=== PATIENT | female | born 1990 | race Caucasian/White ===

== ENCOUNTER 2024-12-18 13:20 | Outpatient (CLI) | payer OTHER, SELFPAY ==
[2024-12-18] MEDS: Lactated Ringers 1,000 ML 999 ML IV (13:35)
[2024-12-18 13:49] VITALS: BMI 30.6
--- NOTE | 2024-12-18 15:35 | OB.TRI.NOTE ---
HPI - General HPI Narrative ESPERANZA PEDRO, is a 34 F approximately 7 weeks gestation who presents to L&D for IV fluids due to hyperemesis. Patient has been unable to keep any food or liquids down for over 2 days. Thought she felt better today and ate but threw it up in parking lot. Only able to use Phenergan 25 mg AK. Cannot keep oral Zofran down. It has been recommended to patient for a Zofran pump but patient is declining consultation at this time. PFSH PFSH Allergy/AdvReac Type Severity Reaction Status Date / Time No Known Allergies Allergy Verified 12/18/24 14:03 ROS Eyes Eyes: Denies blurry vision Cardiovascular Cardiovascular: Reports none; Denies chest pain at rest or chest pain with activity Respiratory/Chest Respiratory/Chest: Denies cough or dyspnea Gastrointestinal Gastrointestinal: Reports as per HPI, dry heaves, nausea, vomiting and other Genitourinary Genitourinary: Denies dysuria Musculoskeletal Musculoskeletal: Reports none Integumentary Integumentary: Reports none; Denies rash Neurologic Neurologic: Denies dizziness, headache(s) or other visual disturbances Psychiatric Psychiatric: Reports none Physical Exam Const alert and no apparent distress General Appearance: cooperative Orientation / Consciousness: awake Exam Limitations: no limitations HEENT normocephalic Eyes General Eye: normal appearance of both eyes Neck full ROM Chest inspection of chest normal Resp normal respiratory effort and normal air movement Effort and Inspection: symmetric chest movement Auscultation: clear to auscultation bilaterally Cardio regular rate GI soft to palpation, non-tender and non-distended Inspection: and other Back/Spine normal ROM Extremity full ROM, normal capillary refill and no calf tenderness Skin no rashes or lesions noted Neuro oriented x3 and CN's II-XII intact bilaterally Psych mental status grossly normal Assessment & Plan (1) Nausea/vomiting in : (2) 7 weeks gestation of : PLAN: Plan LR 1000 cc fluid bolus given Zofran 4 mg IV x 1 No emesis since arrival to unit Reports feeling better since IV- may need appointments at infusion therapy D/C home with follow up in office
== END 2024-12-18 15:50 | disposition home or self-care (01) ==
LOC: WPOUT 13:46 → WP 13:47
PROVIDERS: Referring Provider Advanced Practice Midwife; Visit Provider Advanced Practice Midwife
DX: O21.0 Mild hyperemesis gravidarum (principal); Z3A.01 Less than 8 weeks gestation of pregnancy
CPT/HCPCS: 96374; 99221; G0378; J2405

== ENCOUNTER 2025-05-08 13:00 | Outpatient (CLI) | payer OTHER, SELFPAY ==
[2025-05-08 13:35] VITALS: BMI 32.9
--- NOTE | 2025-05-08 13:37 | OB.TRI.HP_ITS ---
HPI - General HPI Narrative ESPERANZA PEDRO, is a 35 F @ 27.4 weeks with Cholestasis of who presents with itching all over, N/V, Diarrhea for the last 24 hrs. pt reports not able to keep fluids down. has had headache associated due to likely dehydration. reports mucous discharge but no bleeding. has some cramping but no thing too painful. pt reports decreased movement but is feeling some. pt offers no other concerns. no sick contact. no fever, no chills. PFSH PFSH Medical History (Updated 05/08/25 @ 13:[address] MD) Nausea/vomiting in Home Medications ?Medication ?Instructions ?Recorded ?Last Taken ?Type aspirin 81 mg chewable tablet 1 tab PO DAILY 05/08/25 Unknown History (Aspirin Childrens) Allergy/AdvReac Type Severity Reaction Status Date / Time latex Allergy Intermediate Rash Verified 05/08/25 13:12 Physical Exam Narrative Gen: female in NAD Abd; soft, gravid, non tender Assessment & Plan (1) Cholestasis during : (2) Diarrhea during : PLAN: Plan @ 27.4 weeks- n/V, pruritis, cholestasis 1) check CMP, Amylase, lipase and UA 2) IVF 3) PO challenge 4) Zofran PRn
[2025-05-08] MEDS: Lactated Ringers 1,000 ML 999 ML IV (13:53)
[2025-05-08 14:28] LABS: AST(SGOT) 31 U/L (<=31); Alanine Aminotransfer ALT/SGPT 26 U/L (<=34); Albumin, Serum 3.6 g/dL (3.5-5.0); Alkaline Phosphatase 84 U/L (35-104); Anion Gap 14 (5-15); BUN 9 mg/dL (4-19); BUN/Creat Ratio 17.3 RATIO (10-20); Calcium,Total 8.8 mg/dL (7.6-11.0); Carbon Dioxide 19.2 mmol/L (21.0-32.0); Chloride 102 mmol/L (98-108); Estimated Creatinine Clearance 168.82 ml/min (50-250); Globulin 3.3 g/dL (2.2-4.2); Glucose 100 mg/dL (70-99); Potassium 3.5 mmol/L (3.3-5.1)
[2025-05-08 14:57] LABS: Amylase 47 U/L (28-100); Lipase 30 U/L (13-75)
--- NOTE | 2025-05-08 15:13 | PCM.PN.BLA ---
Progress Note will give PO challenge - if tolerates will dc home with zofran. feeling better after 1liter bolus and zofran.
[2025-05-08 15:17] LABS: Color, Urine Yellow (Yellow); Glucose, Dipstick Normal (Normal); Leukocyte Esterase-Dipstick Negative /ul (Negative); Nitrite-Dipstick Negative (Negative); Occult Blood-Urine Negative /ul (Negative); Protein-Dipstick 15 mg/dl (Negative); Specific Gravity, Urine 1.015 (1.002-1.030); Urine Bilirubin Dipstick Negative (Negative)
[2025-05-08 15:22] LABS: Ketone-Dipstick 150 mg/dl (Negative)
--- OUTSIDE RECORDS SUMMARY | 2025-05-08 18:30 | XMS RPT_ITS | CCD ---
Author Organization [facility] Care Team Providers Care Tube Drawing Supervisor Name Role Phone PROVIDER, UNKNOWN Admitting Unavailable PROVIDER, UNKNOWN Attending Unavailable Required, No Pcp Unavailable Unavailable Remigio Jesus Unavailable Jonn Lofton Unavailable Nathanael Coyne Unavailable Unavailable Samia Montano Unavailable Unavailable Ms. Nathanael Coyne Attending Unavailable Jonn Lofton Unavailable Unavailable Unavailable Jonn Lofton MD Primary Care Provider Maude Jones MD Primary Care Provider Maude Jones MD Unavailable No, Physician Primary Care Provider Unavailabl e Jonn Lofton Primary Care Provider Jonn Lofton Unavailable MAUDE JONES Primary Care Unavailable VESNA HILL Attending Unavailable MAUDE JONES Primary Care Unavailable NO, PHYSICIAN Primary Care Unavailable SEBASTIANIMORE, ZOFIA BROWN Attending Unava ilable TONYA CHERRY Attending Unavail able NO, PHYSICIAN Primary Care Unavailable MASIMORE, ZOFIA TRISTANRIA Admitting Unava ilable MASIMORE, ZOFIA BROWN Referring Unava ilable NO, PHYSICIAN Primary Care Unavailable GREGG CAMPOS Attending Unavailable NO, PHYSICIAN Primary Care Unavailable MASIMORE, ZOFIA BROWN Attending Unava ilable NO, PHYSICIAN Primary Care Unavailable MASIMORE, ZOFIA TRISTANRIA Admitting Unava ilable MASIMORE, ZOFIA TRISTANRIA Referring Unava ilable NO, PHYSICIAN Primary Care Unavailable NO, PHYSICIAN Primary Care Unavailable NO, PHYSICIAN Primary Care Unavailable ERICBENI SCHNEIDERPj BROWN Referring Unava ilable NO, PHYSICIAN Primary Care Unavailable KIMBERLEY SANDOVAL Attending Unavailabl e MISAEL GARSIA Consulting Unavailable MISAEL GARSAI Admitting Unavailable MELANI HU Referring Unavailable NO, PHYSICIAN Primary Care Unavailable BOB WILHELM Consulting Unavailable LYNDON HANSON Attending Unavailable NO, PHYSICIAN Primary Care Unavailable NO, PHYSICIAN Primary [facility] [place] [facility] Vesna Hill DO Unavailable Lisbet Saini CNM Attending Provider Lisbet Saini CNM Referring Provider Lisbet Saini Referring Unavailable Lisbet Saini Attending Unavailable [facility] Primary Care Unavailable [facility] Primary Care Unavailable [facility] Primary Care Unavailable LIZANDRO PORTILLO Attending Unavailable [facility] Primary Care Unavailable SOTERO CHAN Attending Unavailable SOTERO CHAN Referring Unavailable [facility] Primary Care Unavailable Karen [facility] Unavailable LISBET SAINI Attending Un[facility] Unavailabl e JOSEE BARKSDALE Attending Unavail able SNOW, KAY Referring Unavailable [facility] Care Unavailabl e SNOW, KAY Referring Unavailable [facility], [facility] Primary Care Unavailabl e SNOW, KAY Referring Unavailable AYAN, JONN SVETLANA Primary Care Unavailabl e SNOW, KAY Attending Unavailable [facility], [facility] Primary Care Unavailabl e LISBET SAINI Attending Unavailable [facility], [facility] Primary Care Unavailabl e [facility] Attending Unavailable SNOW, KAY Referring Unavailable AYAN, JONN SVETLANA Primary Care Unavailabl e SNOW, KAY Referring Unavailable [facility], [facility] Primary Care Unavailabl e ESPERANZA PRAJAPATI Attending Unavailable SNOW, KAY Referring Unavailable AYAN, [facility] Primary Care Unavailabl e Allergies Allergy Classification Reported Allergen(s) Allergy Type Date of Onset Reaction(s) Facility (9 sources) Latex; Translations: [LATEX] Drug Allergy 06-25-2016 Rash [facility] Medications Current Medications Medication Drug Class(es) Dates Sig (Normalized) Sig (Original) amoxicillin 500 mg oral capsule (1 source) Penicillin-class Antibacterial Start: 05-08-2021 End: 05-17-2021 take 1 capsule by mouth three times daily amoxicillin 500 mg oral capsule ; 1 cap(s) orally 3 times a day Quantity: 30 Refills: 0 Ordered: 08-May-2021 Remigio Jesus Start: 08-May-2021 End: 17-May-2021 Generic Substitution Allowed Comments: Finish all this medication unless otherwise directed by prescriber. Comment on above: Finish all this medi cation unless otherwise directed by prescriber. aspirin 81 mg delayed release oral tablet (8 sources) Platelet Aggregation Inhibitor, Nonsteroidal Anti-inflammatory Drug Start: 12-31-2024 take 1 tablet by mouth once daily aspirin, enteric coated (ECOTRIN LOW STRENGTH) 81 mg EC tablet Indications: 9 weeks gestation of (HCC) Take 1 tablet by mouth once daily. 90 tablet 3 12/31/2024 Active brompheniramine maleate 0.4 mg/ml / dextromethorphan hydrobromide 2 mg/ml / pseudoephedrine hydrochloride 6 mg/ml oral solution (1 source) alpha-Adrenergic Agonist, Uncompetitive S-opicrv-M-aspartate Receptor Antagonist, Sigma-1 Agonist Start: 05-08-2021 take 5 mL by mouth four times daily brompheniramine/ps eudoephedrine/dext romethorphan [id number]/5 mL oral syrup ; 5 milliliter(s) orally 4 times a day Quantity: 200 Refills: 0 Ordered: 08-May-2021 Remigio Jesus Start: 08-May-2021 Generic Substitution Allowed Comments: May cause drowsiness. Alcohol may intensify this effect. Use care when operating dangerous machinery.Obtain medical advice before taking any non-prescription drugs as some may affect the action of this medication. Comment on above: May cause drowsiness . Alcohol may intensify this effect. Use care when operating dangerous machinery.Obtain medical advice before taking any non-prescription drugs as some may affect the action of this medication. cephalexin 500 mg oral capsule (2 sources) Cephalosporin Antibacterial Start: 12-11-2024 End: 12-21-2024 take 1 capsule by mouth four times daily cephalexin (Keflex) 500 mg capsule Indications: UTI (urinary tract infection), bacterial Take 1 capsule (500 mg) by mouth 4 times a day for 10 days. 40 capsule 12/11/2024 12/21/2024 Active clindamycin 20 mg/ml vaginal cream (1 source) Lincosamide Antibacterial Start: 06-21-2022 clindamycin 2% vaginal cream ; 1 applicatorful intravaginally into vagina once daily at night for 7 days Quantity: 35 Refills: 0 Ordered: 21-Jun-2022 Nathanael Coyne Start: 21-Jun-2022 Generic Substitution Allowed Comments: For vaginal use. Comment on above: For vaginal use. doxycycline monohydrate 100 mg oral capsule (1 source) Tetracycline-class Drug Start: 02-14-2024 End: 02-14-2024 take 2 capsules by mouth once doxycycline monohydrate (MONODOX) 100 mg capsule Take 2 capsules by mouth one time only for 1 dose. 2 capsule 02/14/2024 02/14/2024 Active drospirenone / Ethinyl Estradiol / levomefolate (1 source) Progestin, Estrogen Start: 02-07-2024 take 1 tablet by mouth once daily drospirenone-e.est radioL-lm.FA 3-0.02-0.451 mg (24) (4) Tab Take 1 (one) tablet by mouth daily . 84 tablet 4 02/07/2024 Active fluconazole 150 mg oral tablet (1 source) Azole Antifungal Start: 06-21-2022 Diflucan 150 mg oral tablet ; 1 tab(s) orally once today, in 3 days and in 7 days Quantity: 3 Refills: 0 Ordered: 21-Jun-2022 Nathanael Coyne Start: 21-Jun-2022 Generic Substitution Allowed Comments: Do not take this drug if you are .Finish all this medication unless otherwise directed by prescriber. Comment on above: Do not take this mary g if you are .Finish all this medication unless otherwise directed by prescriber. ipratropium bromide 0.042 mg/actuat metered dose nasal spray (1 source) Anticholinergic Start: 05-08-2021 End: 05-12-2021 ipratropium 42 mcg/inh (0.06%) nasal spray ; 2 spray(s) intranasally every 8 hours Quantity: 1 Refills: 0 Ordered: 08-May-2021 Remigio Jesus Start: 08-May-2021 End: 12-May-2021 Generic Substitution Allowed Comments: For the nose.It is very important that you take or use this exactly as directed. Do not skip doses or discontinue unless directed by your doctor. Comment on above: For the nose.It is v cornell important that you take or use this exactly as directed. Do not skip doses or discontinue unless directed by your doctor. magnesium oxide 400 mg oral tablet (13 sources) End: 12-18-2024 magnesium oxide (Mag-Ox) 400 mg tablet 1 tablet (400 mg) once daily. Active omega 1-drm-nfu-fish oil (Fish OiL) 1,000 mg (120 mg-180 mg) capsule (7 sources) omega 6-dgz-uir-fish oil (Fish OiL) 1,000 mg (120 mg-180 mg) capsule Take by mouth. Active plecanatide 3 mg oral tablet (7 sources) Start: 12-20-2023 End: 12-19-2023 take 1 tablet by mouth once daily plecanatide (Trulance) tablet tablet Indications: Chronic idiopathic constipation Take 1 tablet (3 mg) by mouth once daily. 90 tablet 3 12/20/2023 Active predniSONE 10 mg oral tablet (1 source) Start: 05-08-2021 End: 05-14-2021 take 3 tablets by mouth once daily at mealtime predniSONE 10 mg oral tablet ; 3 tab(s) orally once a day Quantity: 21 Refills: 0 Ordered: 08-May-2021 Remigio Jesus Start: 08-May-2021 End: 14-May-2021 Generic Substitution Allowed Comments: It is very important that you take or use this exactly as directed. Do not skip doses or discontinue unless directed by your doctor.Obtain medical advice before taking any non-prescription drugs as some may affect the action of this medication.Take with food or milk. Comment on above: It is very important that you take or use this exactly as directed. Do not skip doses or discontinue unless directed by your doctor.Obtain medical advice before taking any non-prescription drugs as some may affect the action of this medication.Take with food or milk. Ezrcnrzd-Za-Fvs-Fe-FA tab (20 sources) take 1 tablet by mouth once Kvbzzdci-Vy-Xeb-Fe -FA tab Take 1 tablet by mouth. Active take 1 tablet by mouth once Pren atal Nakzyldh-Ib-Gst-Fe-FA tab Take 1 tablet by mouth. 0 Active vitamin with Ca-Iron-FA 27-1 mg Tab (2 sources) take 1 tablet by mouth once daily vitamin with Ca-Iron-FA 27-1 mg Tab Take 1 (one) tablet by mouth daily . Active promethazine hydrochloride 25 mg oral tablet (15 sources) Phenothiazine Start: 12-31-2024 take 1 tablet by mouth every four hours as needed promethazine (PHENERGAN) 25 mg tablet Take 1 tablet by mouth every 4 hours as needed for nausea/vomiting. 60 tablet 1 12/31/2024 Active Start: 12-16-2024 End: 12-31-2024 take 25 mg rectal route every six hours as needed promethazine (PHENERGAN) 25 mg suppository 1 suppository by RECTAL route every 6 hours as needed. 12 each 12/16/2024 12/31/2024 Discontinued (Course of therapy completed) Start: 12-11-2024 End: 12-18-2024 take 1 tablet by mouth every six hours for nausea promethazine (Phenergan) 25 mg tablet Indications: Nausea and vomiting in Take 1 tablet (25 mg) by mouth every 6 hours if needed for nausea or vomiting for up to 7 days. 20 tablet 12/11/2024 12/18/2024 Active rho(d) immune globulin, human 1500 unt prefilled syringe (3 sources) Human Immunoglobulin G Start: 04-27-2023 End: 04-28-2023 rho(D) immune globulin (RHOGAM) injection 300 mcg Start: 04-26-2023 End: 04-26-2023 rho(D) immune globulin (RHOG AM) injection 300 mcg Start: 04-26-2023 End: 04-26-2023 rho(D) immune globulin (RHOG AM) injection 300 mcg vitamin b12 0.1 mg oral tablet (7 sources) Vitamin B12 take 1 tablet by mouth once daily cyanocobalamin (Vitamin B-12) 100 mcg tablet Take 1 tablet (100 mcg) by mouth once daily. Active Completed/Discontinued Medications Medication Drug Class(es) Dates Sig (Normalized) Sig (Original) acetaminophen 325 mg oral tablet (1 source) Start: 04-27-2023 End: 04-27-2023 take 1 tablet by mouth every four hours as needed for headache acetaminophen (TYLENOL) tablet 650 mg acetaminophen 325 mg / HYDROcodone bitartrate 5 mg oral tablet (5 sources) Opioid Agonist Start: 02-07-2024 End: 02-10-2024 HYDROcodone-acetami nophen (NORCO) 5-325 mg per tablet Indications: , missed , demise due to miscarriage Take 1 (one) tablet by mouth every 6 (six) hours as needed for pain (Days supply per fill: 3) . 4 tablet 02/07/2024 02/10/2024 Start: 04-27-2023 End: 04-27-2023 take 1 tablet by mouth every four hours as needed HYDROcodone-acetaminophen (NORCO) 5-325 mg per tablet 1 tablet Start: 04-26-2023 End: 04-29-2023 HYDROcodone-acetaminophen (N ORCO) 5-325 mg per tablet Indications: Missed Take 1 (one) tablet by mouth every 4 (four) hours as needed for pain (Days supply per fill: 3) . 18 tablet 0 04/26/2023 04/29/2023 calcium chloride 0.0014 meq/ml / potassium chloride 0.004 meq/ml / sodium chloride 0.103 meq/ml / sodium lactate 0.028 meq/ml injectable solution (3 sources) Start: 12-12-2023 End: 12-13-2023 take 20 mL intravenously every hour 20 mL/hr, intravenous, Continuous, Starting on Mon12/12/23 at 1145, Preprocedure Start: 04-27-2023 End: 04-27-2023 lactated Ringers infusion cefTRIAXone 1000 mg injection (1 source) Cephalosporin Antibacterial Start: 12-10-2024 End: 12-11-2024 1 g, intravenous, at 100 mL/hr, Administer over 30 Minutes, Once, On Mon12/10/24 at 2230, For 1 dose, premix bag, Suspected Indication (Select all that apply): Urinary Tract Infection, Type of Therapy: Empiric, Type of Urinary Tract Infection: Uncomplicated, Indications: Urinary Tract Infection clonazePAM 0.5 mg oral tablet (4 sources) Benzodiazepine End: 02-14-2024 take 1 tablet by mouth every twelve hours as needed clonazePAM (KLONOPIN) 0.5 mg tablet Take 0.5 mg by mouth twice daily as needed. 02/14/2024 Discontinued diphenhydrAMINE (2 sources) Histamine-1 Receptor Antagonist Start: 12-12-2023 End: 12-12-2023 intravenous, As needed, Starting on Mon12/12/23 at 1205, Intraprocedure folic acid 1 mg oral tablet (14 sources) End: 12-18-2024 folic acid 1 mg tablet Take 1 mg by mouth. 12/18/2024 Discontinued glucagon (rdna) 1 mg injection (2 sources) Antihypoglycemic Agent Start: 12-12-2023 End: 12-12-2023 intravenous, As needed, Starting on Mon12/12/23 at 1156, Intraprocedure ibuprofen 800 mg oral tablet (7 sources) Nonsteroidal Anti-inflammatory Drug Start: 02-07-2024 End: 02-08-2025 take 1 tablet by mouth every six hours as needed ibuprofen (MOTRIN) 800 mg tablet Take 800 mg by mouth every 6 hours as needed. 02/09/2024 12/16/2024 Discontinued Start: 04-27-2023 End: 04-27-2023 take 1 tablet by mouth every six hours as needed for pain ibuprofen (ADVIL,MOTRIN) tablet 600 mg 2 ml ketorolac tromethamine 30 mg/ml injection (3 sources) Nonsteroidal Anti-inflammatory Drug, Cyclooxygenase Inhibitor Start: 02-14-2024 End: 02-14-2024 inject 1 mL by intramuscular injection once keTORolac (TORADOL) 60 mg/2 mL soln Inject 1 mL intramuscularly one time only for 1 dose. 1 mL 02/14/2024 02/14/2024 Discontinued (Other) Start: 02-14-2024 End: 02-14-2024 keTORolac 30 mg injection (T oradol) Start: 02-14-2024 End: 02-14-2024 30 mg, INTRAMUSCULAR, ONCE, 1 dose, On Mon02/14/24 at 1030, Ketorolac (Toradol) is indicated for the short-term (up to 5 days) management of moderately severe acute pain. Continuation of ketorolac (Toradol) beyond 5 days increases the risk of developing serious adverse events. Please verify the duration of therapy for ketorolac (Toradol), If ordered PRN for pain, patient/guardian may elect to receive this medication for higher pain levels INSTEAD of the opioid, if preferred: Yes lurasidone hydrochloride 20 mg oral tablet (4 sources) Atypical Antipsychotic End: 02-14-2024 take 1 tablet by mouth once daily lurasidone (LATUDA) 20 mg tablet Take 20 mg by mouth once daily. 02/14/2024 Discontinued Meperidine (2 sources) Opioid Agonist Start: 12-12-2023 End: 12-12-2023 intravenous, As needed, Starting on Mon12/12/23 at 1156, Intraprocedure 2 ml midazolam 5 mg/ml injection (2 sources) Benzodiazepine Start: 12-12-2023 End: 12-12-2023 intravenous, Administer over 5 Minutes, As needed, Starting on Mon12/12/23 at 1156, Intraprocedure miSOPROStol 0.2 mg oral tablet (1 source) Prostaglandin E1 Analog Start: 02-07-2024 End: 02-09-2024 take 4 tablets by mouth once daily miSOPROStoL (CYTOTEC) 200 MCG tablet Take 4 (four) tablets (800 mcg total) by mouth daily . 4 tablet 1 02/07/2024 02/09/2024 Discontinued (Reorder (Suppress CancelRx Message to Pharmacy)) naloxone (NARCAN) injection 0.1 mg (1 source) Start: 04-27-2023 End: 04-27-2023 naloxone (NARCAN) injection 0.1 mg No Reported Medications (5 sources) No Reported Medications Quantity: 0 Refills: 0 Ordered: 28-Jun-2022 DO Active 2 ml ondansetron 2 mg/ml injection (12 sources) Serotonin-3 Receptor Antagonist Start: 12-20-2024 End: 12-20-2024 4 mg, intravenous, Once, On Mon12/20/24 at 1915, For 1 dose, When administering via IV Push, administer over 3-5 minutes. Start: 12-10-2024 End: 12-10-2024 4 mg, intravenous, Once, On Mon12/10/24 at 2035, For 1 dose, When administering via IV Push, administer over 3-5 minutes. Start: 04-26-2023 End: 04-26-2023 ondansetron (ZOFRAN) injecti on 4 mg Ondansetron HCl/ D5W/PF (ZOFRAN, PF, IN DEXTROSE INTRAVEN.) Inject intravenously. Active promethazine (Phenergan) 12. 5 mg in sodium chloride 0.9% 50 mL IV (4 sources) Start: 12-25-2024 End: 12-25-2024 12.5 mg, intravenous, Administer over 15 Minutes, Once, On Mon12/25/24 at 2135, For 1 dose Start: 12-22-2024 End: 12-22-2024 12.5 mg, intravenous, Admini ster over 15 Minutes, Once, On Mon12/22/24 at 1230, For 1 dose Start: 12-20-2024 End: 12-20-2024 12.5 mg, intravenous, Admini ster over 15 Minutes, Once, On Mon12/20/24 at 2005, For 1 dose Start: 12-10-2024 End: 12-10-2024 12.5 mg, intravenous, Admini ster over 15 Minutes, Once, On Mon12/10/24 at 2235, For 1 dose 1000 ml sodium chloride 9 mg/ml injection (10 sources) Start: 12-25-2024 End: 12-25-2024 1,000 mL, intravenous, at 99 9 mL/hr, Administer over 1 Hours, Once, On Mon12/25/24 at 2135, For 1 dose Start: 12-22-2024 End: 12-23-2024 take 125 mL intravenously every hour 125 mL/hr, intravenous, Continuous, Starting on Mon12/22/24 at 1140, For 1 day Start: 12-20-2024 End: 12-20-2024 1,000 mL, intravenous, at 2, 000 mL/hr, Administer over 30 Minutes, Once, On Mon12/20/24 at 1810, For 1 dose Start: 12-10-2024 End: 12-10-2024 1,000 mL, intravenous, at 2, 000 mL/hr, Administer over 30 Minutes, Once, On Mon12/10/24 at 2035, For 1 dose Start: 04-26-2023 sodium chlorid e 0.9% infusion Start: 04-26-2023 End: 04-26-2023 sodium chloride 0.9 % bolus 1,000 mL Problems Active Problems Problem Classification Problem Date Documented Da te Episodic/Chronic Abdominal pain (20 sources) Pain in female pelvis; Translations: [Unspecified symptom associated with female genital organs] Onset: 10-25-2022 10-25-2022 Episodic Bacterial infection; unspecified site (3 sources) Bacterial infection, unspecified; Translations: [Other specified bacterial agents as the cause of diseases classified elsewhere] Onset: 12-10-2024 Episodic Conditions associated with dizziness or vertigo (5 sources) Dizziness; Translations: [Lightheadedness] Onset: 02-11-2024 Episodic Immunizations and screening for infectious disease (10 sources) Patient encounter status; Translations: [Screening examination for venereal disease] Onset: 12-31-2024 10-25-2022 Episodic Inflammatory diseases of female pelvic organs (5 sources) Acute vaginitis; Translations: [Vaginitis and vulvovaginitis, unspecified] Onset: 06-21-2022 06-21-2022 Episodic Menstrual disorders (11 sources) Menorrhagia; Translations: [Excessive and frequent menstruation with regular cycle] Onset: 10-25-2022 10-25-2022 Chronic Mood disorders (16 sources) Bipolar disorder in remission; Translations: [Bipolar disorder, currently in remission, most recent episode unspecified] Onset: 10-25-2022 10-25-2022 Chronic Other complications of (1 source) Hyperemesis gravidarum; Translations: [Mild hyperemesis gravidarum] 12-22-2024 Episodic Other complications of (12 sources) High risk ; Translations: [Supervision of elderly multigravida, unspecified trimester] Onset: 12-31-2024 12-31-2024 Episodic Other complications of (4 sources) Mild hyperemesis gravidarum; Translations: [Mild hyperemesis gravidarum (HHS-HCC)] Onset: 12-22-2024 Episodic Other complications of (2 sources) Mild hyperemesis gravidarum; Translations: [Mild hyperemesis gravidarum] 01-22-2025 Episodic Other complications of (1 source) Supervision of elderly multigravida, second trimester; Translations: [Multigravida of advanced maternal age in second trimester ([facility])] Onset: 02-19-2025 Episodic Other complications of (1 source) Other specified related conditions, first trimester; Translations: [Rh negative status during in first trimester, antepartum ([facility])] Onset: 02-19-2025 Episodic Other complications of (1 source) Other specified related conditions, unspecified trimester; Translations: [Pain of pelvic girdle during ([facility])] Onset: 02-19-2025 Episodic Other complications of (1 source) Supervision of elderly multigravida, unspecified trimester; Translations: [Supervision of high-risk of elderly multigravida ([facility])] Onset: 12-31-2024 Episodic Other female genital disorders (1 source) Profuse vaginal bleeding; Translations: [Abnormal uterine and vaginal bleeding, unspecified] 04-26-2023 Chronic Other female genital disorders (1 source) Vaginal bleeding; Translations: [Abnormal uterine and vaginal bleeding, unspecified] 04-26-2023 Chronic Other female genital disorders (2 sources) Abnormal uterine and vaginal bleeding, unspecified; Translations: [Abnormal uterine and vaginal bleeding, unspecified] Onset: 04-26-2023 Chronic Other female genital disorders (2 sources) Vaginal discomfort 06-21-2022 Episodic Comment on above: VAGINAL DISCOMFORT Other female genital disorders (2 sources) Other specified noninflammatory disorders of vagina; Translations: [Other specified noninflammatory disorders of vagina] Onset: 06-21-2022 Episodic Other female genital disorders (5 sources) Vaginal discharge; Translations: [Leukorrhea, not specified as infective] Episodic Other female genital disorders (1 source) Vaginal odor; Translations: [Other specified noninflammatory disorders of vagina] 01-31-2025 Episodic Other gastrointestinal disorders (4 sources) Chronic idiopathic constipation; Translations: [Chronic idiopathic constipation] Onset: 11-30-2023 Chronic Other gastrointestinal disorders (12 sources) Chronic idiopathic constipation; Translations: [Chronic idiopathic constipation] Onset: 11-30-2023 12-12-2023 Chronic Other inflammatory condition of skin (16 sources) Psoriasis; Translations: [Psoriasis, unspecified] Onset: 06-06-2023 06-06-2023 Chronic Other and delivery including normal (10 sources) Delivery normal; Translations: [Normal delivery] Onset: 01-25-2024 01-25-2024 Episodic Comment on above: 10/05/2008; 38 WEEKS; VAGINAL; FEMALE; 6LBS06/25/2016; 40 WEEKS; VAGINAL; MALE; 8LBS; Other screening for suspected conditions (not mental disorders or infectious disease) (1 source) Ultrasound scan abnormal; Translations: [Abnormal findings on diagnostic imaging of other specified body structures] 2024 Chronic Other screening for suspected conditions (not mental disorders or infectious disease) (9 sources) Cancer cervix screening status; Translations: [Screening for malignant neoplasms of cervix] Onset: 03-21-2023 Episodic Other upper respiratory infections (3 sources) Acute sinusitis; Translations: [Acute pansinusitis] 05-08-2021 Episodic Comment on above: SINUS INFECTION Residual codes; unclassified (1 source) Gestation period, 6 weeks; Translations: [Less than 8 weeks gestation of ] 2024 Episodic Residual codes; unclassified (1 source) Gestation period, 8 weeks; Translations: [8 weeks gestation of ] 02-14-2024 Episodic Residual codes; unclassified (3 sources) Gestation period, 7 weeks; Translations: [Less than 8 weeks gestation of ] 12-16-2024 Episodic Residual codes; unclassified (4 sources) Gestation period, 9 weeks; Translations: [9 weeks gestation of ] 12-31-2024 Episodic Residual codes; unclassified (1 source) Gestation period, 12 weeks; Translations: [12 weeks gestation of ] 01-22-2025 Episodic Residual codes; unclassified (1 source) Gestation period, 13 weeks; Translations: [13 weeks gestation of ] 01-31-2025 Episodic Residual codes; unclassified (1 source) 20 weeks gestation of ; Translations: [20 weeks gestation of (HCC)] Onset: 03-19-2025 Episodic Residual codes; unclassified (1 source) 16 weeks gestation of ; Translations: [16 weeks gestation of (HCC)] Onset: 02-19-2025 Episodic Residual codes; unclassified (1 source) Unspecified blood type, Rh negative; Translations: [Rh negative status during in first trimester, antepartum (HCC)] Onset: 02-19-2025 Episodic Residual codes; unclassified (1 source) 13 weeks gestation of ; Translations: [13 weeks gestation of (HCC)] Onset: 01-31-2025 Episodic Residual codes; unclassified (1 source) 12 weeks gestation of ; Translations: [12 weeks gestation of (HCC)] Onset: 01-22-2025 Episodic Residual codes; unclassified (1 source) 9 weeks gestation of ; Translations: [9 weeks gestation of ([facility])] Onset: 01-22-2025 Episodic Screening and history of mental health and substance abuse codes (20 sources) H/O: anxiety state; Translations: [Personal history of other mental and behavioral disorders] Onset: 11-05-2015 05-17-2021 Episodic Spontaneous (8 sources) Miscarriage; Translations: [Complete or unspecified spontaneous without complication] Onset: 04-26-2023 04-26-2023 Episodic Unclassified (1 source) Acute non-recurrent pansinusitis 05-08-2021 Unclassified (1 source) POSS CYST 06-21-2022 Comment on above: POSS CYST Unclassified (8 sources) [facility] Education - COMMON Onset: 12-31-2024 12-31-2024 Unclassified (8 sources) Education - [place] Onset: 12-31-2024 12-31-2024 Unclassified (1 source) Pain of pelvic girdle during (HCC); Translations: [Pain of pelvic girdle during ([facility])] Onset: 02-19-2025 Urinary tract infections (3 sources) Bacterial urinary infection; Translations: [Urinary tract infection, site not specified] Onset: 12-10-2024 12-10-2024 Episodic Past or Other Problems Problem Classification Problem Date Documented Da te Episodic/Chronic Cancer of cervix (10 sources) History of malignant neoplasm of cervix; Translations: [Personal history of malignant neoplasm of cervix uteri] Onset: 10-25-2022 10-25-2022 Episodic Diabetes mellitus without complication (11 sources) Hyperglycemia; Translations: [Hyperglycemia, unspecified] Onset: 10-25-2022 10-25-2022 Episodic Diabetes or abnormal glucose tolerance complicating ; childbirth; or the puerperium (20 sources) Abnormal glucose level; Translations: [Abnormal glucose complicating ] Onset: 04-04-2016 Resolved: 06-04-2019 06-04-2019 Episodic Other complications of (6 sources) Missed miscarriage; Translations: [Missed ] Onset: 04-26-2023 04-27-2023 Episodic Other complications of (3 sources) Nausea and vomiting; Translations: [Vomiting of , unspecified] Onset: 11-05-2015 Resolved: 05-18-2016 05-17-2021 Episodic Other complications of (20 sources) Maternal tobacco use in ; Translations: [Smoking (tobacco) complicating , unspecified trimester] Onset: 11-05-2015 Resolved: 06-04-2019 05-17-2021 Episodic Other complications of (20 sources) RhD negative; Translations: [Other specified related conditions, first trimester] Onset: 12-16-2015 Resolved: 06-04-2019 06-04-2019 Episodic Other complications of (2 sources) Missed ; Translations: [Missed ] Onset: 04-26-2023 Episodic Other complications of (20 sources) Vomiting of , unspecified; Translations: [Unspecified vomiting of , unspecified as to episode of care or not applicable] Onset: 11-05-2015 Resolved: 05-18-2016 05-17-2021 Episodic Residual codes; unclassified (11 sources) Family history of diabetes mellitus; Translations: [Family history of diabetes mellitus] Onset: 10-25-2022 10-25-2022 Episodic Residual codes; unclassified (2 sources) Less than 8 weeks gestation of ; Translations: [Less than 8 weeks gestation of ] Onset: 12-16-2024 Episodic Unclassified (5 sources) Finding of menstrual bleeding; Translations: [Menstruation] Comment on above: AGE 8; Unclassified (10 sources) Onset: 10-25-2022 10-25-2022 Results Test Name Value Interpretation Reference Range Facility BACTERIAL VAGINOSIS NAATon 0 01-31-2025 Lactobacillus crispatus+gasseri+samuels ii + Gardnerella vaginalis + Atopobium vaginae rRNA EDIN+probe Ql (Vag fld) Not detected Normal Not detected [facility] Comment on above: Order Comment: Speci men Type: FLUID SPECIMEN [facility]ing Facility: [facility] Address: [address] [place] [address] [place] [id number] Performed By: #### L [id number] #### [facility] CLIA [id number] [address] [place] [address] [place] [facility] CLIA [id number] [address] [place] [address], [address] [place] [address] [place] MARGOTH/TRICHOMONAS NAATon 0 01-31-2025 C. glabrata RNA EDIN+probe Ql (Vag fld) Not detected Normal Not detected [facility] Comment on above: Order Comment: Speci men Type: FLUID SPECIMEN Ordering Facility: [facility] Address: [address] [place] [address] Performed By: #### L [id number] #### [facility] CLIA [id number] [address] [place] [address] [place] [facility] CLIA [id number] [address] [place] [address], [address] [place] [address] [place] Margoth sp DNA EDIN+probe Ql (Vag fld) Not detected Normal Not detected [facility] Comment on above: Order Comment: Speci men Type: FLUID SPECIMEN Ordering Facility: [facility] Address: [address] [place] [address] Result Comment: The Margoth species group target includes C. albicans, C. tropicalis, C. parapsilosis, and C. dubliniensis. Performed By: #### L [id number] #### [facility] CLIA [id number] [address] [place] [address] [place] [facility] CLIA [id number] [address] [place] [address], [address] [place] [address] [place] T. vaginalis DNA EDIN+probe Ql (Unsp spec) Not detected Normal Not detected [facility] Comment on above: Order Comment: Speci men Type: FLUID SPECIMEN Ordering Facility: [facility] Address: [address] [place] [address] Performed By: #### L [id number] #### [facility] CLIA [id number] [address] [place] [address], [place] [address] [place] [facility] CLIA [id number] [address] [place] [address] 3, [address] [place] [address] Gerald 01-28-2025 ONDINAN Telephone (OBGYWM) ---- MAYELAESPERANZA Linda ([id number]) 1990 F Date Time Provider Department 01/28/25 LISBET SAINI During your visit today, we recorded the following information about you: Kendell Coleman RN 01/28/2025 8:59 AM Signed Scan on 01/28/2025 12:54 AM by Provider, [facility]: Nausea \EANDE\ Vomiting in Please see attached scanned document from [facility] re: Zofran pump documentation from 01/19-01/25. Kendell Coleman RN Allergies As of Date: 01/28/2025 Noted Allergy Reaction LATEX 06/25/2016 2 - Rash Date Reviewed: 01/22/2025 Reviewed by: Saranya Davison MA - Fully Assessed Reason for Visit: Nausea [70] Prescriptions as of 01/28/2025 - aspirin, enteric coated (ECOTRIN LOW STRENGTH) 81 mg EC tablet Take 1 tablet by mouth once daily. - Ondansetron HCl/D5W/PF (ZOFRAN, PF, IN DEXTROSE INTRAVEN.) Inject intravenously. - promethazine (PHENERGAN) 25 mg tablet Take 1 tablet by mouth every 4 hours as needed for nausea/vomiting. - Mamzkphu-Dx-Zcw-Fe- FA tab Take 1 tablet by mouth. Problem List As Of Date 01/28/2025 Noted Resolved Nausea and vomiting during (HCC) [O21*11/05/2015 History of anxiety [Z86.59] 11/05/2015 Patient requested diagnostic testing [Z01.89] 11/05/2015 01/21/2016 Tobacco use in [O99.330] 11/05/2015 06/04/2019 Rh negative status during in first tr*12/16/2015 Abnormal glucose complicating [O99.81*04/04/2016 06/04/2019 Supervision of high-risk of elderly m*12/31/2024 Encounter Status:Closed by KENDELL COLEMAN on 01/28/25 Normal [facility] Examination level ultrasound on 01-23-2025 Indication First trimester anatomic survey Advanced maternal age, Maternal obesity, BMI >30 Impression The patient is referred for a first trimester anatomy scan including nuchal translucency measurement as clinically indicated. - Single, live, intrauterine . - [place] rump length measurement is consistent with the established gestational age. - A qualitative screen of the nuchal translucency and other anatomic structures was unremarkable on a complete first trimester anatomic assessment. - Not all structural malformations can be detected by ultrasound examination. - A standard anatomic survey at 16 weeks and a detailed exam at 20 weeks is recommended for increased risk. Recommendations - A standard anatomic survey at 16 weeks and a detailed exam at 20 weeks for increased risk. - Additional follow up as clinically indicated. Maternal Assessment Height 165 cm Height (ft) 5 ft Height (in) 5 in Physical Exam Initial weight (lb) 182 lb Initial BMI 30.29 kg/m Maternal assessment other: 5 Para 2 REMOTE READ Method Transabdominal ultrasound examination [place] . Number of fetuses: 1 Dating LMP on: 10/27/2024 GA by LMP 12 w + 3 d SHREYA by LMP: 08/03/2025 GA by prior assessment 12 w + 3 d SHREYA by prior assessment: 08/03/2025 Ultrasound examination on: 01/22/2025 GA by U/S based upon: CRL GA by U/S 12 w + 4 d SHREYA by U/S: 08/02/2025 Assigned: based on stated SHREYA, selected on 01/22/2025 Assigned GA 12 w + 3 d Assigned SHREYA: 08/03/2025 General Evaluation Cardiac activity present Placenta: anterior Cord vessels: 3 vessel cord Amniotic fluid: normal amount Biometry Standard FHR 156 bpm CRL 61.6 mm 12w 4d 51% [place] First Trimester Anatomy Calvarium: normal Falx cerebri: normal Choroid plexus: normal Profile: normal Nasal bone: normal Retronasal triangle: normal Maxilla: normal Mandible: normal Nuchal translucency: Unremarkable Situs: normal Cardiac position: normal Cardiac axis: normal 4-chamber view: normal 4-chamber view with color: normal 8-bmkndi-qqlznkf view: normal Abdominal cord insertion: normal Stomach: normal Kidneys: normal Bladder: normal Color doppler of perivesical umbilical arteries: normal Vertebral alignment: normal Arms: normal Hands: normal Legs: normal Feet: normal Maternal Structures Uterus / Cervix Uterus: Visualized Uterus length 141 mm Uterus width 104 mm Uterus height 96 mm Uterus Vol 730.5 cm Ovaries / Tubes / Adnexa Rt ovary: Visualized Rt ovary D1 17 mm Rt ovary D2 19 mm Rt ovary D3 19 mm Rt ovary Vol 3.2 cm Lt ovary: Visualized Lt ovary D1 32 mm Lt ovary D2 28 mm Lt ovary D3 17 mm Lt ovary Vol 7.9 cm Performed By: Luisana Perry RDMS, RVT Read By: Adilene Wilcox M.D. MATERNAL MEDICINE [facility] Examination level ultrasound on 01-22-2025 Radiology Study observation (narrative) [facility] CBC W Auto Differential pane l (Bld)on 01-15-2025 Basophils (Bld) [#/Vol] 0.04 10*3/uL Normal <0.11 [facility] Comment on above: Order Comment: Speci men Type: BLOOD SPECIMEN Ordering Facility[facility] Address: [address] [place] [address] Performed By: #### 5 7021-8 #### [facility] CLIA [id number] [address] [place] [address] [place] Basophils/100 WBC (Bld) 0.4 % Normal C [facility] Comment on above: Order Comment: Speci men Type: BLOOD SPECIMEN Ordering Facility: [facility] Address: [address] [place] [address] Performed By: #### 5 7021-8 #### [facility] CLIA [id number] [address] [place] [address] [place] Differential cell count method Nom (Bld) Auto Normal [facility] Comment on above: Order Comment: Speci men Type: BLOOD SPECIMEN Ordering Facility: [facility] Address: [address] [place] [address] Performed By: #### 5 7021-8 #### [facility] CLIA [id number] [address] [place] [address] [place] Eosinophils (Bld) [#/Vol] 0.16 10*3/uL Normal <0.46 [facility] Comment on above: Order Comment: Speci men Type: BLOOD SPECIMEN Ordering Facility: [facility] Address: [address] [place] [address] Performed By: #### 5 7021-8 #### [facility] CLIA [id number] [address] [place] [address] [place] Eosinophils/100 WBC (Bld) 1.6 % Normal [facility] Comment on above: Order Comment: Speci men Type: BLOOD SPECIMEN Ordering Facility: [facility] Address: [address] [place] [address] Performed By: #### 5 7021-8 #### [facility] CLIA [id number] [address] [place] [address] [place] Erythrocyte distribution width (RBC) [Ratio] 13.2 % Normal 11.5-15.0 [facility] Comment on above: Order Comment: Speci men Type: BLOOD SPECIMEN Ordering Facility: [facility] Address: [address] [place] [address] Performed By: #### 5 7021-8 #### [facility] CLIA [id number] [address] [place] [address] [place] Hematocrit (Bld) [Volume fraction] 38.4 % Normal 36.0-46.0 [facility] Comment on above: Order Comment: Speci men Type: BLOOD SPECIMEN Ordering Facility: [facility] Address: [address] [place] [address] Performed By: #### 5 7021-8 #### [facility] CLIA [id number] [address] [place] [address] [place] Hemoglobin (Bld) [Mass/Vol] 13.1 g/dL Normal 11.5-15.5 [facility] Comment on above: Order Comment: Speci men Type: BLOOD SPECIMEN Ordering Facility: [facility] Address: [address] [place] [address] Performed By: #### 5 7021-8 #### [facility] CLIA [id number] [address] [place] [address] [place] Immature granulocytes (Bld) [#/Vol] 0.03 10*3/uL Normal <0.10 [facility] Comment on above: Order Comment: Speci men Type: BLOOD SPECIMEN Ordering Facility: [facility] Address: [address] [place] [address] Performed By: #### 5 7021-8 #### [facility] CLIA [id number] [address] [place] [address] [place] Immature granulocytes/100 WBC (Bld) 0.3 % Normal [facility] Comment on above: Order Comment: Speci men Type: BLOOD SPECIMEN Ordering Facility: [facility] Address: [address] [place], [place] [id number] Performed By: #### 5 7021-8 #### [facility] CLIA [id number] [address] [place] [address] [place] Lymphocytes (Bld) [#/Vol] 2.06 10*3/uL Normal 1.00-4.00 [facility] Comment on above: Order Comment: Speci men Type: BLOOD SPECIMEN Ordering Facility: [facility] Address: [address] [place] [address] Performed By: #### 5 7021-8 #### [facility] CLIA [id number] [address] [place] [address] [place] Lymphocytes/100 WBC (Bld) 20.8 % Normal [facility] Comment on above: Order Comment: Speci men Type: BLOOD SPECIMEN Ordering Facility: [facility] Address: [address] [place] [address] Performed By: #### 5 7021-8 #### [facility] CLIA [id number] [address] [place] [address] [place] MCH (RBC) [Entitic mass] 27.5 pg Normal 26.0-34.0 [facility] Comment on above: Order Comment: Speci men Type: BLOOD SPECIMEN Ordering Facility: [facility] Address: [address] [place], [place] [address] Performed By: #### 5 7021-8 #### [facility] CLIA [id number] [address] [place] [address] [place] MCHC (RBC) [Mass/Vol] 34.1 g/dL Normal 30.5-36.0 [facility] Comment on above: Order Comment: Speci men Type: BLOOD SPECIMEN Ordering Facility: [facility] Address: [address] [place], [place] [address] Performed By: #### 5 7021-8 #### [id number] [address] [place] [address] [place] MCV (RBC) [Entitic vol] 80.5 fL Normal 80.0-100.0 C [facility] Comment on above: Order Comment: Speci men Type: BLOOD SPECIMEN Ordering Facility: [facility] Address: [address] [place] [address] Performed By: #### 5 7021-8 #### [facility] CLIA [id number] [address] [place] [address] [place] Monocytes (Bld) [#/Vol] 0.49 10*3/uL Normal <0.87 [facility] Comment on above: Order Comment: Speci men Type: BLOOD SPECIMEN Ordering Facility: [facility] Address: [address] [place], [place] [id number] Performed By: #### 5 7021-8 #### [facility] CLIA [id number] [address] [place] [address] [place] Monocytes/100 WBC (Bld) 4.9 % Normal [facility] Comment on above: Order Comment: Speci men Type: BLOOD SPECIMEN Ordering Facility[facility] Address: [address] [place] [address] Performed By: #### 5 7021-8 #### [facility] CLIA [id number] [address] [place] [address] [place] Neutrophils (Bld) [#/Vol] 7.12 10*3/uL Normal 1.45-7.50 [facility] Comment on above: Order Comment: Speci men Type: BLOOD SPECIMEN Ordering Facility: [facility] Address: [address] [place] [address] Performed By: #### 5 7021-8 #### [facility] CLIA [id number] [address] [place] [address] [place] Neutrophils/100 WBC (Bld) 72.0 % Normal [facility] Comment on above: Order Comment: Speci men Type: BLOOD SPECIMEN Ordering Facility: [facility] Address: [address] [place] [address] Performed By: #### 5 7021-8 #### [facility] CLIA [id number] [address] [place] [address] [place] Nucleated RBC (Bld) [#/Vol] 10*3/uL Normal <0.01 [facility] Comment on above: Order Comment: Speci men Type: BLOOD SPECIMEN Ordering Facility[facility] Address: [address] [place] [address] Performed By: #### 5 7021-8 #### [facility] CLIA [id number] [address] [place] [address] [place] Nucleated RBC/100 WBC (Bld) [Ratio] 0.0 /100 WBC Normal [facility] Comment on above: Order Comment: Speci men Type: BLOOD SPECIMEN Ordering Facility[facility] Address: [address] [place], [place] [address] Performed By: #### 5 7021-8 #### [facility] CLIA [id number] [address] [place] [address] [place] Platelet mean volume (Bld) [Entitic vol] 9.3 fL Normal 9.0-12.7 [facility] Comment on above: Order Comment: Speci men Type: BLOOD SPECIMEN Ordering Facility[facility] Address: [address] [place] [address] Performed By: #### 5 7021-8 #### [facility] CLIA [id number] [address] [place] [address] [place] Platelets (Bld) [#/Vol] 269 10*3/uL Normal 150-400 [facility] Comment on above: Order Comment: Speci men Type: BLOOD SPECIMEN Ordering Facility[facility] Address: [address] [place] [address] Performed By: #### 5 7021-8 #### [facility] CLIA [id number] [address] [place] [address] [place] RBC (Bld) [#/Vol] 4.77 10*6/uL Normal 3.90-5.20 [facility] Comment on above: Order Comment: Speci men Type: BLOOD SPECIMEN Order[facility] Address: [address] [place] [address] Performed By: #### 5 7021-8 #### [facility] CLIA [id number] [address] [place] [address] [place] WBC (Bld) [#/Vol] 9.90 10*3/uL Normal 3.70-11.00 [facility] Comment on above: Order Comment: Speci men Type: BLOOD SPECIMEN Order[facility] Address: [address] [place] [address] Performed By: #### 5 7021-8 #### [facility] CLIA [id number] [address] [place] [address] [place] HBV surface Ag Ser Qlon 12-21 HBV surface Ag Ql (S) Negative Normal Negative [facility] Comment on above: Order Comment: Speci men Type: FLUID SPECIMEN Order[facility] Address: [address] [place] [address] Performed By: #### L [id number] #### [facility] CLIA [id number] [address] [place] [address] [place] [facility] CLIA [id number] [address] [place] [address], [address] [place] [address] [place] HCV Ab Ser Qlon 01-15-2025 HCV Ab Ql (S) Negative Normal Negative [facility] Comment on above: Order Comment: Speci men Type: BLOOD SPECIMEN Ordering Facility[facility] Address: [address] [place] [address] Result Comment: The result suggests no evidence of infection with Hepatitis C virus. Should recent infection be suspected, repeat testing may be considered 4-6 weeks after this draw. Performed By: #### T SPN #### [facility] CLIA [id number] [address] [place] [address] [place] HIV 1+2 Ab IA Qlon HIV 1 and 2 Ab IA.rapid Nom (S/P/Bld) Normal [facility] Comment on above: Order Comment: Speci men Type: FLUID SPECIMEN Order[facility] Address: [address] [place] [address] Result Comment: Test not indicated. Performed By: #### L [id number] #### [facility] CLIA [id number] [address] [place] [address] [place] [facility] CLIA [id number] [address] [place] [address], [address] [place] [address] [place] HIV 1+2 Ab+HIV1 p24 Ag IA Ql Non-Reactive Normal Nonreactive [facility] Comment on above: Order Comment: Speci men Type: FLUID SPECIMEN Order[facility] Address: [address] [place] [address] Performed By: #### L [id number] #### [facility] CLIA [id number] [address] [place] [address] LABORATORY CLIA [id number] [address] [place] [address] [place] HIV immunoassay testing algorithm interpretation (S/P/Bld) [Interp] Normal [facility] Comment on above: Order Comment: Speci men Type: FLUID SPECIMEN Ordering [facility] Address: [address] [place] [address] Result Comment: No e vidence of HIV-1 or HIV-2 infection. Should recent infection be suspected, repeat testing may be considered 2-3 weeks after this draw. [place] Rev. Code 3701.243(E): This information has been disclosed to you from confidential records protected from disclosure by state law. You shall make no further disclosure of this information without the specific, written, and informed release of the individual to whom it pertains or as otherwise permitted by state law. A general authorization for the release of medical or other information is not sufficient for the purpose of the release of HIV test results or diagnoses. Performed By: #### L [id number] #### [facility] CLIA [id number] [address] [place] [address] [place] [facility] CLIA [id number] [address] [place] [address] [place] HbA1c (Bld)on 01-15-2025 Average glucose Estimated from glycated hemoglobin (Bld) [Mass/Vol] 85 mg/dL Normal [facility] Comment on above: Order Comment: Speci men Type: BLOOD SPECIMEN [facility] Address: [address] [place] [address] Result Comment: eAG: (Estimated average glucose) is a calculated value from HgbA1c and is product representative of the average blood glucose level in the last 2-3 month period. Performed By: #### T SPN #### [facility] CLIA [id number] [address] [place] [address] [place] HbA1c (Bld) [Mass fraction] 4.6 % Normal 4.3-5.6 [facility] Comment on above: Order Comment: Speci men Type: BLOOD SPECIMEN Ordering Facility: [facility] Address: [address] [place] [address] Result Comment: Amer ican Diabetes Association guidelines indicate that patients with HgbA1c in the range 5.7-6.4% are at increased risk for development of diabetes, and intervention by lifestyle modification may be beneficial. HgbA1c greater or equal to 6.5% is considered diagnostic of diabetes. Performed By: #### T SPN #### [facility] CLIA [id number] [address] [place] [address] [place] [id number] PLUSon 01-15-2025 Cell-free DNA./Cell-free DNA.total Dosage of chromosome-specific cfDNA (cfDNA) [Molar fraction] 22% Normal [facility] Comment on above: Order Comment: Speci men Type: FLUID SPECIMEN Ordering Facility: [facility] Address: [address] [place] [address] Performed By: #### L [id number] #### [facility] CLIA [id number] [address] [place] [address] [place] [facility] CLIA [id number] [address] [place] [address], [address] [place] [address] [place] Chr 13+18+21+X+Y aneuploidy Dosage of chromosome-specific cfDNA Ql (cfDNA) Negative Normal [facility] Comment on above: Order Comment: Speci men Type: FLUID SPECIMEN Ordering Facility: [facility] Address: [address] [place] [address] Performed By: #### L [id number] #### [facility] CLIA [id number] [address] [place] [address] OF [facility] CLIA [id number] [address] [place] [address], [address] [place] [address] OF [place] Chr 21 trisomy Dosage of chromosome-specific cfDNA Ql (cfDNA) Negative Normal [facility] Comment on above: Order Comment: Speci men Type: FLUID SPECIMEN Ordering Facility: [facility] Address: [address] [place] [address] Performed By: #### L [id number] #### [facility] CLIA [id number] [address] [place] [address] LABORATORY CLIA [id number] [address] [place] [address], [address] [place] [address] [place] Chr X and Y aneuploidy risk Sequencing Ql (cfDNA) [Interp] Not detected Normal [facility] Comment on above: Order Comment: Speci men Type: FLUID SPECIMEN [facility]ing Facility: [facility] Address: [address] [place] [address] Result Comment: Not Detected Not Detected Performed By: #### L [id number] #### [facility] CLIA [id number] [address] [place] [address] [place] [facility] CLIA [id number] [address] [place] [address], [address] [place] [address] [place] Citation Moses (Reference lab test) Comment Normal [facility] Comment on above: Order Comment: Speci men Type: FLUID SPECIMEN Ordering Facility: [facility] Address: [address] [place] [address] Result Comment: 1. P octavio COVARRUBIAS, et al. Cecelia Med. 2012;14(3):296-305. 2. Alison ESQUIVEL et al. Prenat Diag. 2013;33(6):591-597. 3. Juan M C, et al. Clin Chem. 2015 Apr;61(4):608-616. 4. Chloe COVARRUBIAS et al. Cecelia Med. 2011;13(11):913-920. 5. ACOG/SMFM Practice Bulletin No. 226, Feb 2020. Performed By: #### L [id number] #### [facility] CLIA [id number] [address] [place] [address] LABORATORY CLIA [id number] [address] [place] [address] OF LOCO Gestational age Estimated from conception date Whitman Normal [facility] Comment on above: Order Comment: Speci men Type: FLUID SPECIMEN Ordering Facility: [facility] Address: [address] [place] [address] Performed By: #### L [id number] #### [facility] CLIA [id number] [address] [place] [address] LABORATORY CLIA [id number] [address] [place] [address] OF [facility] GESTATIONALAGE AGE > OR = 9W Yes Normal [facility] Comment on above: Order Comment: Speci men Type: FLUID SPECIMEN Ordering Facility: [facility] Address: [address] [place] [address] Performed By: #### L [id number] #### [facility] CLIA [id number] [address] [place] [address] LABORATORY CLIA [id number] [address] [place] [address] OF [facility] Laboratory comment Moses (Report) Comment Normal [facility] Comment on above: Order Comment: Speci men Type: FLUID SPECIMEN Ordering Facility: [facility] Address: [address] [place] [address] Result Comment: The MaterniT(R) 21 PLUS laboratory-developed test (LDT) analyzes circulating cell-free DNA from a maternal blood sample. This test is used for screening purposes and not diagnostic. Clinical correlation is recommended. Validation data on twin pregnancies is limited and the ability of this test to detect aneuploidy in higher multiple gestations has not yet been validated. Performed By: #### L [id number] #### [facility] CLIA [id number] [address] [place] [address] LABORATORY CLIA [id number] [address] [place] [address], [address] [place] [address] director of in service education name Nom (Provider) Comment Normal [facility] Comment on above: Order Comment: Speci men Type: FLUID SPECIMEN Ordering Facility: [facility] Address: [address] [place] [address] Result Comment: This specimen showed an expected representation of chromosome 21, 18 and 13 material. Clinical correlation is suggested. Comment Fan Shaw MD, PhD, Director, [employer] Performed By: #### L [id number] #### [facility] CLIA [id number] [address] [place] [address] LABORATORY CLIA [id number] [address] [place] [address], [address] [place] [address] LIMITATIONS OF THE TEST Comment Normal [facility] Comment on above: Order Comment: Speci men Type: FLUID SPECIMEN Ordering Facility: [facility] Address: [address] [place] [address] Result Comment: Whkarrie e the results of these tests are highly reliable, discordant results, including inaccurate sex prediction, may occur due to placental, maternal, or mosaicism or neoplasm; vanishing twin; prior maternal organ transplant; or other causes. These tests are screening tests and not diagnostic; they do not replace the accuracy and precision of diagnosis with CVS or amniocentesis. A patient with a positive test result should be referred for genetic counseling and offered invasive diagnosis for confirmation of test results.[5] The results of this testing, including the benefits and limitations, should be discussed with a qualified healthcare provider. management decisions, including termination of the , should not be based on the results of these tests alone. The healthcare provider is responsible for the use of this information in the management of their patient. Sex chromosomal aneuploidies are not reportable for known multiple gestations. A negative result does not ensure an unaffected nor does it exclude the possibility of other chromosomal abnormalities or defects which are not a part of these tests. An uninformative result may be reported, the causes of which may include, but are not limited to, insufficient sequencing coverage, noise or artifacts in the region, amplification or sequencing bias, or insufficient fraction. These tests are not intended to identify pregnancies at risk for neural tube defects or ventral wall defects. Testing for whole chromosome abnormalities (including sex chromosomes) and for subchromosomal abnormalities could lead to the potential discovery of both and maternal genomic abnormalities that could have major, minor, or no, clinical significance. Evaluating the significance of a positive or a non-reportable result may involve both invasive testing and additional studies on the mother. Such investigations may lead to a diagnosis of maternal chromosomal or subchromosomal abnormalities, which on occasion may be associated with benign or malignant maternal neoplasms. These tests may not accurately identify triploidy, balanced rearrangements, or the precise location of subchromosomal duplications or deletions; these may be detected by diagnosis with CVS or amniocentesis. The ability to report results may be impacted by maternal BMI, maternal weight, maternal systemic lupus erythematosus (SLE) and/or by certain pharmaceutical agents such as low molecular weight heparin (for example: Lovenox(R), Xaparin(R), Clexane(R) and Fragmin(R)). Performed By: #### L [id number] #### [facility] CLIA [id number] [address] [place] [address] OF [facility] CLIA [id number] [address] [place] [address] [place] Monosomy X risk Dosage of chromosome-specific cfDNA Ql (Plasma cell-free+WBC DNA) [Interp] Not detected Normal [facility] Comment on above: Order Comment: Speci men Type: FLUID SPECIMEN Ordering Facility: [facility] Address: [address] [place] [address] Performed By: #### L [id number] #### [facility] CLIA [id number] [address] [place] [address] LABORATORY CLIA [id number] [address] NEGATIVE PREDICTIVE VALUE Note Normal [facility] Comment on above: Order Comment: Ric carroll Type: FLUID SPECIMEN [facility]ing [facility] Address: [address] [place] [address] Result Comment: The Negative Predictive Value (NPV) for trisomy 21, 18, and 13 is greater than 99%. The NPV for SCA and ESS cannot be calculated as SCA and ESS are only reported when an abnormality is detected. Performed By: #### L [id number] #### [facility] CLIA [id number] [address] [place] [address] LABORATORY CLIA [id number] [address] [place] [address] PERFORMANCE CHARACTERISTICS Note Normal [facility] Comment on above: Order Comment: Ric carroll Type: FLUID SPECIMEN Ordering Facility: [facility] Address: [address] [place] [address] Result Comment: ! Sex ! Accuracy: 99.4% ! ! ! ! Region (associated syndrome) ! Est. Sens# ! Est. Spec ! ! ! ! Trisomy 21 (Down Syndrome) ! 99.1% ! 99.9% ! ! ! ! Trisomy 18 (Romo Syndrome) ! >99.9% ! 99.6% ! ! ! ! Trisomy 13 (Patau Syndrome) ! 91.7% ! 99.7% ! ! ! ! Sex Chromosome Aneuploidies## ! 96.2% ! 99.7% ! ! ! * As reported in ISCA database nstd37 [https://www.ncbi.nlm.nih.gov/dbvar/studies/nstd37/ ] # Estimated Sensitivity. Sensitivity estimated across the observed size distribution of each syndrome [per ISCA database nstd37] and across the range of fractions observed in routine clinical NIPT. Actual sensitivity can also be influenced by other factors such as the size of the event, total sequence counts, amplification bias, or sequence bias. ## Whitman gestation only. Performed By: #### L [id number] #### [facility] CLIA [id number] [address] [place] [address] STATES OF LOCO [facility] CLIA [id number] [address] [place] [address], [address] [place] [address] STATES [place] POSITIVE PREDICTIVE VALUE N/A Normal [facility] Comment on above: Order Comment: Speci men Type: FLUID SPECIMEN Ordering Facility: [facility] Address: [address] [place] [address] Performed By: #### L [id number] #### [facility] CLIA [id number] [address] [place] [address] LABORATORY CLIA [id number] [address] [place] [address], [address] [place] [address] OF LOCO Reference Lab Test Method Comment Normal [facility] Comment on above: Order Comment: Speci men Type: FLUID SPECIMEN Ordering Facility: [facility] Address: [address] [place] [address] Result Comment: Circ ulating cell-free DNA was purified from the plasma component of maternal blood. The extracted DNA was then converted into a genomic DNA library for aneuploidy analysis of chromosomes 21, 18, and 13 via next generation sequencing.[1] Optional findings based on the test order include sex chromosome aneuploidy (SCA)[2], and enhanced sequencing series (ESS)[3], which will only be reported on as an additional finding when an abnormality is detected. SCA testing includes information on X and Y representation, while ESS testing includes deletions in selected regions (22q, 15q, 11q, 8q, 5p, 4p, 1p) and trisomy of chromosomes 16 and 22. Performed By: #### L [id number] #### [facility] CLIA [id number] [address] [place] [address] LABORATORY CLIA [id number] [address] [place] [address], [address] [place] [address] OF LOCO Service comment (Unsp spec) [Interp] Comment Normal [facility] Comment on above: Order Comment: Speci men Type: FLUID SPECIMEN Ordering Facility: [facility] Address: [address] [place] [address] Result Comment: [employer] is a subsidiary of [employer] [facility], using the brand [employer]. This test was developed and its performance characteristics determined by [employer]. It has not been cleared or approved by the Food and Drug Administration. This laboratory is certified under the Clinical Laboratory Improvement Amendments (CLIA) as qualified to perform high complexity clinical laboratory testing and accredited by the [employer] (CAP). If there is future clinical need for adding MaterniT GENOME testing, this specimen will be available until term. [place] samples will not be retained beyond 60 days. [facility] patients will have to send a new sample for re-sequencing ([facility] Test Code: [id number]). Performed By: #### L [id number] #### [facility] CLIA [id number] [address] [place] [address] LABORATORY CLIA [id number] [address] [place] [address], [address] [place] [address] [place] Sex Dosage of chromosome-specific cfDNA Nom (cfDNA) Comment Normal [facility] Comment on above: Order Comment: Speci men Type: FLUID SPECIMEN [facility]: [facility] Address: [address] [place] [address] Result Comment: Cons istent with Male Performed By: #### L [id number] #### [facility] CLIA [id number] [address] [place] [address] LABORATORY CLIA [id number] [address] [place] [address] [place] Test performance information Moses (Unsp spec) Comment Normal [facility] Comment on above: Order Comment: Speci men Type: FLUID SPECIMEN Order[facility]: [facility] Address: [address] [place] [address] Result Comment: The performance characteristics of the MaterniT(R) 21 PLUS laboratory-developed test (LDT) have been determined in a clinical validation study with women at increased risk for chromosomal aneuploidy.[1-4] Performed By: #### L [id number] #### [facility] CLIA [id number] [address] [place] [address] LABORATORY CLIA [id number] [address] [place] [address] [place] Trisomy 13 risk Dosage of chromosome-specific cfDNA Ql (cfDNA) [Interp] Negative Normal [facility] Comment on above: Order Comment: Speci men Type: FLUID SPECIMEN Order[facility] Facility: [facility] Address: [address] [place], [place] [address] Performed By: #### L [id number] #### [facility] CLIA [id number] [address] [place] [address] OF LOCO [facility] CLIA [id number] [address] [place] [address], [address] [place] [address] [place] Trisomy 18 risk Dosage of chromosome-specific cfDNA Ql (Plasma cell-free+WBC DNA) [Interp] Negative Normal [facility] Comment on above: Order Comment: Speci men Type: FLUID SPECIMEN Order[facility]: [facility] Address: [address] [place] [address] Performed By: #### L [id number] #### [facility] CLIA [id number] [address] [place] [address] LABORATORY CLIA [id number] [address] [place] [address], [address] [place] [address] [place] RUBELLA IGG ANTIBODYon 01-15 RUBELLA IGG AB, QUAL Positive Normal Positive [facility] Comment on above: Order Comment: Speci men Type: FLUID SPECIMEN [facility] Facility: [facility] Address: [address] [place] [address] Result Comment: The result suggests recent or past exposure to Rubella virus or history of Rubella vaccination. Positive result may also be seen due to presence of passively-transferred antibodies. Please correlate with patient's history. Performed By: #### L [id number] #### [facility] CLIA [id number] [address] [place] [address] OF LOCO [facility] CLIA [id number] [address] [place] [address], [address] [place] [address] [place] Reagin and Treponema pallidu m IgG and IgM [Interp]on 01-15-2025 T. pallidum IgG+IgM IA Ql (S) Non-Reactive Normal Nonreactive [facility] Comment on above: Order Comment: Speci men Type: BLOOD SPECIMEN [facility] Address: [address] [place] [address] Performed By: #### T SPN #### [facility] CLIA [id number] [address] [place] [address] [place] Reagin+T pallidum IgG+IgM Se rPl-Impon 01-15-2025 Reagin and Treponema pallidum IgG and IgM [Interp] Cannot exclude recent Treponemal infection if specimen collected within 7-10 days after appearance of suspect lesions or 2-3 weeks after an exposure. Clinical correlation is required. Normal [facility] Comment on above: Order Comment: Speci men Type: BLOOD SPECIMEN [facility] Address: [address] [place] [address] Performed By: #### T SPN #### [facility] CLIA [id number] [address] [place] [address] [place] TYPE + SCREEN PRENATALon ABO A Normal [facility] Comment on above: Order Comment: Speci men Type: BLOOD SPECIMEN [facility]ing Facility[facility] Address: [address] [place] [address] Performed By: #### T SPN #### [facility] CLIA [id number] [address] [place] [address] [place] Rh Nom (Bld) Negative Normal [facility] Comment on above: Order Comment: Speci men Type: BLOOD SPECIMEN [facility] Address: [address] [place] [address] Performed By: #### T SPN #### [facility] CLIA [id number] [address] [place] [address] [place] TYPE AND SCREEN EXPIRATION 01/18/2025 23:59 Normal [facility] Comment on above: Order Comment: Speci men Type: BLOOD SPECIMEN Order[facility] Facility[facility] Address: [address] [place] [address] Performed By: #### T SPN #### [facility] CLIA [id number] [address] [place] [place] [id number] [place] OF [facility] Gerald 01-08-2025 CNPN Telephone (OBGYWM) ---- ESPERANZA JULIAN ([id number]) 1990 F Date Time Provider Department 01/08/25 LISBET SAINI OBGYWM During your visit today, we recorded the following information about you: Kendell Coleman RN 01/08/2025 9:27 AM Signed Scan on 01/07/2025 10:02 PM by Provider, External, PASheelaC: [facility] Nausea of management 12/29/24-01/04/25 Please see attached document from [facility] re: Nausea of management from 12/29/24-01/04/25. Kendell Coleman RN Allergies As of Date: 01/08/2025 Noted Allergy Reaction LATEX 06/25/2016 2 - Rash Date Reviewed: 12/31/2024 Reviewed by: Preetih Kurtz LPN - Fully Assessed Prescriptions as of 01/16/2025 - aspirin, enteric coated (ECOTRIN LOW STRENGTH) 81 mg EC tablet Take 1 tablet by mouth once daily. - Ondansetron HCl/D5W/PF (ZOFRAN, PF, IN DEXTROSE INTRAVEN.) Inject intravenously. - promethazine (PHENERGAN) 25 mg tablet Take 1 tablet by mouth every 4 hours as needed for nausea/vomiting. - Agbwbpcz-Iu-Whz-Fe- FA tab Take 1 tablet by mouth. Problem List As Of Date 01/08/2025 Noted Resolved Nausea and vomiting during (HCC) [O21*11/05/2015 History of anxiety [Z86.59] 11/05/2015 Patient requested diagnostic testing [Z01.89] 11/05/2015 01/21/2016 Tobacco use in [O99.330] 11/05/2015 06/04/2019 Rh negative status during in first tr*12/16/2015 06/04/2019 Abnormal glucose complicating [O99.81*04/04/2016 06/04/2019 Supervision of high-risk of elderly m*12/31/2024 Encounter Status:Closed by KENDELL COLEMAN on 01/16/25 Normal [facility] CNPNon 01-06-2025 CNPN Telephone (OBGYWM) ---- ESPERANZA JULIAN ([id number]) 1990 F Date Time Provider Department 01/06/25 ESPERANZA PRAJAPATI OBGYWMarsha During your visit today, we recorded the following information about you: Flora Zhu LPN 01/06/2025 12:03 PM Signed FYI: Ob patient is 10w1d [facility] nurse called stating that when she called patient this morning for weekly zofran pump assessment for hyperemesis gravidarum the patient was tearful and stated that she woke up during night d/t painful cramping and when using the restroom noticed an increase in clear discharge. Denied vaginal bleeding. Patient told [facility] nurse she was going to the emergency room to be evaluated d/t h/o of 2 SABs at 8 weeks gestation. Esperanza Prajapati APRN.CNM 01/06/2025 12:15 PM Signed Ok, thank you for update. Is she going to [facility] EDor where is she going? RODRÍGUEZ Masterson Tara, RN 01/06/2025 2:40 PM Signed Mireya said no documents were found at [facility], but Pt tends to go to [facility] in [place] per records in Psychiatric. Kendell Coleman, Esperanza Hoffman APRN.CNM 01/06/2025 3:13 PM Signed Please follow up with patient to see where she was seen. Thank you, Esperanza Prajapati, AVIATION CONSULTANT.CNM Allergies As of Date: 01/06/2025 Noted Allergy Reaction LATEX 06/25/2016 2 - Rash Date Reviewed: 12/31/2024 Reviewed by: Preethi Kurtz LPN - Fully Assessed Reason for Visit: Care [86] Prescriptions as of 01/07/2025 - aspirin, enteric coated (ECOTRIN LOW STRENGTH) 81 mg EC tablet Take 1 tablet by mouth once daily. - Ondansetron HCl/D5W/PF (ZOFRAN, PF, IN DEXTROSE INTRAVEN.) Inject intravenously. - promethazine (PHENERGAN) 25 mg tablet Take 1 tablet by mouth every 4 hours as needed for nausea/vomiting. - Lnhhlrxc-Px-Jha-Fe- FA tab Take 1 tablet by mouth. Problem List As Of Date 01/06/2025 Noted Resolved Nausea and vomiting during (HCC) [O21*11/05/2015 History of anxiety [Z86.59] 11/05/2015 Patient requested diagnostic testing [Z01.89] 11/05/2015 01/21/2016 Tobacco use in [O99.330] 11/05/2015 06/04/2019 Rh negative status during in first tr*12/16/2015 06/04/2019 Abnormal glucose complicating [O99.81*04/04/2016 06/04/2019 Supervision of high-risk of elderly m*12/31/2024 Encounter Status:Closed by STEPH VELASQUEZ on 01/07/25 Normal [facility] C. trachomatis+N. gonorrhoea e DNA EDIN+probe Ql (Unsp spec)on 12-31-2024 C. trachomatis rRNA EDIN+probe Ql (Unsp spec) Not detected Normal Not detected [facility] Comment on above: Order Comment: Speci men Type: FLUID SPECIMEN [facility] Address: [address] [place] [address] Performed By: #### L [id number] #### [facility] [facility] CLIA [id number] [address] [place] [address] [place] [address] [place] [facility] CLIA [id number] [address] [place] [address], [address] [place] [address] [place] N. gonorrhoeae rRNA EDIN+probe Ql (Unsp spec) Not detected Normal Not detected [facility] Comment on above: Order Comment: Speci men Type: FLUID SPECIMEN Ordering Facility: [facility] Address: [address] [place] [address] Performed By: #### L [id number] #### [facility] CLIA [id number] [address] [place] [address] [place] [facility] CLIA [id number] [address] [place] [address], [address] [place] [address] [place] HIGH RISK HUMAN PAPILLOMA MIGUEL (HPV), PCR FOR DETECTION AND GENOTYPINGon 12-31-2024 HPV 16 Ag Ql (Unsp spec) Not detected Normal Not detec rosales [facility] Comment on above: Order Comment: Speci men Type: BLOOD SPECIMEN Ordering Facility: [facility] Address: [address] [place] [address] Performed By: #### T SPN #### [facility] CLIA [id number] [address] [place] [address] [place] HPV 18 Ag Ql (Unsp spec) Not detected Normal Not detec [facility] Comment on above: Order Comment: Speci men Type: BLOOD SPECIMEN Ordering Facility: [facility] Address: [address] [place] [address] Performed By: #### T SPN #### [facility] CLIA [id number] [address] [place] [address] [place] HPV 31+33+35+39+45+51+52+56+ 58+59+66+68 DNA EDIN+probe Ql (Cvx) Not detected Normal Not detected [facility] Comment on above: Order Comment: Speci men Type: BLOOD SPECIMEN Ordering Facility: [facility] Address: [address] [place] [address] Result Comment: High Risk HPV Other Type includes HPV types 31, 33, 35, 39, 45, 51, 52, 56, 58, 59, 66 and 68. Performed By: #### T SPN #### [facility] CLIA [id number] [address] [place] [address] [place] PAP TESTon 12-31-2024 ADEQUACY Normal [facility] Comment on above: Order Comment: Speci men Type: FLUID SPECIMEN Ordering Facility: [facility] Address: [address] [place] [address] Result Comment: Sati sfactory for interpretation. Transformation zone present Performed By: #### L [id number] #### [facility] CLIA [id number] [address] [place] [address] [place] [facility] CLIA [id number] [address] [place] [address], [address] [place] [address] [place] CASE REPORT Normal [facility] Comment on above: Order Comment: Speci men Type: FLUID SPECIMEN Ordering Facility: [facility] Address: [address] [place] [address] Result Comment: Gyne cologic Cytology Report Case: [id number] Authorizing Provider: Kay Adamson APRN.BEREAVEMENT COUNSELOR Collected: 12/31/2024 09:16 AM Ordering Location: OB/Gynecology Received: 12/31/2024 11:57 AM First Screen: Gladkaya, Ashley, [place], ASCP Rescreen: Aramouni, Doreen, CT, ASCP Specimen: Pap Test, ThinPrep, Cervix Performed By: #### L [id number] #### [facility] CLIA [id number] [address] [place] [address] [place] [facility] CLIA [id number] [address] [place] [address] [place] CLINICAL HISTORY, CYTOLOGY, LEAD ENTERPRISE ARCHITECT Routine Exam Normal [facility] Comment on above: Order Comment: Speci men Type: FLUID SPECIMEN Ordering [facility] Address: [address] [place] [address] Performed By: #### L [id number] #### [facility] CLIA [id number] [address] [place], [place] [id number] [place] [facility] CLIA [id number] [address] [place] [address] 3, [address] [place], [place] [id number] [place] [facility] Normal [facility] Comment on above: Order Comment: Speci men Type: FLUID SPECIMEN Ordering Facility: [facility] Address: [address] [place] [address] Result Comment: Tech nical component, site foreman screening performed at: [facility], [address] [place] [address], [address], [place] [id number] CLIA: [id number] Diagnostic interpretation performed at: [facility], [address] [place] [address], [place] [id number] CLIA# [id number] Waiter[employer]Waitress Club: Daniel Melara MD Performed By: #### L [id number] #### [facility] CLIA [id number] [address] [place], [place] [id number] [place] [facility] CLIA [id number] [address] [place] [address], [address] [place], [place] [address] [place] INTERPRETATION, CYTOLOGY, LEAD ENTERPRISE ARCHITECT Normal [facility] Comment on above: Order Comment: Speci men Type: FLUID SPECIMEN Ordering Facility: [facility] Address: [address] [place] [address] Result Comment: Nega tive for intraepithelial lesion or malignancy. at 0813 EDT Performed By: #### L [id number] #### [facility] CLIA [id number] [address] [place], [place] [id number] [place] [facility] CLIA [id number] [address] [place] [address] 3, [address] [place], [place] [address] [place] LMP 10/28/2023 Normal [facility] Comment on above: Order Comment: Speci men Type: FLUID SPECIMEN Ordering Facility: [facility] Address: [address] [place] [address] Performed By: #### L [id number] #### [facility] CLIA [id number] [address] [place] [address] LABORATORY CLIA [id number] [address] [place] [address], [address] [place] [address] [place] PAP DISCLAIMER COMMENT The Pap Smear is a screening test for cervical cancer. False negative results occur with all screening tests, emphasizing the need for rescreening at recommended intervals, and clinical correlation. Normal [facility] Comment on above: Order Comment: Speci men Type: FLUID SPECIMEN Ordering Facility[facility] Address: [address] [place] [address] Performed By: #### L [id number] #### [facility] CLIA [id number] [address] [place] [address] LABORATORY CLIA [id number] [address] [place] [address] OF [facility] PAP SUPERVISOR CAP AND HAT PRODUCTION COMMENT This specimen has been analyzed by the FDA-approved AmplitudeTM System, which uses digital imaging and an enhanced artificial intelligence image analysis algorithm to identify rowley of interest on the microscopic slide, to assist the division human resources manager and pathologist in evaluating cells on ThinPrep Pap tests. Following analysis, rowley of interest on the microscopic slide selected by the algorithm are reviewed by a division human resources manager. If a sample requires hierarchical review, the pathologist will review the same rowley of interest selected by the algorithm prior to final interpretation. Normal [facility] Comment on above: Order Comment: Speci men Type: FLUID SPECIMEN Ordering [facility] Address: [address] [place] [address] Performed By: #### L [id number] #### [facility] CLIA [id number] [address] [place] [address] LABORATORY CLIA [id number] [address] [place] [address], [address] [place] [address] OF [place] POC PETROGRAPHER ULTRASOUNDon 01-01-20 25 Indication Viability. Confirmation of intrauterine . Confirmation of cardiac activity. Estimation of gestational age Impression cardiac activity is visualized, CRL is appropriate for clinical dates, corresponding to SHREYA 08/03/25 Recommendations Follow up for 1st Trimester Anatomy with Nuchal Translucency as clinically indicated if desired. Method Transabdominal and transvaginal ultrasound examination. View: Adequate visualization Whitman . Number of embryos: 1 Dating LMP on: 10/27/2024 GA by LMP 9 w + 2 d SHREYA by LMP: 08/03/2025 Ultrasound examination on: 12/31/2024 GA by U/S based upon: CRL GA by U/S 8 w + 6 d SHREYA by U/S: 08/06/2025 Assigned: based on the LMP, selected on 12/31/2024 Assigned GA 9 w + 2 d Assigned SHREYA: 08/03/2025 Biometry Standard FHR 171 bpm CRL 22.1 mm 8w 6d 11% Hadlock Assessment Gestational sac: visualized Location: intrauterine Yolk sac: visualized Embryo: visualized CRL 22.1 mm 8w 6d 11% [facility]lock Cardiac activity: present FHR 171 bpm General Evaluation Cardiac activity present. FHR 171 bpm. movements: present Performed By: Kay Adamson CNP Read By: Kay Adamson CNP MATERNAL MEDICINE [facility] Radiology Study observation (narrative) [facility]24 T. vaginalis DNA EDIN+probe Ql (Unsp spec) Not detected Normal Not detected [facility] Comment on above: Order Comment: Speci men Type: FLUID SPECIMEN Ordering Facility[facility] Address: [address] [place] [address] Performed By: #### L [id number] #### [facility] CLIA [id number] [address] [place] [address] [place] [address] [place] [facility] CLIA [id number] [address] [place] [address] 3, [address] [place] [address] [place] ECG 12 leadOrdered By: Renetta Odonnell on 12-26-2024 Atrial Rate 74 BPM [facility] Work Phone: P Mesilla 10 degrees [facility] Work Phone: P Offset 203 ms [facility] Work Phone: P Onset 158 ms [facility] Work Phone: [place] Interval 134 ms [facility] Work Phone: Q Onset 225 ms [facility] Work Phone: QRS Count 12 beats [facility] Work Phone: QRS Duration 70 ms [facility] Work Phone: QT Interval 386 ms [facility] Work Phone: QTC Calculation(Bazett) 428 ms [facility] Work Phone: QTC Fredericia 414 ms [facility] Work Phone: R Mesilla 40 degrees [facility] Work Phone: T [place] 36 degrees [facility] Work Phone: T Offset 418 ms [facility] Work Phone: Ventricular Rate 74 BPM [facility]: [facility] Work Phone: ECG 12 leadon 12-26-2024 Normal sinus rhythm Normal ECG No previous ECGs available See ED provider note for full interpretation and clinical correlation Confirmed by Birgit Odonnell ([id number]) on 12/26/2024 12:05:09 PM Birgit Jay, AVIATION CONSULTANT-BEREAVEMENT COUNSELOR - 12/26/2024 Normal sinus rhythm Normal ECG No previous ECGs available See ED provider note for full interpretation and clinical correlation Confirmed by Brigit Odonnell ([id number]) on 12/26/2024 12:05:09 PM [facility] Work Phone: CBC W Auto Differential pane l (Bld)on 12-25-2024 Basophils (Bld) [#/Vol] 0.04 10*3/uL [facility] Basophils/100 WBC (Bld) 0.3 % 0.0 - 2.0 % [facility] Eosinophils (Bld) [#/Vol] 0.10 10*3/uL [facility] Eosinophils/100 WBC (Bld) 0.7 % 0.0 - 6.0 % [facility] Erythrocyte distribution width (RBC) [Ratio] 13.6 % 11.5 - 14.5 % [facility] Hematocrit (Bld) [Volume fraction] 41.9 % 36.0 - 46.0 % [facility] Hemoglobin (Bld) [Mass/Vol] 13.9 g/dL 12.0 - 16.0 g/dL [facility] Immature granulocytes (Bld) [#/Vol] 0.04 10*3/uL [facility] Immature granulocytes/100 WBC (Bld) 0.3 % 0.0 - 0.9 % [facility] Comment on above: Immature Granulocyte Count (IG) includes promyelocytes, myelocytes and metamyelocytes but does not include bands. Percent differential counts (%) should be interpreted in the context of the absolute cell counts (cells/UL). Interpretation and review of laboratory results Abnormal [facility] Lymphocytes (Bld) [#/Vol] 2.22 10*3/uL [facility] Lymphocytes/100 WBC (Bld) 15.1 % 13.0 - 44.0 % [facility] MCH (RBC) [Entitic mass] 27.3 pg 26.0 - 34.0 pg [facility] MCHC (RBC) [Mass/Vol] 33.2 g/dL 32.0 - 36.0 g/dL [facility] MCV (RBC) [Entitic vol] 82 fL 80 - 100 fL [facility] Monocytes (Bld) [#/Vol] 1.04 10*3/uL High [facility] Monocytes/100 WBC (Bld) 7.1 % 2.0 - 10.0 % [facility] Neutrophils (Bld) [#/Vol] 11.27 10*3/uL High [facility] Comment on above: Percent differential counts (%) should be interpreted in the context of the absolute cell counts (cells/uL). Neutrophils/100 WBC (Bld) 76.5 % 40.0 - 80.0 % [facility] Nucleated RBC/100 WBC (Bld) [Ratio] 0.0 % [facility] Platelets (Bld) [#/Vol] 295 10*3/uL [facility] RBC (Bld) [#/Vol] 5.10 10*6/uL [facility] WBC (Bld) [#/Vol] 14.7 10*3/uL High [facility] Basophils (Bld) [#/Vol] 0.04 x10*3/uL Normal 0.00-0.10 [facility] Comment on above: Performed By: #### 2 4323-8 #### YULISA JEFFREY ([id number]) [facility] ([facility]) [address] [place] [address] 56627 Basophils/100 WBC (Bld) 0.3 % Normal 0.0-2.0 [facility] Comment on above: Performed By: #### 2 4323-8 #### YULISA JEFFREY ([id number]) [facility] ([facility]) [address] [place] [address] 28696 Eosinophils (Bld) [#/Vol] 0.10 x10*3/uL Normal 0.00-0.70 [facility] Comment on above: Performed By: #### 2 4323-8 #### YULISA JEFFREY ([id number]) [facility] ([facility]) [address] [place] [address] 68207 Eosinophils/100 WBC (Bld) 0.7 % Normal 0.0-6.0 [facility] Comment on above: Performed By: #### 2 4323-8 #### YULISA JEFFREY ([id number]) [facility] ([facility]) [address] [place] [address] 90662 Erythrocyte distribution width (RBC) [Ratio] 13.6 % Normal 11.5-14.5 [facility] Comment on above: Performed By: #### 2 4323-8 #### YULISA JEFFREY ([id number]) [facility] ([facility]) [address] [place] [address] 39804 Hematocrit (Bld) [Volume fraction] 41.9 % Normal 36.0-46.0 [facility] Comment on above: Performed By: #### 2 4323-8 #### YULISA JEFFREY ([id number]) [facility] ([facility]) [address] [place] [address] 77186 Hemoglobin (Bld) [Mass/Vol] 13.9 g/dL Normal 12.0-16.0 [facility] Comment on above: Performed By: #### 2 432-8 #### YULISA JEFFREY ([id number]) [facility] ([facility]) [address] [place] [address] 35744 Immature granulocytes (Bld) [#/Vol] 0.04 x10*3/uL Normal 0.00-0.70 [facility] Comment on above: Performed By: #### 2 4323-8 #### YULISA JEFFREY ([id number]) [facility] ([facility]) [address] [place] [address] 69486 Immature granulocytes/100 WBC (Bld) 0.3 % Normal 0.0-0.9 [facility] Comment on above: Result Comment: Lucille ture Granulocyte Count (IG) includes promyelocytes, myelocytes and metamyelocytes but does not include bands. Percent differential counts (%) should be interpreted in the context of the absolute cell counts (cells/UL). Performed By: #### 2 4323-8 #### YULISA JEFFREY ([id number]) [facility] ([facility]) [address] [place] [address] 43765 Lymphocytes (Bld) [#/Vol] 2.22 x10*3/uL Normal 1.20-4.80 [facility] Comment on above: Performed By: #### 2 4323-8 #### YULISA JEFFREY ([id number]) [facility] ([facility]) [address] [place] [address] 70291 Lymphocytes/100 WBC (Bld) 15.1 % Normal 13.0-44.0 [facility] Comment on above: Performed By: #### 2 4323-8 #### YULISA JEFFREY ([id number]) [facility] ([facility]) [address] [place] [address] 37873 MCH (RBC) [Entitic mass] 27.3 pg Normal 26.0-34.0 [facility] Comment on above: Performed By: #### 2 432-8 #### YULISA JEFFREY ([id number]) [facility] ([facility]) [address] [place] [address] 32034 MCHC (RBC) [Mass/Vol] 33.2 g/dL Normal 32.0-36.0 [place] Comment on above: Performed By: #### 2 4322-8 #### YULISA JEFFREY ([id number]) [facility] ([facility]) [address] [place] [address] 33508 MCV (RBC) [Entitic vol] 82 fL Normal 80-100 [facility] Comment on above: Performed By: #### 2 4322-8 #### YULISA JEFFREY ([id number]) [facility] ([facility]) [address] [place] [address] 91706 Monocytes (Bld) [#/Vol] 1.04 x10*3/uL High 0.10-1.00 [facility] Comment on above: Performed By: #### 2 4322-8 #### YULISA JEFFREY ([id number]) [facility] ([facility]) [address] [place] [address] 83023 Monocytes/100 WBC (Bld) 7.1 % Normal 2.0-10.0 [facility] Comment on above: Performed By: #### 2 432-8 #### YULISA JEFFREY ([id number]) [facility] ([facility]) [address] [place] [address] 36650 Neutrophils (Bld) [#/Vol] 11.27 x10*3/uL High 1.20-7.70 [facility] Comment on above: Result Comment: Perc ent differential counts (%) should be interpreted in the context of the absolute cell counts (cells/uL). Performed By: #### 2 432-8 #### YULISA JEFFREY ([id number]) [facility] ([facility]) [address] [place] [address] 93054 Neutrophils/100 WBC (Bld) 76.5 % Normal 40.0-80.0 [facility] Comment on above: Performed By: #### 2 4323-8 #### YULISA JEFFREY ([id number]) [facility] ([facility]) [address] [place] [address] 88680 Nucleated RBC/100 WBC (Bld) [Ratio] 0.0 /100 WBCs Normal 0.0-0.0 [facility] Comment on above: Performed By: #### 2 4323-8 #### YULISA JEFFREY ([id number]) [facility] ([facility]) [address] [place] [address] 24475 Platelets (Bld) [#/Vol] 295 x10*3/uL Normal 150-450 [facility] Comment on above: Performed By: #### 2 4323-8 #### YULISA JEFFREY ([id number]) [facility] ([facility]) [address] [place] [address] 05251 RBC (Bld) [#/Vol] 5.10 x10*6/uL Normal 4.00-5.20 [facility] Comment on above: Performed By: #### 2 4323-8 #### YULISA JEFFREY ([id number]) [facility] ([facility]) [address] [place] [address] 50164 WBC (Bld) [#/Vol] 14.7 x10*3/uL High 4.4-11.3 [facility] Comment on above: Performed By: #### 2 4323-8 #### YULISA JEFFREY ([id number]) [facility] ([facility]) [address] [place] [address] 13952 Comprehensive metabolic 2000 panelon 12-25-2024 Albumin BCP dye [Mass/Vol] 4.6 g/dL 3.4 - 5.0 g/dL [facility] ALP [Catalytic activity/Vol] 51 U/L 33 - 110 U/L [facility] ALT With P-5'-P [Catalytic activity/Vol] 14 U/L 7 - 45 U/L [facility] Comment on above: Patients treated wit h Sulfasalazine may generate falsely decreased results for ALT. Anion gap [Moles/Vol] 16 mmol/L 10 - 20 mmol/L [facility] AST With P-5'-P [Catalytic activity/Vol] 16 U/L 9 - 39 U/L [facility] Bilirubin [Mass/Vol] 0.6 mg/dL 0.0 - 1 .2 mg/dL [facility] Calcium [Mass/Vol] 9.7 mg/dL 8.6 - 10. 3 mg/dL [facility] Chloride [Moles/Vol] 103 mmol/L 98 - 10 7 mmol/L [facility] CO2 [Moles/Vol] 21 mmol/L 21 - 32 mmol/L [facility] Creatinine [Mass/Vol] 0.62 mg/dL 0.50 - 1.05 mg/dL [facility] eGFR - PINF [facility] Comment on above: Calculations of kedar mated GFR are performed using the 2020 CKD-EPI Study Refit equation without the race variable for the IDMS-Traceable creatinine methods. https://jasn.asnjournals.org/content//ASN.450 9348226 Glucose [Mass/Vol] 92 mg/dL 74 - 99 mg/dL [facility] Interpretation and review of laboratory results Normal [facility] Potassium [Moles/Vol] 4.0 mmol/L 3.5 - 5.3 mmol/L [facility] Protein [Mass/Vol] 7.7 g/dL 6.4 - 8.2 g/dL [facility] Sodium [Moles/Vol] 136 mmol/L 136 - 145 mmol/L [facility] Urea nitrogen [Mass/Vol] 10 mg/dL 6 - 23 mg/d L [facility] Albumin BCP dye [Mass/Vol] 4.6 g/dL Normal 3.4-5.0 [facility] Comment on above: Performed By: #### 2 4323-8 #### YULISA JEFFREY ([id number]) [facility] ([facility]) [address] [place] [address] ALP [Catalytic activity/Vol] 51 U/L Normal 33-110 [facility] Comment on above: Performed By: #### 2 4323-8 #### YULISA JEFFREY ([id number]) [facility] ([facility]) [address] [place] [address] ALT With P-5'-P [Catalytic activity/Vol] 14 U/L Normal 7-45 [facility] Comment on above: Result Comment: Diane ents treated with Sulfasalazine may generate falsely decreased results for ALT. Performed By: #### 2 432-8 #### YULISA JEFFREY ([id number]) [facility] ([facility]) [address] [place] [address] 00202 Anion gap [Moles/Vol] 16 mmol/L Normal 10-20 [place] Comment on above: Performed By: #### 2 4322-8 #### YULISA JEFFREY ([id number]) [facility] ([facility]) [address] [place] [address] AST With P-5'-P [Catalytic activity/Vol] 16 U/L Normal 9-39 [facility] Comment on above: Performed By: #### 2 4323-8 #### YULISA JEFFREY ([id number]) [facility] ([facility]) [address] [place] [address] Bilirubin [Mass/Vol] 0.6 mg/dL Normal 0.0-1.2 [facility] Comment on above: Performed By: #### 2 432-8 #### YULISA JEFFREY ([id number]) [facility] ([facility]) [address] [place] [address] 23847 Calcium [Mass/Vol] 9.7 mg/dL Normal 8.6-10.3 [facility] Comment on above: Performed By: #### 2 432-8 #### YULISA JEFFREY ([id number]) [facility] ([facility]) [address] [place] [address] 72607 Chloride [Moles/Vol] 103 mmol/L Normal 98-107 [facility] Comment on above: Performed By: #### 2 4323-8 #### YULISA JEFFREY ([id number]) [facility] ([facility]) [address] [place] [address] 01468 CO2 [Moles/Vol] 21 mmol/L Normal 21-32 [facility] Comment on above: Performed By: #### 2 4323-8 #### YULISA JEFFREY ([id number]) [facility] ([facility]) [address] [place] [address] 59123 Creatinine [Mass/Vol] 0.62 mg/dL Normal 0.50-1.05 [place] Comment on above: Performed By: #### 2 4323-8 #### YULISA JEFFREY ([id number]) [facility] ([facility]) [address] [place], [place] [id number] Glomerular filtration rate >90 Normal >60 [facility] Comment on above: Result Comment: Calc ulations of estimated GFR are performed using the 2020 CKD-EPI Study Refit equation without the race variable for the IDMS-Traceable creatinine methods. https://jasn.asnjournals.org/content/early//ASN.499 0429009 Performed By: #### 2 4323-8 #### YULISA JEFFREY ([id number]) [facility] ([facility]) [address] [place] [address] 17356 Glucose [Mass/Vol] 92 mg/dL Normal 74-99 [facility] Comment on above: Performed By: #### 2 4323-8 #### YULISA JEFFREY ([id number]) [facility] ([facility]) [address] [place] [address] 81299 Potassium [Moles/Vol] 4.0 mmol/L Normal 3.5-5.3 [place] Comment on above: Performed By: #### 2 4323-8 #### YULISA JEFFREY ([id number]) [facility] ([facility]) [address] [place] [address] 04376 Protein [Mass/Vol] 7.7 g/dL Normal 6.4-8.2 [facility] Comment on above: Performed By: #### 2 4323-8 #### YULISA JEFFREY ([id number]) [facility] ([facility]) [address] [place] [address] Sodium [Moles/Vol] 136 mmol/L Normal 136-145 [facility] Comment on above: Performed By: #### 2 4323-8 #### YULISA JEFFREY ([id number]) [facility] ([facility]) [address] [place] [address] Urea nitrogen [Mass/Vol] 10 mg/dL Normal 6-23 [facility] Comment on above: Performed By: #### 2 4323-8 #### YULISA JEFFREY ([id number]) [facility] ([facility]) [address] [place], [place] [address] ECG 12-LEADon 12-25-2024 ECG 12-LEAD Ventricular Rate 74 Atrial Rate 74 P-R Interval 134 QRS Duration 70 Q-T Interval 386 QTC Calculation(Bazett) 428 P Mesilla 10 R Mesilla 40 T Mesilla 36 QRS Count 12 Q Onset 225 P Onset 158 P Offset 203 T Offset 418 QTC Fredericia 414 Diagnosis Normal sinus rhythm Normal ECG No previous ECGs available See ED provider note for full interpretation and clinical correlation Confirmed by Birgit Odonnell ([id number]) on 12/26/2024 12:05:09 PM Normal [facility] Lipaseon 12-25-2024 Lipase [Catalytic activity/Vol] 18 U/L U/L [facility] Lipase [Catalytic activity/V ol]on 12-25-2024 Interpretation and review of laboratory results Normal [facility] Venipuncture immediately after or during the administration of Metamizole may lead to falsely low results. Testing should be performed immediately prior to Metamizole dosing. [facility] Triacylglycerol lipaseon Lipase [Catalytic activity/Vol] 18 U/L Normal [facility] Comment on above: Order Comment: Venip uncture immediately after or during the administration of Metamizole may lead to falsely low results. Testing should be performed immediately prior to Metamizole dosing. Performed By: #### 2 4323-8 #### MÁRQUEZ RACHELE ([id number]) [facility] ([facility]) [address] [place] [id number] Gerald 12-24-2024 CNPN Telephone (OBGYWM) ---- ESPERANZA JULIAN ([id number]) 1990 F Date Time Provider Department 12/24/24 LISBET SAINI During your visit today, we recorded the following information about you: Clare Mcallister RN 12/24/2024 2:37 PM Signed Patient called to check on status about receiving IV antiemetics from [facility] Advised that we did receive a fax this morning from [facility] that they are processing our referral. Gave patient the phone number to call and check on status and to start intake process. [facility] phone number given: [phone] Asked that patient please give our office a call if she needs our assistance with this. She continues to feel poorly and mentioned that she may need to make another visit to the ER. Again, encouraged patient to reach out to us if she needs anything. POP Mcallister RN Allergies As of Date: 12/24/2024 (No Known Allergies) Date Reviewed: 12/16/2024 Reviewed by: Bianca Ribera MA - Fully Assessed Reason for Visit: Patient Update [1234] Prescriptions as of 12/26/2024 - promethazine (PHENERGAN) 25 mg suppository 1 suppository by RECTAL route every 6 hours as needed. - Ambbdirp-Oc-Qxw-Fe- FA tab Take 1 tablet by mouth. Problem List As Of Date 12/24/2024 Noted Resolved Nausea and vomiting during (HCC) [O21*11/05/2015 History of anxiety [Z86.59] 11/05/2015 Patient requested diagnostic testing [Z01.89] 11/05/2015 01/21/2016 Tobacco use in [O99.330] 11/05/2015 06/04/2019 Rh negative status during in first tr*12/16/2015 06/04/2019 Abnormal glucose complicating [O99.81*04/04/2016 06/04/2019 Encounter Status:Closed by CLARE MCALLISTER on 12/26/24 Normal [facility] Basic metabolic 2000 panelon 12-22-2024 Anion gap [Moles/Vol] 13 mmol/L 10 - 20 mmol/L [facility] Calcium [Mass/Vol] 9.3 mg/dL 8.6 - 10. 3 mg/dL [facility] Chloride [Moles/Vol] 104 mmol/L 98 - 10 7 mmol/L [facility] CO2 [Moles/Vol] 22 mmol/L 21 - 32 mmol/L [facility] Creatinine [Mass/Vol] 0.54 mg/dL 0.50 - 1.05 mg/dL [facility] eGFR - PINF [facility] Comment on above: Calculations of kedar mated GFR are performed using the 2020 CKD-EPI Study Refit equation without the race variable for the IDMS-Traceable creatinine methods. https://jasn.asnjournals.org/content//ASN.593 5081014 Glucose [Mass/Vol] 90 mg/dL 74 - 99 mg/dL [facility] Interpretation and review of laboratory results Abnormal [facility] Potassium [Moles/Vol] 3.9 mmol/L 3.5 - 5.3 mmol/L [facility] Sodium [Moles/Vol] 135 mmol/L Low 136 - 145 mmol/L [facility] Urea nitrogen [Mass/Vol] 8 mg/dL 6 - 23 mg/d L [facility] Anion gap [Moles/Vol] 13 mmol/L Normal 10-20 [place] Comment on above: Performed By: #### 2 4323-8 #### MÁRQUEZ RACHELE ([id number]) [facility] ([facility]) [address] [place] [address] Calcium [Mass/Vol] 9.3 mg/dL Normal 8.6-10.3 [facility] Comment on above: Performed By: #### 2 4323-8 #### YULISA JEFFREY ([id number]) [facility] ([facility]) [facility] [place] [address] Chloride [Moles/Vol] 104 mmol/L Normal 98-107 [facility] Comment on above: Performed By: #### 2 4323-8 #### YULISA JEFFREY ([id number]) [facility] ([facility]) [address] [place] [address] 56772 CO2 [Moles/Vol] 22 mmol/L Normal 21-32 [facility] Comment on above: Performed By: #### 2 4323-8 #### YULISA JEFFREY ([id number]) [facility] ([facility]) [address] [place] [address] 82967 Creatinine [Mass/Vol] 0.54 mg/dL Normal 0.50-1.05 [place] Comment on above: Performed By: #### 2 4323-8 #### YULISA JEFFREY ([id number]) [facility] ([facility]) [address] [place] [address] 36638 Glomerular filtration rate >90 Normal >60 [facility] Comment on above: Result Comment: Calc ulations of estimated GFR are performed using the 2020 CKD-EPI Study Refit equation without the race variable for the IDMS-Traceable creatinine methods. https://jasn.asnjournals.org/content/early//ASN.294 8224974 Performed By: #### 2 4323-8 #### YULISA JEFFREY ([id number]) [facility] ([facility]) [address] [place] [address] 18666 Glucose [Mass/Vol] 90 mg/dL Normal 74-99 [facility] Comment on above: Performed By: #### 2 4323-8 #### YULISA JEFFREY ([id number]) [facility] ([facility]) [address] [place] [address] Potassium [Moles/Vol] 3.9 mmol/L Normal 3.5-5.3 [place] Comment on above: Performed By: #### 2 4323-8 #### YULISA JEFFREY ([id number]) [facility] ([facility]) [address] [place] [address] 24075 Sodium [Moles/Vol] 135 mmol/L Low 136-145 [facility] Comment on above: Performed By: #### 2 4323-8 #### YULISA JEFFREY ([id number]) [facility] ([facility]) [address] [place] [address] 49582 Urea nitrogen [Mass/Vol] 8 mg/dL Normal 6-23 [facility] Comment on above: Performed By: #### 2 4323-8 #### YULISA JEFFREY ([id number]) [facility] ([facility]) [address] [place] [address] 17488 Magnesiumon 12-22-2024 Magnesium [Mass/Vol] 1.77 mg/dL 1.60 - 2.40 mg/dL [facility] Magnesium [Mass/Vol] 1.77 mg/dL Normal 1.60-2.40 [facility] Comment on above: Performed By: #### 2 4323-8 #### YULISA JEFFREY ([id number]) [facility] ([facility]) [address] [place] [address] 76356 Magnesium [Mass/Vol]on 12-22 Interpretation and review of laboratory results [facility] Bacteriaon 12-20-2024 Bacteria identified Cx Nom (U) Test: Urine Culture Specimen Source: Clean Catch/Voided Specimen Type: Urine Specimen Date: 12/20/20241935 Result Date: 12/22/2024636 Result Status: Final result Abnormal: No Resulting Lab: [facility] [address] [facility] [address] CULTURE No growth Normal [facility] Comment on above: Performed By: #### 2 4323-8 #### MÁRQUEZ RACHELE ([id number]) [facility] ([facility]) [address] [place] [address] CBC W Auto Differential pane l (Bld)on 12-20-2024 Basophils (Bld) [#/Vol] 0.04 10*3/uL [facility] Basophils/100 WBC (Bld) 0.3 % 0.0 - 2.0 % [facility] Eosinophils (Bld) [#/Vol] 0.12 10*3/uL [facility] Eosinophils/100 WBC (Bld) 1.0 % 0.0 - 6.0 % [facility] Erythrocyte distribution width (RBC) [Ratio] 13.7 % 11.5 - 14.5 % [facility] Hematocrit (Bld) [Volume fraction] 36.7 % 36.0 - 46.0 % [facility] Hemoglobin (Bld) [Mass/Vol] 12.0 g/dL 12.0 - 16.0 g/dL [facility] Immature granulocytes (Bld) [#/Vol] 0.02 10*3/uL [facility] Immature granulocytes/100 WBC (Bld) 0.2 % 0.0 - 0.9 % [facility] Comment on above: Immature Granulocyte Count (IG) includes promyelocytes, myelocytes and metamyelocytes but does not include bands. Percent differential counts (%) should be interpreted in the context of the absolute cell counts (cells/UL). Interpretation and review of laboratory results Abnormal [facility] Lymphocytes (Bld) [#/Vol] 2.17 10*3/uL [facility] Lymphocytes/100 WBC (Bld) 17.4 % 13.0 - 44.0 % [facility] MCH (RBC) [Entitic mass] 27.0 pg 26.0 - 34.0 pg [facility] MCHC (RBC) [Mass/Vol] 32.7 g/dL 32.0 - 36.0 g/dL [facility] MCV (RBC) [Entitic vol] 83 fL 80 - 100 fL [facility] Monocytes (Bld) [#/Vol] 0.86 10*3/uL [facility] Monocytes/100 WBC (Bld) 6.9 % 2.0 - 10.0 % [facility] Neutrophils (Bld) [#/Vol] 9.25 10*3/uL [facility] Comment on above: Percent differential counts (%) should be interpreted in the context of the absolute cell counts (cells/uL). Neutrophils/100 WBC (Bld) 74.2 % 40.0 - 80.0 % [facility] Nucleated RBC/100 WBC (Bld) [Ratio] 0.0 % [facility] Platelets (Bld) [#/Vol] 241 10*3/uL [facility] RBC (Bld) [#/Vol] 4.44 10*6/uL [facility] WBC (Bld) [#/Vol] 12.5 10*3/uL [facility] Basophils (Bld) [#/Vol] 0.04 x10*3/uL Normal 0.00-0.10 [facility] Comment on above: Performed By: #### 5 7021-8 #### YULISA JEFFREY ([id number]) [facility] ([facility]) [facility] [place] [address] Basophils/100 WBC (Bld) 0.3 % Normal 0.0-2.0 [facility] Comment on above: Performed By: #### 5 7021-8 #### YULISA JEFFREY ([id number]) [facility] ([facility]) [facility] [place] [address] Eosinophils (Bld) [#/Vol] 0.12 x10*3/uL Normal 0.00-0.70 [facility] Comment on above: Performed By: #### 5 7021-8 #### YULISA JEFFREY ([id number]) [facility] ([facility]) [facility] [place] [address] Eosinophils/100 WBC (Bld) 1.0 % Normal 0.0-6.0 [facility] Comment on above: Performed By: #### 5 7021-8 #### YULISA JEFFREY ([id number]) [facility] ([facility]) [address] [place] [address] Erythrocyte distribution width (RBC) [Ratio] 13.7 % Normal 11.5-14.5 [facility] Comment on above: Performed By: #### 5 7021-8 #### YULISA JEFFREY ([id number]) [facility] ([facility]) [address] [place] [address] Hematocrit (Bld) [Volume fraction] 36.7 % Normal 36.0-46.0 [facility] Comment on above: Performed By: #### 5 7021-8 #### YULISA JEFFREY ([id number]) [facility] ([facility]) [address] [place] [address] Hemoglobin (Bld) [Mass/Vol] 12.0 g/dL Normal 12.0-16.0 [facility] Comment on above: Performed By: #### 5 7021-8 #### YULISA JEFFREY ([id number]) [facility] ([facility]) [address] [place] [address] Immature granulocytes (Bld) [#/Vol] 0.02 x10*3/uL Normal 0.00-0.70 [facility] Comment on above: Performed By: #### 5 7021-8 #### YULISA JEFFREY ([id number]) [facility] ([facility]) [address] [place] [address] Immature granulocytes/100 WBC (Bld) 0.2 % Normal 0.0-0.9 [facility] Comment on above: Result Comment: Lucille ture Granulocyte Count (IG) includes promyelocytes, myelocytes and metamyelocytes but does not include bands. Percent differential counts (%) should be interpreted in the context of the absolute cell counts (cells/UL). Performed By: #### 5 7021-8 #### YULISA JEFFREY ([id number]) [facility] ([facility]) [address] [place] [address] Lymphocytes (Bld) [#/Vol] 2.17 x10*3/uL Normal 1.20-4.80 [facility] Comment on above: Performed By: #### 5 7021-8 #### YULISA JEFFREY ([id number]) [facility] ([facility]) [address] [place] [address] 50627 Lymphocytes/100 WBC (Bld) 17.4 % Normal 13.0-44.0 [facility] Comment on above: Performed By: #### 5 7021-8 #### YULISA JEFFREY ([id number]) [facility] ([facility]) [address] [place] [address] 34980 MCH (RBC) [Entitic mass] 27.0 pg Normal 26.0-34.0 [facility] Comment on above: Performed By: #### 5 7021-8 #### YULISA JEFFREY ([id number]) [facility] ([facility]) [address] [place] [address] 45107 MCHC (RBC) [Mass/Vol] 32.7 g/dL Normal 32.0-36.0 [place] Comment on above: Performed By: #### 5 7021-8 #### YULISA JEFFREY ([id number]) [facility] ([facility]) [address] [place] [address] 08258 MCV (RBC) [Entitic vol] 83 fL Normal 80-100 [facility] Comment on above: Performed By: #### 5 7021-8 #### YULISA JEFFREY ([id number]) [facility] ([facility]) [address] [place] [address] 14068 Monocytes (Bld) [#/Vol] 0.86 x10*3/uL Normal 0.10-1.00 [facility] Comment on above: Performed By: #### 5 7021-8 #### YULISA JEFFREY ([id number]) [facility] ([facility]) [address] [place] [address] 47758 Monocytes/100 WBC (Bld) 6.9 % Normal 2.0-10.0 [facility] Comment on above: Performed By: #### 5 7021-8 #### YULISA JEFFREY ([id number]) [facility] ([facility]) [address] [place] [address] 67014 Neutrophils (Bld) [#/Vol] 9.25 x10*3/uL High 1.20-7.70 [facility] Comment on above: Result Comment: Perc ent differential counts (%) should be interpreted in the context of the absolute cell counts (cells/uL). Performed By: #### 5 7021-8 #### YULISA JEFFREY ([id number]) [facility] ([facility]) [address] [place] [address] 31034 Neutrophils/100 WBC (Bld) 74.2 % Normal 40.0-80.0 [facility] Comment on above: Performed By: #### 5 7021-8 #### YULISA JEFFREY ([id number]) [facility] ([facility]) [address] [place] [address] 10833 Nucleated RBC/100 WBC (Bld) [Ratio] 0.0 /100 WBCs Normal 0.0-0.0 [facility] Comment on above: Performed By: #### 5 7021-8 #### YULISA JEFFREY ([id number]) [facility] ([facility]) [address] [place] [address] 81018 Platelets (Bld) [#/Vol] 241 x10*3/uL Normal 150-450 [facility] Comment on above: Performed By: #### 5 7021-8 #### YULISA JEFFREY ([id number]) [facility] ([facility]) [address] [place] [address] 47444 RBC (Bld) [#/Vol] 4.44 x10*6/uL Normal 4.00-5.20 [facility] Comment on above: Performed By: #### 5 7021-8 #### YULISA JEFFREY ([id number]) [facility] ([facility]) [address] [place] [address] 09491 WBC (Bld) [#/Vol] 12.5 x10*3/uL High 4.4-11.3 [facility] Comment on above: Performed By: #### 5 7021-8 #### YULISA JEFFREY ([id number]) [facility] ([facility]) [address] [place] [address] Comprehensive metabolic 2000 panelon 12-20-2024 Albumin BCP dye [Mass/Vol] 4.3 g/dL 3.4 - 5.0 g/dL [facility] ALP [Catalytic activity/Vol] 46 U/L 33 - 110 U/L [facility] ALT With P-5'-P [Catalytic activity/Vol] 13 U/L 7 - 45 U/L [facility] Comment on above: Patients treated wit h Sulfasalazine may generate falsely decreased results for ALT. Anion gap [Moles/Vol] 14 mmol/L 10 - 20 mmol/L [facility] AST With P-5'-P [Catalytic activity/Vol] 16 U/L 9 - 39 U/L [facility] Bilirubin [Mass/Vol] 0.4 mg/dL 0.0 - 1 .2 mg/dL [facility] Calcium [Mass/Vol] 9.1 mg/dL 8.6 - 10. 3 mg/dL [facility] Chloride [Moles/Vol] 105 mmol/L 98 - 10 7 mmol/L [facility] CO2 [Moles/Vol] 23 mmol/L 21 - 32 mmol/L [facility] Creatinine [Mass/Vol] 0.58 mg/dL 0.50 - 1.05 mg/dL [facility] eGFR - PINF [facility] Comment on above: Calculations of kedar mated GFR are performed using the 2020 CKD-EPI Study Refit equation without the race variable for the IDMS-Traceable creatinine methods. https://jasn.asnjournals.org/content/early//ASN.255 5284171 Glucose [Mass/Vol] 84 mg/dL 74 - 99 mg/dL [facility] Interpretation and review of laboratory results Normal [facility] Potassium [Moles/Vol] 3.8 mmol/L 3.5 - 5.3 mmol/L [facility] Protein [Mass/Vol] 6.8 g/dL 6.4 - 8.2 g/dL [facility] Sodium [Moles/Vol] 138 mmol/L 136 - 145 mmol/L [facility] Urea nitrogen [Mass/Vol] 8 mg/dL 6 - 23 mg/d L [facility] Albumin BCP dye [Mass/Vol] 4.3 g/dL Normal 3.4-5.0 [facility] Comment on above: Performed By: #### 2 4323-8 #### YULISA JEFFREY ([id number]) [facility] ([facility]) [address] [place] [address] ALP [Catalytic activity/Vol] 46 U/L Normal 33-110 [facility] Comment on above: Performed By: #### 2 4323-8 #### YULISA JEFFREY ([id number]) [facility] ([facility]) [address] [place] [address] 76536 ALT With P-5'-P [Catalytic activity/Vol] 13 U/L Normal 7-45 [facility] Comment on above: Result Comment: Diane ents treated with Sulfasalazine may generate falsely decreased results for ALT. Performed By: #### 2 4323-8 #### YULISA JEFFREY ([id number]) [facility] ([facility]) [address] [place] [address] 24022 Anion gap [Moles/Vol] 14 mmol/L Normal 10-20 [place] Comment on above: Performed By: #### 2 4323-8 #### YULISA JEFFREY ([id number]) [facility] ([facility]) [address] [place] [address] 48721 AST With P-5'-P [Catalytic activity/Vol] 16 U/L Normal 9-39 [facility] Comment on above: Performed By: #### 2 4323-8 #### YULISA JEFFREY ([id number]) [facility] ([facility]) [address] [place] [address] 45122 Bilirubin [Mass/Vol] 0.4 mg/dL Normal 0.0-1.2 [facility] Comment on above: Performed By: #### 2 4323-8 #### YULISA JEFFREY ([id number]) [facility] ([facility]) [address] [place] [address] 43045 Calcium [Mass/Vol] 9.1 mg/dL Normal 8.6-10.3 [facility] Comment on above: Performed By: #### 2 4323-8 #### YULISA JEFFREY ([id number]) [facility] ([facility]) [address] [place] [address] 82649 Chloride [Moles/Vol] 105 mmol/L Normal 98-107 [facility] Comment on above: Performed By: #### 2 4323-8 #### YULISA JEFFREY ([id number]) [facility] ([facility]) [address] [place] [address] 90223 CO2 [Moles/Vol] 23 mmol/L Normal 21-32 [facility] Comment on above: Performed By: #### 2 4323-8 #### YULISA JEFFREY ([id number]) [facility] ([facility]) [address] [place] [address] 38596 Creatinine [Mass/Vol] 0.58 mg/dL Normal 0.50-1.05 [place] Comment on above: Performed By: #### 2 4323-8 #### YULISA JEFFREY ([id number]) [facility] ([facility]) [address] [place] [address] 03156 Glomerular filtration rate >90 Normal >60 [facility] Comment on above: Result Comment: Calc ulations of estimated GFR are performed using the 2020 CKD-EPI Study Refit equation without the race variable for the IDMS-Traceable creatinine methods. https://jasn.asnjournals.org/content/early//ASN.921 3061321 Performed By: #### 2 4323-8 #### YULISA JEFFREY ([id number]) [facility] ([facility]) [address] [place] [address] 51650 Glucose [Mass/Vol] 84 mg/dL Normal 74-99 [facility] Comment on above: Performed By: #### 2 4323-8 #### YULISA JEFFREY ([id number]) [facility] ([facility]) [address] [place] [address] Potassium [Moles/Vol] 3.8 mmol/L Normal 3.5-5.3 [place] Comment on above: Performed By: #### 2 4323-8 #### YULISA JEFFREY ([id number]) [facility] ([facility]) [address] [place] [address] 00417 Protein [Mass/Vol] 6.8 g/dL Normal 6.4-8.2 [facility] Comment on above: Performed By: #### 2 4323-8 #### YULISA JEFFREY ([id number]) [facility] ([facility]) [address] [place], [place] [address] Sodium [Moles/Vol] 138 mmol/L Normal 136-145 [facility] Comment on above: Performed By: #### 2 4323-8 #### YULISA JEFFREY ([id number]) [facility] ([facility]) [address] [place] [address] Urea nitrogen [Mass/Vol] 8 mg/dL Normal 6-23 [facility] Comment on above: Performed By: #### 2 4323-8 #### YULISA JEFFREY ([id number]) [facility] ([facility]) [address] [place] [address] No Panel Informationon 12-20 Interpretation and review of laboratory results Abnormal [facility] Urinalysis complete W Reflex Culture panel (U)on 12-20-2024 Appearance (U) Clear Clear [facility] Bilirubin (U) [Mass/Vol] Negative NEGATIVE mg /dL [facility] Color (U) Light-Yellow Light-Yellow, Yellow, Dark-Yellow [facility] Glucose Auto test strip (U) [Mass/Vol] Normal Normal mg/dL [facility] Ketones (U) [Mass/Vol] 40 (2+) Abnormal NEGATIVE mg/d L [facility] Leukocyte esterase Auto test strip Ql (U) 75 Meredith/uL Abnormal NEGATIVE [facility] Nitrite Auto test strip Ql (U) Negative NEGATIVE [facility] pH (U) 6.5 [pH] 5.0, 5.5, 6.0, 6.5, 7.0, 7.5, 8.0 [facility] Protein (U) [Mass/Vol] Negative NEGAT DENZEL, 10 (TRACE), 20 (TRACE) mg/dL [facility] RBC (U) [#/Vol] Negative NEGATIVE mg/dL Unive [facility] Specific gravity (U) [Rel density] 1.009 1.005 - 1.035 [facility] Urobilinogen (U) [Mass/Vol] Normal Normal mg/dL [facility] Appearance (U) Clear Normal Clear [facility] Comment on above: Performed By: #### 2 4323-8 #### YULISA JEFFREY ([id number]) [facility] ([facility]) [address] [place] [address] Bilirubin (U) [Mass/Vol] Negative Normal NEGATIVE [facility] Comment on above: Performed By: #### 2 4323-8 #### YULISA JEFFREY ([id number]) [facility] ([facility]) [address] [place] [address] Color (U) Light-Yellow Normal Light-Yellow, Yellow, Dark-Yellow [facility] Comment on above: Performed By: #### 2 4323-8 #### YULISA JEFFREY ([id number]) [facility] ([facility]) [address] [place] [address] 53176 Glucose Auto test strip (U) [Mass/Vol] Normal Normal Normal [facility] Comment on above: Performed By: #### 2 4323-8 #### YULISA JEFFREY ([id number]) [facility] ([facility]) [address] [place] [address] 76076 Ketones (U) [Mass/Vol] 40 (2+) Abnormal NEGATIVE [facility] Comment on above: Performed By: #### 2 4323-8 #### YULISA JEFFREY ([id number]) [facility] ([facility]) [address] [place] [address] 86984 Leukocyte esterase Auto test strip Ql (U) 75 Meredith/uL Abnormal NEGATIVE [facility] Comment on above: Performed By: #### 2 4323-8 #### YULISA JEFFREY ([id number]) [facility] ([facility]) [address] [place] [address] 66524 Nitrite Auto test strip Ql (U) Negative Normal NEGATIVE [facility] Comment on above: Performed By: #### 2 4323-8 #### YULISA JEFFREY ([id number]) [facility] ([facility]) [address] [place], [place] [address] pH (U) 6.5 [pH] Normal 5.0, 5.5, 6.0, 6.5, 7.0, 7.5, 8.0 [facility] Comment on above: Performed By: #### 2 4323-8 #### YULISA JEFFREY ([id number]) [facility] ([facility]) [address] [place] [address] Protein (U) [Mass/Vol] Negative Normal NEGAT DENZEL, 10 (TRACE), 20 (TRACE) [facility] Comment on above: Performed By: #### 2 4323-8 #### YULISA JEFFREY ([id number]) [facility] ([facility]) [address] [place] [address] RBC (U) [#/Vol] Negative Normal NEGATIVE [facility] Comment on above: Performed By: #### 2 4323-8 #### YULISA JEFFREY ([id number]) [facility] ([facility]) [address] [place] [address] 37950 Specific gravity (U) [Rel density] 1.009 Normal 1.005-1.035 [facility] Comment on above: Performed By: #### 2 4323-8 #### YULISA JEFFREY ([id number]) [facility] ([facility]) [address] [place] [address] 47737 Urobilinogen (U) [Mass/Vol] Normal Normal Normal [facility] Comment on above: Performed By: #### 2 4323-8 #### YULISA JEFFREY ([id number]) [facility] ([facility]) [address] [place] [address] 30732 Urinalysis microscopic panel Auto Ql (U)on 12-20-2024 Bacteria Auto (Urine sed) [#/Area] 1+ Abnormal NONE SEEN /HPF [facility] Epithelial cells.squamous Auto (Urine sed) [#/Area] 1-9 (SPARSE) Reference range not established. /HPF [facility] Mucus Auto (Urine sed) [#/Area] FEW Reference range not established. /LPF [facility] RBC Auto (Urine sed) [#/Area] 1-2 NONE, 1-2, 3-5 /HPF [facility] WBC Auto (Urine sed) [#/Area] 1-5 1-5, NONE /HPF [facility] Bacteria Auto (Urine sed) [#/Area] 1+ /HPF Abnormal NONE SEEN [facility] Comment on above: Performed By: #### 2 4323-8 #### YULISA JEFFREY ([id number]) [facility] ([facility]) [address] [place] [address] Epithelial cells.squamous Auto (Urine sed) [#/Area] 1-9 (SPARSE) Normal Reference range not established. [facility] Comment on above: Performed By: #### 2 4323-8 #### YULISA JEFFREY ([id number]) [facility] ([facility]) [address] [place] [address] Mucus Auto (Urine sed) [#/Area] FEW Normal Reference range not established. [facility] Comment on above: Performed By: #### 2 4323-8 #### YULISA JEFFREY ([id number]) [facility] ([facility]) [facility] [place] [id number] RBC Auto (Urine sed) [#/Area] 1-2 Normal NONE, 1-2, 3-5 [facility] Comment on above: Performed By: #### 2 4323-8 #### YULISA JEFFREY ([id number]) [facility] ([facility]) [facility] [place] [address] WBC Auto (Urine sed) [#/Area] 1-5 Normal 1-5, NONE [facility] Comment on above: Performed By: #### 2 4323-8 #### MÁRQUEZ RACHELE ([id number]) [facility] ([facility]) [address] [place] [address] Gerald 12-18-2024 CNPN Telephone (OBGYWM) ---- ESPERANZA JULIAN ([id number]) 1990 F Date Time Provider Department 12/18/24 LISBET SAINI During your visit today, we recorded the following information about you: Clare Mcallister RN 12/18/2024 8:08 AM Signed Patient seen on 12/16 for N/V in early . She called today in tears because she is feeling miserable. The phenergan suppositories are not helping. She hasn't been able to keep anything down. Dry heaving all morning today. Urine is become dark in color and states that she is also having dysuria, but couldn't take an antibiotic because of the vomiting. Recommended patient go to ER for IV hydration and antiemetics. Patient states that patient was to give an update today so that CP could refer her to outpatient infusion and [facility]. Please advise. MINI Short Trisha, RN 12/18/2024 11:05 AM Signed Patient also sent [employer] message now. MINI Lopez Rebecca L, MD 12/18/2024 12:04 PM Signed likely needs other meds and [facility] referral. May need scheduled for a liter or 2 of IVF on Monday to get her through the weekend. Spoke w/ THIEN and patient and she agrees to go to [facility] for IVF and I can fill out orders and fax over for her. MD Ary Vega Jennifer, RN 12/18/2024 12:53 PM Signed Order faxed to [facility]. Clare Mcallister RN Allergies As of Date: 12/18/2024 (No Known Allergies) Date Reviewed: 12/16/2024 Reviewed by: Bianca Ribera MA - Fully Assessed Reason for Visit: Early OB vomiting [Other] Prescriptions as of 12/18/2024 - promethazine (PHENERGAN) 25 mg suppository 1 suppository by RECTAL route every 6 hours as needed. - Wsmosbbd-Bk-Mpy-Fe- FA tab Take 1 tablet by mouth. Problem List As Of Date 12/18/2024 Noted Resolved Nausea and vomiting during (HCC) [O21*11/05/2015 History of anxiety [Z86.59] 11/05/2015 Patient requested diagnostic testing [Z01.89] 11/05/2015 01/21/2016 Tobacco use in [O99.330] 11/05/2015 06/04/2019 Rh negative status during in first tr*12/16/2015 06/04/2019 Abnormal glucose complicating [O99.81*04/04/2016 06/04/2019 Medications Discontinued During This Encounter Prescriptions - folic acid 1 mg tablet (Discontinued) Take 1 mg by mouth. - magnesium oxide 400 mg magnesium tab (Discontinued) 400 mg. Encounter Status:Closed by STEPH VELASQUEZ on 12/18/24 Normal [facility] OB Triage Physician Noteon 0 12-18-2024 OB Triage Physician Note [facility] Medical Records Department [address] [place] [address] OB Triage Physician Note 12/18/24 1535 MR#: [id number] Acct: [id number] Name: ESPERANZA JULIAN ANN Rep #: [id number] : 1990 34 From: Lisbet Saini CNM PCP: Status:REG CLI Y Location: VC997-7 HPI - General HPI Narrative ESPERANZA JULIAN, is a 34 F approximately 7 weeks gestation who presents to D for IV fluids due to hyperemesis. Patient has been unable to keep any food or liquids down for over 2 days. Thought she felt better today and ate but threw it up in parking lot. Only able to use Phenergan 25 mg [place]. Cannot keep oral Zofran down. It has been recommended to patient for a Zofran pump but patient is declining consultation at this time. PFSH PFSH Allergy/AdvReac Type Severity Reaction Status Date / Time No Known Allergies Allergy Verified 12/18/24 14:03 ROS Eyes Eyes: Denies blurry vision Cardiovascular Cardiovascular: Reports none; Denies chest pain at rest or chest pain with activity Respiratory/Chest Respiratory/Chest: Denies cough or dyspnea Gastrointestinal Gastrointestinal: Reports as per HPI, dry heaves, nausea, vomiting and other Genitourinary Genitourinary: Denies dysuria Musculoskeletal Musculoskeletal: Reports none Integumentary Integumentary: Reports none; Denies rash Neurologic Neurologic: Denies dizziness, headache(s) or other visual disturbances Psychiatric Psychiatric: Reports none Physical Exam Const alert and no apparent distress General Appearance: cooperative Orientation / Consciousness: awake Exam Limitations: no limitations HEENT normocephalic Eyes General Eye: normal appearance of both eyes Neck full ROM Chest inspection of chest normal Resp normal respiratory effort and normal air movement Effort and Inspection: symmetric chest movement Auscultation: clear to auscultation bilaterally Cardio regular rate GI soft to palpation, non-tender and non-distended Inspection: and other Back/Spine normal ROM Extremity full ROM, normal capillary refill and no calf tenderness Skin no rashes or lesions noted Neuro oriented x3 and CN's II-XII intact bilaterally Psych mental status grossly normal Assessment Plan (1) Nausea/vomiting in : (2) 7 weeks gestation of : PLAN: Plan LR 1000 cc fluid bolus given Zofran 4 mg IV x 1 No emesis since arrival to unit Reports feeling better since IV- may need appointments at infusion therapy D/C home with follow up in office 12/18/24 9953 Date Lisbet Sanonigntwyla Signature (if applicable): Date __ CC: MEREDITH Saini [facility]igned [facility]on Single live intrauterine with gestational age of 6 weeks +1 day based on crown-rump length. Routine anatomic survey ultrasound is recommended between 18 and 20 weeks gestational age. No evidence of ectopic . Ovaries are only visualized transabdominally but appear within normal limits. MACRO: None Signed by: Rodríguez Lozada 12/11/2024 12:28 AM Dictation workstation: [id number] [facility] Interpreted By: Rodríguez Lozada, STUDY: US PELVIS OB TRANSABDOMINAL W TRANSVAGINAL UP TO 1ST TRIMESTER; 12/10/2024 11:55 pm INDICATION: Signs/Symptoms:Rule out ectopic-lower abdominal pain no prior confirmed IUP. COMPARISON: None. ACCESSION NUMBER(S): [id number] ORDERING CLINICIAN: BIRGIT YO TECHNIQUE: Grayscale and color Doppler transabdominal and transvaginal images of the pelvis. FINDINGS: Uterus: Measures 10.5 x 6.5 x 7.8 cm. Cervix is closed and measures 3.8 cm in length. There is an intrauterine gestational sac with a pole and normal-appearing yolk sac. cardiac activity is 106 beats per minute. The crown-rump length is 0.4 cm compatible with a gestational age of 6 weeks +1 day. Ovaries: The right ovary measures 2.9 x 1.7 x 1.3 cm.. The left ovary measures 3.6 x 2.1 x 2.7 cm. Flow is preserved bilaterally. No adnexal mass is seen. Cul de sac: No free fluid. MMODAL Rodríguez Lozada MD - 12/11/2024 Interpreted By: Rodríguez Lozada, STUDY: US PELVIS OB TRANSABDOMINAL W TRANSVAGINAL UP TO 1ST TRIMESTER; 12/10/2024 11:55 pm INDICATION: Signs/Symptoms:Rule out ectopic-lower abdominal pain no prior confirmed IUP. COMPARISON: None. ACCESSION NUMBER(S): [id number] ORDERING CLINICIAN: BIRGIT YO TECHNIQUE: Grayscale and color Doppler transabdominal and transvaginal images of the pelvis. FINDINGS: Uterus: Measures 10.5 x 6.5 x 7.8 cm. Cervix is closed and measures 3.8 cm in length. There is an intrauterine gestational sac with a pole and normal-appearing yolk sac. cardiac activity is 106 beats per minute. The crown-rump length is 0.4 cm compatible with a gestational age of 6 weeks +1 day. Ovaries: The right ovary measures 2.9 x 1.7 x 1.3 cm.. The left ovary measures 3.6 x 2.1 x 2.7 cm. Flow is preserved bilaterally. No adnexal mass is seen. Cul de sac: No free fluid. IMPRESSION: Single live intrauterine with gestational age of 6 weeks +1 day based on crown-rump length. Routine anatomic survey ultrasound is recommended between 18 and 20 weeks gestational age. No evidence of ectopic . Ovaries are only visualized transabdominally but appear within normal limits. MACRO: None Signed by: Rodríguez Lozada 12/11/2024 12:28 AM Dictation workstation: [id number] [facility] Work Phone: US Pelvis transvaginalOrdere d By: Rodríguez Lozada on 12-11-2024 [facility] Work Phone: Bacteriaon 12-10-2024 Bacteria identified Cx Nom (U) Test: Urine Culture Specimen Source: Clean Catch/Voided Specimen Type: Urine Specimen Date: 12/10/20242153 Result Date: 12/12/2024813 Result Status: Final result Abnormal: No Resulting Lab: [facility] [address] [place] [address] CULTURE Growth indicates contamination with Gram positive denisha. Repeat culture if clinically indicated. Normal [facility] Comment on above: Performed By: #### 6 30-4 #### FIDEL Robles ([id number]) [facility] ([facility]) [address] [place] [address] CBC W Auto Differential pane l (Bld)on 12-10-2024 Basophils (Bld) [#/Vol] 0.05 10*3/uL [facility] Basophils/100 WBC (Bld) 0.5 % 0.0 - 2.0 % [facility] Eosinophils (Bld) [#/Vol] 0.14 10*3/uL [facility] Eosinophils/100 WBC (Bld) 1.4 % 0.0 - 6.0 % [facility] Erythrocyte distribution width (RBC) [Ratio] 14.0 % 11.5 - 14.5 % [facility] Hematocrit (Bld) [Volume fraction] 39.7 % 36.0 - 46.0 % [facility] Hemoglobin (Bld) [Mass/Vol] 13.2 g/dL 12.0 - 16.0 g/dL [facility] Immature granulocytes (Bld) [#/Vol] 0.03 10*3/uL [facility] Immature granulocytes/100 WBC (Bld) 0.3 % 0.0 - 0.9 % [facility] Comment on above: Immature Granulocyte Count (IG) includes promyelocytes, myelocytes and metamyelocytes but does not include bands. Percent differential counts (%) should be interpreted in the context of the absolute cell counts (cells/UL). Lymphocytes (Bld) [#/Vol] 2.64 10*3/uL [facility] Lymphocytes/100 WBC (Bld) 25.5 % 13.0 - 44.0 % [facility] MCH (RBC) [Entitic mass] 27.3 pg 26.0 - 34.0 pg [facility] MCHC (RBC) [Mass/Vol] 33.2 g/dL 32.0 - 36.0 g/dL [facility] MCV (RBC) [Entitic vol] 82 fL 80 - 100 fL [facility] Monocytes (Bld) [#/Vol] 0.91 10*3/uL [facility] Monocytes/100 WBC (Bld) 8.8 % 2.0 - 10.0 % [facility] Neutrophils (Bld) [#/Vol] 6.57 10*3/uL [facility] Comment on above: Percent differential counts (%) should be interpreted in the context of the absolute cell counts (cells/uL). Neutrophils/100 WBC (Bld) 63.5 % 40.0 - 80.0 % [facility] Nucleated RBC/100 WBC (Bld) [Ratio] 0.0 % [facility] Platelets (Bld) [#/Vol] 259 10*3/uL [facility] RBC (Bld) [#/Vol] 4.84 10*6/uL [facility] WBC (Bld) [#/Vol] 10.3 10*3/uL [facility] Basophils (Bld) [#/Vol] 0.05 x10*3/uL Normal 0.00-0.10 [facility] Comment on above: Performed By: #### 5 7021-8 #### YULISA JEFFREY ([id number]) [facility] ([facility]) [address] [place] [address] 81150 Basophils/100 WBC (Bld) 0.5 % Normal 0.0-2.0 [facility] Comment on above: Performed By: #### 5 7021-8 #### YULISA JEFFREY ([id number]) [facility] ([facility]) [address] [place] [address] 84212 Eosinophils (Bld) [#/Vol] 0.14 x10*3/uL Normal 0.00-0.70 [facility] Comment on above: Performed By: #### 7021-8 #### YULISA JEFFREY ([id number]) [facility] ([facility]) [address] [place] [address] 12171 Eosinophils/100 WBC (Bld) 1.4 % Normal 0.0-6.0 [facility] Comment on above: Performed By: #### 5 7021-8 #### YULISA JEFFREY ([id number]) [facility] ([facility]) [address] [place] [address] 83830 Erythrocyte distribution width (RBC) [Ratio] 14.0 % Normal 11.5-14.5 [facility] Comment on above: Performed By: #### 5 7021-8 #### YULISA JEFFREY ([id number]) [facility] ([facility]) [address] [place] [address] 38402 Hematocrit (Bld) [Volume fraction] 39.7 % Normal 36.0-46.0 [facility] Comment on above: Performed By: #### 7021-8 #### YULISA JEFFREY ([id number]) [facility] ([facility]) [address] [place] [address] 26121 Hemoglobin (Bld) [Mass/Vol] 13.2 g/dL Normal 12.0-16.0 [facility] Comment on above: Performed By: #### 5 7021-8 #### YULISA JEFFREY ([id number]) [facility] ([facility]) [address] [place] [address] 26961 Immature granulocytes (Bld) [#/Vol] 0.03 x10*3/uL Normal 0.00-0.70 [facility] Comment on above: Performed By: #### 5 7021-8 #### YULISA JEFFREY ([id number]) [facility] ([facility]) [address] [place] [address] 38488 Immature granulocytes/100 WBC (Bld) 0.3 % Normal 0.0-0.9 [facility] Comment on above: Result Comment: Lucille ture Granulocyte Count (IG) includes promyelocytes, myelocytes and metamyelocytes but does not include bands. Percent differential counts (%) should be interpreted in the context of the absolute cell counts (cells/UL). Performed By: #### 5 7021-8 #### YULISA JEFFREY ([id number]) [facility] ([facility]) [address] [place] [address] 66648 Lymphocytes (Bld) [#/Vol] 2.64 x10*3/uL Normal 1.20-4.80 [facility] Comment on above: Performed By: #### 5 7021-8 #### YULISA JEFFREY ([id number]) [facility] ([facility]) [address] [place] [address] 18395 Lymphocytes/100 WBC (Bld) 25.5 % Normal 13.0-44.0 [facility] Comment on above: Performed By: #### 5 7021-8 #### YULISA JEFFREY ([id number]) [facility] ([facility]) [address] [place] [address] 65171 MCH (RBC) [Entitic mass] 27.3 pg Normal 26.0-34.0 [facility] Comment on above: Performed By: #### 5 7021-8 #### YULISA JEFFREY ([id number]) [facility] ([facility]) [address] [place] [address] 98078 MCHC (RBC) [Mass/Vol] 33.2 g/dL Normal 32.0-36.0 [place] Comment on above: Performed By: #### 5 7021-8 #### YULISA JEFFREY ([id number]) [facility] ([facility]) [address] [place] [address] 14963 MCV (RBC) [Entitic vol] 82 fL Normal 80-100 [facility] Comment on above: Performed By: #### 5 7021-8 #### YULISA JEFFREY ([id number]) [facility] ([facility]) [address] [place] [address] 19152 Monocytes (Bld) [#/Vol] 0.91 x10*3/uL Normal 0.10-1.00 [facility] Comment on above: Performed By: #### 5 7021-8 #### YULISA JEFFREY ([id number]) [facility] ([facility]) [address] [place] [address] 52451 Monocytes/100 WBC (Bld) 8.8 % Normal 2.0-10.0 [facility] Comment on above: Performed By: #### 5 7021-8 #### YULISA JEFFREY ([id number]) [facility] ([facility]) [address] [place] [address] 61758 Neutrophils (Bld) [#/Vol] 6.57 x10*3/uL Normal 1.20-7.70 [facility] Comment on above: Result Comment: Perc ent differential counts (%) should be interpreted in the context of the absolute cell counts (cells/uL). Performed By: #### 5 7021-8 #### YULISA JEFFREY ([id number]) [facility] ([facility]) [address] [place] [address] 80223 Neutrophils/100 WBC (Bld) 63.5 % Normal 40.0-80.0 [facility] Comment on above: Performed By: #### 5 7021-8 #### YULISA JEFFREY ([id number]) [facility] ([facility]) [address] [place] [address] 35821 Nucleated RBC/100 WBC (Bld) [Ratio] 0.0 /100 WBCs Normal 0.0-0.0 [facility] Comment on above: Performed By: #### 5 7021-8 #### YULISA JEFFREY ([id number]) [facility] ([facility]) [address] [place], [place] [address] Platelets (Bld) [#/Vol] 259 x10*3/uL Normal 150-450 [facility] Comment on above: Performed By: #### 5 7021-8 #### YULISA JEFFREY ([id number]) [facility] ([facility]) [address] [place] [address] RBC (Bld) [#/Vol] 4.84 x10*6/uL Normal 4.00-5.20 [facility] Comment on above: Performed By: #### 5 7021-8 #### YULISA JEFFREY ([id number]) [facility] ([facility]) [address] [place], [place] [address] WBC (Bld) [#/Vol] 10.3 x10*3/uL Normal 4.4-11.3 [facility] Comment on above: Performed By: #### 5 7021-8 #### YULISA JEFFREY ([id number]) [facility] ([facility]) [address] [place] [address] Gerald 12-10-2024 LEMUEL Telephone (JANINEGY) ---- ESPERANZA JULIAN ([id number]) 1990 F Date Time Provider Department 12/10/24 XIN CHUM During your visit today, we recorded the following information about you: Steph Velasquez RN 12/10/2024 10:10 AM Signed LMP 10/27/24 - 6w2d C/o n/v. Has not been able to keep any food or fluids down in last 24 hours. Had lower BP at home when she checked and only vomiting bile/foam at this point. Advised to go to ER. Patient agreed. Encouraged to schedule f/u visit for n/v if needed prior to her NOB too. Only call with further advice. MINI Lopez Karmon, MD 12/10/2024 11:21 AM Signed Noted AND agree. Xin Chu MD Allergies As of Date: 12/10/2024 (No Known Allergies) Date Reviewed: 02/14/2024 Reviewed by: Mónica Young MD - Fully Assessed Reason for Visit: Nausea AND Vomiting [237] Prescriptions as of 12/10/2024 - magnesium oxide 400 mg magnesium tab 400 mg. - ibuprofen (MOTRIN) 800 mg tablet Take 800 mg by mouth every 6 hours as needed. - folic acid 1 mg tablet Take 1 mg by mouth. - Hcugcmxy-Mw-Gqz-Fe- FA tab Take 1 tablet by mouth. Problem List As Of Date 12/10/2024 Noted Resolved Nausea and vomiting during [O21.9] 11/05/2015 05/18/2016 History of anxiety [Z86.59] 11/05/2015 Patient requested diagnostic testing [Z01.89] 11/05/2015 01/21/2016 Tobacco use in [O99.330] 11/05/2015 06/04/2019 Rh negative status during in first tr*12/16/2015 06/04/2019 Abnormal glucose complicating [O99.81*04/04/2016 06/04/2019 Encounter Status:Closed by STEPH VELASQUEZ on 12/10/24 [facility] Choriogonadotropin.beta subu niton 12-10-2024 HCG.beta subunit Qn [id number] m[IU]/mL High <5 [facility] Comment on above: Order Comment: Total HCG measurement is performed using the Tru Open Garden Access Immunoassay which detects intact HCG and free beta HCG subunit. This test is not indicated for use as a tumor marker. HCG testing is performed using a different test methodology at [facility] than other [facility]. Direct result comparison should only be made within the same method. Result Comment: Low- level positive HCG results can be seen in early , in sarahi- or post-menopausal females due to normal pituitary HCG production, or with analytic interference. Repeat testing in 48-72 hours can aid in assessing for as results should double in this time period. FSH measurement is recommended in sarahi- or post-menopausal females as concurrent elevation of FSH can support pituitary production as the source of the HCG elevation. Performed By: #### 2 1198-7 #### MÁRQUEZ RACHELE ([id number]) [facility] ([facility]) [address] [place] [address] Comprehensive metabolic 2000 panelon 12-10-2024 Albumin BCP dye [Mass/Vol] 4.3 g/dL 3.4 - 5.0 g/dL [facility] ALP [Catalytic activity/Vol] 45 U/L 33 - 110 U/L [facility] ALT With P-5'-P [Catalytic activity/Vol] 18 U/L 7 - 45 U/L [facility] Comment on above: Patients treated wit h Sulfasalazine may generate falsely decreased results for ALT. Anion gap [Moles/Vol] 12 mmol/L 10 - 20 mmol/L [facility] AST With P-5'-P [Catalytic activity/Vol] 16 U/L 9 - 39 U/L [facility] Bilirubin [Mass/Vol] 0.7 mg/dL 0.0 - 1 .2 mg/dL [facility] Calcium [Mass/Vol] 9.3 mg/dL 8.6 - 10. 3 mg/dL [facility] Chloride [Moles/Vol] 104 mmol/L 98 - 10 7 mmol/L [facility] CO2 [Moles/Vol] 24 mmol/L 21 - 32 mmol/L [facility] Creatinine [Mass/Vol] 0.64 mg/dL 0.50 - 1.05 mg/dL [facility] eGFR - PINF [facility] Comment on above: Calculations of kedar mated GFR are performed using the 2020 CKD-EPI Study Refit equation without the race variable for the IDMS-Traceable creatinine methods. https://jasn.asnjournals.org/content//ASN.300 0849223 Glucose [Mass/Vol] 89 mg/dL 74 - 99 mg/dL [facility] Interpretation and review of laboratory results Normal [facility] Potassium [Moles/Vol] 3.5 mmol/L 3.5 - 5.3 mmol/L [facility] Protein [Mass/Vol] 7.0 g/dL 6.4 - 8.2 g/dL Un [facility] Sodium [Moles/Vol] 136 mmol/L 136 - 145 mmol/L [facility] Urea nitrogen [Mass/Vol] 9 mg/dL 6 - 23 mg/d L [facility] Albumin BCP dye [Mass/Vol] 4.3 g/dL Normal 3.4-5.0 [facility] Comment on above: Performed By: #### 2 4323-8 #### YULISA JEFFREY ([id number]) [facility] ([facility]) [address] [place] [address] 60255 ALP [Catalytic activity/Vol] 45 U/L Normal 33-110 [facility] Comment on above: Performed By: #### 2 4323-8 #### YULISA JEFFREY ([id number]) [facility] ([facility]) [address] [place] [address] 97270 ALT With P-5'-P [Catalytic activity/Vol] 18 U/L Normal 7-45 [facility] Comment on above: Result Comment: Diane ents treated with Sulfasalazine may generate falsely decreased results for ALT. Performed By: #### 2 4323-8 #### YULISA JEFFREY ([id number]) [facility] ([facility]) [address] [place] [address] 12827 Anion gap [Moles/Vol] 12 mmol/L Normal 10-20 [place] Comment on above: Performed By: #### 2 4323-8 #### YULISA JEFFREY ([id number]) [facility] ([facility]) [address] [place] [address] AST With P-5'-P [Catalytic activity/Vol] 16 U/L Normal 9-39 [facility] Comment on above: Performed By: #### 2 4323-8 #### YULISA JEFFREY ([id number]) [facility] ([facility]) [address] [place] [address] Bilirubin [Mass/Vol] 0.7 mg/dL Normal 0.0-1.2 [facility] Comment on above: Performed By: #### 2 432-8 #### YULISA JEFFREY ([id number]) [facility] ([facility]) [address] [place] [address] 83032 Calcium [Mass/Vol] 9.3 mg/dL Normal 8.6-10.3 [facility] Comment on above: Performed By: #### 2 432-8 #### YULISA JEFFREY ([id number]) [facility] ([facility]) [address] [place] [address] Chloride [Moles/Vol] 104 mmol/L Normal 98-107 [facility] Comment on above: Performed By: #### 2 432-8 #### YULISA JEFFREY ([id number]) [facility] ([facility]) [address] [place] [address] CO2 [Moles/Vol] 24 mmol/L Normal 21-32 [facility] Comment on above: Performed By: #### 2 4323-8 #### YULISA JEFFREY ([id number]) [facility] ([facility]) [address] [place] [address] Creatinine [Mass/Vol] 0.64 mg/dL Normal 0.50-1.05 [place] Comment on above: Performed By: #### 2 4323-8 #### YULISA JEFFREY ([id number]) [facility] ([facility]) [address] [place] [address] 92156 GFR/1.73 sq M.predicted MDRD (S/P/Bld) [Vol rate/Area] mL/min/{1.73_m2} Normal >60 [facility] Comment on above: Result Comment: Calc ulations of estimated GFR are performed using the 2020 CKD-EPI Study Refit equation without the race variable for the IDMS-Traceable creatinine methods. https://jasn.asnjournals.org/content/early/ASN.529 4422574 Performed By: #### 2 4323-8 #### YULISA JEFFREY ([id number]) [facility] ([facility]) [address] [place] [address] 68618 Glucose [Mass/Vol] 89 mg/dL Normal 74-99 [facility] Comment on above: Performed By: #### 2 4323-8 #### YULISA JEFFREY ([id number]) [facility] ([facility]) [address] [place] [address] 68540 Potassium [Moles/Vol] 3.5 mmol/L Normal 3.5-5.3 [place] Comment on above: Performed By: #### 2 4323-8 #### YULISA JEFFREY ([id number]) [facility] ([facility]) [address] [place] [address] 14028 Protein [Mass/Vol] 7.0 g/dL Normal 6.4-8.2 [facility] Comment on above: Performed By: #### 2 4323-8 #### YULISA JEFFREY ([id number]) [facility] ([facility]) [address] [place] [address] 46155 Sodium [Moles/Vol] 136 mmol/L Normal 136-145 [facility] Comment on above: Performed By: #### 2 4323-8 #### YULISA JEFFREY ([id number]) [facility] ([facility]) [address] [place] [address] 26247 Urea nitrogen [Mass/Vol] 9 mg/dL Normal 6-23 [facility] Comment on above: Performed By: #### 2 4323-8 #### YULISA JEFFREY ([id number]) [facility] ([facility]) [address] [place] [address] 04124 HCG ( test) IA.rapi d Ql (U)Ordered By: Sam Gomes on 12-10-2024 HCG ( test) Ql (U) Positive Abnormal NEGATIVE [facility] Interpretation and review of laboratory results Abnormal [facility] HCG ( test) IA.rapi d Ql (U)on 12-10-2024 HCG ( test) Ql (U) Positive Abnormal NEGATIVE [facility] Comment on above: Performed By: #### 8 0384-1 #### MÁRQUEZ RACHELE ([id number]) [facility] ([facility]) [address] [place] [address] HCG.beta subunit Qnon 2024 Interpretation and review of laboratory results Abnormal [facility] Total HCG measurement is performed using the Tru Open Garden Access Immunoassay which detects intact HCG and free beta HCG subunit. This test is not indicated for use as a tumor marker. HCG testing is performed using a different test methodology at [facility] than other [facility]. Direct result comparison should only be made within the same method. [facility] Human Chorionic Gonadotropin , Serum Quantitativeon 12-10-2024 HCG.beta subunit Qn 435219 m[IU]/mL [facility] Comment on above: Low-level positive H CG results can be seen in early , in sarahi- or post-menopausal females due to normal pituitary HCG production, or with analytic interference. Repeat testing in 48-72 hours can aid in assessing for as results should double in this time period. FSH measurement is recommended in sarahi- or post-menopausal females as concurrent elevation of FSH can support pituitary production as the source of the HCG elevation. No Panel Informationon 12-10 Interpretation and review of laboratory results Abnormal [facility] US PELVIS OB TRANSABDOMINAL W TRANSVAGINAL UP TO 1ST TRIMESTERon 12-10-2024 US PELVIS OB TRANSABDOMINAL W TRANSVAGINAL UP TO 1ST TRIMESTER Interpreted By: Rodríguez Lozada, STUDY: US PELVIS OB TRANSABDOMINAL W TRANSVAGINAL UP TO 1ST TRIMESTER; 12/10/2024 11:55 pm INDICATION: Signs/Symptoms:Rule out ectopic-lower abdominal pain no prior confirmed IUP. COMPARISON: None. ACCESSION NUMBER(S): [id number] ORDERING CLINICIAN: BIRGIT YO TECHNIQUE: Grayscale and color Doppler transabdominal and transvaginal images of the pelvis. FINDINGS: Uterus: Measures 10.5 x 6.5 x 7.8 cm. Cervix is closed and measures 3.8 cm in length. There is an intrauterine gestational sac with a pole and normal-appearing yolk sac. cardiac activity is 106 beats per minute. The crown-rump length is 0.4 cm compatible with a gestational age of 6 weeks +1 day. Ovaries: The right ovary measures 2.9 x 1.7 x 1.3 cm.. The left ovary measures 3.6 x 2.1 x 2.7 cm. Flow is preserved bilaterally. No adnexal mass is seen. Cul de sac: No free fluid. IMPRESSION: Single live intrauterine with gestational age of 6 weeks +1 day based on crown-rump length. Routine anatomic survey ultrasound is recommended between 18 and 20 weeks gestational age. No evidence of ectopic . Ovaries are only visualized transabdominally but appear within normal limits. MACRO: None Signed by: Rodríguez Lozada 12/11/2024 12:28 AM Dictation workstation: [id number] Normal [facility] Pelvis transvaginalon Radiology Study observation (narrative) [facility] Work Phone: Urinalysis complete W Reflex Culture panel (U)on 12-10-2024 Appearance (U) Turbid Abnormal Clear [facility] Bilirubin (U) [Mass/Vol] Negative NEGATIVE mg /dL [facility] Color (U) Light-Yellow Light-Yellow, Yellow, Dark-Yellow [facility] Glucose Auto test strip (U) [Mass/Vol] Normal Normal mg/dL [facility] Ketones (U) [Mass/Vol] 40 (2+) Abnormal NEGATIVE mg/d L [facility] Leukocyte esterase Auto test strip Ql (U) 500 Meredith/uL Abnormal NEGATIVE [facility] Nitrite Auto test strip Ql (U) Negative NEGATIVE [facility] pH (U) 6.0 [pH] 5.0, 5.5, 6.0, 6.5, 7.0, 7.5, 8.0 [facility] Protein (U) [Mass/Vol] 10 (TRACE) NEGAT DENZEL, 10 (TRACE), 20 (TRACE) mg/dL [facility] RBC (U) [#/Vol] Negative NEGATIVE mg/dL Unive [facility] Specific gravity (U) [Rel density] 1.019 1.005 - 1.035 [facility] Urobilinogen (U) [Mass/Vol] Normal Normal mg/dL [facility] Appearance (U) Turbid Normal Clear [facility] Comment on above: Performed By: #### 5 8077-9 #### YULISA JEFFREY ([id number]) [facility] ([facility]) [address] [place] [address] Bilirubin (U) [Mass/Vol] Negative Normal NEGATIVE [facility] Comment on above: Performed By: #### 5 8077-9 #### YULISA JEFFREY ([id number]) [facility] ([facility]) [address] [place] [address] Color (U) Light-Yellow Normal Light-Yellow, Yellow, Dark-Yellow [facility] Comment on above: Performed By: #### 5 8077-9 #### YULISA JEFFREY ([id number]) [facility] ([facility]) [address] [place] [address] Glucose Auto test strip (U) [Mass/Vol] Normal Normal Normal [facility] Comment on above: Performed By: #### 5 8077-9 #### YULISA JEFFREY ([id number]) [facility] ([facility]) [address] [place] [address] Ketones (U) [Mass/Vol] 40 (2+) Abnormal NEGATIVE [facility] Comment on above: Performed By: #### 5 8077-9 #### YULISA JEFFREY ([id number]) [facility] ([facility]) [address] [place] [address] Leukocyte esterase Auto test strip Ql (U) 500 Meredith/uL Abnormal NEGATIVE [facility] Comment on above: Performed By: #### 5 8077-9 #### YULISA JEFFREY ([id number]) [facility] ([facility]) [address] [place] [address] 70049 Nitrite Auto test strip Ql (U) Negative Normal NEGATIVE [facility] Comment on above: Performed By: #### 5 8077-9 #### YULISA JEFFREY ([id number]) [facility] ([facility]) [address] [place] [address] 54858 pH (U) 6.0 [pH] Normal 5.0, 5.5, 6.0, 6.5, 7.0, 7.5, 8.0 [facility] Comment on above: Performed By: #### 5 8077-9 #### YULISA JEFFREY ([id number]) [facility] ([facility]) [address] [place] [address] 82491 Protein (U) [Mass/Vol] 10 (TRACE) Normal NEGAT DENZEL, 10 (TRACE), 20 (TRACE) [facility] Comment on above: Performed By: #### 5 8077-9 #### YULISA JEFFREY ([id number]) [facility] ([facility]) [address] [place] [address] 05459 RBC (U) [#/Vol] Negative Normal NEGATIVE [facility] Comment on above: Performed By: #### 5 8077-9 #### YULISA JEFFREY ([id number]) [facility] ([facility]) [address] [place] [address] 98426 Specific gravity (U) [Rel density] 1.019 Normal 1.005-1.035 [facility] Comment on above: Performed By: #### 5 8077-9 #### YULISA JEFFREY ([id number]) [facility] ([facility]) [address] [place] [address] 36310 Urobilinogen (U) [Mass/Vol] Normal Normal Normal [facility] Comment on above: Performed By: #### 5 8077-9 #### YULISA JEFFREY ([id number]) [facility] ([facility]) [address] [place] [address] 76629 Urinalysis microscopic panel Auto Ql (U)on 12-10-2024 Bacteria Auto (Urine sed) [#/Area] 1+ Abnormal NONE SEEN /HPF [facility] Epithelial cells.squamous Auto (Urine sed) [#/Area] 10-25 (FEW) Reference range not established. /HPF [facility] Mucus Auto (Urine sed) [#/Area] 2+ Reference range not established. /LPF [facility] RBC Auto (Urine sed) [#/Area] 3-5 NONE, 1-2, 3-5 /HPF [facility] WBC Auto (Urine sed) [#/Area] 11-20 Abnormal 1-5, NONE /HPF [facility] Bacteria Auto (Urine sed) [#/Area] 1+ /HPF Abnormal NONE SEEN [facility] Comment on above: Performed By: #### 5 3315-8 #### YULISA JEFFREY ([id number]) [facility] ([facility]) [address] [place] [address] Epithelial cells.squamous Auto (Urine sed) [#/Area] 10-25 (FEW) Normal Reference range not established. [facility] Comment on above: Performed By: #### 5 8445-8 #### YULISA JEFFREY ([id number]) [facility] ([facility]) [address] [place] [address] Mucus Auto (Urine sed) [#/Area] 2+ /LPF Normal Reference range not established. [facility] Comment on above: Performed By: #### 5 5605-8 #### YULISA JEFFREY ([id number]) [facility] ([facility]) [address] [place] [address] RBC Auto (Urine sed) [#/Area] 3-5 Normal NONE, 1-2, 3-5 [facility] Comment on above: Performed By: #### 5 8625-8 #### YULISA JEFFREY ([id number]) [facility] ([facility]) [address] [place] [address] 01465 WBC Auto (Urine sed) [#/Area] 11-20 Abnormal 1-5, NONE [facility] Comment on above: Performed By: #### 5 6055-8 #### YULISA JEFFREY ([id number]) [facility] ([facility]) [address] [place] [id number] [facility]N Telephone (OBGYWM) ---- ESPERANZA JULIAN ([id number]) 1990 F Date Time Provider Department 11/28/24 MÓNICA YOUNG OBGYWM During your visit today, we recorded the following information about you: Flora Zhu LPN 11/28/2024 1:10 PM Signed Patient does not know when LMP was d/t irregular menses. + test this morning. Took a home test 2 weeks ago that was negative. Patient had 2 past miscarriages 2023 and 2022. Patient states that she was told to call if she had a + test. Denies spotting, no cramping. Please advise if Hcg quants need ordered or does patient need an appointment. Mónica Young MD 11/28/2024 1:49 PM Addendum n early congratulations! Recommend appt to discuss. CP had 2 slots open up this afternoon. Can do VV to discuss b/c quants can't necessarily predict a miscarriage vs viable but it may help us know when to do an US. If not bleeding some women may chose to wait until 7-8 weeks for US vs doing blood work. See if she can do VV today. Luisana White RN 11/28/2024 1:53 PM Signed Patient notified and voiced understanding. Virtual visit scheduled with CP for today. Luisana White RN Allergies As of Date: 11/28/2024 (No Known Allergies) Date Reviewed: 02/14/2024 Reviewed by: Mónica Young MD - Fully Assessed Reason for Visit: [587] Prescriptions as of 11/28/2024 - magnesium oxide 400 mg magnesium tab 400 mg. - ibuprofen (MOTRIN) 800 mg tablet Take 800 mg by mouth every 6 hours as needed. - folic acid 1 mg tablet Take 1 mg by mouth. - Jnrgpswp-Cl-Kth-Fe- FA tab Take 1 tablet by mouth. Problem List As Of Date 11/28/2024 Noted Resolved Nausea and vomiting during [O21.9] 11/05/2015 05/18/2016 History of anxiety [Z86.59] 11/05/2015 Patient requested diagnostic testing [Z01.89] 11/05/2015 01/21/2016 Tobacco use in [O99.330] 11/05/2015 06/04/2019 Rh negative status during in first tr*12/16/2015 06/04/2019 Abnormal glucose complicating [O99.81*04/04/2016 06/04/2019 Encounter Status:Closed by LUISANA WHITE on 11/28/24 Normal [facility] CBC W Auto Differential pane l (Bld)on 02-14-2024 Basophils (Bld) [#/Vol] 0.06 10*3/uL [facility] Basophils/100 WBC (Bld) 0.9 % [facility] Differential cell count method Nom (Bld) Auto [facility] Eosinophils (Bld) [#/Vol] 0.38 10*3/uL [facility] Eosinophils/100 WBC (Bld) 5.5 % [facility] Erythrocyte distribution width (RBC) [Ratio] 14.1 % 11.5 - 15.0 % [facility] Hematocrit (Bld) [Volume fraction] 36.5 % 36.0 - 46.0 % [facility] Hemoglobin (Bld) [Mass/Vol] 12.1 g/dL 11.5 - 15.5 g/dL [facility] Immature granulocytes (Bld) [#/Vol] [facility] Immature granulocytes/100 WBC (Bld) 0.3 % [facility] Lymphocytes (Bld) [#/Vol] 2.03 10*3/uL [facility] Lymphocytes/100 WBC (Bld) 29.2 % [facility] MCH (RBC) [Entitic mass] 26.9 pg 26.0 - 34.0 pg [facility] MCHC (RBC) [Mass/Vol] 33.2 g/dL 30.5 - 36.0 g/dL [facility] MCV (RBC) [Entitic vol] 81.3 fL 80.0 - 100.0 fL [facility] Monocytes (Bld) [#/Vol] 0.54 10*3/uL [facility] Monocytes/100 WBC (Bld) 7.8 % [facility] Neutrophils (Bld) [#/Vol] 3.93 10*3/uL [facility] Neutrophils/100 WBC (Bld) 56.3 % [facility] Nucleated RBC (Bld) [#/Vol] NINF [facility] Nucleated RBC/100 WBC (Bld) [Ratio] 0.0 % /100 WBC [facility] Platelet mean volume (Bld) [Entitic vol] 9.4 fL 9.0 - 12.7 fL [facility] Platelets (Bld) [#/Vol] 253 10*3/uL [facility] RBC (Bld) [#/Vol] 4.49 10*6/uL 3.90 - 5.2 0 m/uL [facility] WBC (Bld) [#/Vol] 6.96 10*3/uL [facility] BASIC METABOLIC PANELon 01-21 Anion gap [Moles/Vol] 16 mmol/L Normal 10-20 [facility] Comment on above: Order Comment: [facility] has implemented the eGFR calculation approach that does not have a coefficient for race that conforms to the NKF-ASN Task Force Recommendations. Performed By: #### 4 6124 #### [address] [place], [place] [address] Kobi Eric M.D. [id number] Calcium [Mass/Vol] 9.0 mg/dL Normal 8.4-10.2 [facility] Comment on above: Order Comment: [facility] has implemented the eGFR calculation approach that does not have a coefficient for race that conforms to the NKF-ASN Task Force Recommendations. Performed By: #### 4 6124 #### [address] [place], [place] [address] Kobi Eric M.D. [id number] Chloride [Moles/Vol] 107 mmol/L Normal 98-108 [facility] Comment on above: Order Comment: [facility] has implemented the eGFR calculation approach that does not have a coefficient for race that conforms to the NKF-ASN Task Force Recommendations. Performed By: #### 4 6124 #### [address] [place] [address] Kobi Eric M.D. [id number] Creatinine [Mass/Vol] 0.77 mg/dL Normal 0.40-1.10 [facility] Comment on above: Order Comment: [facility] has implemented the eGFR calculation approach that does not have a coefficient for race that conforms to the NKF-ASN Task Force Recommendations. Performed By: #### 4 6124 #### LAB [address] [address] Kobi Eric M.D. [id number] EGFR 104 mL/min/1.73 m2 Normal >=60 [facility] Comment on above: Order Comment: [facility] has implemented the eGFR calculation approach that does not have a coefficient for race that conforms to the NKF-ASN Task Force Recommendations. Result Comment: Kedar mated GFR was calculated using the 2020 CKD-EPI creatinine equation. Performed By: #### 4 6124 #### LAB [address] [address] Kobi Eric M.D. [id number] Glucose [Mass/Vol] 107 mg/dL High 65-99 [facility] Comment on above: Order Comment: [facility] has implemented the eGFR calculation approach that does not have a coefficient for race that conforms to the NKF-ASN Task Force Recommendations. Performed By: #### 4 6124 #### LAB [address] [address] Kobi Eric M.D. [id number] HCO3 (Bld) [Moles/Vol] 19 mmol/L Low 21-32 [facility] Comment on above: Order Comment: [facility] has implemented the eGFR calculation approach that does not have a coefficient for race that conforms to the NKF-ASN Task Force Recommendations. Performed By: #### 4 6124 #### LAB [address] [address] Kobi Eric M.D. [id number] Potassium [Moles/Vol] 3.9 mmol/L Normal 3.5-5.1 [facility] Comment on above: Order Comment: [facility] has implemented the eGFR calculation approach that does not have a coefficient for race that conforms to the NKF-ASN Task Force Recommendations. Result Comment: Spec imen slightly hemolyzed. Performed By: #### 4 6124 #### LAB [address] [address] Kobi Eric M.D. [id number] Sodium [Moles/Vol] 138 mmol/L Normal 135-145 [facility] Comment on above: Order Comment: [facility] has implemented the eGFR calculation approach that does not have a coefficient for race that conforms to the NKF-ASN Task Force Recommendations. Performed By: #### 4 6124 #### LAB [address] [address] Kobi Eric M.D. [id number] Urea nitrogen [Mass/Vol] 18 mg/dL Normal 8-25 [facility] Comment on above: Order Comment: [facility] has implemented the eGFR calculation approach that does not have a coefficient for race that conforms to the NKF-ASN Task Force Recommendations. Performed By: #### 4 6124 #### LAB [address] [address] Kobi Eric M.D. [id number] Urea nitrogen/Creatinine [Mass ratio] 23.4 mg/mg High 10.0-20.0 [facility] Comment on above: Order Comment: [facility] has implemented the eGFR calculation approach that does not have a coefficient for race that conforms to the NKF-ASN Task Force Recommendations. Performed By: #### 4 6124 #### [facility] LAB [address] [address] Kobi Eric M.D. [id number] CBC WITH AUTO DIFFERENTIALon 02-11-2024 AUTO NRBC 0.0 % Normal [facility] Comment on above: Performed By: #### L [id number] #### LAB [address] [address] Kobi Eric M.D. [id number] AUTO NRBC ABS COUNT 0.00 K/mcL Normal 0.00-0.00 [facility] Comment on above: Performed By: #### L [id number] #### LAB [address] [address] Kobi Eric M.D. [id number] BASOPHILS ABSOLUTE COUNT 0.08 K/mcL Normal 0.00-0.30 [facility] Comment on above: Performed By: #### L [id number] #### LAB [address] [address] Kobi Eric M.D. [id number] Basophils/100 WBC (Bld) 0.8 % Normal [facility] Comment on above: Performed By: #### L [id number] #### LAB [address] [place] [address] Kobi Eric M.D. [id number] Eosinophils (Bld) [#/Vol] 0.39 10*3/uL Normal 0.00-0.50 [facility] Comment on above: Performed By: #### L [id number] #### LAB [address] [place] [address] Kobi Eric M.D. [id number] Eosinophils/100 WBC (Bld) 3.8 % Normal [facility] Comment on above: Performed By: #### L [id number] #### LAB [address] [place] [address] Kobi Eric M.D. [id number] Erythrocyte distribution width (RBC) [Ratio] 14.0 % Normal 11.6-14.8 [facility] Comment on above: Performed By: #### L [id number] #### LAB [address] [place] [address] Kobi Eric M.D. [id number] Hematocrit (Bld) [Volume fraction] 39.3 % Normal 36.0-46.0 [facility] Comment on above: Performed By: #### L [id number] #### LAB [address] [address] Kobi Eric M.D. [id number] Hemoglobin (Bld) [Mass/Vol] 13.0 g/dL Normal 12.0-16.0 [facility] Comment on above: Performed By: #### L [id number] #### LAB [address] [address] Kobi Eric M.D. [id number] IG ABSOLUTE 0.03 K/mcL Normal 0.00-0.30 [facility] Comment on above: Performed By: #### L [id number] #### LAB [address] [address] Kobi Eric M.D. [id number] IG PERCENT 0.30 % Normal [facility] Comment on above: Result Comment: The IG parameter is the percentage of metamyelocytes, myelocytes and promyelocytes. An immature granulocyte count (IG) of 1% or more suggests the possibility of infection, an IG count of 3% is very likely related to an infection. Performed By: #### L QQ1588 #### LAB [address] [place] [address] Kobi Eric M.D. [id number] Lymphocytes (Bld) [#/Vol] 2.05 10*3/uL Normal 0.90-4.00 [facility] Comment on above: Performed By: #### L [id number] #### LAB [address] [address] Kobi Eric M.D. [id number] Lymphocytes/100 WBC (Bld) 19.7 % Normal [facility] Comment on above: Performed By: #### L [id number] #### LAB [address] [address] Kobi Eric M.D. [id number] MCH (RBC) [Entitic mass] 26.8 pg Normal 26.0-34.0 [facility] Comment on above: Performed By: #### L JV7115 #### LAB [address] [address] Koib Eric M.D. [id number] MCV (RBC) [Entitic vol] 81.0 fL Normal 80.0-100.0 [facility] Comment on above: Performed By: #### L [id number] #### LAB [address] [address] Kobi Eric M.D. [id number] MEAN CORPUSCULAR HEMOGLOBIN CONC 33.1 g/dL Normal 31.0-37.0 [facility] Comment on above: Performed By: #### L VT3852 #### LAB [address] [address] Kobi Eric M.D. [id number] Monocytes (Bld) [#/Vol] 0.87 10*3/uL Normal 0.30-0.90 [facility] Comment on above: Performed By: #### L XL1009 #### LAB [address] [address] Kobi Eric M.D. [id number] Monocytes/100 WBC (Bld) 8.4 % Normal [facility] Comment on above: Performed By: #### L BW8612 #### LAB [address] [address] Kobi Eric M.D. [id number] NEUTROPHILS ABSOLUTE COUNT 6.98 K/mcL Normal 1.70-7.00 [facility] Comment on above: Performed By: #### L AE5945 #### LAB [address] [address] Kobi Eric M.D. [id number] Neutrophils/100 WBC (Bld) 67.0 % Normal [facility] Comment on above: Performed By: #### L [id number] #### LAB [address] [address] Kobi Eric M.D. [id number] Platelet mean volume (Bld) [Entitic vol] 9.9 fL Normal 9.4-12.4 [facility] Comment on above: Performed By: #### L KA6147 #### LAB [address] [place], [place] [address] Kobi Eric M.D. [id number] Platelets (Bld) [#/Vol] 261 10*3/uL Normal 150-400 [facility] Comment on above: Performed By: #### L GX0217 #### MH LAB [address] [place], [place] [address] Kobi Eric M.D. [id number] RBC (Bld) [#/Vol] 4.85 10*6/uL Normal 4.00-5.20 [facility] Comment on above: Performed By: #### L HI4493 #### MH LAB [address] [place], [place] [address] Kobi Eric M.D. [id number] WBC (Bld) [#/Vol] 10.40 10*3/uL Normal 4.50-11.00 [facility] Comment on above: Performed By: #### L [id number] #### LAB [address] [address] Kobi Eric M.D. [id number] ED Procedureon 02-11-2024 ED Procedure EKG 12-lead Date/Time: 02/11/2024 7:06 PM Performed by: Alek Crespo, DO Authorized by: Emergency, Triage Protocol, BPM: 97 Comments: Normal axis [place] not prolonged QRS not prolonged QT less than half the RR interval Normal sinus rhythm No STEMI AUTHENTICATED BY ALEK CRESPO, ON 02/11/2024 19:07:14 Normal [facility] OB TRANSVAGINAL FIRST TRI MESTERon 02-07-2024 OB TRANSVAGINAL FIRST TRIMESTER Single IUP measuring 6w1d No cardiac activity noted Normal adnexa IMP: mIssed ab at 6w1d Dictated by: MISAEL GARSIA on MonFeb 11, 2024 1:16:36 PM EDT Transcribed by: MISAEL GARSIA on MonFeb 11, 2024 1:16:36 PM EDT Finalized by: MISAEL GARSIA on MonFeb 11, 2024 1:16:36 PM EDT Normal [facility] HCG, BLOOD, QUANTITATIVEon 0 01-25-2024 HCG, QUANTITATIVE 8297 mIU/mL High 0-5 [facility] Comment on above: Order Comment: Males and non females: <5 mIU/mL Females during : 3-4 weeks 9-130 mIU/mL 4-5 weeks 75-2600 mIU/mL 5-6 weeks 850-20,800 mIU/mL 6-7 weeks 4000-100,200 mIU/mL 7-12 weeks 11,500-289,000 mIU/mL 12-16 weeks 18,300-137,000 mIU/mL 16-29 weeks 1,400-53,000 mIU/mL 29-41 weeks 940-60,000 mIU/mL Performed By: #### 4 5827 #### [facility] [address], [place] [address] Kobi Eric M.D. [id number] Colonoscopy studyon 12-12-19 Table formatting from the original result was not included. Impression Normal. Findings All observed locations appeared normal. Recommendation Repeat screening colonoscopy in 10 years, due: 12/09/2033 Indication Chronic idiopathic constipation, Abdominal pain, LLQ, Abdominal pain, RLQ Staff Staff Role No Staff Documented Medications glucagon (Glucagen) injection 1 mg meperidine PF (Demerol) injection 50 mg midazolam PF (Versed) injection 7.5 mg diphenhydrAMINE (BENADryl) injection 50 mg (Totals for administrations occurring from 1153 to 1223 on 12/12/23) Preprocedure A history and physical has been performed, and patient medication allergies have been reviewed. The patient's tolerance of previous anesthesia has been reviewed. The risks and benefits of the procedure and the sedation options and risks were discussed with the patient and patient's partner. All questions were answered and informed consent obtained. Details of the Procedure The patient underwent moderate sedation, which was administered by the procedural nurse. The patient's blood pressure, ECG, ETCO2, heart rate, level of consciousness, oxygen and respirations were monitored throughout the procedure. A digital rectal exam was performed. The scope was introduced through the anus and advanced to the cecum. The quality of bowel preparation was evaluated using the Harrold Bowel Preparation Scale with scores of: right colon = 3, transverse colon = 3, left colon = 3. The total BBPS score was 9. Bowel prep was adequate. The patient experienced no blood loss. The procedure was not difficult. The patient tolerated the procedure well. There were no apparent adverse events. Events Procedure Events Event Event Time ENDO SCOPE IN TIME 12/12/2023 12:06 PM ENDO CECUM REACHED 12/12/2023 12:16 PM ENDO SCOPE OUT TIME 12/12/2023 12:23 PM Specimens No specimens collected Procedure Location [address] [address] Referring Provider Vesna Hill DO Procedure Provider Vesna Hill DO [facility] Work Phone: [facility] Work Phone: Radiology Study observation (narrative) [facility] Work Phone: CBC W Auto Differential pane l (Bld)on 12-08-2023 Basophils (Bld) [#/Vol] 0.07 x10*3/uL Normal 0.00-0.10 [facility] Comment on above: Performed By: #### 5 7021-8 #### YULISA JEFFREY ([id number]) [facility] ([facility]) [address] [place] [address]305 Basophils/100 WBC (Bld) 0.7 % Normal 0.0-2.0 [facility] Comment on above: Performed By: #### 5 7021-8 #### YULISA JEFFREY ([id number]) [facility] ([facility]) [address] [place] [address]2366 Eosinophils (Bld) [#/Vol] 0.26 x10*3/uL Normal 0.00-0.70 [facility] Comment on above: Performed By: #### 5 7021-8 #### YULISA JEFFREY ([id number]) [facility] ([facility]) [address] [place] [address] 00679 Eosinophils/100 WBC (Bld) 2.6 % Normal 0.0-6.0 [facility] Comment on above: Performed By: #### 5 7021-8 #### YULISA JEFFREY ([id number]) [facility] ([facility]) [address] [place] [address] 45891 Erythrocyte distribution width (RBC) [Ratio] 14.0 % Normal 11.5-14.5 [facility] Comment on above: Performed By: #### 5 7021-8 #### YULISA JEFFREY ([id number]) [facility] ([facility]) [address] [place] [address] Hematocrit (Bld) [Volume fraction] 40.3 % Normal 36.0-46.0 [facility] Comment on above: Performed By: #### 5 7021-8 #### YULISA JEFFREY ([id number]) [facility] ([facility]) [address] [place] [address] Hemoglobin (Bld) [Mass/Vol] 12.9 g/dL Normal 12.0-16.0 [facility] Comment on above: Performed By: #### 5 7021-8 #### YULISA JEFFREY ([id number]) [facility] ([facility]) [address] [place], [place] [address] Immature granulocytes (Bld) [#/Vol] 0.02 x10*3/uL Normal 0.00-0.70 [facility] Comment on above: Performed By: #### 5 7021-8 #### YULISA JEFFREY ([id number]) [facility] ([facility]) [address] [place] [address] Immature granulocytes/100 WBC (Bld) 0.2 % Normal 0.0-0.9 [facility] Comment on above: Result Comment: Lucille ture Granulocyte Count (IG) includes promyelocytes, myelocytes and metamyelocytes but does not include bands. Percent differential counts (%) should be interpreted in the context of the absolute cell counts (cells/UL). Performed By: #### 5 7021-8 #### YULISA JEFFREY ([id number]) [facility] ([facility]) [address] [place] [address] 20995 Lymphocytes (Bld) [#/Vol] 2.84 x10*3/uL Normal 1.20-4.80 [facility] Comment on above: Performed By: #### 5 7021-8 #### YULISA JEFFREY ([id number]) [facility] ([facility]) [address] [place] [address] 08289 Lymphocytes/100 WBC (Bld) 28.6 % Normal 13.0-44.0 [facility] Comment on above: Performed By: #### 5 7021-8 #### YULISA JEFFREY ([id number]) [facility] ([facility]) [address] [place] [address] 45599 MCH (RBC) [Entitic mass] 26.4 pg Normal 26.0-34.0 [facility] Comment on above: Performed By: #### 5 7021-8 #### YULISA JEFFREY ([id number]) [facility] ([facility]) [address] [place] [address] 48977 MCHC (RBC) [Mass/Vol] 32.0 g/dL Normal 32.0-36.0 [facility] Comment on above: Performed By: #### 5 7021-8 #### YULISA JEFFREY ([id number]) [facility] ([facility]) [address] [place] [address] 40701 MCV (RBC) [Entitic vol] 82 fL Normal 80-100 [facility] Comment on above: Performed By: #### 5 7021-8 #### YULISA JEFFREY ([id number]) [facility] ([facility]) [address] [place] [address] 51658 Monocytes (Bld) [#/Vol] 0.88 x10*3/uL Normal 0.10-1.00 [facility] Comment on above: Performed By: #### 5 7021-8 #### YULISA JEFFREY ([id number]) [facility] ([facility]) [address] [place] [address] 56346 Monocytes/100 WBC (Bld) 8.9 % Normal 2.0-10.0 [facility] Comment on above: Performed By: #### 5 7021-8 #### YULISA JEFRFEY ([id number]) [facility] ([facility]) [address] [place] [address] 65754 Neutrophils (Bld) [#/Vol] 5.85 x10*3/uL Normal 1.20-7.70 [facility] Comment on above: Result Comment: Perc ent differential counts (%) should be interpreted in the context of the absolute cell counts (cells/uL). Performed By: #### 5 7021-8 #### YULISA JEFFREY ([id number]) [facility] ([facility]) [address] [place] [address] 60355 Neutrophils/100 WBC (Bld) 59.0 % Normal 40.0-80.0 [facility] Comment on above: Performed By: #### 5 7021-8 #### YULISA JEFFREY ([id number]) [facility] ([facility]) [address] [place], [place] [address] Nucleated RBC/100 WBC (Bld) [Ratio] 0.0 /100 WBCs Normal 0.0-0.0 [facility] Comment on above: Performed By: #### 5 7021-8 #### YULISA JEFFREY ([id number]) [facility] ([facility]) [address] [place] [address] 67506 Platelets (Bld) [#/Vol] 283 x10*3/uL Normal 150-450 [facility] Comment on above: Performed By: #### 5 7021-8 #### YULISA JEFFREY ([id number]) [facility] ([facility]) [address] [place] [address] 61892 RBC (Bld) [#/Vol] 4.89 x10*6/uL Normal 4.00-5.20 [facility] Comment on above: Performed By: #### 5 7021-8 #### YULISA JEFFREY ([id number]) [facility] ([facility]) [address] [place] [address] 64659 WBC (Bld) [#/Vol] 9.9 x10*3/uL Normal 4.4-11.3 [facility] Comment on above: Performed By: #### 5 7021-8 #### YULISA JEFFREY ([id number]) [facility] ([facility]) [address] [place] [address] 34880 Comprehensive metabolic 2000 panelon 12-08-2023 Albumin BCP dye [Mass/Vol] 4.3 g/dL Normal 3.4-5.0 [facility] Comment on above: Performed By: #### 2 4323-8 #### YULISA JEFFREY ([id number]) [facility] ([facility]) [address] [place] [address] ALP [Catalytic activity/Vol] 48 U/L Normal 33-110 [facility] Comment on above: Performed By: #### 2 432-8 #### YULISA JEFFREY ([id number]) [facility] ([facility]) [address] [place] [address] 86867 ALT With P-5'-P [Catalytic activity/Vol] 11 U/L Normal 7-45 [facility] Comment on above: Result Comment: Diane ents treated with Sulfasalazine may generate falsely decreased results for ALT. Performed By: #### 2 4323-8 #### YULISA JEFFREY ([id number]) [facility] ([facility]) [address] [place] [address] 53214 Anion gap [Moles/Vol] 10 mmol/L Normal 10-20 [facility] Comment on above: Performed By: #### 2 4323-8 #### YULISA JEFFREY ([id number]) [facility] ([facility]) [address] [place] [address] 32125 AST With P-5'-P [Catalytic activity/Vol] 15 U/L Normal 9-39 [facility] Comment on above: Performed By: #### 2 4323-8 #### YULISA JEFFREY ([id number]) [facility] ([facility]) [facility] [place] [address] Bilirubin [Mass/Vol] 0.3 mg/dL Normal 0.0-1.2 [facility] Comment on above: Performed By: #### 2 4323-8 #### YULISA JEFFREY ([id number]) [facility] ([facility]) [facility] [place] [address] Calcium [Mass/Vol] 8.9 mg/dL Normal 8.6-10.3 [facility] Comment on above: Performed By: #### 2 4323-8 #### YULISA JEFFREY ([id number]) [facility] ([facility]) [address] [place] [address] 93176 Chloride [Moles/Vol] 105 mmol/L Normal 98-107 [facility] Comment on above: Performed By: #### 2 4323-8 #### YULISA JEFFREY ([id number]) [facility] ([facility]) [address] [place] [address] 88444 CO2 [Moles/Vol] 29 mmol/L Normal 21-32 [facility] Comment on above: Performed By: #### 2 4323-8 #### YULISA JEFFREY ([id number]) [facility] ([facility]) [address] [place] [address] 44389 Creatinine [Mass/Vol] 0.78 mg/dL Normal 0.50-1.05 [facility] Comment on above: Performed By: #### 2 4323-8 #### YULISA JEFFREY ([id number]) [facility] ([facility]) [address] [place] [address] 31981 GFR/1.73 sq M.predicted MDRD (S/P/Bld) [Vol rate/Area] mL/min/{1.73_m2} Normal >60 [facility] Comment on above: Result Comment: Calc ulations of estimated GFR are performed using the 2020 CKD-EPI Study Refit equation without the race variable for the IDMS-Traceable creatinine methods. https://jasn.asnjournals.org/content/early//ASN.123 6355980 Performed By: #### 2 4323-8 #### YULISA JEFFREY ([id number]) [facility] ([facility]) [address] [place] [address] 84783 Glucose [Mass/Vol] 93 mg/dL Normal 74-99 [facility] Comment on above: Performed By: #### 2 4323-8 #### YULISA JEFFREY ([id number]) [facility] ([facility]) [address] [place] [address] Potassium [Moles/Vol] 3.7 mmol/L Normal 3.5-5.3 [facility] Comment on above: Performed By: #### 2 4323-8 #### YULISA JEFFREY ([id number]) [facility] ([facility]) [address] [place] [address] Protein [Mass/Vol] 6.6 g/dL Normal 6.4-8.2 [facility] Comment on above: Performed By: #### 2 4323-8 #### YULISA JEFFREY ([id number]) [facility] ([facility]) [address] [place] [address] Sodium [Moles/Vol] 140 mmol/L Normal 136-145 [facility] Comment on above: Performed By: #### 2 4323-8 #### YULISA JEFFREY ([id number]) [facility] ([facility]) [address] [place] [address] Urea nitrogen [Mass/Vol] 13 mg/dL Normal 6-23 [facility] Comment on above: Performed By: #### 2 4323-8 #### YULISA JEFFREY ([id number]) [facility] ([facility]) [address] [place] [address] Thyrotropinon 12-08-2023 TSH Qn 2.08 m[IU]/L Normal 0.44-3.98 [facility] Comment on above: Order Comment: TSH t esting is performed using different testing methodology at [facility] than at other [facility]. Direct result comparisons should only be made within the same method. Performed By: #### 3 016-3 #### YULISA JEFFREY ([id number]) [facility] ([facility]) [address] [place] [address] US Pelvis transvaginalon IMPRESSION: Trace free pelvic fluid. Otherwise normal pelvic ultrasound Director Of Corporate Strategy: JASEN Transcribe Date/Time: Nov 06 2023 12:44P Dictated by : GITA JIMENES MD This examination was interpreted and the report reviewed and electronically signed by: GITA JIMENES MD on Nov 06 2023 12:45PM EST DIVISION OF RADIOLOGY * * *Final Report* * * DATE OF EXAM: Nov 02 2023 3:10PM [facility] 1060 - US FEMALE PELVIS TRANSVAG / PROCEDURE REASON: Left lower quadrant pain * * * * Physician Interpretation * * * * EXAMINATION: TRANSVAGINAL AND LIMITED TRANSABDOMINAL FEMALE PELVIC ULTRASOUND CLINICAL HISTORY: Left lower quadrant pain TECHNIQUE: Sonography of the pelvis was performed by transvaginal and transabdominal (limited) techniques. Images were obtained and stored in a permanent archive. MQ: [email or web address] COMPARISON: None RESULT: Uterus: LMP 10/09/2023 -Size: 9.8 x 4.5 x 7.3 cm -Orientation: Anteverted -Endometrial echo complex: Evaluation of the endometrium was adequate. No endometrial abnormality. The endometrial echo complex measured 1.4 cm. -Cervix: Unremarkable. -Adenomyosis assessment: There are no sonographic findings of adenomyosis. -Fibroids: There are no fibroids. Right Ovary: 2.8 x 2.1 x 1.8 cm Normal appearance Left Ovary: 3.1 x 1.5 x 1.9 cm. Normal appearance Free Fluid: Trace free pelvic fluid DIVISION OF RADIOLOGY Provider, [facility] - 11/06/2023 * * *Final Report* * * DATE OF EXAM: Nov 02 2023 3:10PM [facility] 1060 - US FEMALE PELVIS TRANSVAG / PROCEDURE REASON: Left lower quadrant pain * * * * Physician Interpretation * * * * EXAMINATION: TRANSVAGINAL AND LIMITED TRANSABDOMINAL FEMALE PELVIC ULTRASOUND CLINICAL HISTORY: Left lower quadrant pain TECHNIQUE: Sonography of the pelvis was performed by transvaginal and transabdominal (limited) techniques. Images were obtained and stored in a permanent archive. MQ: [id number][id number] COMPARISON: None RESULT: Uterus: LMP 10/09/2023 -Size: 9.8 x 4.5 x 7.3 cm -Orientation: Anteverted -Endometrial echo complex: Evaluation of the endometrium was adequate. No endometrial abnormality. The endometrial echo complex measured 1.4 cm. -Cervix: Unremarkable. -Adenomyosis assessment: There are no sonographic findings of adenomyosis. -Fibroids: There are no fibroids. Right Ovary: 2.8 x 2.1 x 1.8 cm Normal appearance Left Ovary: 3.1 x 1.5 x 1.9 cm. Normal appearance Free Fluid: Trace free pelvic fluid IMPRESSION IMPRESSION: Trace free pelvic fluid. Otherwise normal pelvic ultrasound Director Of Corporate Strategy: JASEN Transcribe Date/Time: Nov 06 2023 12:44P Dictated by : GITA JIMENES MD This examination was interpreted and the report reviewed and electronically signed by: GITA JIMENES MD on Nov 06 2023 12:45PM EST [facility] Pelvis transvaginalOrdere d By: Ccf Provider on 11-06-2023 [facility] Pelvis transvaginalon Radiology Study observation (narrative) [facility] Antibody Identificationon Blood group antibodies identified Nom Anti-Rhogam [facility] Comment on above: The anti-D detected in this patient is presumably caused by a recent Rh Immune Globulin injection.It is unlikely that this represents a clinically significant antibody. [facility] Beta HCG ( test) Ql on 04-27-2023 Positive: The result is greater than or equal to 25 Triny/mL of HCG, which is the diagnostic cutoff for . [facility] Blood type and Indirect anti body screen panel (Bld)on 04-27-2023 ABO and Rh group Nom (Bld) Blood group A Rh(D) negative [facility] Blood group antibody screen Ql Positive [facility] Specimen Expires 04/29/2023 23:59 EST [facility] HCG Qnon 04-27-2023 Beta HCG ( test) Ql (U) Males and non females: <5 mIU/mL Females during : 3-4 weeks 9-130 mIU/mL 4-5 weeks 75-2600 mIU/mL 5-6 weeks 850-20,800 mIU/mL 6-7 weeks 4000-100,200 mIU/mL 7-12 weeks 11,500-289,000 mIU/mL 12-16 weeks 18,300-137,000 mIU/mL 16-29 weeks 1,400-53,000 mIU/mL 29-41 weeks 940-60,000 mIU/mL [facility] Hemoglobin and Hematocrit pa laurence (Bld)on 04-27-2023 Hematocrit (Bld) [Volume fraction] 31.2 % Low 36.0 - 46.0 % [facility] Hemoglobin (Bld) [Mass/Vol] 10.4 g/dL Low 12.0 - 16.0 g/dL [facility] Interpretation and review of laboratory results Abnormal [facility] No Panel Informationon 04-27 Interpretation and review of laboratory results Abnormal [facility] OB TRANSVAGINALon 023 US OB TRANSVAGINAL EXAMINATION: US OB TRANSVAGINAL HISTORY: ORDERING SYSTEM PROVIDED HISTORY: missed , TECHNOLOGIST PROVIDED HISTORY: Illness/Other Reason for exam: missed Cancer History: unknown Surgery, RadiationHistory: unknown Encounter Type: Subsequent/Follow-u p Additional signs and symptoms: none ORDERING SYSTEM PROVIDED DIAGNOSIS CODES: N93.9 Vaginal bleeding O03.4 Incomplete miscarriage COMPARISON: None TECHNIQUE: First-trimester ultrasound utilizing B-mode, M-mode, color Doppler and spectral analysis. FINDINGS: No intrauterine demonstrated. The uterus measures 11.1 x 6.4 x 8.3 cm. Endometrial thickness is 15 mm. Right ovary measures 3.5 x 2.1 x 2.7 cm. Right ovary shows hypoechoic focus measuring 1.9 cm maximal diameter likely representing collapsed corpus luteum cyst. Left ovary measures 3.0 x 1.3 x 2.5 cm. Bilateral ovaries demonstrate color Doppler flow and appropriate spectral waveforms. No free fluid identified. IMPRESSION: No intrauterine demonstrated. Workstation ID: [id number] Dictated by: BOB BA on MonApr 27, 2023 8:25:30 AM EST Transcribed by: BOB BA on MonApr 27, 2023 8:25:30 AM EST Finalized by: BOB BA on MonApr 27, 2023 8:25:30 AM EST [facility] Comment on above: Order Comment: Injur y/Trauma or Illness?:Illness/Other How long have you had these symptoms (acute/chronic)?:Acute Reason for exam?:missed History of cancer?:unknown Surgeries, chemotherapy, or radiation?:unknown Type of Exam?:Subsequent/Follow-up Additional signs and symptoms?:none US Pelvis transvaginalon No intrauterine demonstrated. Workstation ID: [id number] GE RIS EXAMINATION: US OB TRANSVAGINAL HISTORY: ORDERING SYSTEM PROVIDED HISTORY: missed , TECHNOLOGIST PROVIDED HISTORY: Illness/Other Reason for exam: missed Cancer History: unknown Surgery, RadiationHistory: unknown Encounter Type: Subsequent/Follow-u p Additional signs and symptoms: none ORDERING SYSTEM PROVIDED DIAGNOSIS CODES: N93.9 Vaginal bleeding O03.4 Incomplete miscarriage COMPARISON: None TECHNIQUE: First-trimester ultrasound utilizing B-mode, M-mode, color Doppler and spectral analysis. FINDINGS: No intrauterine demonstrated. The uterus measures 11.1 x 6.4 x 8.3 cm. Endometrial thickness is 15 mm. Right ovary measures 3.5 x 2.1 x 2.7 cm. Right ovary shows hypoechoic focus measuring 1.9 cm maximal diameter likely representing collapsed corpus luteum cyst. Left ovary measures 3.0 x 1.3 x 2.5 cm. Bilateral ovaries demonstrate color Doppler flow and appropriate spectral waveforms. No free fluid identified. Bob Giron MD - 04/27/2023 EXAMINATION: US OB TRANSVAGINAL HISTORY: ORDERING SYSTEM PROVIDED HISTORY: missed , TECHNOLOGIST PROVIDED HISTORY: Illness/Other Reason for exam: missed Cancer History: unknown Surgery, RadiationHistory: unknown Encounter Type: Subsequent/Follow-u p Additional signs and symptoms: none ORDERING SYSTEM PROVIDED DIAGNOSIS CODES: N93.9 Vaginal bleeding O03.4 Incomplete miscarriage COMPARISON: None TECHNIQUE: First-trimester ultrasound utilizing B-mode, M-mode, color Doppler and spectral analysis. FINDINGS: No intrauterine demonstrated. The uterus measures 11.1 x 6.4 x 8.3 cm. Endometrial thickness is 15 mm. Right ovary measures 3.5 x 2.1 x 2.7 cm. Right ovary shows hypoechoic focus measuring 1.9 cm maximal diameter likely representing collapsed corpus luteum cyst. Left ovary measures 3.0 x 1.3 x 2.5 cm. Bilateral ovaries demonstrate color Doppler flow and appropriate spectral waveforms. No free fluid identified. IMPRESSION: No intrauterine demonstrated. Workstation ID: [id number] [facility] Radiology Study observation (narrative) US Pelvis transvaginalOrdere d By: Bob Ba on 04-27-2023 [facility] Work Phone: hCG, Blood, Quantitativeon 1 06-28-2022 HCG Qn 602 m[IU]/mL High [facility] hCG, Serum, Qualitativeon Beta HCG ( test) Ql Positive Abnormal Negative [facility] Antibody IdentificationOrder ed By: Rosy Figueroa on 04-26-2023 Blood group antibody investigation (P/RBC) [Interp] PASSIVE D DUE TO RHOGAM [facility] CASE # [facility] Basic metabolic 2000 panelon 04-26-2023 Anion gap [Moles/Vol] 9 mmol/L Low 10 - 20 mmol/L [facility] Calcium [Mass/Vol] 7.6 mg/dL Low 8.4 - 10. 2 mg/dL [facility] Chloride [Moles/Vol] 112 mmol/L High 98 - 10 8 mmol/L [facility] Creatinine [Mass/Vol] 0.59 mg/dL 0.40 - 1.10 mg/dL [facility] GFR/1.73 sq M.predicted CKD-EPI (S/P/Bld) [Vol rate/Area] 121 - PINF [facility] Comment on above: Estimated GFR was ca lculated using the 2020 CKD-EPI creatinine equation. Glucose [Mass/Vol] 102 mg/dL High 65 - 99 mg/dL [facility] HCO3 [Moles/Vol] 24 mmol/L 21 - 32 mmol/L [facility] Potassium [Moles/Vol] 3.5 mmol/L 3.5 - 5.1 mmol/L [facility] Sodium [Moles/Vol] 141 mmol/L 135 - 145 mmol/L [facility] Urea nitrogen [Mass/Vol] 8 mg/dL 8 - 25 mg/d L [facility] Urea nitrogen/Creatinine [Mass ratio] 13.6 mg/mg 10.0 - 20.0 [facility] Laboratory Services has implemented the eGFR calculation approach that does not have a coefficient for race that conforms to the NKF-ASN Task Force Recommendations. [facility] Anion gap [Moles/Vol] 13 mmol/L 10 - 20 mmol/L [facility] Calcium [Mass/Vol] 9.1 mg/dL 8.6 - 10. 3 mg/dL [facility] Chloride [Moles/Vol] 105 mmol/L 98 - 10 7 mmol/L [facility] CO2 [Moles/Vol] 23 mmol/L 21 - 32 mmol/L [facility] Creatinine [Mass/Vol] 0.70 mg/dL 0.50 - 1.05 mg/dL [facility] GFR/1.73 sq M.predicted MDRD (S/P/Bld) [Vol rate/Area] - PINF [facility] Comment on above: Calculations of [facility] [[email or web address]] mated GFR are performed using the 2020 CKD-EPI Study Refit equation without the race variable for the IDMS-Traceable creatinine methods. https://jasn.asnjournals.org/content//09/22/ASN.895 0967807 Glucose [Mass/Vol] 99 mg/dL 74 - 99 mg/dL [facility] Interpretation and review of laboratory results Normal [facility] Potassium [Moles/Vol] 3.9 mmol/L 3.5 - 5.3 mmol/L [facility] Sodium [Moles/Vol] 137 mmol/L 136 - 145 mmol/L [facility] Urea nitrogen [Mass/Vol] 11 mg/dL 6 - 23 mg/d L [facility] Blood type and Indirect anti body screen panel (Bld)on 04-26-2023 ABO group Nom (Bld) A Unive [facility] Blood group antibody screen Ql Positive [facility] D Ag Ql (Bld) Negative [facility] Review your Rh Negative female patient's potential need for Rh Immune Globulin (RhIg)administratio n. [facility] ABO and Rh group Nom (Bld) Blood group A Rh(D) negative [facility] Blood group antibody screen Ql Negative [facility] Specimen Expires 04/29/2023 23:59 EST [facility] CBC Auto Differentialon 12-0 Basophils (Bld) [#/Vol] 0.05 10*3/uL [facility] Basophils/100 WBC (Bld) 0.4 % [facility] Eosinophils (Bld) [#/Vol] 0.31 10*3/uL [facility] Eosinophils/100 WBC (Bld) 2.8 % [facility] Erythrocyte distribution width (RBC) [Entitic vol] 12.2 % 11.6 - 14.8 % [facility] Hematocrit (Bld) [Volume fraction] 32.8 % Low 36.0 - 46.0 % [facility] Hemoglobin (Bld) [Mass/Vol] 11.2 g/dL Low 12.0 - 16.0 g/dL [facility] Immature granulocytes (Bld) [#/Vol] 0.05 10*3/uL [facility] Immature granulocytes/100 WBC (Bld) 0.40 % [facility] Comment on above: The IG parameter is the percentage of metamyelocytes, myelocytes and promyelocytes. An immature granulocyte count (IG) of 1% or more suggests the possibility of infection, an IG count of 3% is very likely related to an infection. Interpretation and review of laboratory results Abnormal [facility] Lymphocytes (Bld) [#/Vol] 2.93 10*3/uL [facility] Lymphocytes/100 WBC (Bld) 26.3 % [facility] MCH (RBC) [Entitic mass] 30.1 pg 26.0 - 34.0 pg [facility] MCHC (RBC) [Mass/Vol] 34.1 g/dL 31.0 - 37.0 g/dL [facility] MCV (RBC) [Entitic vol] 88.2 fL 80.0 - 100.0 fL [facility] Monocytes (Bld) [#/Vol] 0.84 10*3/uL [facility] Monocytes/100 WBC (Bld) 7.5 % [facility] Neutrophils (Bld) [#/Vol] 6.95 10*3/uL [facility] Neutrophils/100 WBC (Bld) 62.6 % [facility] Nucleated RBC (Bld) [#/Vol] 0.00 10*3/uL [facility] Nucleated RBC/100 WBC (Bld) [Ratio] 0.0 % [facility] Platelet mean volume (Bld) [Entitic vol] 9.5 fL 9.4 - 12.4 fL [facility] Platelets (Bld) [#/Vol] 175 10*3/uL [facility] RBC (Bld) [#/Vol] 3.72 10*6/uL Low [facility] ealth WBC (Bld) [#/Vol] 11.13 10*3/uL High [facility] CBC W Auto Differential pane l (Bld)on 04-26-2023 Basophils (Bld) [#/Vol] 0.06 10*3/uL [facility] Basophils/100 WBC (Bld) 0.5 % 0.0 - 2.0 % [facility] Eosinophils (Bld) [#/Vol] 0.35 10*3/uL [facility] Eosinophils/100 WBC (Bld) 2.8 % 0.0 - 6.0 % [facility] Erythrocyte distribution width (RBC) [Ratio] 11.9 % 11.5 - 14.5 % [facility] Hematocrit (Bld) [Volume fraction] 40.3 % 36.0 - 46.0 % [facility] Hemoglobin (Bld) [Mass/Vol] 13.9 g/dL 12.0 - 16.0 g/dL [facility] Immature granulocytes (Bld) [#/Vol] 0.03 10*3/uL [facility] Immature granulocytes/100 WBC (Bld) 0.2 % 0.0 - 0.9 % [facility] Comment on above: Immature Granulocyte Count (IG) includes promyelocytes, myelocytes and metamyelocytes but does not include bands. Percent differential counts (%) should be interpreted in the context of the absolute cell counts (cells/UL). Interpretation and review of laboratory results Abnormal [facility] Lymphocytes (Bld) [#/Vol] 3.12 10*3/uL [facility] Lymphocytes/100 WBC (Bld) 25.2 % 13.0 - 44.0 % [facility] MCH (RBC) [Entitic mass] 30.0 pg 26.0 - 34.0 pg [facility] MCHC (RBC) [Mass/Vol] 34.5 g/dL 32.0 - 36.0 g/dL [facility] MCV (RBC) [Entitic vol] 87 fL 80 - 100 fL [facility] Monocytes (Bld) [#/Vol] 1.01 10*3/uL High [facility] Monocytes/100 WBC (Bld) 8.2 % 2.0 - 10.0 % [facility] Neutrophils (Bld) [#/Vol] 7.81 10*3/uL [facility] Comment on above: Percent differential counts (%) should be interpreted in the context of the absolute cell counts (cells/uL). Neutrophils/100 WBC (Bld) 63.1 % 40.0 - 80.0 % [facility] Nucleated RBC/100 WBC (Bld) [Ratio] 0.0 % [facility] Platelets (Bld) [#/Vol] 225 10*3/uL [facility] RBC (Bld) [#/Vol] 4.64 10*6/uL [facility] WBC (Bld) [#/Vol] 12.4 10*3/uL High [facility] HCG Qnon 04-26-2023 Beta HCG ( test) Ql (U) Males and non females: <5 mIU/mL Females during : 3-4 weeks 9-130 mIU/mL 4-5 weeks 75-2600 mIU/mL 5-6 weeks 850-20,800 mIU/mL 6-7 weeks 4000-100,200 mIU/mL 7-12 weeks 11,500-289,000 mIU/mL 12-16 weeks 18,300-137,000 mIU/mL 16-29 weeks 1,400-53,000 mIU/mL 29-41 weeks 940-60,000 mIU/mL [facility] Beta HCG ( test) Ql (U) Males and non females: <5 mIU/mL Females during : 3-4 weeks 9-130 mIU/mL 4-5 weeks 75-2600 mIU/mL 5-6 weeks 850-20,800 mIU/mL 6-7 weeks 4000-100,200 mIU/mL 7-12 weeks 11,500-289,000 mIU/mL 12-16 weeks 18,300-137,000 mIU/mL 16-29 weeks 1,400-53,000 mIU/mL 29-41 weeks 940-60,000 mIU/mL [facility] Interpretation and review of laboratory results Abnormal [facility] No Panel Informationon 04-26 Interpretation and review of laboratory results Abnormal [facility] UrinalysisOrdered By: Cristina Eli on 04-26-2023 Bacteria Auto Ql (U) None Seen None Seen /hpf [facility] Bilirubin Ql (U) Negative Negative [facility] th Clarity Refractometry automated (U) Cloudy Abnormal Clear [facility] Color (U) Yellow Colorless, Yellow [facility] Epithelial cells.squamous Auto (Urine sed) [#/Area] 1 [facility] Glucose Auto test strip (U) [Mass/Vol] Negative Negative mg/dL [facility] Hemoglobin Auto test strip Ql (U) Large Abnormal Negative [facility] Interpretation and review of laboratory results Abnormal [facility] Ketones (U) [Mass/Vol] Negative Negative mg/d L [facility] Leukocyte esterase Auto test strip Ql (U) Small Abnormal Negative [facility] Mucus Auto (Urine sed) [#/Area] Rare None Seen, Rare /lpf [facility] Nitrite Auto test strip Ql (U) Negative Negative [facility] pH (U) 6.0 [pH] 5.0 - 7.0 [facility] Protein (U) [Mass/Vol] Negative Negative mg/d L [facility] RBC Auto (Urine sed) [#/Area] High [facility] Specific gravity (U) [Rel density] 1.024 1.005 - 1.025 [facility] Urobilinogen (U) [Mass/Vol] mg/dL NINF - 2.0 mg/dL [facility] WBC Auto (Urine sed) [#/Area] 4 [facility] Microscopic examination is performed on all urinalysis samples and only positive findings are reported. The test for blood on the chemical analytic portion of urinalysis may also be positive due to hemoglobinuria and myoglobinuria and if red blood cells are present they are quantified by microscopic examination. [facility] hCG, Blood, QUANTitativeon 1 06-27-2022 HCG Qn 832 m[IU]/mL High [facility] hCG, Blood, Quantitativeon 1 06-27-2022 HCG Qn 1627 m[IU]/mL High [facility] OB 1ST TRIMESTER TRANSABD OMINAL SINGLE FETUSon 04-25-2023 OB 1ST TRIMESTER TRANSABDOMINAL SINGLE FETUS EXAMINATION: US OB 1ST TRIMESTER TRANSABDOMINAL SINGLE FETUS HISTORY: ORDERING SYSTEM PROVIDED HISTORY: Vaginal bleeding, TECHNOLOGIST PROVIDED HISTORY: Illness/Other Reason for exam: cramping x 3 days, bleeding x 1 day Cancer History: unknown Surgery, RadiationHistory: unknown Encounter Type: Subsequent/Follow-u p Additional signs and symptoms: none ORDERING SYSTEM PROVIDED DIAGNOSIS CODES: COMPARISON: Ultrasound 03/29/2023 TECHNIQUE: Transabdominal obstetrical pelvic ultrasound FINDINGS: Uterus measures 11.3 x 7.1 x 9.5 cm. There is a single intrauterine gestation with single pole. [place]-rump length is 14.1 mm, without color flow or cardiac activity detected. No yolk sac is seen. Gestational age by ultrasound is 8 weeks 5 days. Right ovary measures 4.4 x 2.5 x 2.2 cm and is normal in appearance. Left ovary is not seen due to obscuration by bowel. IMPRESSION: 1. Single intrauterine gestation, without color flow are cardiac activity detected within the fetus. A yolk sac is not seen. Gestational age by ultrasound is 8 weeks 5 days, which is discordant from clinical gestational age of 11 weeks 6 days. Findings compatible with failed 1st trimester . 2. Normal right ovary. Left ovary is not visualized. Workstation ID: [id number] Dictated by: LEONEL MARMOLEJO on MonApr 25, 2023 9:11:05 AM EST Transcribed by: LEONEL MARMOLEJO on MonApr 25, 2023 9:11:05 AM EST Finalized by: LEONEL MARMOLEJO on MonApr 25, 2023 9:11:05 AM EST [facility] Comment on above: Order Comment: Injur y/Trauma or Illness?:Illness/Other How long have you had these symptoms (acute/chronic)?:Acute Reason for exam?:cramping x 3 days, bleeding x 1 day History of cancer?:unknown Surgeries, chemotherapy, or radiation?:unknown Type of Exam?:Subsequent/Follow-up Additional signs and symptoms?:none US OB TRANSVAGINAL FIRST TRI MESTERon 03-29-2023 US OB TRANSVAGINAL FIRST TRIMESTER Single IUP seen measuring 8w0d HEART RATE 154 Right ovary with complex cyst compatible with CL cyst of . No free pelvic fluid seen. IMP: single IUP at 8w0d Make EDC 11/08/23 Dictated by: MISAEL GARSIA on MonApr 07, 2023 4:39:50 PM EST Transcribed by: MISAEL GARSIA on MonApr 07, 2023 4:39:50 PM EST Finalized by: MISAEL GARSIA on MonApr 07, 2023 4:39:50 PM EST Normal [facility] - Cytologyon 06-23 Cytology report Cyto stain.thin prep Doc (Cvx/Vag) [facility] Work Phone: [facility] - Office Visiton 06-23 [facility] - Office Visit Provider Impressions Patient is a 32-year-old who comes in for routine [employer] exam. Pap smear was done. Exam was benign. Awaiting results of ultrasound and we will call her with her results. Follow-up in 1 year Chief Complaint Patient here today for annual exam and follow up ultrasound results. She had to work so did not complete ultrasound so we will reschedule. Last pap around 5 years ago with history of abnormal paps. Complains of pelvic pain. History of Present IllnessEsperanza is a 32-year-old who comes in for routine LE[employer]CHIT[employer] exam. Patient has a longstanding history of cervical dysplasia and has undergone numerous colposcopies LEEP and several cryo surgeries. Patient had signed a release of medical records but no results on Paps or procedures for cervical dysplasia were included in the records we received. Patient uses condoms for contraception and does not need any other form of contraception at this time. Patient was in the process of being worked up for pelvic pain however she we will have to reschedule her ultrasound. Currently patient has no additional concerns Review of Systems Constitutional: Denies any significant weight or temperature change. Cardiovascular: Denies any chest pain or palpitations. Respiratory: Denies any shortness of breath. Gastrointestinal: Denies any changes in bowel habits or abdominal pain. Genitourinary: as noted in HPI. Musculoskeletal: Denies any change in her mobility. Psychiatric: Denies any change in her mood or sleep. Active Problems Problems Pelvic pain in female (625.9) (R10.2) Screening for STD (sexually transmitted disease) (V74.5) (Z11.3) Vaginal discharge (623.5) (N89.8) Past Medical History Problems History of Menstruation AGE 8 History of Normal vaginal delivery (650) (O80) 10/05/2008; 38 WEEKS; VAGINAL; FEMALE; 6LBS 06/25/2016; 40 WEEKS; VAGINAL; MALE; 8LBS History of Pap test, as part of routine gynecological examination (V76.2) (Z01.419) 06/10/2022 Surgical History Problems No history of surgery Family History Maternal Grandmother Family history of cardiac disorder (V17.49) (Z82.49) Family history of hypertension (V17.49) (Z82.49) Paternal Grandfather Family history of diabetes mellitus (V18.0) (Z83.3) Social History Problems Does not use illicit drugs (V49.89) (Z78.9) Non-smoker (V49.89) (Z78.9) Rarely consumes alcohol (V49.89) (Z78.9) Sexually active Allergies Medication No Known Drug Allergies Recorded By: Norma Murray; 06/28/2022 10:12:32 AM Current Meds Medication NameInstruction No Reported Medications Vitals Vital Signs Recorded: [id number] 08:38AM Height5 ft 5 in [id number] lb 8 oz BMI Yzizqzzuan20.88 kg/m2 BSA Calculated1.78 Physical Exam Constitutional: Healthy appearing in no distress. Head and Face: No obvious lesions. Neck: Supple without adenopathy or masses. Cardiovascular: Regular rate and rhythm. Pulmonary: Clear to auscultation. Chest: No masses discharge retraction or skin changes. Abdomen: Soft nontender no masses. External genitalia revealed no lesions the vagina was well estrogenized the cervix was nonfriable uterus and adnexa were normal size uterus was mildly tender. Musculoskeletal: Good mobility of her extremities. Psychiatric: Appropriately oriented with normal mood and affect. Signatures Electronically signed by : Samia Montano DO; Jul 12 2022 9:01AM EST (Author) [facility], Genitalon 06-28-2022 Bacteria identified Aer cx Nom (Genital specimen) [place] [address] [facility] Work Phone: Cult, Urineon 06-28-2022 Bacteria identified Cx Nom (U) [place] [address] [facility] Work Phone: GC + Chlamydia By Amplified Detectionon 06-28-2022 C. trachomatis rRNA EDIN+probe Ql (Unsp spec) Negative Negative [address] Work Phone: Comment on above: The APTIMA Combo 2 a ssay is FDA-approved for Chlamydia trachomatis and Neisseria gonorrhoeae testing on female endocervical and vaginal swabs, ThinPrep liquid pap samples, male urine samples and urethral swabs. Performance characteristics for Chlamydia trachomatis and Neisseria gonorrhoeae testing on specific lhz-NPC-nyvzjssl sample types (female urine samples) have been validated by [facility]. This laboratory is certified by CLIA to perform high complexity testing. Samples from all other sites are not validated for this method. N. gonorrhoeae rRNA EDIN+probe Ql (Unsp spec) Negative Negative [place] [address] [facility] Work Phone: Comment on above: SOURCE: Urine The AP LEEROY Combo 2 assay is FDA-approved for Chlamydia trachomatis and Neisseria gonorrhoeae testing on female endocervical and vaginal swabs, ThinPrep liquid pap samples, male urine samples and urethral swabs. Performance characteristics for Chlamydia trachomatis and Neisseria gonorrhoeae testing on specific rci-NXR-jjsmhhjq sample types (female urine samples) have been validated by [facility]. This laboratory is certified by CLIA to perform high complexity testing. Samples from all other sites are not validated for this method. LMPon 06-28-2022 Last menstrual period start date 07Jun2022 [facility]: [facility] - Office Visiton [facility] - Office Visit Diagnoses/Problems Assessed Pelvic pain in female (625.9) (R10.2) Orders Cult, Urine; Status:In Progress - Specimen/Data Collected,Retrospec tive Authorization; Done: [id number] Ultrasound Pelvis Transabdominal With Transvaginal; Status:Hold For - Scheduling; Requested for:[id number]; Radiologist to Determine Optimal Study : Y What are the patient's signs and symptoms? : Pelvic pain GC + Chlamydia By Amplified Detection; Status:In Progress - Specimen/Data Collected,Retrospec tive Authorization; Done: [id number] Tobacco Use Screening; Status:Complete; Done: [id number] Cult, Genital; Status:In Progress - Specimen/Data Collected,Retrospec tive Authorization; Done: [id number] Site : Vaginal Provider Impressions Patient is a 32-year-old who comes in for evaluation of recurrent BV. Today exam wet mount was negative. Cultures were taken. Patient was reassured. Right lower quadrant pain exam nonspecific. Ultrasound ordered we will send urine and cultures. We will have patient follow-up 1 week after the ultrasound to review results. History of cervical dysplasia we will have patient sign release of medical records and will do her annual with Pap at her next appointment Chief Complaint NEW PT HERE TODAY WITH CONCERNS OF A POSSIBLE CYST. PT STATES SHE HAS HAD ABDOMINAL PAIN FOR YEARS, ESPECIALLY ON THE RIGHT LOWER SIDE. PT HAS HAD U/S IN THE PAST TO CONFIRM THAT SHE HAS HAD CYST. PT STATES SHE ALSO HAS PAIN DURING INTERCOURSE. PT HAS ALWAYS HAD REGULAR PERIODS UNTIL ABOUT A YEAR AGO. PT STATES HER PERIODS HAVE BEEN IRREGULAR AND SUPER HEAVY. PT WILL BLEED THROUGH A TAMPON IN AN HOUR. PT ALSO HAS JUST BEEN TREATED FOR BV AND YEAST INFECTION BY URGENT CARE. History of Present IllnessEsperanza is a 32-year-old who comes in with multiple issues. Patient reports that she has been struggling with BV for about a month and a half now. She has had 2 courses of Flagyl and currently is in the middle of a course of clindamycin. She has been seen at 2 different urgent care centers and feels that she has not been able to get rid of . It. Today she wants to be checked to make sure that the BV is gone. Additionally the patient reports that she has been having right lower quadrant pain for about 2 weeks. She reports that she has had similar pain in the past when she has had ovarian cyst. Patient reports that she had an ovarian cyst about 2 years ago which ruptured. She was just treated with pain medicine. She reports that in the past she has tried control pills but she has not done well with them. Patient reports she has not been sexually active in several months and she is not currently in a with a partner. Patient reports a history of cervical dysplasia and has undergone a cryo and a LEEP. The last time she had a Pap smear was approximately 4 years ago when she had a LEEP and had not had any follow-up since then Active Problems Problems Pelvic pain in female (625.9) (R10.2) Screening for STD (sexually transmitted disease) (V74.5) (Z11.3) Vaginal discharge (623.5) (N89.8) Past Medical History Problems History of Menstruation AGE 8 History of Normal vaginal delivery (650) (O80) 10/05/2008; 38 WEEKS; VAGINAL; FEMALE; 6LBS 06/25/2016; 40 WEEKS; VAGINAL; MALE; 8LBS History of Pap test, as part of routine gynecological examination (V76.2) (Z01.419) 06/10/2022 Surgical History Problems No history of surgery Family History Maternal Grandmother Family history of cardiac disorder (V17.49) (Z82.49) Family history of hypertension (V17.49) (Z82.49) Paternal Grandfather Family history of diabetes mellitus (V18.0) (Z83.3) Social History Problems Does not use illicit drugs (V49.89) (Z78.9) Non-smoker (V49.89) (Z78.9) Rarely consumes alcohol (V49.89) (Z78.9) Sexually active Allergies Medication No Known Drug Allergies Recorded By: Norma Murray; 06/28/2022 10:12:32 AM Current Meds Medication NameInstruction No Reported Medications Vitals Vital Signs Recorded: [id number] 10:28AM Pnpvsbsl205 Ziswxpcby02 Height5 ft 5 in Onhrht461 lb 3.82 oz BMI Tphmeyjiwi23 kg/m2 BSA Calculated1.78 [id number] Physical Exam Constitutional: Healthy-appearing young female in no distress. Head and Face: No obvious lesions. Pulmonary: Breathing comfortably. External genitalia revealed no lesions the vagina was well estrogenized with a white creamy rdh-iqwe-qdrmsiej discharge the cervix was nonfriable there was no cervical motion tenderness there was no uterine tenderness. She had mild tenderness on her right side but the adnexa were not enlarged Musculoskeletal: Good mobility. Psychiatric: Appropriately oriented with normal mood and affect. Wet mount negative trichomoniasis negative yeast negative clue cells Signatures Electronically signed by : Samia Montano DO; Jun 28 2022 10:57AM EST (Author) Normal [facility] - Urinalysison Yeast LM Ql (Urine sed) ABSENT [facility] Work Phone: No Panel Informationon 06-21 PRESENT [facility] Work Phone: [phone] [facility] Work Phone: Comment on above: Interpretation of th e Bree Score0-3.....Normal vaginal microbiota4-6.....Intermediate results7-10....Bacterial vaginosis Provider Note - ED v3on 05-24 Provider Note - ED v3 Provider Note: Chart Review ED NOTES ED NOTES: Patient presents for evaluation of, vaginal odor milky vaginal discharge and itching that has been ongoing for the past few days. Patient states she had and [facility] appointment today which she missed for follow-up for recurrent BV. Denies abdominal pains, nausea/vomiting/jailyn rrhea, fever, fatigue, body aches or any other associated symptom or complaint. Patient has been treated with Flagyl twice daily x10 days twice in the past 2 months. Patient states symptoms resolve when she is taking the medication but returned when she completes it. Patient states she was recently tested for STDs which was negative and has not been sexually active since the last time she was tested. HISTORY OF PRESENTING ILLNESS ESPERANZA is a 32 year old Female and was seen by me at 21-Jun-2022 15:49. Triage Information: Most recent Vital Sign Value Date PAST MEDICAL HISTORY ALLERGIES/INTOLERAN KURT: No Known Allergies HEALTH HISTORY: No documented data. OUTPATIENT MEDICATIONS: Home Medications Review Status for Reconciliation: Complete Med Status: Patient Currently Takes Medications Drug Name: clindamycin 2% vaginal cream Instructions: 1 applicatorful intravaginally into vagina once daily at night for 7 days Drug Name: Diflucan 150 mg oral tablet Instructions: 1 tab(s) orally once today, in 3 days and in 7 days SIGNIFICANT EVENTS: No documented data. [facility]: Is : no Is : no REVIEW OF SYSTEMS All other systems reviewed and are negative REVIEW OF SYSTEMS: Comments See HPI PHYSICAL EXAM CONSTITUTIONAL: Well appearing, well nourished, awake, alert, oriented to person, place, time/situation and in no apparent distress. GASTROINTESTINAL: Abdomen soft, non-distended, no rebound, no guarding, no suprapubic tenderness. Bowel sounds normal in all 4 quadrants. GENITOURINARY: Pt reports milky white foul odor discharge. No lesions. No CVA tenderness on exam. NEUROLOGICAL: Alert and oriented, no focal deficits, no motor or sensory deficits. SKIN: Skin normal color for race, warm, dry and intact. No evidence of trauma. PSYCHIATRIC: Alert and oriented to person, place, time/situation. normal mood and affect. No apparent risk to self or others. CRITICAL CARE VITAL SIGNS: T PRBP SpO2O2(LPM) %FiO2 Method 21-Jun-2022 15:50:[id number] /67 95 MDM MDM/ED COURSE: Discussed Findings with: patient Data Reviewed: vital signs Treatment Plan: Rx clindamycin vaginal cream and diflucan. Swab obtained for bacterial vaginosis testing. Encouraged patient to follow-up with [facility] as scheduled. Patient's clinical presentation is otherwise unremarkable at this time. Patient is discharged with instructions to follow-up with primary care or seek emergency medical attention for worsening symptoms or any new concerns. DISPOSITION Diagnosis/Annotatio n: ED Dx Name:Acute vaginitis Code:N76.0 Disposition: discharged Type: home CONSULT CRITICAL CARE TIME Is this a critically ill patient: no Electronic Signatures for Addendum Section: Yesica Raines ([facility]) (Signed Addendum 24-Jun-2022 19:15) Reviewed + BV test result - is on Clindamycin cream. Should finish as directed and f/u with [facility] ENTERPRISE ARCHITECT if symptoms persist/worsen. L/m for patient to call the office. Electronic Signatures: Nathanael Coyne ([facility]) (Signed 21-Jun-2022 17:08) Authored: ED Notes, HPI, PMH, ROS, PE, Results/Vital Signs, MDM/ED Course, Clinical Impression, Attestation, Chart Review, Scores Yesica Raines ([facility]) (Signature Pending) Authored: PE, Attestation Last Updated: 24-Jun-2022 19:15 by Yesica Raines ([facility]) Normal [facility] NOVEL CORONAVIRUS (COVID-19) on 11-12-2019 SARS-COV-2 Not Detected Normal Not Detected [employer] Comment on above: Order Comment: This assay was performed by [employer] (EDIN) on the Aptima??? Bath??? System ([employer] [place], [place]) using Veterinarian Mediated Amplification (TMA) technology. This test was developed, and its performance characteristics determined by [facility]. The Apt[employer]??? SARS-CoV-2 assay is for use only under Emergency Use Authorization (EUA) in the US laboratories certified under the Clinical Laboratory Improvement Amendments of 1988 (CLIA), 42 U.S.C. ???263a, to perform high complexity tests. Performed By: #### C [id number] #### [facility] [address] [place] [address], [id number] MRI Brain w/ + w/o Contrasto n 12-06-2018 MRI Brain w/ + w/o Contrast Patient Name: ESPERANZA IRVIN MRI Exam Date/Time 12/06/2018 10:58:40 EDT Exam MRI Brain w/ + w/o Contrast Ordering Physician MD AUDREY, LISBETH BOOKER Accession Number [id number] CPT4 Codes 57837 () Reason For Exam Migraine Report Clinical indications: Migraine headaches Findings: Multiplanar, multisequence imaging of the brain was performed, with and without gadolinium (14 cc MultiHance). There are no prior studies for comparison. Axial diffusion weighted and ADC mapping images show no evidence of significant focal signal abnormality. There is no evidence of mass effect, midline shift or hemorrhage. There are no unusual extra axial fluid collections. No evidence of focal signal abnormality is identified in the hemispheric parenchyma. The contents of the posterior fossa are also normal in appearance. The ventricular and cisternal spaces are of normal size and configuration for patient of this age. Midline structures including the corpus callosum, pituitary fossa and cerebellar vermis appear unremarkable. Flow voids of the distal internal carotid arteries, vertebral arteries and basilar artery are grossly within normal limits. There is no evidence of abnormal parenchymal, leptomeningeal or dural enhancement following gadolinium administration. Dense, mastoid air cells and paranasal sinuses appear free of significant focal signal abnormality.>] Impression: Unremarkable MRI of the brain. Report Dictated on Workstation: [facility] Final Dictated: 12/06/2018 11:12 am Dictating Physician: MD BLACKWELL RUSSELL Signed Date and Time: 12/06/2018 11:15 am Signed by: MD BALCKWELL RUSSELL Transcribed Date and Time: 12/06/2018 11:12 Normal [facility] Vital Signs Date Time Vital Sign Value Performing Clinician Facility 01-31-2025 15:04-0400 Body mass index (BMI) [Ratio] 31.12 kg/m2 Lisbet Saini APRN.CNM Work Phone: [facility] 01-31-2025 15:04-0400 Body weight 84.82 kg Lisbet Saini APRN.CNM Work Phone: [facility] 01-31-2025 15:04-0400 Diastolic blood pressure 62 mm[Hg] Lisbet Plotts AVIATION CONSULTANT.CNM Work Phone: [facility] 01-31-2025 15:04-0400 Systolic blood pressure 100 mm[Hg] Lisbet Plotts AVIATION CONSULTANT.CNM Work Phone: [facility] 01-22-2025 10:49-0400 Body mass index (BMI) [Ratio] 30.45 kg/m2 Josee De León MD Work Phone: [facility] 01-22-2025 10:49-0400 Body weight 83.01 kg Josee De León MD Work Phone: [facility] 01-22-2025 10:49-0400 Diastolic blood pressure 60 mm[Hg] Josee De León MD Work Phone: [facility] 01-22-2025 10:49-0400 Systolic blood pressure 98 mm[Hg] Josee De León MD Work Phone: [facility] 12-31-2024 08:25-0400 Body mass index (BMI) [Ratio] 30.42 kg/m2 Kay Haines AVIATION CONSULTANT.BEREAVEMENT COUNSELOR Work Phone: [facility] 12-31-2024 08:25-0400 Body weight 82.92 kg Kay Haines AVIATION CONSULTANT.BEREAVEMENT COUNSELOR Work Phone: [facility] 12-31-2024 08:25-0400 Diastolic blood pressure 66 mm[Hg] Kay Haines AVIATION CONSULTANT.BEREAVEMENT COUNSELOR Work Phone: [facility] 12-31-2024 08:25-0400 Systolic blood pressure 118 mm[Hg] Kay Snow AVIATION CONSULTANT.BEREAVEMENT COUNSELOR Work Phone: [facility] 12-25-2024 23:00-0400 Diastolic blood pressure 64 mm[Hg] Sotero Chan DO Work Phone: [facility] 12-25-2024 23:00-0400 Heart rate 70 /min Sotero Chan DO Work Phone: [facility] 12-25-2024 23:00-0400 Respiratory rate 16 /min Sotero Chan DO Work Phone: [facility] 12-25-2024 23:00-0400 SaO2% (BldA) [Mass fraction] 97 % Sotero Chan DO Work Phone: [facility] 12-25-2024 23:00-0400 Systolic blood pressure 104 mm[Hg] Sotero Chan DO Work Phone: [facility] 12-25-2024 21:29-0400 Body height 165.1 cm Sotero Chan DO Work Phone: [facility] 12-25-2024 21:29-0400 Body mass index (BMI) [Ratio] 30.62 kg/m2 Sotero Chan DO Work Phone: [facility] 12-25-2024 21:29-0400 Body temperature 97.39 [degF] Sotero Chan DO Work Phone: [facility] 12-25-2024 21:29-0400 Body weight 83.46 kg Sotero Chan DO Work Phone: [facility] 12-22-2024 14:23-0400 Diastolic blood pressure 74 mm[Hg] Lizandro Portillo DO Work Phone: [facility] 12-22-2024 14:23-0400 Heart rate 67 /min Lizandro Portillo DO Work Phone: [facility] 12-22-2024 14:23-0400 Respiratory rate 16 /min Lizandro Portillo DO Work Phone: [facility] 12-22-2024 14:23-0400 SaO2% (BldA) [Mass fraction] 98 % Lizandro Portillo DO Work Phone: [facility] 12-22-2024 14:23-0400 Systolic blood pressure 114 mm[Hg] Lizandro Portillo DO Work Phone: [facility] 12-22-2024 11:29-0400 Body temperature 98.01 [degF] Lizandro Portillo DO Work Phone: [facility] 12-22-2024 11:24-0400 Body mass index (BMI) [Ratio] 30.62 kg/m2 Lizandro Portillo DO Work Phone: [facility] 12-22-2024 11:24-0400 Body weight 83.46 kg Lizandro Portillo DO Work Phone: [facility] 12-20-2024 21:12-0400 Body temperature 97.81 [degF] Maude Jones MD Work Phone: [facility] 12-20-2024 21:12-0400 Diastolic blood pressure 59 mm[Hg] Maude Jones MD Work Phone: [facility] 12-20-2024 21:12-0400 Heart rate 74 /min Maude Jones MD Work Phone: [facility] 12-20-2024 21:12-0400 Respiratory rate 18 /min Maude Jones MD Work Phone: [facility] 12-20-2024 21:12-0400 SaO2% (BldA) [Mass fraction] 99 % Maude Jones MD Work Phone: [facility] 12-20-2024 21:12-0400 Systolic blood pressure 107 mm[Hg] Maude Jones MD Work Phone: [facility] 12-20-2024 17:44-0400 Body height 165.1 cm Maude Jones MD Work Phone: [facility] 12-20-2024 17:44-0400 Body mass index (BMI) [Ratio] 30.62 kg/m2 Maude Jones MD Work Phone: [facility] 12-20-2024 17:44-0400 Body weight 83.46 kg Maude Jones MD Work Phone: [facility] 12-18-2024 13:49-0400 Body height 165.1 cm Lisbet Plotts CNM Work Phone: [facility] 12-18-2024 13:49-0400 Body mass index (BMI) [Ratio] 30.6 kg/m2 Lisbet Plotts CNM Work Phone: [facility] 12-18-2024 13:49-0400 Body weight 83.5 kg Lisbet Plotts CNM Work Phone: [facility] 12-16-2024 09:45-0400 Body mass index (BMI) [Ratio] 30.95 kg/m2 Lisbet Plotts AVIATION CONSULTANT.CNM Work Phone: [facility] 12-16-2024 09:45-0400 Body weight 84.37 kg Lisbet Plotts AVIATION CONSULTANT.CNM Work Phone: [facility] 12-16-2024 09:45-0400 Diastolic blood pressure 60 mm[Hg] Lisbet Plotts AVIATION CONSULTANT.CNM Work Phone: [facility] 12-16-2024 09:45-0400 Systolic blood pressure 110 mm[Hg] Lisbet Plotts AVIATION CONSULTANT.CNM Work Phone: [facility] 12-11-2024 00:41-0400 Diastolic blood pressure 55 mm[Hg] Maude Jones MD Work Phone: [facility] 12-11-2024 00:41-0400 Heart rate 65 /min Maude Jones MD Work Phone: [facility] 12-11-2024 00:41-0400 Respiratory rate 16 /min Maude Jones MD Work Phone: [facility] 12-11-2024 00:41-0400 SaO2% (BldA) [Mass fraction] 98 % Maude Jones MD Work Phone: [facility] 12-11-2024 00:41-0400 Systolic blood pressure 103 mm[Hg] Maude Jones MD Work Phone: [facility] 12-10-2024 19:44-0400 Body height 165.1 cm Maude Jones MD Work Phone: [facility] 12-10-2024 19:44-0400 Body mass index (BMI) [Ratio] 29.95 kg/m2 Maude Jones MD Work Phone: [facility] 12-10-2024 19:44-0400 Body temperature 97.81 [degF] Maude Jones MD Work Phone: [facility] 12-10-2024 19:44-0400 Body weight 81.65 kg Maude Jones MD Work Phone: [facility] 02-14-2024 10:36-0400 Diastolic blood pressure 76 mm[Hg] Mónica Young MD Work Phone: [facility] 02-14-2024 10:36-0400 Heart rate 77 /min Mónica Young MD Work Phone: [facility] 02-14-2024 10:36-0400 SaO2% (BldA) [Mass fraction] 97 % Mónica Young MD Work Phone: [facility] 02-14-2024 10:36-0400 Systolic blood pressure 122 mm[Hg] Mónica Young MD Work Phone: [facility] 02-14-2024 08:51-0400 Body mass index (BMI) [Ratio] 31.28 kg/m2 Mónica Young MD Work Phone: [facility] 02-14-2024 08:51-0400 Body weight 85.28 kg Mónica Young MD Work Phone: [facility] 12-12-2023 13:10-0400 Diastolic blood pressure 66 mm[Hg] Vesna Hill DO Work Phone: [facility] 12-12-2023 13:10-0400 Heart rate 67 /min Vesna Thomae DO Work Phone: 8(144)030-173669 [place] [address] 12-12-2023 13:10-0400 Respiratory rate 16 /min Vesna Thomae DO Work Phone: 6(074)298-723969 [place] [address] 12-12-2023 13:10-0400 SaO2% (BldA) [Mass fraction] 99 % Vesna Thomae DO Work Phone: 5(801)236-402769 [place] [address] 12-12-2023 13:10-0400 Systolic blood pressure 96 mm[Hg] Vesna Thomae DO Work Phone: 2(938)867-633041 [place] [address] 12-12-2023 12:25-0400 Body temperature 97.81 [degF] Vesna Thomae DO Work Phone: 9(535)705-907241 [place] [address] 12-12-2023 11:21-0400 Body height 165.1 cm Vesna Thomae DO Work Phone: 6(837)063-713441 [place] [address] 12-12-2023 11:21-0400 Body mass index (BMI) [Ratio] 29.55 kg/m2 Vesna Thomae DO Work Phone: 9(524)952-608541 [place] [address] 12-12-2023 11:21-0400 Body weight 80.56 kg Vesna Thomae DO Work Phone: 4(830)502-561941 [place] [address] 11-30-2023 08:22-0400 Body height 165.1 cm Vesna Thomae DO Work Phone: 2(532)069-220041 [place] [address] 11-30-2023 08:22-0400 Body mass index (BMI) [Ratio] 30.25 kg/m2 Vesna Thomae DO Work Phone: 7(152)012-077641 [place] [address] 11-30-2023 08:22-0400 Body weight 82.46 kg Vesna Thomae DO Work Phone: 6(702)666-247641 [place] [address] 11-30-2023 08:22-0400 Diastolic blood pressure 67 mm[Hg] Vesna Thomae DO Work Phone: 5(646)414-571569 [place] [address] 11-30-2023 08:22-0400 Heart rate 79 /min Vesna Hill DO Work Phone: [facility] 11-30-2023 08:22-0400 Respiratory rate 16 /min Vesna Hill DO Work Phone: [facility] 11-30-2023 08:22-0400 Systolic blood pressure 99 mm[Hg] Vesna Hill DO Work Phone: [facility] 11-01-2023 09:35-0400 Body mass index (BMI) [Ratio] 30.45 kg/m2 Geovany Cardenas MD Work Phone: [facility] 11-01-2023 09:35-0400 Body weight 83.01 kg Geovany Cardenas MD Work Phone: [facility] 11-01-2023 09:35-0400 Diastolic blood pressure 60 mm[Hg] Geovany Cardenas MD Work Phone: [facility] 11-01-2023 09:35-0400 Systolic blood pressure 90 mm[Hg] Geovany Cardenas MD Work Phone: [facility] 04-27-2023 08:22-0500 Body temperature 97.81 [degF] Kimberley Sandoval MD Work Phone: [facility] 04-27-2023 08:22-0500 Diastolic blood pressure 61 mm[Hg] Kimberley Sandoval MD Work Phone: [facility] 04-27-2023 08:22-0500 Heart rate 68 /min Kimberley Sandoval MD Work Phone: [facility] 04-27-2023 08:22-0500 Respiratory rate 14 /min Kimberley Sandoval MD Work Phone: [facility] 04-27-2023 08:22-0500 SaO2% (BldA) [Mass fraction] 97 % Kimberley Sandoval MD Work Phone: [facility] 04-27-2023 08:22-0500 Systolic blood pressure 95 mm[Hg] Kimberley Sandoval MD Work Phone: [facility] 04-26-2023 21:13-0500 Body height 165.1 cm Kimberley Sandoval MD Work Phone: [facility] 04-26-2023 21:13-0500 Body mass index (BMI) [Ratio] 29.45 kg/m2 Kimberley Sandoval MD Work Phone: [facility] 04-26-2023 21:13-0500 Body weight 80.29 kg Kimberley Sandoval MD Work Phone: [facility] 04-26-2023 20:29-0500 Diastolic blood pressure 69 mm[Hg] Melani Hu MD Work Phone: [facility] 04-26-2023 20:29-0500 Heart rate 74 /min Melani Hu MD Work Phone: [facility] 04-26-2023 20:29-0500 Respiratory rate 20 /min Melani Hu MD Work Phone: [facility] 04-26-2023 20:29-0500 SaO2% (BldA) [Mass fraction] 99 % Melani Hu MD Work Phone: [facility] 04-26-2023 20:29-0500 Systolic blood pressure 95 mm[Hg] Melani Hu MD Work Phone: [facility] 04-26-2023 18:16-0500 Body height 165.1 cm Melani Hu MD Work Phone: [facility] 04-26-2023 18:16-0500 Body mass index (BMI) [Ratio] 29.45 kg/m2 Melani Hu MD Work Phone: [facility] 04-26-2023 18:16-0500 Body temperature 98.01 [degF] Melani Hu MD Work Phone: [facility] 04-26-2023 18:16-0500 Body weight 80.29 kg Melani Hu MD Work Phone: [facility] 04-26-2023 11:05-0500 Body height 165.1 cm Zofia Arias CNM Work Phone: [facility] 04-26-2023 11:05-0500 Body mass index (BMI) [Ratio] 29.45 kg/m2 Zofia Arias CNM Work Phone: [facility] 04-26-2023 11:05-0500 Body weight 80.29 kg Zofia Arias CNM Work Phone: [facility] 04-26-2023 11:05-0500 Diastolic blood pressure 88 mm[Hg] Zofia Arias CNM Work Phone: [facility] 04-26-2023 11:05-0500 Heart rate 88 /min Zofia Arias CNM Work Phone: [facility] 04-26-2023 11:05-0500 Systolic blood pressure 116 mm[Hg] Zofia Arias CNM Work Phone: [facility] 10-25-2022 11:13-0400 Body height 167 cm Maude Jones MD Work Phone: [facility] 10-25-2022 11:13-0400 Body mass index (BMI) [Ratio] 25.86 kg/m2 Maude Jones MD Work Phone: [facility] 10-25-2022 11:13-0400 Body weight 72.12 kg Maude Jones MD Work Phone: [facility] 10-25-2022 11:13-0400 Diastolic blood pressure 68 mm[Hg] Maude Jones MD Work Phone: [facility] 10-25-2022 11:13-0400 Heart rate 80 /min Maude Jones MD Work Phone: [facility] 10-25-2022 11:13-0400 Systolic blood pressure 128 mm[Hg] Maude Jones MD Work Phone: [facility] 07-12-2022 08:38-0500 Body height 165.1 cm Jonn L Ayan Work Phone: [employer] Work Phone: 07-12-2022 08:38-0500 Body mass index (BMI) [Ratio] 25.88 kg/m2 Jonn L Ayan Work Phone: [employer] Work Phone: 07-12-2022 08:38-0500 Body surface area Derived from formula 1.78 m2 Jonn L Ayan Work Phone: [employer] Work Phone: 07-12-2022 08:38-0500 Body weight 70.53 kg Jonn L Ayan Work Phone: [facility] [employer] Work Phone: 06-28-2022 10:28-0500 Body height 165.1 cm Jonn L Ayan Work Phone: [employer] Work Phone: 06-28-2022 10:28-0500 Body mass index (BMI) [Ratio] 26 kg/m2 Jonn L Ayan Work Phone: [facility] [address] [employer] Work Phone: 06-28-2022 10:28-0500 Body surface area Derived from formula 1.78 m2 Jonn L Ayan Work Phone: [employer] Work Phone: 06-28-2022 10:28-0500 Body weight 70.87 kg Jonn L Ayan Work Phone: [facility] [employer] Work Phone: 06-28-2022 10:28-0500 Diastolic blood pressure 60 mm[Hg] Jonn L Ayan Work Phone: [facility] [employer] Phone: 06-28-2022 10:28-0500 Systolic blood pressure 104 mm[Hg] Jonn Lofton Work Phone: [facility] [employer] Phone: 06-21-2022 17:50-0500 Body height 165 cm Jonn Lofton Other Phone: [facility] 06-21-2022 17:50-0500 Body temperature 98.06 [degF] Jonn Lofton Other Phone: [facility] 06-21-2022 17:50-0500 Diastolic blood pressure 67 mm[Hg] Jonn Lofton Other Phone: [facility] 06-21-2022 17:50-0500 Heart rate 81 /min Jonn Lofton Other Phone: [facility] 06-21-2022 17:50-0500 Respiratory rate 16 /min Jonn Lofton Other Phone: [facility] 06-21-2022 17:50-0500 SaO2% (BldA) [Mass fraction] 95 % Jonn Lofton Other Phone: [facility] 06-21-2022 17:50-0500 Systolic blood pressure 99 mm[Hg] Jonn Lofton Other Phone: [facility] 05-08-2021 16:10-0500 Body height 165 cm No Pcp Required [facility] 05-08-2021 16:10-0500 Body temperature 97.88 [degF] No Pcp Required [facility] 05-08-2021 16:10-0500 Diastolic blood pressure 65 mm[Hg] No Pcp Required [facility] 05-08-2021 16:10-0500 Heart rate 79 /min No Pcp Required [facility] 05-08-2021 16:10-0500 SaO2% (BldA) [Mass fraction] 97 % No Pcp Required [facility] 05-08-2021 16:10-0500 Systolic blood pressure 98 mm[Hg] No Pcp Required [facility] Encounters Encounter Date Encounter Type Care Provider Facility Start: 03-19-2025 End: 03-19-2025 ambulatory [facility] Facility:[facility] Start: 02-19-2025 End: 02-19-2025 ambulatory ESPERANZA ZURI Facility:[facility] Start: 01-31-2025 End: 01-31-2025 Patient encounter procedure Lisbet Saini AVIATION CONSULTANT.BETTYM Work Phone: OB/Gynecology Comment on above: Bacterial vaginitis (Primary Dx); Supervision of high-risk of elderly multigravida (HCC); Mild hyperemesis gravidarum (HCC); 13 weeks gestation of (HCC); Vaginal odor Start: 01-31-2025 End: 01-31-2025 ambulatory LISBET SAINI Facility:[facility] Start: 01-28-2025 End: 01-28-2025 Telephone encounter Lisbet Saini APRN.CNM Work Phone: OB/Gynecology Comment on above: Nausea Start: 01-22-2025 End: 01-22-2025 Patient encounter procedure Josee De León MD Work Phone: OB/Gynecology Comment on above: Supervision of high- risk of elderly multigravida (HCC) (Primary Dx); Mild hyperemesis gravidarum (HCC); Bacterial vaginitis; 12 weeks gestation of (HCC) Supervision of high- risk of elderly multigravida (HCC) (Primary Dx); 9 weeks gestation of (HCC) Start: 01-22-2025 End: 01-22-2025 ambulatory JOSEE DE LEÓN Facility:[facility] Start: 01-16-2025 End: 01-16-2025 ambulatory Kay Adamson AVIATION CONSULTANTHandyBEREAVEMENT COUNSELOR Work Phone: OB/Gynecology Comment on above: Discharge Start: 01-15-2025 End: 01-15-2025 ambulatory [facility] Facility:[facility] Start: 01-08-2025 End: 01-16-2025 Telephone encounter Lisbet Saini ANALILIA.CNM Work Phone: OB/Gynecology Start: 01-06-2025 End: 01-07-2025 Telephone encounter Esperanza Prajapati APRN.CNM Work Phone: OB/Gynecology Comment on above: Care Start: 12-31-2024 End: 12-31-2024 Patient encounter procedure Kay Adamson ANALILIA.BEREAVEMENT COUNSELOR Work Phone: OB/Gynecology Comment on above: Supervision of high- risk of elderly multigravida (HCC) (Primary Dx); 9 weeks gestation of ([facility]); Screening for cervical cancer; Special screening examination for human papillomavirus (HPV); Screen for STD (sexually transmitted disease); Nausea and vomiting during (HCC) Start: 12-31-2024 End: 12-31-2024 ambulatory KAY ADAMSON Facility:[facility] Start: 12-26-2024 End: 12-26-2024 Subsequent hospital visit by physician Jay Cueva [employer] [facility] Comment on above: Arrived Start: 12-26-2024 End: 12-26-2024 ambulatory SOTERO CHAN [facility] Start: 12-25-2024 End: 12-25-2024 Emergency department patient visit Sotero Chan DO Work Phone: [facility] Emergency [facility] Comment on above: Nausea and vomiting in (Primary Dx); Lightheadedness Start: 12-22-2024 End: 12-22-2024 ambulatory Esperanza Arreola RN [employer]UR[facility] [employer] [facility] Comment on above: pressure in neck Start: 12-22-2024 End: 12-22-2024 Emergency department patient visit Lizandro Portillo DO Work Phone: [facility] Comment on above: Hyperemesis gravidar um ([facility]) (Primary Dx) Start: 12-20-2024 End: 12-20-2024 Emergency department patient visit MAUDE JONES [facility] Emergency [facility] Comment on above: Nausea and vomiting in (Primary Dx) Start: 12-20-2024 End: 12-23-2024 ambulatory Mónica Young MD Work Phone: OB/Gynecology Comment on above: Vomiting Start: 12-18-2024 End: 12-18-2024 Telephone encounter Lisbet Pablitovaishnavi AVIATION CONSULTANT.CNM Work Phone: OB/Gynecology Comment on above: Early OB vomiting Start: 12-18-2024 End: 12-18-2024 ambulatory Lisbet Saini CNM Work Phone: [facility] Comment on above: Following up Start: 12-18-2024 End: 12-18-2024 Patient encounter procedure Lisbet Saini CNM [facility] Work Phone: Start: 12-16-2024 End: 12-16-2024 Patient encounter procedure Lisbet Yeny AVIATION CONSULTANT.CNM Work Phone: OB/Gynecology Comment on above: Nausea and vomiting during (HCC) (Primary Dx); 7 weeks gestation of (HCC) Start: 12-16-2024 End: 12-16-2024 ambulatory LISBET SAINI Facility:[facility] Start: 12-10-2024 End: 12-11-2024 Emergency department patient visit MAUDE ANTOINEJLUISSERGO [facility] Comment on above: Nausea and vomiting in (Primary Dx); UTI (urinary tract infection), bacterial Start: 12-10-2024 End: 12-10-2024 Telephone encounter Xin Chu MD Work Phone: OB/Gynecology Comment on above: Nausea & Vomiting Start: 11-28-2024 End: 11-28-2024 Telephone encounter Mónica Young MD Work Phone: OB/Gynecology Comment on above: Start: 02-21-2024 End: 02-26-2024 Telephone encounter Mónica Young MD Work Phone: OB/Gynecology Comment on above: Results Start: 02-14-2024 End: 02-14-2024 Patient encounter procedure Mónica Young MD Work Phone: OB/Gynecology Comment on above: Incomplete miscarria ge (Primary Dx); 8 weeks gestation of Start: 02-11-2024 End: 02-11-2024 Emergency department patient visit PHYSICIAN [facility] Start: 02-07-2024 End: 02-07-2024 Office outpatient visit 25 minutes Tonya Cherry MD Work Phone: [facility] Obstetrics and [facility]necology Comment on above: , missed (Pr imary Dx); demise due to miscarriage; 6 weeks gestation of ; Ultrasound scan abnormal Start: 02-07-2024 End: 02-07-2024 ambulatory [facility] Start: 01-25-2024 End: 01-29-2024 ambulatory PHYSICIAN [facility] Start: 01-25-2024 End: 01-29-2024 ambulatory Gregg Campos RN [facility] Obstetrics and Gynecology Comment on above: Arrived Start: 12-12-2023 End: 12-12-2023 Subsequent hospital visit by physician Vesna Hill DO Work Phone: [facility] Comment on above: Chronic idiopathic c onstipation; Abdominal pain, LLQ; Abdominal pain, RLQ Start: 12-08-2023 End: 12-08-2023 ambulatory [facility] Start: 11-30-2023 End: 11-30-2023 Office outpatient new 45 minutes Vesna Hill DO Work Phone: [facility] Comment on above: Chronic idiopathic c onstipation (Primary Dx) Start: 11-30-2023 End: 11-30-2023 ambulatory VESNA HILL [facility] Start: 11-02-2023 End: 11-02-2023 Subsequent hospital visit by physician [facility] Work Phone: Radiology Comment on above: Left lower quadrant pain [R10.32] Start: 11-01-2023 End: 11-01-2023 Patient encounter procedure Geovany Cardenas MD Work Phone: OB/Gynecology Comment on above: Left lower quadrant pain (Primary Dx) Start: 10-30-2023 Telephone encounter Geovany Cardenas MD Work Phone: OB/Gynecology Comment on above: Pelvic Pain (Left si de) Start: 05-03-2023 Orders Only Zofia Arias CNM Work Phone: [facility] Obstetrics and Gynecology Comment on above: Missed (Jaye chivo Dx) Start: 04-26-2023 End: 04-27-2023 ambulatory KIMBERLEY CORRALES LROI [facility] Start: 04-26-2023 End: 04-27-2023 Emergency department patient visit Iftikhar Lomeli MD Work Phone: [facility] Obstetrics Start: 04-26-2023 End: 04-26-2023 Emergency department patient visit Melani Hu MD Work Phone: [facility] Comment on above: Excessive vaginal bl eeding (Primary Dx); Miscarriage Start: 04-26-2023 End: 04-30-2023 ambulatory PHYSICIAN [facility] Start: 04-26-2023 End: 04-26-2023 Office outpatient visit 15 minutes Zofia Arias CNM Work Phone: [facility] Obstetrics and Gynecology Start: 04-26-2023 End: 04-26-2023 ambulatory ZOFIA BROWN [facility] Ambulatory Start: 04-25-2023 End: 04-25-2023 Emergency department patient visit [facility]ND[facility] Start: 03-29-2023 End: 03-29-2023 ambulatory ZOFIA BROWN [facility] Ambulatory Start: 03-21-2023 End: 03-25-2023 ambulatory PHYSICIAN [facility] Amb[facility] Start: 10-25-2022 End: 10-25-2022 Office outpatient new 45 minutes Maude Jones MD Work Phone: [facility] Internal Medicine Comment on above: Elevated blood sugar level (Primary Dx); Menorrhagia with regular cycle; Family history of diabetes mellitus; Screening for hyperlipidemia; Psoriasis; Bipolar affective disorder in remission (CMS/HCC); Abdominal pain, LLQ; Abdominal pain, RLQ; Bilateral groin pain Start: 07-18-2022 Chart Update Jonn Khan er Work Phone: [employer] Work Phone: Start: 07-12-2022 Periodic preventive med est patient 18-39 yrs Jonn Lofton Work Phone: [facility] [address] Work Phone: Start: 07-01-2022 Chart Update Jonn Khan er Work Phone: [facility] [employer] Work Phone: Start: 06-29-2022 Chart Update Jonn Khan er Work Phone: [employer] Work Phone: Start: 06-28-2022 Office outpatient ne w 45 minutes Jonn Lofton Work Phone: [employer] Work Phone: Start: 06-21-2022 End: 06-21-2022 Emergency department patient visit Nathanael Coyne [facility] Start: 05-08-2021 End: 05-08-2021 Emergency department patient visit Remigio Jesus [facility] Start: 11-12-2019 Patient encounter procedure UNKNOWN PROVIDER Facility:[facility] Start: 11-05-2015 End: 01-21-2016 Patient requested procedure Geovany Cardenas MD Work Phone: [facility] Encounter for gynecological examination (general) (routine) without abnormal findings Jonn Lofton Work Phone: [employer] Work Phone: Comment on above: 06/10/2022; Procedures Date Procedure Procedure Detail Performing Clinician Start: 01-22-2025 Us preg uterus after 1st trimest 05/22 gestation Kay Adamson APRN.CNP Work Phone: Start: 01-15-2025 Antibody screen JLUIS SAINI Comment on above: Order Comment: Speci men Type: BLOOD SPECIMEN Ordering Facility: [facility] Address: [address] [place], [place] [id number] Performed By: #### T SPN #### [facility] [place] [id number] [place] [address] [place] Start: 12-31-2024 Us uterus l imited 1/> fetuses Kay Adamson APRNHandyBEREAVEMENT COUNSELOR Work Phone: Start: 12-31-2024 Microscopic observat ion [Identifier] in Cervix by Cyto stain Vesna Hill DO Work Phone: Start: 12-26-2024 Ecg routine ecg w/le ast 12 lds trcg only w/o i&r Sotero Chan DO Work Phone: Start: 12-25-2024 Comprehensive metabo lic panel Sotero Chan DO Work Phone: Start: 12-22-2024 Basic metabolic pane l calcium total Lizandro G Javy DO Work Phone: Start: 12-20-2024 Urinalysis microscop ic panel - Urine Qualitative by Automated Birgit LING-C Work Phone: Start: 12-20-2024 Urnls dip stick/tabl et reagent auto microscopy Birgit Yo PA-C Work Phone: Start: 12-20-2024 Comprehensive metabo lic panel Birgit Yo PA-C Work Phone: Start: 12-10-2024 Us preg uterus real time w/image dcmtn transvag Birgit LING-C Work Phone: Start: 12-10-2024 Urinalysis microscop ic panel - Urine Qualitative by Automated Birgit Yo PA-C Work Phone: Start: 12-10-2024 Urine test visual color cmprsn meths Birgit Yo PA-C Work Phone: Start: 12-10-2024 Urnls dip stick/tabl et reagent auto microscopy Birgit Luimarc COLUNGA Work Phone: Start: 12-10-2024 Comprehensive metabo lic panel Birgit Yo CRISTINE Work Phone: Start: 12-12-2023 Colonoscopy flx dx w /collj spec when pfrmd Vesna R Thomae DO Work Phone: Start: 12-12-2023 Colonoscopy Vesna Mai e DO Work Phone: Start: 04-27-2023 Gonadotropin chorion ic quantitative Kimberley Sandoval MD Work Phone: Start: 04-27-2023 Us preg uterus real time w/image dcmtn transvag Misael Garsia MD Work Phone: Start: 04-27-2023 Blood count hematocrit Bob Wilhelm MD Work Phone: Start: 04-26-2023 Blood typing serologic abo Iftikhar Lomeli MD Work Phone: Start: 04-26-2023 Urnls dip stick/tabl et reagent auto microscopy Iftikhar Lomeli MD Work Phone: Start: 04-26-2023 Basic metabolic pane l calcium total Iftikhar Lomeli MD Work Phone: Start: 04-26-2023 ANTIBODY IDENTIFICATION Birgit Odonnell AVIATION CONSULTANT-BEREAVEMENT COUNSELOR Work Phone: Start: 04-26-2023 Basic metabolic pane l calcium total Birgitanayeli Odonnell AVIATION CONSULTANT-BEREAVEMENT COUNSELOR Work Phone: Start: 04-26-2023 Blood typing serolog ic rh (d) Birgit Odonnell AVIATION CONSULTANT-BEREAVEMENT COUNSELOR Work Phone: Start: 07-12-2022 Microscopic observat ion [Identifier] in Cervix by Cyto stain Melani Hu MD Work Phone: Bypass of stomach Acute vaginitis Nathanael Coyne No history of surgery Bk Lofton Work Phone: Plan of Treatment Date Care Activity Detail Author Start: 02-13-2064 RSV High Risk: (Elderly (60+) or Population) (1 - 1-dose 75+ series) RSV High Risk: (Elderly (60+) or Population) (1 - 1-dose 75+ series) [facility] Start: 2039 Zoster Vaccines (1 of 2) Zoster Vaccines (1 of 2) [facility] Start: 12-09-2033 Screening for malignant neoplasm of colon [facility] Start: 12-31-2029 Screening for malignant neoplasm of cervix Cervical Cancer Screening [facility] Start: 01-01-2028 Screening for malignant neoplasm of cervix [facility] Start: 07-12-2025 Screening for malignant neoplasm of cervix [facility] Start: 06-08-2025 RSV High Risk: (Elderly (60+) or Population) (1 - Risk 1-dose series) RSV High Risk: (Elderly (60+) or Population) (1 - Risk 1-dose series) [facility] Start: 06-08-2025 RSV Vaccine (1 - Risk 1-dose series) RSV Vaccine (1 - Risk 1-dose series) [facility] Start: 03-19-2025 End: 03-19-2025 Patient encounter procedure [facility] Comment on above: Anatomy Anatomy/OB Start: 02-19-2025 End: 02-19-2025 Patient encounter procedure 02/19/2025 8:00 AM EDT Routine Office Visit OB/Gynecology [address] [place], [place] [id number] Esperanza Prajapati APRN.[facility] [address] [place] [address] OB OB/Gynecology Comment on above: OB Start: 02-04-2025 End: 02-04-2025 Patient encounter procedure 02/04/2025 10:00 AM EDT Routine Office Visit OB/Gynecology [address] [place] [id number] Xin Chu MD [address] [place] [address] (did have miscarriage jan 2024) OB/Gynecology Comment on above: (did have miscarriage jan 2024 ) Start: 01-22-2025 End: 01-22-2025 Patient encounter procedure Maternal Fet al Medicine Comment on above: Nuchal Nuchal/OB Start: 01-20-2025 COVID-19 Vaccine () COVID-19 Vaccine () [facility] Start: 01-20-2025 Influenza vaccination Influenza Vaccine (#1) [facility] Start: 12-31-2024 End: 03-31-2025 ANEMIA REFLEX PANEL ANEMIA REFLEX PANEL Lab Routine 9 weeks gestation of ([facility]) Expected: 12/31/2024, Expires: 03/31/2025 [facility] Work Phone: Comment on above: Expected: 12/31/2024, Expires: Start: 12-31-2024 End: 03-31-2025 Chromosome 21 trisomy [Presence] in Blood or Tissue by Cytogenetics [id number] PLUS Lab Routine 9 weeks gestation of ([facility]) Expected: 12/31/2024, Expires: 03/31/2025 [facility] Comment on above: Expected: 12/31/2024, Expires: Start: 12-31-2024 End: 03-31-2025 Hemoglobin A1c in Blood HEMOGLOBIN A1C Lab Routine 9 weeks gestation of ([facility]) Expected: 12/31/2024, Expires: 03/31/2025 [facility] Comment on above: Expected: 12/31/2024, Expires: Start: 12-31-2024 End: 03-31-2025 Hepatitis B virus surface Ag [Presence] in Serum HEPATITIS B SURFACE ANTIGEN Lab Routine 9 weeks gestation of ([facility]) Expected: 12/31/2024, Expires: 03/31/2025 [facility] Comment on above: Expected: 12/31/2024, Expires: Start: 12-31-2024 End: 03-31-2025 Hepatitis C virus Ab [Presence] in Serum HEPATITIS C ANTIBODY IA WITH CONFIRMATION Lab Routine 9 weeks gestation of ([facility]) Expected: 12/31/2024, Expires: 03/31/2025 [facility] Comment on above: Expected: 12/31/2024, Expires: Start: 12-31-2024 End: 03-31-2025 HIV 1+2 Ab [Presence] in Serum or Plasma by Immunoassay HIV 1/2 COMBO WITH REFLEX TO DIFFERENTIATION Lab Routine 9 weeks gestation of ([facility]) Expected: 12/31/2024, Expires: 03/31/2025 [facility] Comment on above: Expected: 12/31/2024, Expires: Start: 12-31-2024 End: 12-31-2025 OBSTETRIC ULTRASOUND WHI OBSTETRIC ULTRASOUND WHI Anc Imaging Routine 9 weeks gestation of ([facility]) Expected: 12/31/2024, Expires: 12/31/2025 [facility] Comment on above: Expected: 12/31/2024, Expires: Start: 12-31-2024 End: 03-31-2025 RUBELLA IGG ANTIBODY RUBELLA IGG ANTIBODY Lab Routine 9 weeks gestation of ([facility]) Expected: 12/31/2024, Expires: 03/31/2025 [facility] Comment on above: Expected: 12/31/2024, Expires: Start: 12-31-2024 End: 03-31-2025 SYPHILIS TREPONEMAL W/REFLEX SYPHILIS TREPONEMAL W/REFLEX Lab Routine 9 weeks gestation of ([facility]) Expected: 12/31/2024, Expires: 03/31/2025 [facility] Comment on above: Expected: 12/31/2024, Expires: Start: 12-31-2024 End: 03-31-2025 TYPE + SCREEN TYPE + SCREEN Blood Bank Routine 9 weeks gestation of ([facility]) Expected: 12/31/2024, Expires: 03/31/2025 [facility] Comment on above: Expected: 12/31/2024, Expires: Start: 12-31-2024 End: 12-31-2024 Patient encounter procedure 12/31/2024 8:15 AM EDT Initial Office Visit OB/Gynecology [address] [place] [address] Kay Adamson APRN.BEREAVEMENT COUNSELOR [address] [place] [address] (did have miscarriage jan 2024) OB/Gynecology Comment on above: (did have miscarriage jan 2024 ) Start: 12-18-[address] [facility] Start: 12-18-[address] [facility] Start: 02-22-2024 End: 02-07-2025 US Pelvis transvaginal US Transvaginal Imaging Routine , missed demise due to miscarriage Expected: 02/22/2024, Expires: 02/07/2025 [facility] Work Phone: Comment on above: Expected: 02/22/2024, Expires: Start: 02-14-2024 End: 05-15-2024 Choriogonadotropin.beta subunit [Units/volume] in Serum or Plasma [facility] Work Phone: Comment on above: Expected: 02/14/2024, Expires: Start: 01-21-2024 Covid-19 Vaccine ( season) Covid-19 Vaccine ( season) [facility] Start: 01-21-2024 COVID-19 Vaccine ( season) COVID-19 Vaccine ( season) [facility] Start: 01-21-2024 COVID-19 Vaccine ( season) COVID-19 Vaccine ( season) [facility] Start: 01-21-2024 Influenza vaccination [facility] Start: 12-12-2023 End: 12-12-2023 Patient encounter procedure 12/12/2023 2:40 PM EDT Appointment [facility] [address] [place] [address] [phone] Vesna Hill, DO [address] [facility], [address] [address] [facility] Start: 11-30-2023 End: 11-29-2024 CBC W Auto Differential panel - Blood CBC and Auto Differential Lab Routine Chronic idiopathic constipation Expected: 11/30/2023 (Approximate), Expires: 11/29/2024 [facility] Service Area Work Phone: Comment on above: Expected: 11/30/2023 (Approximate), Expi res: 11/29/2024 Start: 11-30-2023 End: 11-29-2024 Comprehensive metabolic 2000 panel - Serum or Plasma Comprehensive Metabolic Panel Lab Routine Chronic idiopathic constipation Expected: 11/30/2023 (Approximate), Expires: 11/29/2024 [facility] Work Phone: Comment on above: Expected: 11/30/2023 (Approximate), Expi res: 11/29/2024 Start: 11-30-2023 End: 11-29-2024 Thyrotropin [Units/volume] in Serum or Plasma TSH Lab Routine Chronic idiopathic constipation Expected: 11/30/2023 (Approximate), Expires: 11/29/2024 [facility] Work Phone: Comment on above: Expected: 11/30/2023 (Approximate), Expi res: 11/29/2024 Start: 11-01-2023 End: 11-01-2023 Patient encounter procedure 11/01/2023 9:30 AM EDT Office Visit OB/Gynecology [address] [place] [address] Geovany Cardenas MD [address] [place] [address] Left sided pelvic pain - ER f/u OB/Gynecology Comment on above: Left sided pelvic pain - ER f/u Start: 07-18-2023 Patient encounter procedure ANNUAL, Provider: Samia Montano, Status: Pen, Time: 9:[address] Work Phone: Start: 07-18-2023 End: 07-18-2023 Patient encounter procedure 07/18/2023 9:30 AM EST Office Visit [facility] Office Building [address] [place] [id number] Samia Montano MD [address] [facility], [address] [place] [id number] [facility] Building Start: 07-13-2023 Yearly Adult Physical Yearly Adult Physical [facility] Start: 07-12-2023 History and physical examination, annual for health maintenance Wellness Visit [facility] Start: 05-22-2023 Behavioral Health Screening Behavioral Health Screening [facility] Start: 01-20-2023 Covid-19 Vaccine ( season) Covid-19 Vaccine ( season) [facility] Start: 01-20-2023 COVID-19 Vaccine ( season) COVID-19 Vaccine ( season) [facility] Start: 01-20-2023 Influenza vaccination [facility] Start: 11-08-2022 End: 11-08-2022 Patient encounter procedure 11/08/2022 8:15 AM EDT Office Visit [facility] [address] [place] [id number] Maude Jones MD [address] [place] [address] [facility] Start: 10-25-2022 End: 10-26-2023 CBC W Auto Differential panel - Blood CBC and Auto Differential Lab Routine Menorrhagia with regular cycle Expected: 10/25/2022 (Approximate), Expires: 10/26/2023 [facility] Service Area Work Phone: Comment on above: Expected: 10/25/2022 (Approximate), Expi res: 10/26/2023 Start: 10-25-2022 End: 10-26-2023 Comprehensive metabolic 2000 panel - Serum or Plasma Comprehensive Metabolic Panel Lab Routine Elevated blood sugar level Expected: 10/25/2022 (Approximate), Expires: 10/26/2023 [facility] Work Phone: Comment on above: Expected: 10/25/2022 (Approximate), Expi res: 10/26/2023 Start: 10-25-2022 End: 10-26-2023 Ferritin [Mass/volume] in Serum or Plasma Ferritin Lab Routine Menorrhagia with regular cycle Expected: 10/25/2022 (Approximate), Expires: 10/26/2023 [facility] Work Phone: Comment on above: Expected: 10/25/2022 (Approximate), Expi res: 10/26/2023 Start: 10-25-2022 End: 10-26-2023 Hemoglobin A1c/Hemoglobin.total in Blood Hemoglobin A1C Lab Routine Elevated blood sugar level Family history of diabetes mellitus Expected: 10/25/2022 (Approximate), Expires: 10/26/2023 [facility] Work Phone: Comment on above: Expected: 10/25/2022 (Approximate), Expi res: 10/26/2023 Start: 10-25-2022 End: 10-26-2023 Iron and Iron binding capacity panel - Serum or Plasma Iron and TIBC Lab Routine Menorrhagia with regular cycle Expected: 10/25/2022 (Approximate), Expires: 10/26/2023 [facility] Work Phone: Comment on above: Expected: 10/25/2022 (Approximate), Expi res: 10/26/2023 Start: 10-25-2022 End: 10-26-2023 Lipid 1996 panel - Serum or Plasma Lipid Panel Lab Routine Screening for hyperlipidemia Expected: 10/25/2022 (Approximate), Expires: 10/26/2023 [facility] Work Phone: Comment on above: Expected: 10/25/2022 (Approximate), Expi res: 10/26/2023 Start: 07-12-2022 Patient encounter procedure ANNUAL, Provider: Samia Montano, Status: Pen, Time: 8:[address] Work Phone: Start: 06-28-2022 Patient encounter procedure Julia Barlow Start: 08-08-2021 Screening for malignant neoplasm of cervix Cervical Cancer Screening [facility] Start: 11-16-2020 DTaP/Tdap/Td Vaccines (2 - Td or Tdap) DTaP/Tdap/Td Vaccines (2 - Td or Tdap) [facility] Start: 11-16-2020 Tetanus vaccination Tetanus: Every 10yrs [facility] Start: 2019 Screening for malignant neoplasm of cervix [facility] Start: 02-13-2016 HPV Vaccine (1 - 3-dose SCDM series) HPV Vaccine (1 - 3-dose SCDM series) [facility] Start: 02-13-2016 HPV Vaccines (1 - 3-dose standard series) HPV Vaccines (1 - 3-dose standard series) [facility] Start: 2011 DTaP/Tdap/Td Vaccines (1 - Tdap) DTaP/Tdap/Td Vaccines (1 - Tdap) [facility] Start: 12-14-2010 Hepatitis B Vaccines (2 of 3 - Hep B Twinrix 3-dose series) Hepatitis B Vaccines (2 of 3 - Hep B Twinrix 3-dose series) [facility] Start: 12-14-2010 Varicella vaccination Varicella Vaccines (2 of 2 - 13+ 2-dose series) [facility] Start: 2010 Screening for malignant neoplasm of cervix [facility] Start: 02-13-2008 Hepatitis B Vaccine (1 of 3 - 19+ 3-dose series) Hepatitis B Vaccine (1 of 3 - 19+ 3-dose series) [facility] Start: 02-13-2008 Hepatitis B Vaccines (1 of 3 - 19+ 3-dose series) Hepatitis B Vaccines (1 of 3 - 19+ 3-dose series) [facility] Start: 02-13-2008 Urine microalbumin profile DTaP,Tdap,Td Vaccine (1 - Tdap) [facility] Start: 2007 Anxiety Screening Anxiety Screening [facility] Start: 2007 Depression Screening Depression Screening [facility] Start: 2007 Hepatitis C screening Hepatitis C Screening [facility] Start: 02-13-2004 HIV screening HIV Screening [facility] Start: 2002 Varicella vaccination Varicella Vaccines (1 of 2 - 13+ 2-dose series) [facility] Start: 1990 MMR Vaccines (1 of 1 - Standard series) MMR Vaccines (1 of 1 - Standard series) [facility] Start: 1990 Varicella vaccination Varicella Vaccines (1 of 2 - 2-dose childhood series) [facility] Start: 1989 COVID-19 Vaccine (#1) COVID-19 Vaccine (#1) [facility] Start: 1989 Hepatitis B Vaccines (1 of 3 - 3-dose series) Hepatitis B Vaccines (1 of 3 - 3-dose series) [facility] Start: 1989 HIV screening HIV Screening [facility] Start: 1989 Lipid panel Lipid Panel [facility] Start: 1989 Screening for malignant neoplasm of colon [facility] Start: 1989 Yearly Adult Physical Yearly Adult Physical [facility] End: 12-10-2024 Bacteria identified in Urine by Culture [facility] Work Phone: Comment on above: Once (Lab) for 1 Occurrences starting until 12/10/2024 End: 12-20-2024 Bacteria identified in Urine by Culture [facility] Work Phone: Comment on above: Once (Lab) for 1 Occurrences starting until 12/20/2024 BACTERIAL VAGINOSIS NAAT BACTERI AL VAGINOSIS NAAT Lab Routine Supervision of high-risk of elderly multigravida (HCC) 13 weeks gestation of (HCC) 01/31/2025 3:34 PM EDT [facility] Work Phone: End: 04-26-2023 Blood Bank Hold Tube Blood Bank Hold Tube Lab STAT Once for 1 Occurrences starting 04/26/2023 until 04/26/2023 [facility] Work Phone: Comment on above: Once for 1 Occurrences starting 04/26/20 until 04/26/2023 MARGOTH/TRICHOMONAS NAAT MARGOTH /TRICHOMONAS NAAT Lab Routine Supervision of high-risk of elderly multigravida (HCC) 13 weeks gestation of ([facility]) 01/31/2025 3:34 PM EDT [facility] Chlamydia trachomatis+Neisseria gonorrhoeae DNA [Presence] in Unspecified specimen by EDIN with probe detection GONORRHEA/CHLAMYDIA NAAT Lab Routine 9 weeks gestation of ([facility]) 12/31/2024 9:16 AM EDT [facility] End: 12-12-2023 Choriogonadotropin ( test) [Presence] in Urine POCT , urine manually resulted Point of Care Testing Routine Once (Lab) for 1 Occurrences starting 12/12/2023 until 12/12/2023 [facility] Work Phone: Comment on above: Once (Lab) for 1 Occurrences starting until 12/12/2023 End: 05-03-2024 Choriogonadotropin [Units/volume] in Serum or Plasma hCG, Blood, Quantitative Lab Routine Missed weekly for 4 Occurrences starting 05/03/2023 until 05/03/2024 [facility] Work Phone: Comment on above: weekly for 4 Occurrences starting 2022 until 05/03/2024 End: 01-24-2025 Choriogonadotropin [Units/volume] in Serum or Plasma hCG, Blood, Quantitative Lab Routine , unspecified gestational age 1 Occurrences starting 01/25/2024 until 01/24/2025 [facility] Work Phone: Comment on above: 1 Occurrences starting 01/25/2024 until 01/24/2025 Choriogonadotropin [Units/volume] in Serum or Plasma hCG, Blood, Quantitative Lab Routine , unspecified gestational age 0901/25/2024 11:47 AM T [facility] End: 12-25-2024 ECG 12 lead ECG 12 lead ECG STAT Once for 1 Occurrences starting 12/25/2024 until 12/25/2024 [facility] Service Area Work Phone: Comment on above: Once for 1 Occurrences starting 12/26/19 until 12/25/2024 End: 12-10-2024 Extra Urine Nguyen Tube [facility] Work Phone: Comment on above: Once for 1 Occurrences starting 12/11/19 until 12/10/2024 End: 12-20-2024 Extra Urine Nguyen Tube Extra Urine Nguyen Tube Lab Timed Once for 1 Occurrences starting 12/20/2024 until 12/20/2024 [facility] Work Phone: Comment on above: Once for 1 Occurrences starting 12/21/19 until 12/20/2024 End: 12-25-2024 Extra Urine Nguyen Tube Extra Urine Nguyen Tube Lab Timed Once for 1 Occurrences starting 12/25/2024 until 12/25/2024 [facility] Work Phone: Comment on above: Once for 1 Occurrences starting 12/26/19 until 12/25/2024 End: 12-12-2023 Glucose [Mass/volume] in Serum or Plasma Glucose Lab Routine Once (Lab) for 1 Occurrences starting 12/12/2023 until 12/12/2023 [facility] Work Phone: Comment on above: Once (Lab) for 1 Occurrences starting until 12/12/2023 End: 12-12-2023 Moderate Sedation Moderate Sedation Procedures Routine Once for 1 Occurrences starting 12/12/2023 until 12/12/2023 [facility] Work Phone: Comment on above: Once for 1 Occurrences starting 12/12/19 24 until 12/12/2023 PAP TEST PAP TEST Lab [facility] Screening for cervical cancer Special screening examination for human papillomavirus (HPV) 12/31/2024 9:16 AM EDT [facility] End: 04-26-2023 PST Top PST Top Lab STAT Once for 1 Occurrences starting 04/26/2023 until 04/26/2023 [facility] Work Phone: Comment on above: Once for 1 Occurrences starting 04/26/20 until 04/26/2023 End: 12-12-2023 Pulse oximetry, continuous Pulse oximetry, continuous Respiratory Care Routine Continuous until discontinued starting 12/12/2023 [facility] Work Phone: Comment on above: Continuous until discontinued starting 0 12/12/2023 End: 12-12-2023 Pulse oximetry, spot Pulse oximetry, spot Respiratory Care Routine Once for 1 Occurrences starting 12/12/2023 until 12/12/2023 [facility] Service Area Work Phone: Comment on above: Once for 1 Occurrences starting 12/12/19 until 12/12/2023 End: 04-26-2023 [place] draw [place] draw Lab STAT Once (Lab) for 1 Occurrences starting 04/26/2023 until 04/26/2023 [facility] Work Phone: Comment on above: Once (Lab) for 1 Occurrences starting until 04/26/2023 SURGICAL PATHOLOGY SURGICAL PATH OLOGY Lab Routine Incomplete miscarriage 8 weeks gestation of 02/14/2024 11:39 AM EDT [facility] TRICHOMONAS VAGINALIS NAAT TRICH OMONAS VAGINALIS NAAT Lab Routine Screen for STD (sexually transmitted disease) 12/31/2024 9:16 AM EDT [facility] End: 12-10-2024 Urinalysis complete W Reflex Culture panel - Urine [facility] Work Phone: Comment on above: Once (Lab) for 1 Occurrences starting until 12/10/2024 End: 12-20-2024 Urinalysis complete W Reflex Culture panel - Urine [facility] Work Phone: Comment on above: Once (Lab) for 1 Occurrences starting until 12/20/2024 End: 12-25-2024 Urinalysis complete W Reflex Culture panel - Urine [facility] Work Phone: Comment on above: Once (Lab) for 1 Occurrences starting until 12/25/2024 Once for 1 Occurrenc es starting 12/25/2024 until 12/25/2024 US Pelvis transvaginal US FEMALE PELVIS TRANSVAG Radiology Routine Left lower quadrant pain 11/02/2023 3:10 PM EDT [facility] Work Phone: End: 01-24-2025 US transabdominal and transvaginal for in first trimester US Obstetric TransvaginaL First Trimester Imaging Routine , unspecified gestational age 1 Occurrences starting 01/25/2024 until 01/24/2025 [facility] Comment on above: 1 Occurrences starting 01/25/2024 until 01/24/2025 [facility] (OFFICE IPAS) [facility] (OFFICE IP ) Procedures Routine Incomplete miscarriage 8 weeks gestation of Ordered: 02/14/2024 [facility] Comment on above: Ordered: 02/14/2024 Immunizations Immunization Date Immunization Notes Care Provider Chacha kidd 04-10-2023 influenza virus vaccine, unspecified formulation Gregg Campos RN [facility] 04-01-2016 RHO(D) immune globul in- IV or IM Geovany Cardenas MD Work Phone: [facility] 02-20-2016 influenza virus vaccine, unspecified formulation Geovany Cardenas MD Work Phone: [facility] 11-16-2010 varicella virus vaccine Lora Jones MD Work Phone: [facility] Work Phone: Payers Date Payer Category Payer Self-pay 2022 Managed Care (Private) [facility] [id number] 2018 Private Health Insurance [employer] PPO [id number] 2018 Unknown 2018 Unknown [id number] 1989 Unknown [id number] [id number]. 732 1989 Unknown [id number] 2.16840.1.423682.3.579.2. 1069 1989 Unknown [id number] 2.16840.1.758648.3.579.2. 1245 1989 Unknown [id number] 2.16840.1.960387.3.579.2. 4 1989 Unknown [id number] 2.16840.1.782330.3.579.2. 90 1989 Unknown [id number] 2.840.1.125985.3.579.2. 90 1989 Unknown [id number] 2.16840.1.382282.3.579.2. 90 1989 Unknown [id number] 2.840.1.994743.3.579.2. 1989 Unknown [id number] 2.840.1.273480.3.579.2. 903 1989 Unknown [id number] 2.840.1.851932.3.579.2. 90 1989 Unknown [id number] 2.16840.1.210745.3.579.2. 903 1989 Unknown [id number] 2.16840.1.114378.3.579.2. 90 1989 Unknown [id number] 2.16840.1.516231.3.579.2. 903 1989 Unknown [id number] 2.16840.1.949312.3.579.2. 90 1989 Unknown [id number] 2.16840.1.624966.3.579.2. 903 1989 Unknown [id number] 2.16.840.1.814371.3.579.2. 903 1989 Unknown [id number] 2.16.840.1.838545.3.579.2. 1243 1989 Unknown [id number] 2.16.840.1.531204.3.579.2. 1243 1989 Unknown [id number] 2.16.840.1.816503.3.579.2. 1243 1989 Unknown [id number] 2.16.840.1.035648.3.579.2. 1243 1989 Unknown [id number] 2.16.840.1.943094.3.579.2. 1243 Unknown [id number] 2.16.840.1.757671.3.579.2. 462 Social History Date Type Detail Facility [facility] Tobacco smoking consumption unknown [facility] Start: 10-25-2022 End: 12-10-2024 Sexually active Sexually active [facility] [address] Work Phone: Start: 10-25-2022 End: 11-01-2023 Tobacco smoking status NHIS Ex-smoker [facility] Work Phone: End: 01-20-2022 History of tobacco use Current smoker [facility] Work Phone: End: 01-20-2022 History of tobacco use Cigarette Smoker [facility] Work Phone: Start: 10-25-2022 End: 03-21-2023 Tobacco use and exposure Smokeless tobacco non-user [facility] Work Phone: Start: 10-25-2022 End: 12-12-2023 Alcohol intake Ex-drinker (finding) [facility] Work Phone: Start: 10-25-2022 End: 12-10-2024 Tobacco use panel [facility] Work Phone: Start: 1990 Sex Assigned At Not on file [facility] Work Phone: Start: 10-15-2022 End: 12-12-2023 Exposure to SARS-CoV-2 (event) Not sure [facility] Start: 02-15-2023 [facility] Start: 04-25-2023 Gender identity Identifies as female gender (finding) [facility] Start: 04-25-2023 Sexual orientation Heterosexual (finding) [facility] Start: 06-04-2019 End: 12-31-2024 Alcohol intake Current non-drinker of alcohol (finding) [facility] Start: 04-22-2012 End: 04-15-2022 National Score (1-100), lower number is lower risk Not on file [facility] Start: 11-05-2015 End: 11-01-2023 Tobacco Comment 1 cigarette every 4 days [facility] Start: 1990 Sex assigned at Female [facility] Goals Date Patient Goal Desired Activity /State Personal health goal Functional Status Date Assessment Result Facility 12-25-2024 [place] - suicide s everity rating scale screener - recent [C-SSRS] [facility] Work Phone: 12-22-2024 [place] - suicide s everity rating scale screener - recent [C-SSRS] [facility] Work Phone: 12-20-2024 [place] - suicide s everity rating scale screener - recent [C-SSRS] [facility] Work Phone: 12-20-2024 [facility] Work Phone: 12-10-2024 Functional status [facility] 12-10-2024 [facility] Work Phone: 12-10-2024 [place] - suicide s everity rating scale screener - recent [C-SSRS] [facility] Work Phone: 12-12-2023 [facility] Work Phone: 12-12-2023 Functional status [facility] Work Phone: [facility] Mental Status Date Assessment Result Facility 12-12-2023 Cognitive function finding Negat denzel 12/12/2023 1:10 PM EDT Rosalia Jones RN Negative [facility] Work Phone: Clinical Notes 06-28-2022 to 01-31-2025 Quick Notes - Lisbet Saini APRN.CNM - 01/31/2025 3:10 PM EDTPrenatal Quick Notes - Lisbet Saini APRN.CN - 01/31/2025 3:10 PM EDTPatient InstructionsPatient Instructions Note Date & Type Note Facility 01-31-2025 Progress note Formatting of t his note might be different from the original. S: Esperanza Julian is a 34 year old female who presents at 13 weeks gestation as a follow up visit for bacterial vaginosis. Was recently treated at an Urgent Care with vaginal cream but feels that she still has a strong odor vaginally. Denies any itching or burning. Would like vaginal swab sent again. Still C/O daily nausea and has Zofran pump. Reports feeling like crap all the time. O: See flow sheet Gen: No apparent distress Abd: Gravid, non tender LEAD ENTERPRISE ARCHITECT: SSE- normal physiological discharge present, no erythema ASSESSMENT/PLAN: 1. Bacterial vaginitis 2. Supervision of high-risk of elderly multigravida 3. Mild hyperemesis gravidarum 4. 13 weeks gestation of 5. Vaginal odor - BACTERIAL VAGINOSIS NAAT - MARGOTH/TRICHOMONAS NAAT - Will treat with oral Flagyl if positive - RTO 3 weeks for already scheduled LEANNE Saini APRN.CNM [facility] 01-31-2025 Miscellaneous Notes S: Esperanza Julian is a 34 year old female who presents at 13 weeks gestation as a follow up visit for bacterial vaginosis. Was recently treated at an Urgent Care with vaginal cream but feels that she still has a strong odor vaginally. Denies any itching or burning. Would like vaginal swab sent again. Still C/O daily nausea and has Zofran pump. Reports feeling like crap all the time. O: See flow sheet Gen: No apparent distress Abd: Gravid, non tender LEAD ENTERPRISE ARCHITECT: SSE- normal physiological discharge present, no erythema ASSESSMENT/PLAN: 1. Bacterial vaginitis 2. Supervision of high-risk of elderly multigravida 3. Mild hyperemesis gravidarum 4. 13 weeks gestation of 5. Vaginal odor - BACTERIAL VAGINOSIS NAAT - MARGOTH/TRICHOMONAS NAAT - Will treat with oral Flagyl if positive - RTO 3 weeks for already scheduled LEANNE Lisbet Saini APRN.CNM documented in this encounter [facility] 01-31-2025 Instructions Bianca Ribera MA - 01/31/2025 3:01 PM EDT SEQUENTIAL SCREENINGS The [facility] offers sequential screenings for women who are interested in screenings for chromosomal abnormalities and certain defects during a . The sequential screen combines ultrasound and blood tests to determine the risk of chromosomal abnormalities, including Down's Syndrome (Trisomy 21) and Trisomy 18, as well as open neural tube defects including spina bifida. Ultrasound examination is performed between 11 weeks and 13 weeks gestational age. Blood tests are drawn after the ultrasound and again later in the between 15 and 21 weeks gestational age. Please let your physician know if you are interested in this testing. It will require an appointment with our photovoltaic technician. This is not an ultrasound performed by a physician in our office during a routine visit. SIGNS AND SYMPTOMS OF LABOR 1. Contractions every 10 minutes or more often 2. Clear, pink, or brownish fluid (water) leaking from vagina 3. Feeling that baby is pushing down, pressure 4. Low, dull backache 5. Cramps that feel like a period 6. Cramps with or without diarrhea If you notice any of the above symptoms, contact our office at [phone] and ask to speak with a nurse. After hours, you can call doctors registry at [phone] OR call [facility] at [phone] and ask to have the doctor color separation photographer paged. If you consider this an emergency, dial or go to your nearest emergency department. NEED HELP? Are you dealing with a violent or abusive relationship? Are you a victim of rape or sexual assult? Call [facility] ([place]) 24 hour Crisis Hotline: 273.657.3747 or 079-722-3128. MANUAL Your Guide to a Healthy manual is now on-line. Visit [email or web address] to download your free copy documented in this encounter [facility] 01-28-2025 Telephone encounter Note Scan on 01/28/2025 12:54 AM by Provider, Ccf: Nausea \T\ Vomiting in Please see attached scanned document from [facility] re: Zofran pump documentation from 01/19-01/25. Kendell Coleman RN [facility] 01-28-2025 Miscellaneous Notes Scan on 01/28/2025 12:54 AM by Provider, Ccf: Nausea \T\ Vomiting in Please see attached scanned document from [facility] re: Zofran pump documentation from 01/19-01/25. Kendell Coleman RN documented in this encounter [facility] 01-22-2025 Progress note Formatting of t his note might be different from the original. DM-Pt doing well. Denies vaginal Bleeding, Leaking fluid, or regular Contractions. Pt reports good movement. On zofran pump and phenergan Physical Exam: Gen: female in no apparent distress Abd: soft, Gravid. Non tender to palpation. See flow sheet @ 12.3 weeks Assessment & Plan Supervision of high-risk of elderly multigravida (HCC) Mild hyperemesis gravidarum (HCC) Continue zofran pump and phenergan Keeping fluids down- pt reports overall manageable. Bacterial vaginitis Continue flagyl per [facility] ER 12 weeks gestation of (HCC) Start ASA when able to tolerate PO Joseeholden Lane MD [facility] 01-22-2025 Miscellaneous Notes DM-Pt doing well. Denies vaginal Bleeding, Leaking fluid, or regular Contractions. Pt reports good movement. On zofran pump and phenergan Physical Exam: Gen: female in no apparent distress Abd: soft, Gravid. Non tender to palpation. See flow sheet @ 12.3 weeks Assessment & Plan Supervision of high-risk of elderly multigravida (HCC) Mild hyperemesis gravidarum (HCC) Continue zofran pump and phenergan Keeping fluids down- pt reports overall manageable. Bacterial vaginitis Continue flagyl per [place] ER 12 weeks gestation of (HCC) Start ASA when able to tolerate PO Josee MD Ariana documented in this encounter [facility] 01-08-2025 Telephone encounter Note Scan on 01/07/2025 10:02 PM by Provider, External, PA-C: [facility] Nausea of management 12/29/24-01/04/25 Please see attached document from [facility] re: Nausea of management from 12/29/24-01/04/25. Kendell Coleman RN [facility] 01-08-2025 Miscellaneous Notes Scan on 01/07/2025 10:02 PM by Provider, External, PA-C: [facility] Nausea of management 12/29/24-01/04/25 Please see attached document from [facility] re: Nausea of management from 12/29/24-01/04/25. Kendell Coleman RN documented in this encounter [facility] 01-06-2025 Telephone encounter Note Please follow up with patient to see where she was seen. Thank you, Esperanza Prajapati APRN.CNM [facility] [facility] Phone: 01-06-2025 Miscellaneous Notes Please follow up with patient to see where she was seen. Thank you, Esperanza Prajapati APRN.CNM Mireya said no documents were found at [facility], but Pt tends to go to [facility] in [place] per records in Psychiatric. Kendell Coleman RN Ok, thank you for update. Is she going to [facility] EDor where is she going? Esperanza Prajapati APRN.CNM FYI: Ob patient is 10w1d [facility] nurse called stating that when she called patient this morning for weekly zofran pump assessment for hyperemesis gravidarum the patient was tearful and stated that she woke up during night d/t painful cramping and when using the restroom noticed an increase in clear discharge. Denied vaginal bleeding. Patient told [facility] nurse she was going to the emergency room to be evaluated d/t h/o of 2 SABs at 8 weeks gestation. documented in this encounter [facility] 01-06-2025 Telephone encounter Note Mireya said no documents were found at [facility], but Pt tends to go to [facility] in [place] per records in Psychiatric. Kendell Coleman, RN [facility] 01-06-2025 Telephone encounter Note Ok, thank you for update. Is she going to [facility] EDor where is she going? Esperanza Prajapati APRN.CNM [facility] 01-06-2025 Telephone encounter Note FYI: Ob patient is 10w1d [facility] nurse called stating that when she called patient this morning for weekly zofran pump assessment for hyperemesis gravidarum the patient was tearful and stated that she woke up during night d/t painful cramping and when using the restroom noticed an increase in clear discharge. Denied vaginal bleeding. Patient told [facility] nurse she was going to the emergency room to be evaluated d/t h/o of 2 SABs at 8 weeks gestation. [facility] 12-31-2024 Note HNO ID: [id number] Author: KAY ADAMSON APRN.BEREAVEMENT COUNSELOR Service: ? 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 INITIAL OB ASSESSMENT HPI: Amanda is a 34 year old White Female here to establish Obstetrical Care. Patient's last menstrual period was 10/28/2023 (exact date). from OB Dating Form. was unplanned but accepted Complaints: (!) Severe nausea/vomiting OB History Gravida5 Para2 Term2 Preterm0 AB2 Living2 SAB2 IAB0 Ectopic0 Multiple0 Live Births2 Comment: 01/2024 IPAS in office 6 week size incomplete, failed medical management Previous history: Prior : never History of 4th degree laceration: No History of shoulder dystocia: No History of Hypertensive disorders including pre-eclampsia or gestational hypertension: No History of gestational diabetes: No Patient's Risk Screening for delivery: Have you had a prior whitman between 20w and 36w6d? No How many pregnancies have you had before? 4 Did you have a previous baby with a GBS Infection? No Please select all that apply for any prior : N/A MEDICAL/PSYCHOSOCIAL HISTORY: History of hemorrhage or bleeding concerns: Not with pregnancies Thyroid Disease: No History of chronic hypertension: No History of pre-existing diabetes: No ABO/RH(D) Date Value Ref Range Status 12/15/2015 A NEGATIVE Final BMI 30.42 kg/(m2) Last Pap: 08/08/2016 LSIL with +hpv 11/17/2015 History of abnormal pap: Yes Prior treatment for cervical dysplasia: LEEP. Last HPV: 12/03/2015 History of STDs: HPV Partner History of STDs: None Did you have a partner with Herpes? No Tobacco use: No E-Cigarette/Vaping Use: No Caffeine use: Yes Drug use: No Alcohol use: No Multivitamin with Folic acid: No Would refuse blood transfusion if medically necessary: No Social Needs: How often does this describe you? I don't have enough money to pay my bills: Never Within the past 12 months, have you worried that your food would run out before you had money to buy more? Never In the past 12 months, has lack of reliable transportation kept you from going to medical appointments or work, or from getting things needed for daily living? Never In the past 12 months, have you had any concerns about having a place to live, or about the condition or quality of your housing? Never Would you like more information on any of the following (please check all that apply)? Not interested Social History: Do you have any history of depression, anxiety, PTSD, or other mood problems? Yes Do you have a history of abuse or trauma that may impact your experience? No Are you currently employed? Yes Depression/Anxiety Screening: denies symptoms of depression. OB Depression and Anxiety Screening- This Encounter Feeling down, depressed, or hopeless: Not at all Little interest or pleasure in doing things: Not at all Feeling nervous, anxious, or on edge Not at all Not being able to stop or control worrying Not at all Anxiety Pre-Screening Total (If >/= 3 additional questions will be reviewed) 0 Genetic Screening: Partner present: Yes Patient verbalized knowledge of partner family health history: Yes Do you or your partner have any personal or family history of defects not previously discussed: No Do you have history of a complicated by anomaly, genetic condition, or demise: No Preeclampsia Risk Screening: Screening for prevention of preeclampsia: High risk factors: None Moderate risk ractors: Obesity (body mass index greater than 30) and Age 35 years or older OB Risk Screening: Completed, no positive findings documented. 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 aspirin, enteric coated (ECOTRIN LOW STRENGTH) 81 mg EC tablet Take 1 tablet by mouth once daily. 90 tablet 3 promethazine (PHENERGAN) 25 mg tablet Take 1 tablet by mouth every 4 hours as needed for nausea/vomiting. 60 tablet 1 Fvnlndth-Me-Vnd-Fe-FA tab Take 1 tablet by mouth. No current facility-administered medications for this visit. Allergies As of Date: 12/31/2024 Allergen Noted Reaction LATEX 06/25/2016 Rash Fully Assessed 12/31/2024 Does patient have penicillin allergy: No REVIEW OF SYSTEMS: GENERAL: Negative for: Fever or Chills HEENT: Negative for: Headache, Impaired Vision, Ringing in Ears, Nosebleeds NECK: Negative for: Swel (more content not included)... 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 INITIAL OB ASSESSMENT HPI: Amanda is a 34 year old White Female here to establish Obstetrical Care. Patient's last menstrual period was 10/28/2023 (exact date). from OB Dating Form. was unplanned but accepted Complaints: (!) Severe nausea/vomiting OB History Gravida5 Para2 Term2 Preterm0 AB2 Living2 SAB2 IAB0 Ectopic0 Multiple0 Live Births2 Comment: 01/2024 IPAS in office 6 week size incomplete, failed medical management Previous history: Prior : never History of 4th degree laceration: No History of shoulder dystocia: No History of Hypertensive disorders including pre-eclampsia or gestational hypertension: No History of gestational diabetes: No Patient's Risk Screening for delivery: Have you had a prior whitman between 20w and 36w6d? No How many pregnancies have you had before? 4 Did you have a previous baby with a GBS Infection? No Please select all that apply for any prior : N/A MEDICAL/PSYCHOSOCIAL HISTORY: History of hemorrhage or bleeding concerns: Not with pregnancies Thyroid Disease: No History of chronic hypertension: No History of pre-existing diabetes: No ABO/RH(D) Date Value Ref Range Status 12/15/2015 A NEGATIVE Final BMI 30.42 kg/(m^2) Last Pap: 08/08/2016 LSIL with +hpv 11/17/2015 History of abnormal pap: Yes Prior treatment for cervical dysplasia: LEEP. Last HPV: 12/03/2015 History of STDs: HPV Partner History of STDs: None Did you have a partner with Herpes? No Tobacco use: No E-Cigarette/Vaping Use: No Caffeine use: Yes Drug use: No Alcohol use: No Multivitamin with Folic acid: No Would refuse blood transfusion if medically necessary: No Social Needs: How often does this describe you? I don't have enough money to pay my bills: Never Within the past 12 months, have you worried that your food would run out before you had money to buy more? Never In the past 12 months, has lack of reliable transportation kept you from going to medical appointments or work, or from getting things needed for daily living? Never In the past 12 months, have you had any concerns about having a place to live, or about the condition or quality of your housing? Never Would you like more information on any of the following (please check all that apply)? Not interested Social History: Do you have any history of depression, anxiety, PTSD, or other mood problems? Yes Do you have a history of abuse or trauma that may impact your experience? No Are you currently employed? Yes Depression/Anxiety Screening: denies symptoms of depression. OB Depression and Anxiety Screening- This Encounter Feeling down, depressed, or hopeless: Not at all Little interest or pleasure in doing things: Not at all Feeling nervous, anxious, or on edge Not at all Not being able to stop or control worrying Not at all Anxiety Pre-Screening Total (If >/= 3 additional questions will be reviewed) 0 Genetic Screening: Partner present: Yes Patient verbalized knowledge of partner family health history: Yes Do you or your partner have any personal or family history of defects not previously discussed: No Do you have history of a complicated by anomaly, genetic condition, or demise: No Preeclampsia Risk Screening: Screening for prevention of preeclampsia: High risk factors: None Moderate risk ractors: Obesity (body mass index greater than 30) and Age 35 years or older OB Risk Screening: Completed, no positive findings documented. 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 aspirin, enteric coated (ECOTRIN LOW STRENGTH) 81 mg EC tablet Take 1 tablet by mouth once daily. 90 tablet 3 promethazine (PHENERGAN) 25 mg tablet Take 1 tablet by mouth every 4 hours as needed for nausea/vomiting. 60 tablet 1 Xqvneqzt-Yk-Mea-Fe-FA tab Take 1 tablet by mouth. No current facility-administered medications for this visit. Allergies As of Date: 12/31/2024 Allergen Noted Reaction LATEX 06/25/2016 Rash Fully Assessed 12/31/2024 Does patient have penicillin allergy: No REVIEW OF SYSTEMS: GENERAL: Negative for: Fever or Chills HEENT: Negative for: Headache, Impaired Vision, Ringing in Ears, Nosebleeds NECK: Negative for: Swelling, Pain, Stiffness RESPIRATORY: Negative for: Cough, Shortness of breath, Wheezing GASTROINTESTINAL: Positive for: Nausea and Vomiting MUSCULOSKELETAL: Negative for: Muscle or joint pain, stiffness, Joint swelling NEUROLOGIC/PSYCHIATRIC: Negative for: Weakness, Paralysis, Numbness, Tingling, Tremor, Anxiety, Depression, Memory loss SKIN: Negative for: Rash, Itching GENITOURINARY: Negative for: vaginal itching, vaginal discharge, hematuria or dysuria SENSITIVE EXAM: The sensitive examination was discussed with the Patient or Patient's Authorized Gaming Pit Boss. As applicable, any other physician, advance practice provider, medical student, or other health professional student that will be observing or involved in the sensitive examination for educational or training purposes was discussed with the Patient or Authorized Gaming Pit Boss. The Patient or Authorized Gaming Pit Boss has agreed to proceed with the sensitive examination. (Sensitive examination includes inspection and/or palpation of the breasts, pelvis, prostate and anorectal regions). PHYSICAL EXAM: BP 118/66 Wt 182 lb 12.8 oz (82.9kg) LMP 10/28/2023 GENERAL: pleasant in no apparent distress DERMATOLOGY: Normal, without lesions, non-icteric, and non-hirsute CHEST: Normal inspiratory effort BREAST: soft, non-tender, symmetric, no dominant mass, normal nipple-areolar complex, no lymphadenopathy, and no nipple discharge ABDOMEN: soft, non-tender, and no masses NEURO: alert and oriented x3,exam grossly non-focal PELVIS: External genitalia normal without lesions. Perineal body intact. No vaginal or cervical lesions. Cervix closed. No adnexal masses or tenderness. Clinical Pelvimetry: Pelvimetry clinically assessed as adequate Limited OB ultrasound exam: single intrauterine and POCUS performed. +cardiac activity, CRL consistent with LMP. Kay Adamson, AVIATION CONSULTANT.BEREAVEMENT COUNSELOR ASSESSMENT: 34 year old at 61w3d wks gestational age PLAN: 1) Patient oriented to practice. Patient given new OB orientation folder. Discussed nutrition, folic acid supplementation, dietary guidelines, exercise, smoking, alcohol, caffeine, and drug use. Discussed gestational weight gain guidelines. Discussed routine OB labs including STD/HIV. Discussed how to access Your guide to a health and the Wastewater Process Engineer. Reviewed midwifery and electrical appliance mechanic services that are available. 2) Screening: Hemoglobin A1C: ordered Baby Aspirin: The patient has been counseled about the potential benefits of low dose aspirin in and our recommendation that this be offered to all patients, regardless of whether they meet the high risk criteria specified above. She Accepts Aneuploidy Screening: Discussed aneuploidy screening, nuchal translucency/first trimester early anatomy ultrasound and NIPT. The risks/benefits and limitations of NIPT/aneuploidy screening were reviewed including the potential for false negative and false positive results. The availability of genetic counseling was reviewed. Information on aneuploidy screening was provided. The patient chooses to proceed with First trimester early anatomy ultrasound (12-13w6d) and NIPT (10 weeks) Myriad Carrier Screening: Discussed myriad carrier screening. We discussed the availability of professional-society guided carrier screening and reviewed the conditions screened and limitations of screening. The availability of genetic counseling was reviewed. Information on carrier screening was provided. 3) Patient offered option of Virtual Visits. Patient unsure. May consider in future. 4) Obesity (BMI >30), will order early glucose screen or Hemoglobin A1C. AMA: Aneuploidy screening reviewed Follow up in 4 weeks or sooner prmary. Kay Adamson APRN.CNP documented in this encounter [facility] 12-31-2024 Instructions Preethi Kurtz LPN - 12/31/2024 8:04 AM EDT Please select the following link to access the [facility] Your Guide to a Healthy . [email or web address] documented in this encounter [facility] 12-23-2024 Telephone encounter Note Patient notified. Zofran pump and IV fluid orders faxed to [facility]. Steph Velasquez RN [facility] 12-23-2024 Miscellaneous Notes Patient notified. Zofran pump and IV fluid orders faxed to [facility]. Steph Velasquez RN Orders filled out and signed. Lisbet Saini APRN.CNM Pt called/spoke to [facility] stating she was @ ER again yesterday for N/V and pretty much visiting them every other day. Care everywhere updated. Please advise on pump/see RN note below. Kendell Coleman RN They have specific forms for either Zofran or Reglan pumps. Which one are you planning to do? Steph Velasquez RN I will fill out and sign orders/ consultation for Zofran/Reglan pump. Please contact [facility] and assist with scheduling. Lisbet Saini APRN.CNM I believe I heard CP talking about pump for someone - I would have CP follow up with this when she is back in office. If she can't tolerate fluids x 24 hrs over weekend she has to go to ER. I'm sorry she is not feeling great. Recommend also trying SEABANDS Early OB was sent to L&D on Mon by RR for IV hydration and antiemetics. Patient's NOB isn't until 12/31. Clare Mcallister, MINI documented in this encounter [facility] 12-23-2024 Telephone encounter Note Orders filled out and signed. Lisbet Saini APRN.CNM [facility] 12-23-2024 Telephone encounter Note Pt called/spoke to [facility] stating she was @ ER again yesterday for N/V and pretty much visiting them every other day. Care everywhere updated. Please advise on pump/see RN note below. Kendell Coleman RN [facility] 12-23-2024 Telephone encounter Note They have specific forms for either Zofran or Reglan pumps. Which one are you planning to do? Steph Velasquez RN [facility] 12-23-2024 Telephone encounter Note I will fill out and sign orders/ consultation for Zofran/Reglan pump. Please contact [facility] and assist with scheduling. Lisbet Saini APRN.CNM [facility] 12-22-2024 Physician Emergency department Note HPI Chief Complaint Patient presents with Vomiting During Nausea and vomiting, 8 weeks . Tried zofran at home without relief. Patient presents to the emergency department secondary to hyperemesis gravidarum. This is a recurrent issue for the patient who is known to be approximately 8 weeks . She has been using Phenergan suppositories which will curb her symptoms at times however she states her symptoms have been intractable for approximately 12 hours. Denies abdominal pain, vaginal bleeding, vaginal discharge, or other symptoms. 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 Constitutional: General: She is not in acute distress. Appearance: Normal appearance. She is normal weight. She is not ill-appearing, toxic-appearing or diaphoretic. HENT: Head: Normocephalic and atraumatic. Nose: Nose normal. No rhinorrhea. Mouth/Throat: Mouth: Mucous membranes are moist. Eyes: General: No scleral icterus. Neck: Comments: Trachea is midline Cardiovascular: Rate and Rhythm: Normal rate and regular rhythm. Heart sounds: No murmur heard. Pulmonary: Effort: Pulmonary effort is normal. Breath sounds: Normal breath sounds. No wheezing. Abdominal: General: Abdomen is flat. Bowel sounds are normal. There is no distension. Palpations: Abdomen is soft. Tenderness: There is no abdominal tenderness. Musculoskeletal: General: Normal range of motion. Cervical back: Normal range of motion. Skin: General: Skin is warm and dry. Coloration: Skin is not jaundiced. Findings: No rash. Neurological: General: No focal deficit present. Mental Status: She is alert and oriented to person, place, and time. Mental status is at baseline. Psychiatric: Mood and Affect: Mood normal. Behavior: Behavior normal. Thought Content: Thought content normal. Judgment: Judgment normal. ED Course & MDM No data recorded [place] Coma Scale Score: 15 (12/22/24 1123 : Samia Gorman RN) Medical Decision Making Patient had no vomiting while here in the emergency room. When I went to reevaluate her after her fluids were completed she states I am ready to go. We want to go eat. She was given water and elena crackers here and was able to tolerate this without vomiting. Patient will be discharged. She has antiemetics at home. Given a work note and instructed to follow-up with her OB physician. Return for any other ongoing concerns. Procedure Procedures [1] Past Medical History: Diagnosis Date LGSIL on Pap smear of cervix [2] Past Surgical History: Procedure Laterality Date CERVICAL BIOPSY W/ LOOP ELECTRODE EXCISION MULTIPLE (4-5 TIMES) [3] Family History Problem Relation Name Age of Onset Brain Aneurysm Mother No Known Problems Father Hypertension Brother Heart disease Maternal Grandmother Hypertension Maternal Grandmother Diabetes Maternal Grandmother Diabetes Paternal Grandfather [4] Social History Tobacco Use Smoking status: Former Current packs/day: 0.00 Types: Cigarettes Quit date: 01/2022 Years since quittin.9 Smokeless tobacco: Never Vaping Use Vaping status: Former Substance Use Topics Alcohol use: Not Currently Drug use: Never Lizandro Portillo DO 12/22/24 1421 [facility] Work Phone: 12-22-2024 Emergency department Note HPI Chief Complaint Patient presents with Vomiting During Nausea and vomiting, 8 weeks . Tried zofran at home without relief. Patient presents to the emergency department secondary to hyperemesis gravidarum. This is a recurrent issue for the patient who is known to be approximately 8 weeks . She has been using Phenergan suppositories which will curb her symptoms at times however she states her symptoms have been intractable for approximately 12 hours. Denies abdominal pain, vaginal bleeding, vaginal discharge, or other symptoms. 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 Constitutional: General: She is not in acute distress. Appearance: Normal appearance. She is normal weight. She is not ill-appearing, toxic-appearing or diaphoretic. HENT: Head: Normocephalic and atraumatic. Nose: Nose normal. No rhinorrhea. Mouth/Throat: Mouth: Mucous membranes are moist. Eyes: General: No scleral icterus. Neck: Comments: Trachea is midline Cardiovascular: Rate and Rhythm: Normal rate and regular rhythm. Heart sounds: No murmur heard. Pulmonary: Effort: Pulmonary effort is normal. Breath sounds: Normal breath sounds. No wheezing. Abdominal: General: Abdomen is flat. Bowel sounds are normal. There is no distension. Palpations: Abdomen is soft. Tenderness: There is no abdominal tenderness. Musculoskeletal: General: Normal range of motion. Cervical back: Normal range of motion. Skin: General: Skin is warm and dry. Coloration: Skin is not jaundiced. Findings: No rash. Neurological: General: No focal deficit present. Mental Status: She is alert and oriented to person, place, and time. Mental status is at baseline. Psychiatric: Mood and Affect: Mood normal. Behavior: Behavior normal. Thought Content: Thought content normal. Judgment: Judgment normal. ED Course & MDM No data recorded [place] Coma Scale Score: 15 (12/22/24 1123 : Samia Gorman RN) Medical Decision Making Patient had no vomiting while here in the emergency room. When I went to reevaluate her after her fluids were completed she states I am ready to go. We want to go eat. She was given water and elena crackers here and was able to tolerate this without vomiting. Patient will be discharged. She has antiemetics at home. Given a work note and instructed to follow-up with her OB physician. Return for any other ongoing concerns. Procedure Procedures [1] Past Medical History: Diagnosis Date LGSIL on Pap smear of cervix [2] Past Surgical History: Procedure Laterality Date CERVICAL BIOPSY W/ LOOP ELECTRODE EXCISION MULTIPLE (4-5 TIMES) [3] Family History Problem Relation Name Age of Onset Brain Aneurysm Mother No Known Problems Father Hypertension Brother Heart disease Maternal Grandmother Hypertension Maternal Grandmother Diabetes Maternal Grandmother Diabetes Paternal Grandfather [4] Social History Tobacco Use Smoking status: Former Current packs/day: 0.00 Types: Cigarettes Quit date: 01/2022 Years since quittin.9 Smokeless tobacco: Never Vaping Use Vaping status: Former Substance Use Topics Alcohol use: Not Currently Drug use: Never Lizandro Portillo DO 12/22/24 1421 documented in this encounter [facility] Work Phone: 12-22-2024 Telephone encounter Note Reason for call:Patient calling in with pressure to her neckline up to her head and sweating. Outcome: Advised L&D now , care advise reviewed, patient verbalizes understanding. Reason for Disposition [1] < 20 weeks AND [2] Systolic BP >= 140 OR Diastolic >= 90 and high blood pressure Difficulty breathing or unusual sweating (e.g., sweating without exertion) Answer Assessment - Initial Assessment Questions 1. BLOOD PRESSURE: 143/98 76 HR 2. ONSET: 9 am 3. HOW: Manual 4. HISTORY: No 5. MEDICINES: Phenergan 6. : 8 weeks 7. SHREYA: 8. OTHER SYMPTOMS: Hot pressure on the right of the at the hairline up over the ear to forehead Feels like a hot pack on her head Protocols used: Blood Pressure - Istk-CJAFY-HA, - High Blood Gftzgdkp-GNQOI-JC, Neck Pain or Judnhlwyh-LKEAX-OK [facility] 12-22-2024 Miscellaneous Notes Reason for call:Patient calling in with pressure to her neckline up to her head and sweating. Outcome: Advised L&D now , care advise reviewed, patient verbalizes understanding. Reason for Disposition [1] < 20 weeks AND [2] Systolic BP >= 140 OR Diastolic >= 90 and high blood pressure Difficulty breathing or unusual sweating (e.g., sweating without exertion) Answer Assessment - Initial Assessment Questions 1. BLOOD PRESSURE: 143/98 76 HR 2. ONSET: 9 am 3. HOW: Manual 4. HISTORY: No 5. MEDICINES: Phenergan 6. : 8 weeks 7. SHREYA: 8. OTHER SYMPTOMS: Hot pressure on the right of the at the hairline up over the ear to forehead Feels like a hot pack on her head Protocols used: Blood Pressure - Nfdi-TFEAD-XN, - High Blood Lxfqhctx-KXGGW-XA, Neck Pain or Fdqhyxqls-IBYIY-YA documented in this encounter [facility] 12-20-2024 Physician Emergency department Note Patient is a 34-year-old female who is approximately 8 weeks who presents with nausea and vomiting in . Patient states that she has been seen by her OB. She has had a confirmed IUP. Her FIRER TUNNEL KILN is Dr. Young out of [place]. Patient states that she is waiting for her insurance to approve a Zofran pump for her nausea and vomiting. She has been in and out of the infusion center at [facility] receiving IV fluids for her nausea and vomiting. Patient also reports that she was seen approximately 1 week ago for similar complaints and was noted to have a urinary tract infection. She states that she has not been able to take her antibiotics secondary to the nausea and vomiting. She denies abdominal pain. No chest pain or shortness of breath. She has been on Phenergan suppositories along with p.o. Zofran which have not helped symptoms. Review of Systems Constitutional: Negative for chills and fever. HENT: Negative for ear pain and sore throat. Eyes: Negative for pain and visual disturbance. Respiratory: Negative for cough and shortness of breath. Cardiovascular: Negative for chest pain and palpitations. Gastrointestinal: Positive for nausea and vomiting. Negative for abdominal pain. Genitourinary: Negative for dysuria and hematuria. Musculoskeletal: Negative for arthralgias and back pain. Skin: Negative for color change and rash. Neurological: Negative for seizures and syncope. All other systems reviewed and are negative. Physical Exam Vitals and nursing note reviewed. Constitutional: General: She is not in acute distress. Appearance: She is well-developed. She is not ill-appearing. HENT: Head: Normocephalic and atraumatic. Eyes: Extraocular Movements: Extraocular movements intact. Conjunctiva/sclera: Conjunctivae normal. Cardiovascular: Rate and Rhythm: Normal rate and regular rhythm. Heart sounds: No murmur heard. Pulmonary: Effort: Pulmonary effort is normal. No respiratory distress. Breath sounds: Normal breath sounds. No stridor. No wheezing, rhonchi or rales. Abdominal: General: There is no distension. Palpations: Abdomen is soft. There is no mass. Tenderness: There is no abdominal tenderness. There is no guarding or rebound. Hernia: No hernia is present. Musculoskeletal: General: No swelling. Cervical back: Normal range of motion and neck supple. Skin: General: Skin is warm and dry. Capillary Refill: Capillary refill takes less than 2 seconds. Neurological: General: No focal deficit present. Mental Status: She is alert. Psychiatric: Mood and Affect: Mood normal. Labs Reviewed CBC WITH AUTO DIFFERENTIAL - Abnormal Result Value WBC 12.5 (*) nRBC 0.0 RBC 4.44 Hemoglobin 12.0 Hematocrit 36.7 MCV 83 MCH 27.0 MCHC 32.7 RDW 13.7 Platelets 241 Neutrophils % 74.2 Immature Granulocytes %, Automated 0.2 Lymphocytes % 17.4 Monocytes % 6.9 Eosinophils % 1.0 Basophils % 0.3 Neutrophils Absolute 9.25 (*) Immature Granulocytes Absolute, Automated 0.02 Lymphocytes Absolute 2.17 Monocytes Absolute 0.86 Eosinophils Absolute 0.12 Basophils Absolute 0.04 URINALYSIS WITH REFLEX CULTURE AND MICROSCOPIC - Abnormal Color, Urine Light-Yellow Appearance, Urine Clear Specific [place], Urine 1.009 pH, Urine 6.5 Protein, Urine NEGATIVE Glucose, Urine Normal Blood, Urine NEGATIVE Ketones, Urine 40 (2+) (*) Bilirubin, Urine NEGATIVE Urobilinogen, Urine Normal Nitrite, Urine NEGATIVE Leukocyte Esterase, Urine 75 Meredith/uL (*) MICROSCOPIC ONLY, URINE - Abnormal WBC, Urine 1-5 RBC, Urine 1-2 Squamous Epithelial Cells, Urine 1-9 (SPARSE) Bacteria, Urine 1+ (*) Mucus, Urine FEW COMPREHENSIVE METABOLIC PANEL - Normal Glucose 84 Sodium 138 Potassium 3.8 Chloride 105 Bicarbonate 23 Anion Gap 14 Urea Nitrogen 8 Creatinine 0.58 eGFR >90 Calcium 9.1 Albumin 4.3 Alkaline Phosphatase 46 Total Protein 6.8 AST 16 Bilirubin, Total 0.4 ALT 13 URINE CULTURE URINALYSIS WITH REFLEX CULTURE AND MICROSCOPIC Narrative: The following orders were created for panel order Urinalysis with Reflex Culture and Microscopic. Procedure Abnormality Status --------- ------ Urinalysis with Reflex C...[[id number]] Abnormal Final result Extra Urine Nguyen Tube[[id number]] Please view results for these tests on the individual orders. EXTRA URINE NGUYEN TUBE No orders to display Procedures Medical Decision Making Patient is a 34-year-old female who presents to the emergency room with a chief complaint of nausea and vomiting in . She has been seen by her [employer]N on multiple occasions. She currently is in the process of being approved by her insurance company for Zofran pump. She has Phenergan suppositories that she has also been using. Today she called her [employer] KILN who instructed her to go to the emergency room for IV fluids. Patient was given Zofran and then later Phenergan given that her symptoms continued. She still reports nausea but states that it is improved and she is not actively vomiting. Lab work shows mild leukocytosis of 12.5. Her abdomen is soft and nontender. Urinalysis shows 2+ ketones, 75 leukocytes and 1+ bacteria. Patient was seen on December 10 for similar complaints and was diagnosed with a urinary tract infection at the time with a much worse urine. Her culture showed growth indicating contamination with gram-positive denisha. At this time urine will be sent for culture again but no indication for antibiotics currently given the recent negative culture report. DDX includes but not limited to: hyperemesis gravidarum, nausea and vomiting in , electrolyte abnormality, dehydration, urinary tract infection Amount and/or Complexity of Data Reviewed Labs: ordered. Decision-making details documented in ED Course. Diagnoses as of 12/20/242036 Nausea and vomiting in Birgit Yo PA-C 12/20/242036 [facility] Work Phone: 12-20-2024 Emergency department Note Patient is a 34-year-old female who is approximately 8 weeks who presents with nausea and vomiting in . Patient states that she has been seen by her OB. She has had a confirmed IUP. Her FIRER TUNNEL KILN is Dr. Young out of [place]. Patient states that she is waiting for her insurance to approve a Zofran pump for her nausea and vomiting. She has been in and out of the infusion center at [facility] receiving IV fluids for her nausea and vomiting. Patient also reports that she was seen approximately 1 week ago for similar complaints and was noted to have a urinary tract infection. She states that she has not been able to take her antibiotics secondary to the nausea and vomiting. She denies abdominal pain. No chest pain or shortness of breath. She has been on Phenergan suppositories along with p.o. Zofran which have not helped symptoms. Review of Systems Constitutional: Negative for chills and fever. HENT: Negative for ear pain and sore throat. Eyes: Negative for pain and visual disturbance. Respiratory: Negative for cough and shortness of breath. Cardiovascular: Negative for chest pain and palpitations. Gastrointestinal: Positive for nausea and vomiting. Negative for abdominal pain. Genitourinary: Negative for dysuria and hematuria. Musculoskeletal: Negative for arthralgias and back pain. Skin: Negative for color change and rash. Neurological: Negative for seizures and syncope. All other systems reviewed and are negative. Physical Exam Vitals and nursing note reviewed. Constitutional: General: She is not in acute distress. Appearance: She is well-developed. She is not ill-appearing. HENT: Head: Normocephalic and atraumatic. Eyes: Extraocular Movements: Extraocular movements intact. Conjunctiva/sclera: Conjunctivae normal. Cardiovascular: Rate and Rhythm: Normal rate and regular rhythm. Heart sounds: No murmur heard. Pulmonary: Effort: Pulmonary effort is normal. No respiratory distress. Breath sounds: Normal breath sounds. No stridor. No wheezing, rhonchi or rales. Abdominal: General: There is no distension. Palpations: Abdomen is soft. There is no mass. Tenderness: There is no abdominal tenderness. There is no guarding or rebound. Hernia: No hernia is present. Musculoskeletal: General: No swelling. Cervical back: Normal range of motion and neck supple. Skin: General: Skin is warm and dry. Capillary Refill: Capillary refill takes less than 2 seconds. Neurological: General: No focal deficit present. Mental Status: She is alert. Psychiatric: Mood and Affect: Mood normal. Labs Reviewed CBC WITH AUTO DIFFERENTIAL - Abnormal Result Value WBC 12.5 (*) nRBC 0.0 RBC 4.44 Hemoglobin 12.0 Hematocrit 36.7 MCV 83 MCH 27.0 MCHC 32.7 RDW 13.7 Platelets 241 Neutrophils % 74.2 Immature Granulocytes %, Automated 0.2 Lymphocytes % 17.4 Monocytes % 6.9 Eosinophils % 1.0 Basophils % 0.3 Neutrophils Absolute 9.25 (*) Immature Granulocytes Absolute, Automated 0.02 Lymphocytes Absolute 2.17 Monocytes Absolute 0.86 Eosinophils Absolute 0.12 Basophils Absolute 0.04 URINALYSIS WITH REFLEX CULTURE AND MICROSCOPIC - Abnormal Color, Urine Light-Yellow Appearance, Urine Clear Specific [place], Urine 1.009 pH, Urine 6.5 Protein, Urine NEGATIVE Glucose, Urine Normal Blood, Urine NEGATIVE Ketones, Urine 40 (2+) (*) Bilirubin, Urine NEGATIVE Urobilinogen, Urine Normal Nitrite, Urine NEGATIVE Leukocyte Esterase, Urine 75 Meredith/uL (*) MICROSCOPIC ONLY, URINE - Abnormal WBC, Urine 1-5 RBC, Urine 1-2 Squamous Epithelial Cells, Urine 1-9 (SPARSE) Bacteria, Urine 1+ (*) Mucus, Urine FEW COMPREHENSIVE METABOLIC PANEL - Normal Glucose 84 Sodium 138 Potassium 3.8 Chloride 105 Bicarbonate 23 Anion Gap 14 Urea Nitrogen 8 Creatinine 0.58 eGFR >90 Calcium 9.1 Albumin 4.3 Alkaline Phosphatase 46 Total Protein 6.8 AST 16 Bilirubin, Total 0.4 ALT 13 URINE CULTURE URINALYSIS WITH REFLEX CULTURE AND MICROSCOPIC Narrative: The following orders were created for panel order Urinalysis with Reflex Culture and Microscopic. Procedure Abnormality Status --------- ------ Urinalysis with Reflex C...[[id number]] Abnormal Final result Extra Urine Nguyen Tube[[id number]] Please view results for these tests on the individual orders. EXTRA URINE NGUYEN TUBE No orders to display Procedures Medical Decision Making Patient is a 34-year-old female who presents to the emergency room with a chief complaint of nausea and vomiting in . She has been seen by her [employer]N on multiple occasions. She currently is in the process of being approved by her insurance company for Zofran pump. She has Phenergan suppositories that she has also been using. Today she called her [employer] who instructed her to go to the emergency room for IV fluids. Patient was given Zofran and then later Phenergan given that her symptoms continued. She still reports nausea but states that it is improved and she is not actively vomiting. Lab work shows mild leukocytosis of 12.5. Her abdomen is soft and nontender. Urinalysis shows 2+ ketones, 75 leukocytes and 1+ bacteria. Patient was seen on December 10 for similar complaints and was diagnosed with a urinary tract infection at the time with a much worse urine. Her culture showed growth indicating contamination with gram-positive denisha. At this time urine will be sent for culture again but no indication for antibiotics currently given the recent negative culture report. DDX includes but not limited to: hyperemesis gravidarum, nausea and vomiting in , electrolyte abnormality, dehydration, urinary tract infection Amount and/or Complexity of Data Reviewed Labs: ordered. Decision-making details documented in ED Course. Diagnoses as of 12/20/242036 Nausea and vomiting in Birgit Yo PA-C 12/20/242036 documented in this encounter [facility] Work Phone: 12-20-2024 Telephone encounter Note I believe I heard CP talking about pump for someone - I would have CP follow up with this when she is back in office. If she can't tolerate fluids x 24 hrs over weekend she has to go to ER. I'm sorry she is not feeling great. Recommend also trying [facility] Work Phone: 12-20-2024 Telephone encounter Note Early OB was sent to L&D on Mon by RR for IV hydration and antiemetics. Patient's NOB isn't until 12/31. Clare Mcallister RN [facility] 12-18-2024 History and physi izzy note [facility] 12-18-2024 Evaluation note Diagnosis Onset Date Resolution 7 weeks gestation of acute December 18, 2024 1:20pm Nausea/vomiting in acute December 18, 2024 1:20pm [facility] Work Phone: [phone]) 502-137907-30-2025 Telephone encounter Note* Telephone Encounter - Clare Mcallister RN - 12/18/2024 12:53 PM EDT Order faxed to L&D. Clare Mcallister RN [facility]07-30-2025 Miscellaneous Notes* Telephone Encounter - Clare Mcallister RN - 12/18/2024 12:53 PM EDT Order faxed to L&D. Clare Mcallister RN * Telephone Encounter - Mónica Young MD - 12/18/2024 12:01 PM EDT likely needs other meds and [facility] referral. May need scheduled for a liter or 2 of IVF on Monday toget her through the weekend. Spoke w/ L&D and patient and she agrees to go to L&D for IVF and I can fill out orders and fax over for her. Mónica Young MD * Telephone Encounter - Steph Velasquez RN - 12/18/2024 11:04 AM EDT Patient also sent [employer] message now. Steph Velasquez RN * Telephone Encounter - Clare Mcallister RN - 12/18/2024 8:06 AM EDT Patient seen on 12/16 for N/V in early . She called today in tears because she is feeling miserable. The phenergan suppositories are not helping. She hasn't been able to keep anything down. Dry heaving all morning today. Urine is become dark in color and states that she is also having dysuria, but couldn't take an antibiotic because of the vomiting. Recommended patient go to ER for IV hydration and antiemetics. Patient states that patient was to give an update today so that CP could refer her to outpatient infusion and [facility]. Please advise. Clare Mcallister RN [facility] Telephone encounter Note * Telephone Encounter - Mónica Young MD - 12/18/2024 12:01 PM EDT likely needs other meds and [facility] referral. May need scheduled for a liter or 2 of IVF on Monday toget her through the weekend. Spoke w/ L&D and patient and she agrees to go to L&D for IVF and I can fill out orders and fax over for her. Mónica Young MD [facility]07-30-2025 Telephone encounter Note* Telephone Encounter - Steph Velasquez RN - 12/18/2024 11:04 AM EDT Patient also sent [employer] message now. Steph Velasquez RN [facility]07-30-2025 Telephone encounter Note* Telephone Encounter - Steph Velasquez RN - 12/18/2024 11:03 AM EDT See 12/18 phone note too. Steph Velasquez RN [facility]07-30-2025 Miscellaneous Notes* Telephone Encounter - Steph Velasquez RN - 12/18/2024 11:03 AM EDT See 12/18 phone note too. Steph Velasquez RN [facility] Telephone encounter Note * Telephone Encounter - Clare Mcallister RN - 12/18/2024 8:06 AM EDT Patient seen on 12/16 for N/V in early . She called today in tears because she is feeling miserable. The phenergan suppositories are not helping. She hasn't been able to keep anything down. Dry heaving all morning today. Urine is become dark in color and states that she is also having dysuria, but couldn't take an antibiotic because of the vomiting. Recommended patient go to ER for IV hydration and antiemetics. Patient states that patient was to give an update today so that CP could refer her to outpatient infusion and [facility]. Please advise. Clare Mcallister RN [facility]07-28-2025 NoteHNO ID: [id number] Author: LISBET SAINI APRN.MEREDITH Service: ? Author Type: Baffle Mounter Type: Progress Notes Filed: 12/16/2024 10:23 Note Text: Esperanza Julian is a 34 year old female who presents for ER follow up. HPI: Esperanza presents for an ER follow up. She was seen at [facility] in [place]. Reports her nausea and vomiting has not improved. She is able to keep small sips of water, if she vomits it is either dry heaving or bile. Throat is getting raw. She not able to keep food down. She has tried bland foods. Joseph fever and chills. She was given IV antibiotics to treat a UTI and then was sent home with Keflex- has not been able to keep down due to vomiting. Has tried oral Zofran without relief. REVIEW OF SYSTEMS Abdomen: No bloating, early satiety, indigestion, or increased flatulence. Positive for N/V daily Bladder: No dysuria, gross hematuria, urinary frequency, urinary urgency, or incontinence. Breast: No breast lumps, nipple d/c, overlying skin changes, redness or skin retraction. Expanded ROS: N/A Allergies and current medication updated:Yes SENSITIVE EXAM: Sensitive exam not performed. EXAM: LMP 12/10/2023 GENERAL: emotional, female in mild distress HEENT: Normocephalic and atraumatic NECK: Supple DERMATOLOGY: Normal and without lesions BREAST: deferred CHEST: Normal inspiratory effort ABDOMEN: Deferred PELVIC: deferred BIMANUAL: deferred NEURO: alert and oriented x3,exam grossly non-focal EXTREMITIES: normal ASSESSMENT AND PLAN: Assessment AND Plan Nausea and vomiting during (HCC) 7 weeks gestation of (HCC) - Rx phenergan 25 mg [place] PRN every 6 hours as needed for nausea and vomiting - May need referral for IV fluids outpatient infusion therapy - May need referral for services for Zofran pump through [facility]. - RTO for already scheduled NOB [facility]bet Saini [facility].CN[facility] History of Present illness Narrative* Lisbet Saini APRN.CNM - 12/16/2024 9:41 AM EDT Esperanza Julian is a 34 year old female who presents for ER follow up. HPI: Esperanza presents for an ER follow up. She was seen at [facility] in [place]. Reports her nausea and vomiting has not improved. She is able to keep small sips of water, if she vomits it is either dry heaving or bile. Throat is getting raw. She not able to keep food down. She has tried bland foods. Joseph fever and chills. She was given IV antibiotics to treat a UTI and then was sent home with Keflex- has not been able to keep down due to vomiting. Has tried oral Zofran without relief. REVIEW OF SYSTEMS Abdomen: No bloating, early satiety, indigestion, or increased flatulence. Positive for N/V daily Bladder: No dysuria, gross hematuria, urinary frequency, urinary urgency, or incontinence. Breast: No breast lumps, nipple d/c, overlying skin changes, redness or skin retraction. Expanded ROS: N/A Allergies and current medication updated:Yes SENSITIVE EXAM: Sensitive exam not performed. EXAM: LMP 12/10/2023 GENERAL: emotional, female in mild distress HEENT: Normocephalic and atraumatic NECK: Supple DERMATOLOGY: Normal and without lesions BREAST: deferred CHEST: Normal inspiratory effort ABDOMEN: Deferred PELVIC: deferred BIMANUAL: deferred NEURO: alert and oriented x3,exam grossly non-focal EXTREMITIES: normal ASSESSMENT AND PLAN: Assessment & Plan Nausea and vomiting during (HCC) 7 weeks gestation of (HCC) - Rx phenergan 25 mg [place] PRN every 6 hours as needed for nausea and vomiting - May need referral for IV fluids outpatient infusion therapy - May need referral for services for Zofran pump through [facility]. - RTO for already scheduled NOB Lisbet Saini APRN.CNM [facility] Physician Emergency department Note* Juan David Carson, DO - 12/10/2024 10:31 PM EDT Emergency Medicine Transition of Care Note. I received Esperanza Irvin in signout from Dr. Yo. Please see the previous ED provider notefor all HPI, PE and MDM up to the time of signout at 2200. This is in addition to the primary record. I did go over the lab results with the patient. Patient will be given IV Rocephin to address her urinary tract infection. She will also be given a dose of IV Phenergan. She states that the Zofran is not helping. I did go over all the labs with the patient. Patient was given Phenergan 12.5 IV which did help. Did go over the results with the patient and she will be discharged. In brief Esperanza Irvin is an 34 y.o. female presenting for Chief Complaint Patient presents with Vomiting C/o n/v x 3 weeks, no c/o dizziness. Pt is approx 6-7 wks At the time of signout we were awaiting: labs Labs Reviewed HCG, URINE, QUALITATIVE - Abnormal Result Value HCG, Urine POSITIVE (*) HUMAN CHORIONIC GONADOTROPIN, SERUM QUANTITATIVE - Abnormal HCG, Beta-Quantitative 100,677 (*) Narrative: Total HCG measurement is performed using the Tru [employer] Access Immunoassay which detects intact HCG and free beta HCG subunit. This test is not indicated for use as a tumor marker. HCG testing is performed using a different test methodology at [facility] than other [facility]. Direct result comparison should only be made within the same method. URINALYSIS WITH REFLEX CULTURE AND MICROSCOPIC - Abnormal Color, Urine Light-Yellow Appearance, Urine Turbid (*) Specific [place], Urine 1.019 pH, Urine 6.0 Protein, Urine 10 (TRACE) Glucose, Urine Normal Blood, Urine NEGATIVE Ketones, Urine 40 (2+) (*) Bilirubin, Urine NEGATIVE Urobilinogen, Urine Normal Nitrite, Urine NEGATIVE Leukocyte Esterase, Urine 500 Meredith/uL (*) MICROSCOPIC ONLY, URINE - Abnormal WBC, Urine 11-20 (*) RBC, Urine 3-5 Squamous Epithelial Cells, Urine 10-25 (FEW) Bacteria, Urine 1+ (*) Mucus, Urine 2+ COMPREHENSIVE METABOLIC PANEL - Normal Glucose 89 Sodium 136 Potassium 3.5 Chloride 104 Bicarbonate 24 Anion Gap 12 Urea Nitrogen 9 Creatinine 0.64 eGFR >90 Calcium 9.3 Albumin 4.3 Alkaline Phosphatase 45 Total Protein 7.0 AST 16 Bilirubin, Total 0.7 ALT 18 URINE CULTURE CBC WITH AUTO DIFFERENTIAL WBC 10.3 nRBC 0.0 RBC 4.84 Hemoglobin 13.2 Hematocrit 39.7 MCV 82 MCH 27.3 MCHC 33.2 RDW 14.0 Platelets 259 Neutrophils % 63.5 Immature Granulocytes %, Automated 0.3 Lymphocytes % 25.5 Monocytes % 8.8 Eosinophils % 1.4 Basophils % 0.5 Neutrophils Absolute 6.57 Immature Granulocytes Absolute, Automated 0.03 Lymphocytes Absolute 2.64 Monocytes Absolute 0.91 Eosinophils Absolute 0.14 Basophils Absolute 0.05 URINALYSIS WITH REFLEX CULTURE AND MICROSCOPIC Narrative: The following orders were created for panel order Urinalysis with Reflex Culture and Microscopic. Procedure Abnormality Status --------- ------ Urinalysis with Reflex C...[[id number]] Abnormal Final result Extra Urine Nguyen Tube[[id number]] In process Please view results for these tests on the individual orders. EXTRA URINE NGUYEN TUBE US PELVIS OB TRANSABDOMINAL W TRANSVAGINAL UP TO 1ST TRIMESTER Final Result Single live intrauterine with gestational age of 6 weeks +1 day based on crown-rump length. Routine anatomic survey ultrasound is recommended between 18 and 20 weeks gestational age. No evidence of ectopic . Ovaries are only visualized transabdominally but appear within normal limits. MACRO: None Signed by: Rodríguez Lozada 12/11/2024 12:28 AM Dictation workstation: [id number] Diagnoses as of 12/11/24 0042 Nausea and vomiting in UTI (urinary tract infection), bacterial Medical Decision Making 1 take medication as prescribed 2 follow-up with stadium attendant as indicated if symptoms worsen return to ED Final diagnoses: [O21.9] Nausea and vomiting in [N39.0, A49.9] UTI (urinary tract infection), bacterial Procedure Procedures DO Juan David Phillips DO 12/11/2441 [facility] Work Phone: [phone]) 721-905607-22-2025 Emergency department Note* Juan David Carson DO - 12/10/2024 10:31 PM EDT Emergency Medicine Transition of Care Note. I received Esperanza Irvin in signout from Dr. Yo. Please see the previous ED provider notefor all HPI, PE and MDM up to the time of signout at 2200. This is in addition to the primary record. I did go over the lab results with the patient. Patient will be given IV Rocephin to address her urinary tract infection. She will also be given a dose of IV Phenergan. She states that the Zofran is not helping. I did go over all the labs with the patient. Patient was given Phenergan 12.5 IV which did help. Did go over the results with the patient and she will be discharged. In brief Esperanza Irvin is an 34 y.o. female presenting for Chief Complaint Patient presents with Vomiting C/o n/v x 3 weeks, no c/o dizziness. Pt is approx 6-7 wks At the time of signout we were awaiting: labs Labs Reviewed HCG, URINE, QUALITATIVE - Abnormal Result Value HCG, Urine POSITIVE (*) HUMAN CHORIONIC GONADOTROPIN, SERUM QUANTITATIVE - Abnormal HCG, Beta-Quantitative 100,677 (*) Narrative: Total HCG measurement is performed using the Tru Mcintire Access Immunoassay which detects intact HCG and free beta HCG subunit. This test is not indicated for use as a tumor marker. HCG testing is performed using a different test methodology at [facility] than other [facility]. Direct result comparison should only be made within the same method. URINALYSIS WITH REFLEX CULTURE AND MICROSCOPIC - Abnormal Color, Urine Light-Yellow Appearance, Urine Turbid (*) Specific [place], Urine 1.019 pH, Urine 6.0 Protein, Urine 10 (TRACE) Glucose, Urine Normal Blood, Urine NEGATIVE Ketones, Urine 40 (2+) (*) Bilirubin, Urine NEGATIVE Urobilinogen, Urine Normal Nitrite, Urine NEGATIVE Leukocyte Esterase, Urine 500 Meredith/uL (*) MICROSCOPIC ONLY, URINE - Abnormal WBC, Urine 11-20 (*) RBC, Urine 3-5 Squamous Epithelial Cells, Urine 10-25 (FEW) Bacteria, Urine 1+ (*) Mucus, Urine 2+ COMPREHENSIVE METABOLIC PANEL - Normal Glucose 89 Sodium 136 Potassium 3.5 Chloride 104 Bicarbonate 24 Anion Gap 12 Urea Nitrogen 9 Creatinine 0.64 eGFR >90 Calcium 9.3 Albumin 4.3 Alkaline Phosphatase 45 Total Protein 7.0 AST 16 Bilirubin, Total 0.7 ALT 18 URINE CULTURE CBC WITH AUTO DIFFERENTIAL WBC 10.3 nRBC 0.0 RBC 4.84 Hemoglobin 13.2 Hematocrit 39.7 MCV 82 MCH 27.3 MCHC 33.2 RDW 14.0 Platelets 259 Neutrophils % 63.5 Immature Granulocytes %, Automated 0.3 Lymphocytes % 25.5 Monocytes % 8.8 Eosinophils % 1.4 Basophils % 0.5 Neutrophils Absolute 6.57 Immature Granulocytes Absolute, Automated 0.03 Lymphocytes Absolute 2.64 Monocytes Absolute 0.91 Eosinophils Absolute 0.14 Basophils Absolute 0.05 URINALYSIS WITH REFLEX CULTURE AND MICROSCOPIC Narrative: The following orders were created for panel order Urinalysis with Reflex Culture and Microscopic. Procedure Abnormality Status --------- ------ Urinalysis with Reflex C...[[id number]] Abnormal Final result Extra Urine Nguyen Tube[[id number]] In process Please view results for these tests on the individual orders. EXTRA URINE NGUYEN TUBE US PELVIS OB TRANSABDOMINAL W TRANSVAGINAL UP TO 1ST TRIMESTER Final Result Single live intrauterine with gestational age of 6 weeks +1 day based on crown-rump length. Routine anatomic survey ultrasound is recommended between 18 and 20 weeks gestational age. No evidence of ectopic . Ovaries are only visualized transabdominally but appear within normal limits. MACRO: None Signed by: Rodríguez Lozada 12/11/2024 12:28 AM Dictation workstation: [id number] Diagnoses as of 12/11/24 0042 Nausea and vomiting in UTI (urinary tract infection), bacterial Medical Decision Making 1 take medication as prescribed 2 follow-up with stadium attendant as indicated if symptoms worsen return to ED Final diagnoses: [O21.9] Nausea and vomiting in [N39.0, A49.9] UTI (urinary tract infection), bacterial Procedure Procedures DO Juan David Phillips DO 12/11/24 004 * Birgit Yo PA-C - 12/10/2024 9:25 PM EDT The patient is a 34-year-old female who presents to the emergency room with a chief complaint of nausea and vomiting in . Patient states that she is approximately 6 to 7 weeks . She is a G5, P2. She states that she has some lower abdominal pain/cramping. Denies any vaginal bleeding. She has not had a confirmed IUP. She denies any fever or chills. She states that she has been nauseous and vomiting for approximately 2 to 3 weeks. She has an appointment with her [facility] in December. She states that she called her [facility] today to be seen earlier than they recommended she go to the emergency room. Patient states that she has been taking Zofran at home with no relief. Review of Systems Constitutional: Negative for chills and fever. HENT: Negative for ear pain and sore throat. Eyes: Negative for pain and visual disturbance. Respiratory: Negative for cough and shortness of breath. Cardiovascular: Negative for chest pain and palpitations. Gastrointestinal: Positive for abdominal pain, nausea and vomiting. Negative for diarrhea. Genitourinary: Negative for dysuria and hematuria. Musculoskeletal: Negative for arthralgias and back pain. Skin: Negative for color change and rash. Neurological: Negative for seizures and syncope. All other systems reviewed and are negative. Physical Exam Vitals and nursing note reviewed. Constitutional: General: She is not in acute distress. Appearance: She is well-developed. She is not ill-appearing. HENT: Head: Normocephalic and atraumatic. Mouth/Throat: Mouth: Mucous membranes are moist. Eyes: Extraocular Movements: Extraocular movements intact. Conjunctiva/sclera: Conjunctivae normal. Pupils: Pupils are equal, round, and reactive to light. Cardiovascular: Rate and Rhythm: Normal rate and regular rhythm. Heart sounds: No murmur heard. Pulmonary: Effort: Pulmonary effort is normal. No respiratory distress. Breath sounds: Normal breath sounds. No stridor. No wheezing, rhonchi or rales. Abdominal: General: There is no distension. Palpations: Abdomen is soft. There is no mass. Tenderness: There is no abdominal tenderness. There is no guarding or rebound. Hernia: No hernia is present. Musculoskeletal: General: No swelling. Cervical back: Normal range of motion and neck supple. No rigidity. Skin: General: Skin is warm and dry. Capillary Refill: Capillary refill takes less than 2 seconds. Neurological: General: No focal deficit present. Mental Status: She is alert. Psychiatric: Mood and Affect: Mood normal. Labs Reviewed HCG, URINE, QUALITATIVE - Abnormal Result Value HCG, Urine POSITIVE (*) HUMAN CHORIONIC GONADOTROPIN, SERUM QUANTITATIVE - Abnormal HCG, Beta-Quantitative 100,677 (*) Narrative: Total HCG measurement is performed using the Tru Mcintire Access Immunoassay which detects intact HCG and free beta HCG subunit. This test is not indicated for use as a tumor marker. HCG testing is performed using a different test methodology at [facility] than other [facility]. Direct result comparison should only be made within the same method. COMPREHENSIVE METABOLIC PANEL - Normal Glucose 89 Sodium 136 Potassium 3.5 Chloride 104 Bicarbonate 24 Anion Gap 12 Urea Nitrogen 9 Creatinine 0.64 eGFR >90 Calcium 9.3 Albumin 4.3 Alkaline Phosphatase 45 Total Protein 7.0 AST 16 Bilirubin, Total 0.7 ALT 18 CBC WITH AUTO DIFFERENTIAL WBC 10.3 nRBC 0.0 RBC 4.84 Hemoglobin 13.2 Hematocrit 39.7 MCV 82 MCH 27.3 MCHC 33.2 RDW 14.0 Platelets 259 Neutrophils % 63.5 Immature Granulocytes %, Automated 0.3 Lymphocytes % 25.5 Monocytes % 8.8 Eosinophils % 1.4 Basophils % 0.5 Neutrophils Absolute 6.57 Immature Granulocytes Absolute, Automated 0.03 Lymphocytes Absolute 2.64 Monocytes Absolute 0.91 Eosinophils Absolute 0.14 Basophils Absolute 0.05 URINALYSIS WITH REFLEX CULTURE AND MICROSCOPIC Narrative: The following orders were created for panel order Urinalysis with Reflex Culture and Microscopic. Procedure Abnormality Status --------- ------ Urinalysis with Reflex C...[[id number]] In process Extra Urine Nguyen Tube[[id number]] In process Please view results for these tests on the individual orders. URINALYSIS WITH REFLEX CULTURE AND MICROSCOPIC EXTRA URINE NGUYEN TUBE URINALYSIS WITH REFLEX CULTURE AND MICROSCOPIC Narrative: The following orders were created for panel order Urinalysis with Reflex Culture and Microscopic. Procedure Abnormality Status --------- ------ Urinalysis with Reflex C...[[id number]] Extra Urine Nguyen Tube[[id number]] Please view results for these tests on the individual orders. URINALYSIS WITH REFLEX CULTURE AND MICROSCOPIC EXTRA URINE NGUYEN TUBE MICROSCOPIC ONLY, URINE US PELVIS TRANSABDOMINAL WITH TRANSVAGINAL (Results Pending) Procedures Medical Decision Making Patient is a 34-year-old female who presents to the emergency room for chief complaint of nausea and vomiting in . Patient also reports associated lower abdominal pain. She has not had a confirmed IUP. She estimates that she is approximately 6 to 7 weeks . hCG quant is 100,677. Given her lower abdominal pain and no confirmed IUP, ultrasound called into rule out ectopic .Patient was also given IV hydration and antiemetics. Patient care transitioned to attending physician, Dr. Juan David Carson at 2200. DDX includes but not limited to: hyperemesis gravidarum, nausea and vomiting in , dehydration, ectopic , UTI Amount and/or Complexity of Data Reviewed Labs: ordered. Decision-making details documented in ED Course. Diagnoses as of 12/10/242205 Nausea and vomiting in Birgit Yo PA-C 12/10/242205 documented in this [facility] Work Phone: 1(364) 479-260407-22-2025 Physician Emergency department Note* Birgit Yo PA-C - 12/10/2024 9:25 PM EDT The patient is a 34-year-old female who presents to the emergency room with a chief complaint of nausea and vomiting in . Patient states that she is approximately 6 to 7 weeks . She is a G5, P2. She states that she has some lower abdominal pain/cramping. Denies any vaginal bleeding. She has not had a confirmed IUP. She denies any fever or chills. She states that she has been nauseous and vomiting for approximately 2 to 3 weeks. She has an appointment with her [facility] in December. She states that she called her [facility] today to be seen earlier than they recommended she go to the emergency room. Patient states that she has been taking Zofran at home with no relief. Review of Systems Constitutional: Negative for chills and fever. HENT: Negative for ear pain and sore throat. Eyes: Negative for pain and visual disturbance. Respiratory: Negative for cough and shortness of breath. Cardiovascular: Negative for chest pain and palpitations. Gastrointestinal: Positive for abdominal pain, nausea and vomiting. Negative for diarrhea. Genitourinary: Negative for dysuria and hematuria. Musculoskeletal: Negative for arthralgias and back pain. Skin: Negative for color change and rash. Neurological: Negative for seizures and syncope. All other systems reviewed and are negative. Physical Exam Vitals and nursing note reviewed. Constitutional: General: She is not in acute distress. Appearance: She is well-developed. She is not ill-appearing. HENT: Head: Normocephalic and atraumatic. Mouth/Throat: Mouth: Mucous membranes are moist. Eyes: Extraocular Movements: Extraocular movements intact. Conjunctiva/sclera: Conjunctivae normal. Pupils: Pupils are equal, round, and reactive to light. Cardiovascular: Rate and Rhythm: Normal rate and regular rhythm. Heart sounds: No murmur heard. Pulmonary: Effort: Pulmonary effort is normal. No respiratory distress. Breath sounds: Normal breath sounds. No stridor. No wheezing, rhonchi or rales. Abdominal: General: There is no distension. Palpations: Abdomen is soft. There is no mass. Tenderness: There is no abdominal tenderness. There is no guarding or rebound. Hernia: No hernia is present. Musculoskeletal: General: No swelling. Cervical back: Normal range of motion and neck supple. No rigidity. Skin: General: Skin is warm and dry. Capillary Refill: Capillary refill takes less than 2 seconds. Neurological: General: No focal deficit present. Mental Status: She is alert. Psychiatric: Mood and Affect: Mood normal. Labs Reviewed HCG, URINE, QUALITATIVE - Abnormal Result Value HCG, Urine POSITIVE (*) HUMAN CHORIONIC GONADOTROPIN, SERUM QUANTITATIVE - Abnormal HCG, Beta-Quantitative 100,677 (*) Narrative: Total HCG measurement is performed using the Tru [employer]ire Access Immunoassay which detects intact HCG and free beta HCG subunit. This test is not indicated for use as a tumor marker. HCG testing is performed using a different test methodology at [facility] than other [facility]. Direct result comparison should only be made within the same method. COMPREHENSIVE METABOLIC PANEL - Normal Glucose 89 Sodium 136 Potassium 3.5 Chloride 104 Bicarbonate 24 Anion Gap 12 Urea Nitrogen 9 Creatinine 0.64 eGFR >90 Calcium 9.3 Albumin 4.3 Alkaline Phosphatase 45 Total Protein 7.0 AST 16 Bilirubin, Total 0.7 ALT 18 CBC WITH AUTO DIFFERENTIAL WBC 10.3 nRBC 0.0 RBC 4.84 Hemoglobin 13.2 Hematocrit 39.7 MCV 82 MCH 27.3 MCHC 33.2 RDW 14.0 Platelets 259 Neutrophils % 63.5 Immature Granulocytes %, Automated 0.3 Lymphocytes % 25.5 Monocytes % 8.8 Eosinophils % 1.4 Basophils % 0.5 Neutrophils Absolute 6.57 Immature Granulocytes Absolute, Automated 0.03 Lymphocytes Absolute 2.64 Monocytes Absolute 0.91 Eosinophils Absolute 0.14 Basophils Absolute 0.05 URINALYSIS WITH REFLEX CULTURE AND MICROSCOPIC Narrative: The following orders were created for panel order Urinalysis with Reflex Culture and Microscopic. Procedure Abnormality Status --------- ------ Urinalysis with Reflex C...[[id number]] In process Extra Urine Nguyen Tube[[id number]] In process Please view results for these tests on the individual orders. URINALYSIS WITH REFLEX CULTURE AND MICROSCOPIC EXTRA URINE NGUYEN TUBE URINALYSIS WITH REFLEX CULTURE AND MICROSCOPIC Narrative: The following orders were created for panel order Urinalysis with Reflex Culture and Microscopic. Procedure Abnormality Status --------- ------ Urinalysis with Reflex C...[[id number]] Extra Urine Nguyen Tube[[id number]] Please view results for these tests on the individual orders. URINALYSIS WITH REFLEX CULTURE AND MICROSCOPIC EXTRA URINE NGUYEN TUBE MICROSCOPIC ONLY, URINE US PELVIS TRANSABDOMINAL WITH TRANSVAGINAL (Results Pending) Procedures Medical Decision Making Patient is a 34-year-old female who presents to the emergency room for chief complaint of nausea and vomiting in . Patient also reports associated lower abdominal pain. She has not had a confirmed IUP. She estimates that she is approximately 6 to 7 weeks . hCG quant is 100,677. Given her lower abdominal pain and no confirmed IUP, ultrasound called into rule out ectopic .Patient was also given IV hydration and antiemetics. Patient care transitioned to attending physician, Dr. Juan David Carson at 2200. DDX includes but not limited to: hyperemesis gravidarum, nausea and vomiting in , dehydration, ectopic , UTI Amount and/or Complexity of Data Reviewed Labs: ordered. Decision-making details documented in ED Course. Diagnoses as of 12/10/242205 Nausea and vomiting in Birgit Yo PA-C 12/10/242205 [facility] Work Phone: 1(357) 814-968207-22-2025 Telephone encounter Note* Telephone Encounter - Xin Chu MD - 12/10/2024 11:20 AM EDT Noted & agree. Xin Chu MD [facility] Work Phone: 1([phone]) 515-328207-22-2025 Miscellaneous Notes* Telephone Encounter - Xin Chu MD - 12/10/2024 11:20 AM EDT Noted & agree. Xin Chu MD * Telephone Encounter - Steph Velasquez RN - 12/10/2024 10:07 AM EDT LMP 10/27/24 - 6w2d C/o n/v. Has not been able to keep any food or fluids down in last 24 hours. Had lower BP at home when she checked and only vomiting bile/foam at this point. Advised to go to ER. Patient agreed. Encouraged to schedule f/u visit for n/v if needed prior to her NOB too. Only call with further advice. Steph Velasquez RN [facility] Telephone encounter Note * Telephone Encounter - Steph Velasquez RN - 12/10/2024 10:07 AM EDT LMP 6/8/25 - 6w2d C/o n/v. Has not been able to keep any food or fluids down in last 24 hours. Had lower BP at home when she checked and only vomiting bile/foam at this point. Advised to go to ER. Patient agreed. Encouraged to schedule f/u visit for n/v if needed prior to her NOB too. Only call with further advice. Steph Velasquez RN [facility]07-22-2025 Hospital Discharge instructions* Attachments The following attachments cannot be sent through Care Everywhere. * Morning S[facility] ED (Chilean) [facility] Phone: [phone]) 903-857607-10-2025 Telephone encounter Note* Telephone Encounter - Luisana White RN - 11/28/2024 1:53 PM EDT Patient notified and voiced understanding. Virtual visit scheduled with CP for today. Luisana White RN [facility]07-10-2025 Miscellaneous Notes* Telephone Encounter - Luisana White RN - 11/28/2024 1:53 PM EDT Patient notified and voiced understanding. Virtual visit scheduled with CP for today. Luisana White RN * Telephone Encounter - Mónica Young MD - 11/28/2024 1:42 PM EDT n early congratulations! Recommend appt to discuss. CP had 2 slots open up this afternoon. Can do VV to discuss b/c quants can't necessarily predict a miscarriage vs viable but it may help us know when to do an US. If not bleeding some women may chose to wait until 7-8 weeks for US vs doing blood work. See if she can do VV today. * Telephone Encounter - Flora Zhu LPN - 11/28/2024 1:04 PM EDT Patient does not know when LMP was d/t irregular menses. + test this morning. Took a homepregnancy test 2 weeks ago that was negative. Patient had 2 past miscarriages 2023 and 2022. Patient states that she was told to call if she had a + test. Denies spotting, no cramping. Please advise if Hcg quants need ordered or does patient need an appointment. [facility] Telephone encounter Note * Telephone Encounter - Mónica Young MD - 11/28/2024 1:42 PM EDT n early congratulations! Recommend appt to discuss. CP had 2 slots open up this afternoon. Can do VV to discuss b/c quants can't necessarily predict a miscarriage vs viable but it may help us know when to do an US. If not bleeding some women may chose to wait until 7-8 weeks for US vs doing blood work. See if she can do VV today. [facility]07-10-2025 Telephone encounter Note* Telephone Encounter - Flora Zhu LPN - 11/28/2024 1:04 PM EDT Patient does not know when LMP was d/t irregular menses. + test this morning. Took a homepregnancy test 2 weeks ago that was negative. Patient had 2 past miscarriages 2023 and 2022. Patient states that she was told to call if she had a + test. Denies spotting, no cramping. Please advise if Hcg quants need ordered or does patient need an appointment. [facility]10-07-2024 Telephone encounter Note* Telephone Encounter - Kendell Coleman RN - 02/26/2024 11:50 AM EDT Pt notified. States will hold off on referral to [facility] at this time. Plans to try again once UPT negative. Kendell Coleman RN [facility]10-07-2024 Miscellaneous Notes* Telephone Encounter - Kendell Coleman RN - 02/26/2024 11:50 AM EDT Pt notified. States will hold off on referral to [facility] at this time. Plans to try again once UPT negative. Kendell Coleman RN * Telephone Encounter - Mónica Young MD - 02/26/2024 10:59 AM EDT I would recommend that she try again when she feels up to it as long as the HCG level is negative (neg UPT) when her next menses starts. I would also be happy to refer her to [facility] for an evaluation and seewhat further testing they might recommend before she tries again. Mónica Young MD * Telephone Encounter - Kendell Coleman RN - 02/21/2024 8:16 AM EDT Pt notified of [employer] message sent by . Pt states she is done bleeding and healed well. Pt is questioning whether or not you recommend her trying again or what your recommendations are now that she has miscarried twice. Advised your not back in office until Monday of next week and we will get back with her. Kendell Coleman RN * Telephone Encounter - Kendell Coleman RN - 02/21/2024 8:13 AM EDT ----- Message from Mónica Young MD sent at 02/20/2024 5:00 PM EDT ----- Reach out and offer to schedule f/u appointment. Thanks. Mónica Young MD documented in this [facility]10-[facility]-2024 Telephone encounter Note * Telephone Encounter - Mónica Young MD - 02/26/2024 10:59 AM EDT I would recommend that she try again when she feels up to it as long as the HCG level is negative (neg UPT) when her next menses starts. I would also be happy to refer her to [facility] for an evaluation and seewhat further testing they might recommend before she tries again. Mónica Young MD [facility]10-02-2024 Telephone encounter Note* Telephone Encounter - Kendell Coleman RN - 02/21/2024 8:16 AM EDT Pt notified of [employer] message sent by RR. Pt states she is done bleeding and healed well. Pt is questioning whether or not you recommend her trying again or what your recommendations are now that she has miscarried twice. Advised your not back in office until Monday of next week and we will get back with her. Kendell Coleman RN [facility]10-02-2024 Telephone encounter Note* Telephone Encounter - Kendell Coleman RN - 02/21/2024 8:13 AM EDT ----- Message from Mónica Young MD sent at 02/20/2024 5:00 PM EDT ----- Reach out and offer to schedule f/u appointment. Thanks. Mónica Young MD [facility]09-25-2024 Instructions* Patient Instructions* Clare Mcallister RN - 02/14/2024 10:54 AM EDT Images from the original note were not included. [facility] D&C POST-OP INSTRUCTIONS What you need to know after having a D&C. The following instructions will help you know what to expect in the days following your procedure. Do not however hesitate to call if you have questions or concerns. Activities Do not drink alcohol or drive for at least 24 hours following your surgery. Rest and limit activity until pain and nausea/dizziness subside. Exercise is discouraged for the first 24 hours. Aerobic activity may increase heart rate and blood pressure leading to increased bleeding. Sexual Activity You may resume sexual activity 1 week after your procedure. For a miscarriage, please wait until you have completed one menstrual cycle before you attempt to conceive another . Diet Try eating a light evening meal the day of surgery. Tea, soup, toast, Jell-o or crackers may help relieve mild nausea. Vaginal Bleeding Wash hands before and after changing your sarahi-pad. Change pads every 4 hours as needed. Your normal period will resume in 4 to 6 weeks. Pain Control/Medications You may have a sore throat for a few days. Use throat lozenges or gargle with salt water to help relieve the soreness. Abdominal pain and cramping is expected. An analgesic (Ibuprofen or Tylenol) will be prescribed over the counter. Pain may cause nausea. You are advised to take your prescribed analgesic. When to contact your physician *Contact your physician immediately if you experience any of the following Persistent nausea and vomiting for more than 24 hours. If, after the first day of surgery, you have heavy bleeding with clots or if you soak a sanitary pad within 2 hours. If you have signs of infection (abdominal pain, foul odor, or a fever over 100 degrees). If the pain is not controlled by the prescribed analgesic. Follow-Up Care Please call my office and schedule a follow up appointment for 2 weeks post surgery. Do not hesitate to call if you have any questions or concerns. Do not hesitate to call if you have any questions or concerns. During normal business hours please contact the office at [phone]. After normal business hours if you experience any problems or have concerns or questions please feel free to contact the Doctor's Registry at [phone]. Doctor's Registry will obtain your information and notify the appropriate provider. Mónica Young M.D. documented in this encounter[facility]* Clare Mcallister RN - 02/14/2024 10:33 AM EDT Pre Procedure Assessment: Esperanza Irvin is a 34 year old here for an AALIYAH procedure. Patient's last menstrual period was Patient's last menstrual period was 12/10/2023. (approximate). Reason for procedure: Missed Anxiolytic Checklist Has ride home? Yes Current use of prescribed or non-prescribed opioids or benzos: No Medications: Provided by office:Toradol 30 mg IM Blood Type: A NEGATIVE Hemoglobin: Hemoglobin Date Value Ref Range Status 02/14/2024 12.1 11.5 - 15.5 g/dL Final Rhophylac Administered:No Procedure end time: 1030 Post Procedure Assessment: Time of first post-procedure assessment: 1032 Vitals: See Vitals in Chart Bleeding: Light Pain ratin-7 Time of second post-procedure assessment: 1040 Vitals: BP 122/76 HR 77 SpO2 97 RR 14 Bleeding:Light Pain Ratin Reviewed discharge instructions and when to call the office. Patient ambulated to [facility] nurse and . Gait steady. Clare Mcallister RN [facility]09-25-2024 Nurse Note* Clare Mcallister RN - 02/14/2024 10:33 AM EDT Pre Procedure Assessment: Esperanza Irvin is a 34 year old here for an AALIYAH procedure. Patient's last menstrual period was Patient's last menstrual period was 12/10/2023. (approximate). Reason for procedure: Missed Anxiolytic Checklist Has ride home? Yes Current use of prescribed or non-prescribed opioids or benzos: No Medications: Provided by office:Toradol 30 mg IM Blood Type: A NEGATIVE Hemoglobin: Hemoglobin Date Value Ref Range Status 02/14/2024 12.1 11.5 - 15.5 g/dL Final Rhophylac Administered:No Procedure end time: 1030 Post Procedure Assessment: Time of first post-procedure assessment: 1032 Vitals: See Vitals in Chart Bleeding: Light Pain ratin-7 Time of second post-procedure assessment: 1040 Vitals: BP 122/76 HR 77 SpO2 97 RR 14 Bleeding:Light Pain Ratin Reviewed discharge instructions and when to call the office. Patient ambulated to [facility] nurse and . Gait steady. Clare Mcallister RN documented in this encounterMer[facility]24 History of Present illness Narrative* Mónica Young MD - 02/14/2024 10:32 AM EDT UNIVERSAL PROTOCOL / SAFETY CHECKLIST Procedure to be Performed: IPAS Sign In: A Moment of CARE was completed. Personnel directly involved with the procedure wore the appropriate PPE (Personal Protective Equipment). Patient/Surrogate Stated/Verified: PATIENT VERIFIED(optional for EMERGENT procedures): Patient name, Date of , Relevant allergies, and The intended procedure Time Out Communication: Intended patient and procedure match the source documents. Consent documented and matches the intended procedure. Relevant labs, photos, and/or imaging studies have been reviewed. No implant(s) inserted. Sign Out: SIGN OUT (optional for EMERGENT procedures): All specimen containers correctly labeled. All instruments, equipment, possible retained foreign bodies accounted for. Post-procedure follow-up management communicated and Plan of Care Visit completed when applicable. Procedure note: Speculum was placed in the vagina. After prepping the cervix with betadine paracervical block was performed using 10cc of 1% lidocaine with 1:100,000 epi. Cervix was grasped with single tooth tenaculum. Cervix was dilated. Using sterile technique, the Manual Vacuum Aspiration device with size 6mm cannula was inserted into the uterus and contents were evacuated. Post-procedure vital signs were obtained and stable Specimen was sent to pathology Patient tolerated procedure well. PLAN: Patient was advised to observe for signs and symptoms of infection including but not limited to fever, malodorous vaginal discharge and/or pain. Bleeding expectations were reviewed. Follow up: as needed for +HCG Mónica Young MD * Mónica Young MD - 02/14/2024 8:46 AM EDT Esperanza Irvin is a 34 year old female who presents for problem visit for miscarriage w/ bleeding HPI: 34-year-old female notes that she was seen at her primary OB office. For OB History T2 L1 SAB1 IAB0 Ectopic0 Multiple0 Live Births1 [employer] Equipment [employer] History LMP: 12/10/2023, Recent Age at Menarche: Age at First : Age at Menopause: [employer] Equipment [employer] History Comments: Sexual Activity: Yes; Male Contraception: No contraception data on record PAST MEDICAL HISTORY Diagnosis Date Abnormal Pap smear of cervix 05/22/2009 kaycee cardenas anxiety History of recurrent miscarriages x2 PAST SURGICAL HISTORY Procedure Laterality Date CRYOCAUTERY OF CERVIX FAMILY HISTORY Problem Relation Age of Onset Alcohol/Drug Mother Alcohol/Drug Father Heart Maternal Grandmother Hypertension Maternal Grandmother Stroke Maternal Grandmother Diabetes Maternal Grandfather Alzheimer's Disease Maternal Grandfather Emphysema Paternal Grandmother Social History Tobacco Use Smoking status: Former Tobacco comments: 1 cigarette every 4 days Vaping Use Vaping status: Some Days Substances: Nicotine Substance Use Topics Alcohol use: No Drug use: No Current Outpatient Medications Medication Sig magnesium oxide 400 mg magnesium tab 400 mg. ibuprofen (MOTRIN) 800 mg tablet Take 800 mg by mouth every 6 hours as needed. folic acid 1 mg tablet Take 1 mg by mouth. Cnnviduh-Ci-Mrn-Fe-FA tab Take 1 tablet by mouth. No current facility-administered medications for this visit. Allergies As of Date: 02/14/2024 (No Known Allergies) Fully Assessed 02/14/2024 Allergies and current medication updated:Yes SENSITIVE EXAM: The sensitive examination was discussed with the Patient or Patient's Authorized Gaming Pit Boss. As applicable, any other physician, advance practice provider, medical student, or other health professional student that will be observing or involved in the sensitive examination for educational or training purposes was discussed with the Patient or Authorized Gaming Pit Boss. The Patient or Authorized Gaming Pit Boss has agreed to proceed with the sensitive examination. (Sensitive examination includes inspection and/or palpation of the breasts, pelvis, prostate and anorectal regions). EXAM: BP 104/66 Wt 188 lb (85.3kg) LMP 12/10/2023 GENERAL: pleasant, female in no apparent distress PELVIC: external genitalia normal, normal Bartholin's glands, urethra, Berwind's glands, no vulvar lesions, no cervical lesions, good vaginal support, normal appearing perineal body and perianal region, small amount of red tinged mucous, no clots, no active bleeding from cervix BIMANUAL: uterus 6 week size, mobile, mildly tender Brief TVUS done - no sac, uterus w/ 4.3 x 1.5 cm heterogeneus debris, no free fluid in cul de sac ASSESSMENT AND PLAN: incompleted sab, 8 week by dates, 6 week size, s/p misoprostol x 2. D/w her expectant vs surgical vs medical management w/ repeat misoprostol. Would like to proceed w/ in office IPAS. Consent reviewed w/ her and partner, consent signed. TOradol ordered, doxy postop, desires to proceed today now rather than return. D/w her if schedules later could treat preop w/ oxycodone 5 mg or ativan 1 mg preprocedure. Desires to proceed now. CBC done and reviewed pre procedure. Quant ordered Mónica Young MD documented in this encounterMer[facility]-23-[facility]24 NoteSubjective Esperanza Irvin is a 33 y.o. female -0-1-2 that is added in today for discussion about ultrasound findings. Patient had a transvaginal ultrasound performed today for dating and viability.. Transvaginal ultrasound showed an intrauterine . Based on LMP dating patient should be 8 weeks and 3 days. EDC based on LMP is September 15, 2024. Ultrasound shows an intrauterine measuring 6 weeks and 1 day. No heart tones are seen. Yolk sac is slightly enlarged. Average crown-rump length measurement on 3 consecutive measurements is 0.40 cm. EDC based on ultrasound is October 01, 2024. Patient is very tearful today in the office. Patient recently had a miscarriage with her last . Patient did pass the on her own naturally but had significant vaginal bleeding requiring her to go to the ER. Discussed with patient that given the crown-rump length measurement of less than 7 mm pregnancystill could be a normal . Discussed with patient that she mayjust have ovulated later than what a textbook would have expected. Discussed with patient that if we are only 6 weeks and 1 day it can be normal to not see a heartbeat. Patient states she is absolutely sure of when she ovulated as well as when she conceived. Offered patient repeat blood work to look at quantitative hCG and progesterone levels. Offered repeat ultrasound in another few days. Patient states she knows that this is a miscarriage given what she went through with her last . Patient states she knows that her dates are accurate and declines repeat quantitative hCG and progesterone. Patient also declines a repeat ultrasound. Consultation today about treatment options for missed miscarriage. Discussed expectant management and passing at home on her own. Patient had a very traumatic experience with this with her last and does not want to wait expectantly for miscarriage to occur. Discussed Cytotec use to speed up the natural process. Advised patient that she would take 4 tablets of Cytotec and repeat in 24 hours if nothing happened with the first dose. Discussed with patient that typically miscarriage will start with light spotting and bleeding as well as cramping. Discussed with patient that bleeding and cramping then does increase right before the passes. Discussed with patient if she starts bleeding and saturating a pad faster than every hour for 2 hours she needs to go to the emergency room. Patient and her partner state that they do not want to go to [place] given the experience they had last time. Discussed the option of a dilation and curettage as well. Discussed 1 in 1000 risk of uterine perforation, risk of bleeding requiring a blood transfusion, risk of intrauterine scarring, and risk of infection. After discussion about treatment options for miscarriage patient would like to try the Cytotec. Advised patient that sometimes when we take Cytotec it looks as though we may have passed the but an ultrasound not all of the products of the of passed. Advised patient with Cytotec use she will need a follow-up ultrasound to ensure that the has passed. All questions answered. Patient will call to schedule follow-up ultrasound in a few days. Prescription for Cytotec given along with a refill in the event the medication does not work in 24 hours. Prescription for prescription strength ibuprofen as well as 3 Vicodin tablets given today. OARRS report reviewed and no findings concerning for abuse. Follow-up for ultrasound. Total time spent with patient today reviewing ultrasound results, discussing previous miscarriage, discussing dating of in regards to ultrasound and last menstrual cycle, discussion about treatment for miscarriage, discussion about bleeding precautions and when to proceed to the hospital, time spent completing patient's note is 35 minutes Gynecologic History Patient's last menstrual period was 12/10/2023 (approximate). Contraception: none Last Pap: 2022. Results were: normal Last mammogram: N/A. Results were: N/A Obstetric History OB History Para Term AB Living 4 2 2 1 2 SAB IAB Ectopic Multiple Live Births 1 2 # Outcome Date GA Lbr Naeem/2nd Weight Sex Type Anes PTL Lv 4 Current 3 SAB 04/2023 2 Term 06/25/16 41w0d 3.629 kg (8 lb) M Vag-Spont EPI VANESSA Comments: spontaneous labor, 2nd degree laceration, EBL 200cc 1 Term 10/05/08 40w0d 3.033 kg (6 lb 11 oz) F Vag-Spont Local N VANESSA The following portions of the patient's history were reviewed and updated as appropriate: allergies, current medications, past family history, past medical history, past social history, past surgical history, and problem list. Review of Systems Review of Systems Constitutional: Negative for chills, fatigue, fever and unexpected weight change. Respiratory: Negative for cough and shortne (more content not included)...[place]09-23-2024 History of Present illness Narrative* Tonya Cherry MD - 2024 3:45 PM EDT Becka Irvin is a 33 y.o. female -0-1-2 that is added in today for discussion about ultrasound findings. Patient had a transvaginal ultrasound performed today for dating and viability.. Transvaginal ultrasound showed an intrauterine . Based on LMP dating patient should be 8 weeks and 3 days. EDC based on LMP is September 15, 2024. Ultrasound shows an intrauterine measuring 6weeks and 1 day. No heart tones are seen. Yolk sac is slightly enlarged. Average crown-rump length measurement on 3 consecutive measurements is 0.40 cm. EDC based on ultrasound is October 01, 2024.Patient is very tearful today in the office. Patient recently had a miscarriage with her last . Patient did pass the on her own naturally but had significant vaginal bleeding requiring her to go to the ER. Discussed with patient that given the crown-rump length measurement of less than 7 mm still could be a normal . Discussed with patient that she may just hav e ovulated later than what a textbook would have expected. Discussed with patient that if we are only 6 weeks and 1 day it can be normal to not see a heartbeat. Patient states she is absolutely sure of when she ovulated as well as when she conceived. Offered patient repeat blood work to look at quantitative hCG and progesterone levels. Offered repeat ultrasound in another few days. Patient statesshe knows that this is a miscarriage given what she went through with her last . Patient states she knows that her dates are accurate and declines repeat quantitative hCG and progesterone. Patient also declines a repeat ultrasound. Consultation today about treatment options for missed misca rriage. Discussed expectant management and passing at home on her own. Patient had a verytraumatic experience with this with her last and does not want to wait expectantly for miscarriage to occur. Discussed Cytotec use to speed up the natural process. Advised patient that she would take 4 tablets of Cytotec and repeat in 24 hours if nothing happened with the first dose. Discussed with patient that typically miscarriage will start with light spotting and bleeding as well ascramping. Discussed with patient that bleeding and cramping then does increase right before the passes. Discussed with patient if she starts bleeding and saturating a pad faster than every hour for 2 hours she needs to go to the emergency room. Patient and her partner state that they do not want to go to [place] given the experience they had last time. Discussed the option of a dilation and curettage as well. Discussed 1 in 1000 risk of uterine perforation, risk of bleeding requiring a blood transfusion, risk of intrauterine scarring, and risk of infection. After discussion about treatment options for miscarriage patient would like to try the Cytotec. Advised patient that sometimes when we take Cytotec it looks as though we may have passed the but an ultrasound not all of the products of the of passed. Advised patient with Cytotec use she will need a follo w-up ultrasound to ensure that the has passed. All questions answered. Patient will call to schedule follow-up ultrasound in a few days. Prescription for Cytotec given along with a refill in the event the medication does not work in 24 hours. Prescription for prescription strength ibuprofen as well as 3 Vicodin tablets given today. OARRS report reviewed and no findings concerning for abuse. Follow-up for ultrasound. Total time spent with patient today reviewing ultrasound results, discussing previous miscarriage, discussing dating of in regards to ultrasound and last menstrual cycle, discussion about treatment for miscarriage, discussion about bleeding precautions and when to proceed to the hospital,time spent completing patient's note is 35 minutes Gynecologic History Patient's last menstrual period was 12/10/2023 (approximate). Contraception: none Last Pap: 2022.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 04/27/2023 9:51 AM EST Will continue to educate until d/c documented in this [id number] History and physical note* Kimberley Sandoval MD - 04/27/2023 12:01 PM EST Obstetrics Inpatient H&P 04/27/2023 Kimberley Sandoval MD [facility] Patient: Esperanza Irvin Date of : 1990 (33 y.o.) PCP: No, Physician ASSESSMENT/PLAN: Esperanza Irvin 33 y.o. female who has been seen in our practice for care. She was at approximately 12 weeks went on Monday she began bleeding. Yesterday she had quite a bit of bleeding and a large amount of tissue that she passed from about 4 in the afternoon till about 9 at night. She presented to the emergency room early this morning and was admitted through the ER. Was felt as thoughshe might need a D&C. At present she is having no vaginal bleeding and a repeat ultrasound has shown a endometrial stripe at approximately a centimeter with no retained products of conception. She is not having any pain. I told her I thought we could avoid doing a D&C at present. I told hershe may bleed off-and-on and if she begins to bleed heavily please let us know. She has instructions to not place anything in her vaginal canal for about 4 weeks or until her bleeding completely stops. She will see me in a week for follow-up. SUBJECTIVE: Chief Complaint/Reason for Visit: Miscarriage History of Present Illness: Esperanza Irvin is a 33 y.o. female with a complete miscarriage. See assessment/plan Review of Systems: Constitutional:No fever, no weight loss Eyes:No diplopia ENT:No sinus drainage CV:No chest pain. No ankle swelling Resp:No dyspnea. No wheezing GI:No abdominal pain.No abdominal distention :No dysuria Neuro:No headache Integumentary:No skin rash MuscSkel:No arthralgias Endo:No polyuria Heme/lymphatic:No apparent lymphadenopathy Allergic/Immunologic:No hives Psych:No unusual mood swings All other systems reviewed and negative other than HPI History reviewed. No pertinent past medical history. History reviewed. No pertinent surgical history. History reviewed. No pertinent family history. Social History Tobacco Use Smoking Status Former Types: Cigarettes Smokeless Tobacco Never Additional History Comments: None Allergies: Patient has no known allergies. Medications: Tylenol folic acid [place] Zofran OBJECTIVE: Physical Examination: BP 95/61 Pulse 68 Temp 97.8 F (36.6 C) (Oral) Resp 14 Ht 5' 5 Wt 80.3 kg (177 lb) LMP 01/08/2023 (Approximate) SpO2 97% BMI 29.45 kg/m General: alert, well-appearing, no acute distress Neuro: No focal neurologic deficits. Interactive. Appropriate. HEENT: Normocephalic, EOMI. CV: Reg rate. negative peripheral edema. Pulm: Non-labored reg breaths. No accessory muscle use. , CTAB. No wheezing, crackles. Abd: soft, nontender, nondistended, no hepatosplenomegaly, no mass, normal bowel sounds Vulva: normal Vagina: normal mucosa Cervix: Not examined Uterus: Gravid per ultrasound with sign of complete miscarriage Adnexa: Normal Psych: full range of affect Ext: full range of motion Laboratory and Additional Data Reviewed: Reviewed 04/27/23 12:01 PM: Hemoglobin 10.4 [id number] History and physical note* Kimberley Sandoval MD - 04/27/2023 12:01 PM EST Obstetrics Inpatient H&P 04/27/2023 Kimberley Sandoval MD [facility] Patient: Esperanza Irvin Date of : 1990 (33 y.o.) PCP: No, Physician ASSESSMENT/PLAN: Esperanza Irvin 33 y.o. female who has been seen in our practice for care. She was at approximately 12 weeks went on Monday she began bleeding. Yesterday she had quite a bit of bleeding and a large amount of tissue that she passed from about 4 in the afternoon till about 9 at night. She presented to the emergency room early this morning and was admitted through the ER. Was felt as thoughshe might need a D&C. At present she is having no vaginal bleeding and a repeat ultrasound has shown a endometrial stripe at approximately a centimeter with no retained products of conception. She is not having any pain. I told her I thought we could avoid doing a D&C at present. I told hershe may bleed off-and-on and if she begins to bleed heavily please let us know. She has instructions to not place anything in her vaginal canal for about 4 weeks or until her bleeding completely stops. She will see me in a week for follow-up. SUBJECTIVE: Chief Complaint/Reason for Visit: Miscarriage History of Present Illness: Esperanza Irvin is a 33 y.o. female with a complete miscarriage. See assessment/plan Review of Systems: Constitutional:No fever, no weight loss Eyes:No diplopia ENT:No sinus drainage CV:No chest pain. No ankle swelling Resp:No dyspnea. No wheezing GI:No abdominal pain.No abdominal distention :No dysuria Neuro:No headache Integumentary:No skin rash MuscSkel:No arthralgias Endo:No polyuria Heme/lymphatic:No apparent lymphadenopathy Allergic/Immunologic:No hives Psych:No unusual mood swings All other systems reviewed and negative other than HPI History reviewed. No pertinent past medical history. History reviewed. No pertinent surgical history. History reviewed. No pertinent family history. Social History Tobacco Use Smoking Status Former Types: Cigarettes Smokeless Tobacco Never Additional History Comments: None Allergies: Patient has no known allergies. Medications: Tylenol folic acid [place] Zofran OBJECTIVE: Physical Examination: BP 95/61 Pulse 68 Temp 97.8 F (36.6 C) (Oral) Resp 14 Ht 5' 5 Wt 80.3 kg (177 lb) LMP 01/08/2023 (Approximate) SpO2 97% BMI 29.45 kg/m General: alert, well-appearing, no acute distress Neuro: No focal neurologic deficits. Interactive. Appropriate. HEENT: Normocephalic, EOMI. CV: Reg rate. negative peripheral edema. Pulm: Non-labored reg breaths. No accessory muscle use. , CTAB. No wheezing, crackles. Abd: soft, nontender, nondistended, no hepatosplenomegaly, no mass, normal bowel sounds Vulva: normal Vagina: normal mucosa Cervix: Not examined Uterus: Gravid per ultrasound with sign of complete miscarriage Adnexa: Normal Psych: full range of affect Ext: full range of motion Laboratory and Additional Data Reviewed: Reviewed 04/27/23 12:01 PM: Hemoglobin 10.4 documented in this [id number] Hospital course Narrative* Kimberley Sandoval MD - 04/27/2023 11:57 AM EST DISCHARGE SUMMARY Patient: Esperanza Irvin Date of : 1990 Site: [facility] Family Provider: Nena, Physician Admit Date: 04/26/2023 Discharge Date/Time: 04/27/23 Midday Disposition: Home Clinical Summary Hospital Course: Esperanza Irvin is a 33 y.o. female who is now status post complete spontaneous miscarriage. She wasseen on Monday with bleeding at approximately 12 weeks gestation and the next day from 4 PM till about 9 PM bled heavily with passage of a large amount of tissue. She presented through the ER this morning and was sent to anticipating possible D&C. She had an ultrasound which revealed a thin endometrial stripe with no signs of products of conception remaining. She is discharged home and I will see her in 1 week for follow-up. Discharge Diagnoses: Complete spontaneous miscarriage Surgeries: None Consults: Procedures Inpatient consult to Obstetrics / Gynecology Hospitalize Patient To:____ Allergies: Patient has no known allergies. Discharge Diet: Resume home diet Condition: Good Discharge Medications: Discharge Medications Unreviewed Medications Details folic acid 1 MG tablet Commonly known as: FOLVITE Take 1 (one) tablet (1 mg total) by mouth daily . HYDROcodone-acetaminophen 5-325 mg per tablet Commonly known as: NORCO Take 1 (one) tablet by mouth every 4 (four) hours as needed for pain (Days supply per fill: 3) . Quantity: 18 tablet Physician(s) Family Provider: Nena, Physician, Phone: None Address: [facility] Follow Up: No follow-up provider specified. Additional Information: None Patient instructions, including activity, were given to the patient/family at discharge. Please seethe After Visit Summary in the electronic medical record for details. Time spent on discharge: < 30 minutes Completed by: Kimberley Sandoval MD on 04/27/23, 11:57 AM documented in this [id number] Note* Plan of Care - Yvette Jones RN - 04/27/2023 9:51 AM EST Will continue to educate until d/c [id number] History of Present illness Narrative* Bob Wilhelm MD - 04/27/2023 7:31 AM EST I went and talked to the patient to let her know that the person making rounds would be deciding further actions. The patient stated that her bleeding had slowed to about the equivalency of a period.She states that she just feels tired and needs to sleep. I talked with Dr. Garsia this morning to update him on this patient. Her hemoglobin this morning is 10.4 down from 11.2. The ER doctor noted that at [place] [facility] hemoglobin was 13.9. He also noted that she got over 3 L of fluid between [facility] and [facility]. Patient's vitals however have been stable throughout. Dr. Garsia was notified at 1 AM by the floor about this patient. Dr. Garsia has informing that Dr. Sandoval will be on today. He will make a decision whether patient needs D&C or not. Patient has been left n.p.o. until rounds and decisions are made. documented in this [id number] Emergency department Note* Chyna Lindsey RN - 04/27/2023 12:46 AM EST Report called to Amanda MORSE. [id number] Emergency department Note* Chyna Lindsey RN - 04/27/2023 12:46 AM EST Report called to Amanda MORSE. * Iftikhar Lomeli MD - 04/26/2023 10:[address] [facility] ATTENDING NOTE: NAME: Esperanza Irvin CSN: [id number] 33 y.o. PCP: No, Physician History: Chief Complaint: Vaginal Bleeding HPI: The history was obtained from the patient. Esperanza is a 33 y.o. female who presents with a chief complaint of Vaginal Bleeding. Patient is a presenting for heavy vaginal bleeding. She was diagnosed with miscarriage in the ED yesterday after she had developed some abdominal cramping and passage of large clots yesterday afternoon. Ultrasound yesterday showed evidence of missed with gestational age estimated at 8 weeks and 5 days. She should have been about 12 weeks at this point. She was administered RhoGAM and followed up with perfusionist today. States that after her appointment, she developed acute increase in vaginal bleeding. Estimates she saturated 20 pads over the course of the afternoon. Initially presented to [facility] for the symptoms today and was transferred to this ED for further evaluation. She received 3 L of IV fluids. Labs notable for hemoglobin of 13.9 around 6 PM. She is experiencing lightheadedness, nausea, and lower abdominal cramping.Denies fevers, chills, chest pain, diarrhea, constipation, dysuria. Denies use of anticoagulation. PMHx: History reviewed. No pertinent past medical history. PMSx: History reviewed. No pertinent surgical history. FAM. Hx: History reviewed. No pertinent family history. SOC. Hx: Social History Socioeconomic History Marital status: Tobacco Use Smoking status: Former Types: Cigarettes Smokeless tobacco: Never Vaping Use Vaping Use: Former Substance and Sexual Activity Alcohol use: Not Currently Drug use: Not Currently Types: Marijuana Sexual activity: Yes Partners: Male control/protection: None MEDs: Previous Medications Medication Sig folic acid (FOLVITE) 1 MG tablet Take 1 (one) tablet (1 mg total) by mouth daily . HYDROcodone-acetaminophen (NORCO) 5-325 mg per tablet Take 1 (one) tablet by mouth every 4 (four) hours as needed for pain (Days supply per fill: 3) . ALL: No Known Allergies ROS: Review of Systems Positives and pertinent negatives as per HPI. All other systems were reviewed and are negative. Physical Exam: Patient Vitals for the past 24 hrs: BP Temp Temp src Pulse Resp SpO2 Height Weight 04/26/23 2345 97/63 -- -- 78 16 98 % -- -- 04/26/23 2331 104/60 -- -- 79 16 98 % -- -- 04/26/23 2316 113/66 -- -- -- -- 99 % -- -- 04/26/23 2300 (!) 99/56 -- -- 80 18 97 % -- -- 04/26/23 2230 (!) 91/46 -- -- 70 15 98 % -- -- 04/26/23 2221 96/60 -- -- -- -- 98 % -- -- 04/26/23 2216 109/70 -- -- -- -- 98 % -- -- 04/26/23 2201 (!) 94/52 -- -- -- -- 98 % -- -- 04/26/23 2156 (!) 94/59 -- -- -- -- 97 % -- -- 04/26/23 2146 93/63 -- -- -- -- 98 % -- -- 04/26/232140 105/67 -- -- -- -- 97 % -- -- 04/26/232112 99/65 98.1 F (36.7 C) Oral 75 16 97 % 5' 5 80.3 kg (177 lb) Physical Exam Vitals and nursing note reviewed. Constitutional: Appearance: Normal appearance. HENT: Head: Normocephalic and atraumatic. Nose: Nose normal. Eyes: General: Lids are normal. No scleral icterus. Cardiovascular: Rate and Rhythm: Normal rate and regular rhythm. Heart sounds: No murmur heard. Pulmonary: Effort: No respiratory distress. Breath sounds: No decreased breath sounds, wheezing, rhonchi or rales. Abdominal: Palpations: Abdomen is soft. Comments: Lower quadrant abdominal tenderness. Abdomen is soft. Skin: Coloration: Skin is pale. Neurological: Mental Status: She is alert. Mental status is at baseline. Laboratory & Radiological Imaging (if done): Labs Reviewed BASIC METABOLIC PANEL - Abnormal; Notable for the following components: Result Value Chloride 112 (*) Anion Gap 9 (*) Glucose 102 (*) Calcium 7.6 (*) All other components within normal limits Narrative: [facility] has implemented the eGFR calculation approach that does not have a coefficient for race that conforms to the NKF-ASN Task Force Recommendations. URINALYSIS - Abnormal; Notable for the following components: Clarity, Urine Cloudy (*) Blood, Urine Large (*) Leukocyte Esterase, Urine Small (*) RBCs, Urine >180 (*) All other components within normal limits Narrative: Microscopic examination is performed on all urinalysis samples and only positive findings are reported. The test for blood on the chemical analytic portion of urinalysis may also be positive due to hemoglobinuria and myoglobinuria and if red blood cells are present they are quantified by microscopic examination. HCG, BLOOD, QUANTITATIVE - Abnormal; Notable for the following components: hCG Quant 832 (*) All other components within normal limits Narrative: Males and non females: <5 mIU/mL Females during : 3-4 weeks 9-130 mIU/mL 4-5 weeks 75-2600 mIU/mL 5-6 weeks 850-20,800 mIU/mL 6-7 weeks 4000-100,200 mIU/mL 7-12 weeks 11,500-289,000 mIU/mL 12-16 weeks 18,300-137,000 mIU/mL 16-29 weeks 1,400-53,000 mIU/mL 29-41 weeks 940-60,000 mIU/mL CBC WITH AUTO DIFFERENTIAL - Abnormal; Notable for the following components: WBC 11.13 (*) RBC 3.72 (*) Hemoglobin 11.2 (*) Hematocrit 32.8 (*) All other components within normal limits CBC AND DIFFERENTIAL Narrative: The following orders were created for panel order CBC w/ Diff. Procedure Abnormality Status --------- ------ CBC Auto Differential[[id number]] Abnormal Final result Please view results for these tests on the individual orders. TYPE AND SCREEN No orders to display Procedures: Procedures ED Course / Medical Decision Making: I did personally review Esperanza's past medical history, surgical history, social history, as well as family history (when relevant). In this case, I also oversaw the her drug management by reviewing her medication list, allergy list, as well as the medications that I prescribed during the ED courseand/or recommended as an out-patient (including possible OTC medications such as acetaminophen, NSAIDs , etc). Her past medical problem list included: Active Ambulatory Problems Diagnosis Date Noted Bipolar affective disorder in remission (HCC) 10/25/2022 Psoriasis 10/25/2022 Resolved Ambulatory Problems Diagnosis Date Noted No Resolved Ambulatory Problems No Additional Past Medical History ED MEDICATIONS GIVEN: Medications ondansetron (ZOFRAN) injection 4 mg (4 mg Intravenous Given 04/26/232222) After reviewing the items above, I did look at previous medical documentation, such as recent hospitalizations, office visits, and/or recent consultations with PCP/specialist. SDOH: Another factor that I considered in [facility] care was her Social Determinants of Health (SDOH). During this ED encounter, she did NOT appear to have any significant issues identified. LAB TESTING: Ancillary lab testing: CBC, BMP, type and screen, hCG RADIOLOGY: I did consider radiological studies for Esperanza's care today: Patient had an OB ultrasound performed yesterday with confirmed incomplete miscarriage, will not repeat. DIFFERENTIAL DIAGNOSES: Incomplete miscarriage, coagulopathy, anemia, dehydration ED COURSE: This is a 33-year-old female G3, P2 who was found to be miscarrying yesterday in the ED after presenting for vaginal bleeding. She was supposed to be around 12 weeks and was found to be just over 8 weeks on ultrasound. She was administered RhoGAM for a negative blood type and discharged with perfusionist follow-up. She followed up with perfusionist today but after that visit developed acute worsening of bleeding. States she was passing soft ball sized clots in the saturation approximately 20 pads since 4 PM. States she is not currently bleeding but that it comes and goes. She does feel lightheaded and fatigued. Presented to outside hospital hemoglobin was 13.9 at 6 PM. Repeat hemoglobin here a few hours lateris 11.2. She did receive 3 L of IV fluids so I would expect some hemodilution. However, her blood pressures a little bit soft as well 97/63, heart rate 78. Given she is dropped almost 3 points over the last few hours and that she is symptomatic, I feel would be reasonable to admit for observation. Attempted to contact Dr. Garsia's but was unable to get a hold of him so I reached out to color separation photographer OB hospitalist Dr. Wilhelm. No recommendation for transfusion. Patient in agreement with plan. . Clinical Impression: 1. Vaginal bleeding 2. Incomplete miscarriage Disposition: ED Disposition ED Disposition Hospitalize Condition -- Comment Phone call required?: No Iftikhar Lomeli MD ED Attending Physician [facility] Iftikhar Lomeli MD 04/26/23 1444 * Chyna Lindsey RN - 04/26/2023 9:18 PM EST Patient to ER via [facility] from [facility] for vaginal bleeding since yesterday with heavy bleeding started today, soaking ~20 pads since 4pm. Confirmed miscarriage per chart, with continued bleeding and lightheadedness. * Ina King RN - 04/26/2023 9:11 PM EST Bed: 08 Expected date: Expected time: Means of arrival: Comments: [facility] documented in this [id number] Physician Emergency department Note* Iftikhar Lomeli MD - 04/26/2023 10:[address] [facility] ATTENDING NOTE: NAME: Esperanza Irvin CSN: [id number] 33 y.o. PCP: No, Physician History: Chief Complaint: Vaginal Bleeding HPI: The history was obtained from the patient. Esperanza is a 33 y.o. female who presents with a chief complaint of Vaginal Bleeding. Patient is a presenting for heavy vaginal bleeding. She was diagnosed with miscarriage in the ED yesterday after she had developed some abdominal cramping and passage of large clots yesterday afternoon. Ultrasound yesterday showed evidence of missed with gestational age estimated at 8 weeks and 5 days. She should have been about 12 weeks at this point. She was administered RhoGAM and followed up with perfusionist today. States that after her appointment, she developed acute increase in vaginal bleeding. Estimates she saturated 20 pads over the course of the afternoon. Initially presented to [facility] for the symptoms today and was transferred to this ED for further evaluation. She received 3 L of IV fluids. Labs notable for hemoglobin of 13.9 around 6 PM. She is experiencing lightheadedness, nausea, and lower abdominal cramping.Denies fevers, chills, chest pain, diarrhea, constipation, dysuria. Denies use of anticoagulation. PMHx: History reviewed. No pertinent past medical history. PMSx: History reviewed. No pertinent surgical history. FAM. Hx: History reviewed. No pertinent family history. SOC. Hx: Social History Socioeconomic History Marital status: Tobacco Use Smoking status: Former Types: Cigarettes Smokeless tobacco: Never Vaping Use Vaping Use: Former Substance and Sexual Activity Alcohol use: Not Currently Drug use: Not Currently Types: Marijuana Sexual activity: Yes Partners: Male control/protection: None MEDs: Previous Medications Medication Sig folic acid (FOLVITE) 1 MG tablet Take 1 (one) tablet (1 mg total) by mouth daily . HYDROcodone-acetaminophen (NORCO) 5-325 mg per tablet Take 1 (one) tablet by mouth every 4 (four) hours as needed for pain (Days supply per fill: 3) . ALL: No Known Allergies ROS: Review of Systems Positives and pertinent negatives as per HPI. All other systems were reviewed and are negative. Physical Exam: Patient Vitals for the past 24 hrs: BP Temp Temp src Pulse Resp SpO2 Height Weight 04/26/23 2345 97/63 -- -- 78 16 98 % -- -- 04/26/23 2331 104/60 -- -- 79 16 98 % -- -- 04/26/23 2316 113/66 -- -- -- -- 99 % -- -- 04/26/23 2300 (!) 99/56 -- -- 80 18 97 % -- -- 04/26/230 (!) 91/46 -- -- 70 15 98 % -- -- 04/26/23 222 96/60 -- -- -- -- 98 % -- -- 04/26/232215 109/70 -- -- -- -- 98 % -- -- 04/26/23 220 (!) 94/52 -- -- -- -- 98 % -- -- 04/26/232155 (!) 94/59 -- -- -- -- 97 % -- -- 04/26/232145 93/63 -- -- -- -- 98 % -- -- 04/26/232140 105/67 -- -- -- -- 97 % -- -- 04/26/232112 99/65 98.1 F (36.7 C) Oral 75 16 97 % 5' 5 80.3 kg (177 lb) Physical Exam Vitals and nursing note reviewed. Constitutional: Appearance: Normal appearance. HENT: Head: Normocephalic and atraumatic. Nose: Nose normal. Eyes: General: Lids are normal. No scleral icterus. Cardiovascular: Rate and Rhythm: Normal rate and regular rhythm. Heart sounds: No murmur heard. Pulmonary: Effort: No respiratory distress. Breath sounds: No decreased breath sounds, wheezing, rhonchi or rales. Abdominal: Palpations: Abdomen is soft. Comments: Lower quadrant abdominal tenderness. Abdomen is soft. Skin: Coloration: Skin is pale. Neurological: Mental Status: She is alert. Mental status is at baseline. Laboratory & Radiological Imaging (if done): Labs Reviewed BASIC METABOLIC PANEL - Abnormal; Notable for the following components: Result Value Chloride 112 (*) Anion Gap 9 (*) Glucose 102 (*) Calcium 7.6 (*) All other components within normal limits Narrative: [facility] has implemented the eGFR calculation approach that does not have a coefficient for race that conforms to the NKF-ASN Task Force Recommendations. URINALYSIS - Abnormal; Notable for the following components: Clarity, Urine Cloudy (*) Blood, Urine Large (*) Leukocyte Esterase, Urine Small (*) RBCs, Urine >180 (*) All other components within normal limits Narrative: Microscopic examination is performed on all urinalysis samples and only positive findings are reported. The test for blood on the chemical analytic portion of urinalysis may also be positive due to hemoglobinuria and myoglobinuria and if red blood cells are present they are quantified by microscopic examination. HCG, BLOOD, QUANTITATIVE - Abnormal; Notable for the following components: hCG Quant 832 (*) All other components within normal limits Narrative: Males and non females: <5 mIU/mL Females during : 3-4 weeks 9-130 mIU/mL 4-5 weeks 75-2600 mIU/mL 5-6 weeks 850-20,800 mIU/mL 6-7 weeks 4000-100,200 mIU/mL 7-12 weeks 11,500-289,000 mIU/mL 12-16 weeks 18,300-137,000 mIU/mL 16-29 weeks 1,400-53,000 mIU/mL 29-41 weeks 940-60,000 mIU/mL CBC WITH AUTO DIFFERENTIAL - Abnormal; Notable for the following components: WBC 11.13 (*) RBC 3.72 (*) Hemoglobin 11.2 (*) Hematocrit 32.8 (*) All other components within normal limits CBC AND DIFFERENTIAL Narrative: The following orders were created for panel order CBC w/ Diff. Procedure Abnormality Status --------- ------ CBC Auto Differential[[id number]] Abnormal Final result Please view results for these tests on the individual orders. TYPE AND SCREEN No orders to display Procedures: Procedures ED Course / Medical Decision Making: I did personally review Esperanza's past medical history, surgical history, social history, as well as family history (when relevant). In this case, I also oversaw the her drug management by reviewing her medication list, allergy list, as well as the medications that I prescribed during the ED courseand/or recommended as an out-patient (including possible OTC medications such as acetaminophen, NSAIDs , etc). Her past medical problem list included: Active Ambulatory Problems Diagnosis Date Noted Bipolar affective disorder in remission (HCC) 10/25/2022 Psoriasis 10/25/2022 Resolved Ambulatory Problems Diagnosis Date Noted No Resolved Ambulatory Problems No Additional Past Medical History ED MEDICATIONS GIVEN: Medications ondansetron (ZOFRAN) injection 4 mg (4 mg Intravenous Given 04/26/232222) After reviewing the items above, I did look at previous medical documentation, such as recent hospitalizations, office visits, and/or recent consultations with PCP/specialist. SDOH: Another factor that I considered in Esperanza's care was her Social Determinants of Health (SDOH). During this ED encounter, she did NOT appear to have any significant issues identified. LAB TESTING: Ancillary lab testing: CBC, BMP, type and screen, hCG RADIOLOGY: I did consider radiological studies for [facility] care today: Patient had an OB ultrasound performed yesterday with confirmed incomplete miscarriage, will not repeat. DIFFERENTIAL DIAGNOSES: Incomplete miscarriage, coagulopathy, anemia, dehydration ED COURSE: This is a 33-year-old female G3, P2 who was found to be miscarrying yesterday in the ED after presenting for vaginal bleeding. She was supposed to be around 12 weeks and was found to be just over 8 weeks on ultrasound. She was administered RhoGAM for a negative blood type and discharged with perfusionist follow-up. She followed up with perfusionist today but after that visit developed acute worsening of bleeding. States she was passing soft ball sized clots in the saturation approximately 20 pads since 4 PM. States she is not currently bleeding but that it comes and goes. She does feel lightheaded and fatigued. Presented to outside hospital hemoglobin was 13.9 at 6 PM. Repeat hemoglobin here a few hours lateris 11.2. She did receive 3 L of IV fluids so I would expect some hemodilution. However, her blood pressures a little bit soft as well 97/63, heart rate 78. Given she is dropped almost 3 points over the last few hours and that she is symptomatic, I feel would be reasonable to admit for observation. Attempted to contact Dr. Garsia's but was unable to get a hold of him so I reached out to color separation photographer OB hospitalist Dr. Wilhelm. No recommendation for transfusion. Patient in agreement with plan. . Clinical Impression: 1. Vaginal bleeding 2. Incomplete miscarriage Disposition: ED Disposition ED Disposition Hospitalize Condition -- Comment Phone call required?: No Iftikhar Lomeli MD ED Attending Physician [facility] Iftikhar Lomeli MD 04/26/23 3382 [id number] Emergency department Triage note* Chyna Lindsey RN - 04/26/2023 9:18 PM EST Patient to ER via [facility] from [facility] for vaginal bleeding since yesterday with heavy bleeding started today, soaking ~20 pads since 4pm. Confirmed miscarriage per chart, with continued bleeding and lightheadedness. [id number] Emergency department Note* Ina King RN - 04/26/2023 9:11 PM EST Bed: 08 Expected date: Expected time: Means of arrival: Comments: [id number] History of Present illness Narrative* Zofia Arias CNM - 04/26/2023 11:15 AM EST Subjective: Patient ID: Esperanza Irvin is a 33 y.o. female. HPI Esperanza presents today for an ER follow up after being diagnosed with missed AB. Pt states she presented to the ER with heavy red vaginal bleeding and US was completed and found no heartbeat and baby measuring around 8w, she is currently 11w based off first trimester US. 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 She desired this and hopes to try to conceive in the future. She is a . The following portions of the patient's history were reviewed and updated as appropriate: allergies, current medications, past family history, past medical history, past social history, past surgicalhistory, and problem list. Review of Systems: General ROS: negative for - chills, fatigue, or fever Respiratory ROS: negative for - cough, shortness of breath, or wheezing Cardiovascular ROS: negative for - chest pain, loss of consciousness, rapid heart rate, or shortness of breath Gastrointestinal ROS: negative for - abdominal pain or change in bowel habits Genito-Urinary ROS: negative for - dysuria, hematuria, or incontinence Patient Active Problem List Diagnosis Bipolar affective disorder in remission (HCC) Psoriasis Physical Exam: Vitals: BP 116/88 Pulse 88 Ht 5' 5 Wt 80.3 kg (177 lb) LMP 01/08/2023 (Approximate) BMI 29.45 kg/m General: alert, cooperative, well appearing, in no apparent distress. CV: The heart sounds are regular in rate and rhythm. Lungs: Normal respiratory effort. GI: The abdomen is soft and nontender. Musculoskeletal: There is no obvious deformity. Gait is normal. Psych: alert and oriented to person, place and time. There is normal mood and affect. Appropriatelysad. There is no suicidal ideation. Imaging Studies: No results found. Assessment: 1. Missed Plan: 1. Will continue to follow HCG weekly, type and screen ordered, pt is a negative blood type will plan for RhoGAM today. 2. Reviewed with pt pathology of SAB and reviewed trying again and to call office with positive test. Advised pt to follow up with office for any needs. Orders Placed This Encounter Procedures hCG, Blood, Quantitative Type and Screen No follow-ups on file. documented in this [id number] Evaluation + Plan note* Assessment & Plan Note - Maude Jones MD - 10/25/2022 12:07 PM EDT Associated Problem(s): Bipolar affective disorder (CMS/HCC) Doing fine and stable , continue the same [facility] Work Phone: [phone]) 923-277306-06-2023 Miscellaneous Notes* Assessment & Plan Note - Maude Jones MD - 10/25/2022 12:07 PM EDTAssociated Problem(s): Bipolar affective disorder (CMS/HCC) Doing fine and stable , continue the same [facility] Work Phone: [phone]) 576-628006-06-2023 History of Present illness Narrative* Maude Jones MD - 10/25/2022 11:00 AM EDT Subjective Patient ID: Esperanza Irvin is a 32 y.o. female who presents for New Patient Visit (ESTABLISH NEW PATIENT. C/O FLUCTUATING GLUCOSE READINGS. SOMETIMES GLUCOSE DROPS DESPITE EATING REGULARLY AND WHENSHE EATS NUMBERS JUMP IMMEDIATELY. PATIENT ADMITS SHE DID RECENTLY CHANGE HER DIET IN ATTEMPT TO BE HEALTHIER AND LOSE WEIGHT. ). HPI New PT. 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 BS RANGING FROM 60-190. HAD RECENT INTENTIONAL WEIGHT LOSS. DENIES HAVING ABDOMINAL PAIN . 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 RECURRENT BACTERIALVAGINOSIS (CURRENTLY HAS NO SYMPTOMS) PSORIASIS HAS BEEN UNDER CONTROL WITH OTC CORTISONE CREAM PRN. BIPOLAR HAS BEEN STABLE RECENTLY W/O MEDICAL TX. Review of Systems Constitutional: Negative for chills and fever. HENT: Negative. Negative for congestion, postnasal drip and rhinorrhea. Eyes: Negative. Negative for visual disturbance. Respiratory: Negative for cough, shortness of breath and wheezing. Cardiovascular: Negative. Negative for chest pain, palpitations and leg swelling. Gastrointestinal: Negative. Negative for abdominal distention, abdominal pain, constipation, diarrhea, nausea and vomiting. Endocrine: BLOOD SUGAR FLUCTUATIONS, Genitourinary: Positive for menstrual problem. Negative for dysuria and urgency. Musculoskeletal: Negative. Negative for back pain. Skin: Negative. Negative for rash. Allergic/Immunologic: Negative for immunocompromised state. Neurological: Negative. Negative for dizziness, weakness, light-headedness and headaches. Psychiatric/Behavioral: Negative. Negative for agitation. Objective Physical Exam Constitutional: General: She is not in acute distress. HENT: Head: Normocephalic. Nose: Nose normal. Mouth/Throat: Mouth: Mucous membranes are moist. Eyes: Conjunctiva/sclera: Conjunctivae normal. Pupils: Pupils are equal, round, and reactive to light. Cardiovascular: Rate and Rhythm: Normal rate and regular rhythm. Pulses: Normal pulses. Heart sounds: Normal heart sounds. Pulmonary: Effort: No respiratory distress. Breath sounds: No wheezing. Chest: Chest wall: No tenderness. Abdominal: General: Abdomen is flat. Bowel sounds are normal. Palpations: Abdomen is soft. Tenderness: There is abdominal tenderness. Comments: LLQ ,RLQ, B/L GROIN TENDERNESS Musculoskeletal: General: No tenderness. Normal range of motion. Cervical back: Normal range of motion. Lymphadenopathy: Cervical: No cervical adenopathy. Skin: General: Skin is warm and dry. Findings: No rash. Neurological: General: No focal deficit present. Mental Status: She is alert. Mental status is at baseline. Psychiatric: Mood and Affect: Mood normal. Behavior: Behavior normal. Assessment/Plan 1. Elevated blood sugar level Hemoglobin A1C Comprehensive Metabolic Panel 2. Menorrhagia with regular cycle CBC and Auto Differential Iron and TIBC Ferritin 3. Family history of diabetes mellitus Hemoglobin A1C 4. Screening for hyperlipidemia Lipid Panel 5. Psoriasis 6. Bipolar affective disorder in remission ([facility]/HCC) 7. Abdominal pain, LLQ 8. Abdominal pain, RLQ 9. Bilateral groin pain ADVISED TO HAVE LOW FAT AND LOW CALORIE DIET AND TO LOOSE WEIGHT, DAILY EXERCISE. ADVISED TO FOLLOW THE GLUTEN FREE DIET (WITH HAVING PSORIASIS AND CHRONIC VAGINAL INFLAMMATION). ADVISED TO ADD MORE PROTEIN TO DIET AND HAVE BED TIME PROTEIN SNACKS AND HEALTHY SNACKS BETWEEN MEALS. ADVISED TO DO THE PELVIC U/S THAT WAS ALREADY ORDERED. ADVISED TO ADD MORE FIBER TO DIET. MDM 1) COMPLEXITY: 1 UNDIAGNOSED NEW PROBLEM WITH UNCERTAIN PROGNOSIS 2)DATA: TESTS INTERPRETED AND OR ORDERED, TOOK INDEPENDENT HISTORY OR RECORDS REVIEWED 3)RISK: MODERATE RISK DUE TO NATURE OF MEDICAL CONDITIONS/COMORBIDITY OR MEDICATIONS ORDERED OR SURGICAL OR PROCEDURE REFERRAL, . 2 weeks. documented in this [facility] Work Phone: [phone]) 279-389802-07-2023 History of Present illness Rashaad is a 32-year-old who comes in with multiple issues. Patient reports that she has been struggling with BV for about a month and a half now. She has had 2 courses of Flagyl and currently is in the middle of a course of clindamycin. She has been seen at 2 different urgent care centers and feels that she has not been able to get rid of . It. Today she wants to be checked to make sure that theBV is gone. Additionally the patient reports that she has been having right lower quadrant pain forabout 2 weeks. She reports that she has had similar pain in the past when she has had ovarian cyst.Patient reports that she had an ovarian cyst about 2 years ago which ruptured. She was just treatedwith pain medicine. She reports that in the past she has tried control pills but she has not done well with them. Patient reports she has not been sexually active in several months and she is not currently in a with a partner. Patient reports a history of cervical dysplasia and has undergone a cryo and a LEEP. The last time she had a Pap smear was approximately 4 years ago when she had a LEEP and had not had any follow-up since then[address] Work Phone: Evaluation note* Diagnosis Elevated blood sugar level- Primary Other abnormal glucose Menorrhagia with regular cycle Family history of diabetes mellitus Screening for hyperlipidemia Screening for lipoid disorders Psoriasis Other psoriasis Bipolar affective disorder in remission ([facility]) Abdominal pain, LLQ Abdominal pain, RLQ Bilateral groin pain documented in this encounter [facility] Work Phone: Evaluation note* Diagnosis Excessive vaginal bleeding- Primary Miscarriage Unspecified spontaneous without mention of complication documented in this encounter [facility] Work Phone: Evaluation note* Diagnosis Vaginal bleeding- Primary Other specified noninflammatory disorder of vagina Incomplete miscarriage Incomplete spontaneous without mention of complication Missed [facility]* Diagnosis Missed - Primary documented in this encounter [facility] note* Diagnosis Missed - Primary documented in this encounter [facility] note* Diagnosis Left lower quadrant pain Abdominal pain, left lower quadrant [facility]* Diagnosis Left lower quadrant pain- Primary Abdominal pain, left lower quadrant Left lower quadrant pain Abdominal pain, left lower quadrant documented in this encounter [facility] note* Diagnosis , unspecified gestational age- Primary documented in this encounter [facility] note* Diagnosis , missed- Primary Missed demise due to miscarriage 6 weeks gestation of Ultrasound scan abnormal Other nonspecific (abnormal) findings on radiological and other examinations of body structure documented in this encounter [facility] note* Diagnosis Incomplete miscarriage- Primary Incomplete spontaneous without mention of complication 8 weeks gestation of state, incidental documented in this encounter [facility] note* Diagnosis Elevated blood sugar level- Primary Other abnormal glucose Menorrhagia with regular cycle Family history of diabetes mellitus Screening for hyperlipidemia Screening for lipoid disorders Psoriasis Other psoriasis Bipolar affective disorder in remission (Multi) Abdominal pain, LLQ Abdominal pain, RLQ Bilateral groin pain Chronic idiopathic constipation Unspecified constipation Abdominal pain, LLQ Abdominal pain, RLQ documented in this encounter [facility] Work Phone: Evaluation note* Diagnosis Elevated blood sugar level- Primary Other abnormal glucose Menorrhagia with regular cycle Family history of diabetes mellitus Screening for hyperlipidemia Screening for lipoid disorders Psoriasis Other psoriasis Bipolar affective disorder in remission (Multi) Abdominal pain, LLQ Abdominal pain, RLQ Bilateral groin pain Chronic idiopathic constipation- Primary Unspecified constipation documented in this encounter [facility] Work Phone: Evaluation note* Diagnosis Elevated blood sugar level- Primary Other abnormal glucose Menorrhagia with regular cycle Family history of diabetes mellitus Screening for hyperlipidemia Screening for lipoid disorders Psoriasis Other psoriasis Bipolar affective disorder in remission (Multi) Abdominal pain, LLQ Abdominal pain, RLQ Bilateral groin pain Nausea and vomiting in - Primary Unspecified vomiting of , unspecified as to episode of care UTI (urinary tract infection), bacterial documented in this encounter [facility] Work Phone: Evaluation note* Diagnosis Nausea and vomiting during (HCC)- Primary 7 weeks gestation of (HCC) state, incidental * Assessment & Plan Note - Lisbet Saini APRN.CNM - 12/16/2024 10:20 AM EDT Associated Problem(s): Nausea and vomiting during (HCC) documented in this encounter [facility] note* Diagnosis Elevated blood sugar level- Primary Other abnormal glucose Menorrhagia with regular cycle Family history of diabetes mellitus Screening for hyperlipidemia Screening for lipoid disorders Psoriasis Other psoriasis Bipolar affective disorder in remission (Multi) Abdominal pain, LLQ Abdominal pain, RLQ Bilateral groin pain Nausea and vomiting in - Primary Unspecified vomiting of , unspecified as to episode of care documented in this encounter [facility] Work Phone: Evaluation note* Diagnosis Elevated blood sugar level- Primary Other abnormal glucose Menorrhagia with regular cycle Family history of diabetes mellitus Screening for hyperlipidemia Screening for lipoid disorders Psoriasis Other psoriasis Bipolar affective disorder in remission (Multi) Abdominal pain, LLQ Abdominal pain, RLQ Bilateral groin pain Hyperemesis gravidarum ([facility]-HCC)- Primary Mild hyperemesis gravidarum, unspecified as to episode of care documented in this encounter [facility] Work Phone: Evaluation note* Diagnosis Elevated blood sugar level- Primary Other abnormal glucose Menorrhagia with regular cycle Family history of diabetes mellitus Screening for hyperlipidemia Screening for lipoid disorders Psoriasis Other psoriasis Bipolar affective disorder in remission (Multi) Abdominal pain, LLQ Abdominal pain, RLQ Bilateral groin pain Nausea and vomiting in - Primary Unspecified vomiting of , unspecified as to episode of care Lightheadedness Dizziness and giddiness documented in this encounter [facility] Work Phone: Evaluation note* Diagnosis Nausea and vomiting during (HCC)- Primary 7 weeks gestation of (HCC) state, incidental Supervision of high-risk of elderly multigravida (HCC)- Primary Supervision of high-risk of elderly multigravida 9 weeks gestation of (HCC) state, incidental Screening for cervical cancer Screening for malignant neoplasm of the cervix Special screening examination for human papillomavirus (HPV) Screen for STD (sexually transmitted disease) Screening examination for venereal disease Nausea and vomiting during (HCC) [facility] Diagnosis Nausea and vomiting during (HCC)- Primary 7 weeks gestation of (HCC) state, incidental Supervision of high-risk of elderly multigravida (HCC)- Primary Supervision of high-risk of elderly multigravida Mild hyperemesis gravidarum (HCC) Mild hyperemesis gravidarum, unspecified as to episode of care Bacterial vaginitis Vaginitis and vulvovaginitis, unspecified 12 weeks gestation of (HCC) state, incidental * Assessment & Plan Note - Josee Barksdale MD - 01/22/2025 11:08 AM EDTAssociated Problem(s): Supervision of high-risk of elderly multigravida (HCC) [facility]* Diagnosis Nausea and vomiting during (HCC)- Primary 7 weeks gestation of (HCC) state, incidental Supervision of high-risk of elderly multigravida (HCC)- Primary Supervision of high-risk of elderly multigravida 9 weeks gestation of (HCC) state, incidental Supervision of high-risk of elderly multigravida (HCC)- Primary Supervision of high-risk of elderly multigravida Mild hyperemesis gravidarum (HCC) Mild hyperemesis gravidarum, unspecified as to episode of care Bacterial vaginitis Vaginitis and vulvovaginitis, unspecified 12 weeks gestation of (HCC) state, incidental [facility]* Diagnosis Nausea and vomiting during (HCC)- Primary 7 weeks gestation of (HCC) state, incidental Supervision of high-risk of elderly multigravida (HCC)- Primary Supervision of high-risk of elderly multigravida Mild hyperemesis gravidarum (HCC) Mild hyperemesis gravidarum, unspecified as to episode of care Bacterial vaginitis Vaginitis and vulvovaginitis, unspecified 12 weeks gestation of (HCC) state, incidental Bacterial vaginitis- Primary Vaginitis and vulvovaginitis, unspecified Supervision of high-risk of elderly multigravida (HCC) Supervision of high-risk of elderly multigravida Mild hyperemesis gravidarum (HCC) Mild hyperemesis gravidarum, unspecified as to episode of care 13 weeks gestation of (HCC) state, incidental Vaginal odor Unspecified symptom associated with female genital organs documented [facility]* Diagnosis Elevated blood sugar level- Primary Other abnormal glucose Menorrhagia with regular cycle Family history of diabetes mellitus Screening for hyperlipidemia Screening for lipoid disorders Psoriasis Other psoriasis Bipolar affective disorder in remission (Multi) Abdominal pain, LLQ Abdominal pain, RLQ Bilateral groin pain Chronic idiopathic constipation Unspecified constipation Abdominal pain, LLQ Abdominal pain, RLQ documented in this encounter [facility] Work Phone: History and physical note Author Lisbet Saini [facility] Note Date/Time December 18, 2024 3:41 pm [facility] Medical Records Department [address] [place] [address] OB Triage Physician Note 12/18/24 1535 MR#: [id number] Acct: [id number] Name: ESPERANZA JULIAN ANN Rep #: [id number] : 1990 34 From: Lisbet Saini CNMarsha PCP: Status:REG CLI Y Location: [place] [id number] HPI - General HPI Narrative ESPERANZA JULIAN, is a 34 F approximately 7 weeks gestation who presents to L&D for IV fluids due to hyperemesis. Patient has been unable to keep any food or liquids down for over 2 days. Thought she felt better today and ate but threwit up in parking lot. Only able to use Phenergan 25 mg [place]. Cannot keep oral Zofran down. It has been recommended to patient for a Zofran pump but patient isdeclining consultation at this time. PFSH PFSH Allergy/AdvReac Type Severity Reaction Status Date / Time No Known Allergies Allergy Verified 12/18/24 14:03 ROS Eyes Eyes: Denies blurry vision Cardiovascular Cardiovascular: Reports none; Denies chest pain at rest or chest pain with activity Respiratory/Chest Respiratory/Chest: Denies cough or dyspnea Gastrointestinal Gastrointestinal: Reports as per HPI, dry heaves, nausea, vomiting and other Genitourinary Genitourinary: Denies dysuria Musculoskeletal Musculoskeletal: Reports none Integumentary Integumentary: Reports none; Denies rash Neurologic Neurologic: Denies dizziness, headache(s) or other visual disturbances Psychiatric Psychiatric: Reports none Physical Exam Const alert and no apparent distress General Appearance: cooperative Orientation / Consciousness: awake Exam Limitations: no limitations HEENT normocephalic Eyes General Eye: normal appearance of both eyes Neck full ROM Chest inspection of chest normal Resp normal respiratory effort and normal air movement Effort and Inspection: symmetric chest movement Auscultation: clear to auscultation bilaterally Cardio regular rate GI soft to palpation, non-tender and non-distended Inspection: and other Back/Spine normal ROM Extremity full ROM, normal capillary refill and no calf tenderness Skin no rashes or lesions noted Neuro oriented x3 and CN's II-XII intact bilaterally Psych mental status grossly normal Assessment & Plan (1) Nausea/vomiting in : (2) 7 weeks gestation of : PLAN: Plan LR 1000 cc fluid bolus given Zofran 4 mg IV x 1 No emesis since arrival to unit Reports feeling better since IV- may need appointments at infusion therapy D/C home with follow up in office 12/18/24 [id number] <Electronically signed by Lisbet riggins CNM> Date _ Lisbet Saini CNM Cosigner Signature (if applicable): Date CC: MEREDITH Saini ~ Signed 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 Patient has a longstanding history of cervical dysplasia and has undergone numerous colposcopies LEEP and several cryo surgeries. Patient had signed a release of medical records but no results on Paps or procedures for cervical dysplasia were included in the records we received. Patient uses condoms for contraception and does not need any other form of contraception at this time. Patient was in the process of being worked up for pelvicpain however she we will have to reschedule her ultrasound. Currently patient has no additional concerns[address] Work Phone: Hospital Discharge instructions* Attachments The following attachments cannot be sent through Care Everywhere. * Miscarriage (Chilean) [facility] Dis[facility] instructionsAdditional Instructions follow up as needed. continue phenergan as needed.[facility] Work Phone: Hospital Discharge instructions* Attachments The following attachments cannot be sent through Care Everywhere. * Hyperemesis gravidarum (Chilean) [facility] Work [facility]: Hospital Discharge instructions* Attachments The following attachments cannot be sent through Care Everywhere. * Hyperemesis gravidarum (Chilean) [facility] Work Phone: Hospital Discharge instructions* Attachments The following attachments cannot be sent through Care Everywhere. * Dizziness, Adult ED (Chilean) * Hyperemesis Gravidarum Discharge Instructions (Chilean) [facility] Work Phone: Reason for referral (narrative)* Diagnostic Procedure Only (Routine) - Closed Specialty Diagnoses / Procedures Referred By Contac t Referred To Contact US IMAGING Diagnoses Left lower quadrant pain Procedures US FEMALE PELVIS TRANSVAG US TRANSVAGINAL Geovany Cardenas MD [address] [place] [address] Us Imaging [id number] Referral ID Status Reason Start Date Expiration Date V isits Requested Visits Authorized [id number] Closed Auto-Generate d Referral 11/01/2023 11/30/2024 1 1 [facility] for referral (narrative)No reason for referral information availableWMer[facility] Work Phone: Reason for visit Narrative* Diagnostic Procedure Only (Routine) - Closed Specialty Diagnoses / Procedures Referred By Contac t Referred To Contact US IMAGING Diagnoses Left lower quadrant pain Procedures US FEMALE PELVIS TRANSVAG US TRANSVAGINAL Geovany Cardenas MD [address] [facility] [facility] [place] [address] Us Imaging [id number] Referral ID Status Reason Start Date Expiration Date V isits Requested Visits Authorized [id number] Closed Auto-Generate d Referral 11/01/2023 11/30/2024 1 1 [facility] for visit Narrative* Auth/Cert (Routine) Specialty Diagnoses / Procedures Referred By Contac t Referred To Contact Diagnoses Chronic idiopathic constipation Left lower quadrant pain Right lower quadrant pain Procedures [place] COLONOSCOPY FLX DX W/COLLJ SPEC WHEN PFRMD [place] COLONOSCOPY W/BIOPSY SINGLE/MULTIPLE [place] COLSC FLX W/REMOVAL LESION BY HOT BX FORCEPS [place] COLSC FLX W/RMVL OF TUMOR POLYP LESION SNARE TQ [place] [id number] [facility] [address] [place] [address] Phone: tel: [phone] fax: Referral ID Status Reason Start Date Expiration Date Visits Re quested Visits Authorized [id number] 1 1 [facility] Work Phone: Summary Purpose Family History No Family History Records FoundUnknown Family Member Name Dates Details Family history of diabetes m ellitus: Paternal Grandfather(V18.0, Z83.3) Status:Active Family history of hypertensi on: Maternal Grandmother(V17.49, Z82.49) Status:Active Family history of cardiac di sorder: Maternal Grandmother(V17.49, Z82.49) Status:Active Unknown Family Member Name Dates Details Family history of diabetes m ellitus: Paternal Grandfather(V18.0, Z83.3) Status:Active Family history of hypertensi on: Maternal Grandmother(V17.49, Z82.49) Status:Active Family history of cardiac di sorder: Maternal Grandmother(V17.49, Z82.49) Status:Active Unknown Family Member Name Dates Details Family history of diabetes m ellitus: Paternal Grandfather(V18.0, Z83.3) Status:Active Family history of hypertensi on: Maternal Grandmother(V17.49, Z82.49) Status:Active Family history of cardiac di sorder: Maternal Grandmother(V17.49, Z82.49) Status:Active Unknown Family Member Name Dates Details Family history of diabetes m ellitus: Paternal Grandfather(V18.0, Z83.3) Status:Active Family history of hypertensi on: Maternal Grandmother(V17.49, Z82.49) Status:Active Family history of cardiac di sorder: Maternal Grandmother(V17.49, Z82.49) Status:Active Unknown Family Member Name Dates Details Family history of diabetes m ellitus: Paternal Grandfather(V18.0, Z83.3) Status:Active Family history of hypertensi on: Maternal Grandmother(V17.49, Z82.49) Status:Active Family history of cardiac di sorder: Maternal Grandmother(V17.49, Z82.49) Status:Active Advance Directives No Advanced Directives Records FoundLatest Code Status on File Code Status Date Activated Date Inactivated Comments Full Code 04/27/2023 1:39 AM 04/27/2023 2:24 PM Date Activated Date Inactivated Comments 04/27/2023 1:39 AM 04/27/2023 2:24 PM Date Activated Date Inactivated Comments 04/27/2023 1:39 AM 04/27/2023 2:24 PM Chief Complaint NEW PT HERE TODAY WITH CONCERNS OF A POSSIBLE CYST. PT STATES SHE HAS HAD ABDOMINAL PAIN FOR YEARS,ESPECIALLY ON THE RIGHT LOWER SIDE. PT HAS HAD U/S IN THE PAST TO CONFIRM THAT SHE HAS HAD CYST. PTSTATES SHE ALSO HAS PAIN DURING INTERCOURSE. PT HAS ALWAYS HAD REGULAR PERIODS UNTIL ABOUT A YEAR AGO. PT STATES HER PERIODS HAVE BEEN IRREGULAR AND SUPER HEAVY. PT WILL BLEED THROUGH A TAMPON IN AN HOUR. PT ALSO HAS JUST BEEN TREATED FOR BV AND YEAST INFECTION BY URGENT CARE.Patient here today for annual exam and follow up ultrasound results. She had to work so did not complete ultrasound so we will reschedule. Last pap around 5 years ago with history of abnormal paps. Complains of pelvic pain. Reason for Referral Specialty Diagnoses / Procedures Referred By Angela mendoza Referred To Contact Obstetrics and Gynecology Diagnoses , unspecified gestational age Procedures US Obstetric TransvaginaL First Trimester Zofia Arias, CNM [address] [place] [address] Referral ID Status Reason Start Date Expiration Date V isits Requested Visits Authorized [id number] Pending Review 01/25/2024 01/24/2025 1 1 Specialty Diagnoses / Procedures Referred By Angela mendoza Referred To Contact Gastroenterology Diagnoses Chronic idiopathic constipation Abdominal pain, LLQ Abdominal pain, RLQ Procedures Colonoscopy Screening; Average Risk Patient [place] COLONOSCOPY FLX DX W/COLLJ SPEC WHEN PFRMD [place] COLON CA SCRN NOT HI RSK IND [place] COLORECTAL SCRN; HI RISK IND [place] COLONOSCOPY W/BIOPSY SINGLE/MULTIPLE [place] COLSC FLX W/RMVL OF TUMOR POLYP LESION SNARE TQ [place] COLSC FLX W/REMOVAL LESION BY HOT BX FORCEPS Vesna Hill, DO [address] [facility], [facility] [address] [id number] Referral ID Status Reason Start Date Expiration Date V isits Requested Visits Authorized [id number] Authorized 11/30/2023 11/29/2024 1 1 Chief Complaint and Reason for Visit Chief Complaint Admit Date R/O IV FLUIDS December 18, 2024 1:20 pm Reason for Visit Admit Date 7 weeks gestation of November 1:20pm Nausea/vomiting in December 18, 2024 1:20pm Additional Source Comments INFORMATION SOURCE (unrecogn ized section and content) DATE CREATED AUTHOR 12/15/2018 [facility] DATE CREATED AUTHOR AUTHOR'S ORGANIZ ATION 12/08/2019 [employer] DATE CREATED AUTHOR AUTHOR'S ORGANIZ ATION 06/25/2022 [facility] DATE CREATED AUTHOR AUTHOR'S ORGANIZ ATION 07/13/2022 [employer] DATE CREATED AUTHOR AUTHOR'S ORGANIZ ATION 12/12/2023 [facility] DATE CREATED AUTHOR AUTHOR'S ORGANIZ ATION 12/21/2023 [facility] DATE CREATED AUTHOR AUTHOR'S ORGANIZ ATION 02/13/2024 [facility] DATE CREATED AUTHOR AUTHOR'S ORGANIZ ATION 02/13/2024 [facility] DATE CREATED AUTHOR AUTHOR'S ORGANIZ ATION 12/20/2024 [facility] DATE CREATED AUTHOR AUTHOR'S ORGANIZ ATION 12/28/2024 [facility] DATE CREATED AUTHOR AUTHOR'S ORGANIZ ATION 01/02/2025 [facility] DATE CREATED AUTHOR AUTHOR'S ORGANIZ ATION 03/20/2025 [facility] <item><item> Privacy Markings (unrecogniz ed section and content) Section Author: Racheal Ha PROHIBITION ON REDISCLOSURE OF CONFIDENTIAL INFORMATION This notice accompanies a disclosure of information concerning a client made to you with the consent of such client. Section Author: Racheal Ha PROHIBITION ON REDISCLOSURE OF CONFIDENTIAL INFORMATION This notice accompanies a disclosure of information concerning a client made to you with the consent of such client. Reason for Visit (unrecogniz ed section and content) Reason Comments New Patient Visit ESTABLISH NEW PATIEN T. C/O FLUCTUATING GLUCOSE READINGS. SOMETIMES GLUCOSE DROPS DESPITE EATING REGULARLY AND WHEN SHE EATS NUMBERS JUMP IMMEDIATELY. PATIENT ADMITS SHE DID RECENTLY CHANGE HER DIET IN ATTEMPT TO BE HEALTHIER AND LOSE WEIGHT. Reason Comments Vaginal Bleeding To ED per wheelchair c/o heavy vaginal bleeding after miscarriage yesterday. She reports abd cramping and dizziness as well. She reports bleeding through multiple towels and pads. 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 Reason Comments Results Specialty Diagnoses / Procedures Referred By Angela t Referred To Contact Diagnoses Chronic idiopathic constipation Left lower quadrant pain Right lower quadrant pain Procedures [place] COLONOSCOPY FLX DX W/COLLJ SPEC WHEN PFRMD [place] COLONOSCOPY W/BIOPSY SINGLE/MULTIPLE [place] COLSC FLX W/REMOVAL LESION BY HOT BX FORCEPS [place] COLSC FLX W/RMVL OF TUMOR POLYP LESION SNARE TQ [id number] [address] [place] [address] [phone] Referral ID Status Reason Start Date Expiration Date Visits Re quested Visits Authorized [id number] 1 1 Reason Comments New Patient Visit Constipation x 3 mon ths BM every 10 days with use of a laxative/ has no urgency to go, abdominal/ gas related pains, bloating. Reason Comments Reason Comments Nausea & Vomiting Reason Comments Vomiting C/o n/v x 3 weeks, n o c/o dizziness. Pt is approx 6-7 wks Reason Comments Follow Up Reason Comments Early OB vomiting Reason Comments Vomiting Pt complains of hype remesis. Pt approx 8 weeks . Pt has been vomiting most of her , has been unable to tolerate POP intake. Pt was seen here a week ago and dx with a UTI. She got one does of antibiotics Iv and then was unable to complete her course of oral antibiotics due to vomiting. Pt has been in contact with OB who wanted to put her on a zofran pump and send her to infusion center for antibiotic therapy, but ould not make that happen today. Pt has lost 16 # in 2 months. Reason Comments pressure in neck Reason Comments Vomiting During Nausea and vom iting, 8 weeks . Tried zofran at home without relief. Reason Comments Dizziness C/o dizziness since this AM. Pt is 8 weeks and 3 days and dx with hyperemesis . Reports taking phenergan, last dose was yesterday. Epigastric and lower abd cramping, denies any abnormal bleeding. Reason Comments [facility] Reason Comments Care Reason Comments US Specialty Diagnoses / Procedures Referred By Angela t Referred To Contact [facility] Diagnoses 9 weeks gestation of (HCC) Procedures OBSTETRIC ULTRASOUND WHI US PREG UTERUS AFTER 1ST TRIMEST GESTATION Kay Adamson, ANALILIA.ONDINA [address] [place] [address] Phone: tel: fax: [facility] [address] [place] [address] Referral ID Status Reason Start Date Expiration Date V isits Requested Visits Authorized [id number] Closed Auto-Generate d Referral 12/31/2024 12/31/2025 1 1 Reason Comments Nausea Reason Onset Date Comments Care 01/31/2025 Care Teams (unrecognized sec tion and content) Tube Drawing Supervisor Relationship Specialty Start Date End Date Jonn Lofton MD [address] [place] [address] PCP - General 06/21/22 Tube Drawing Supervisor Relationship Specialty Start Date End Date Maude Jones MD [address] [place] [address] PCP - General Internal Medicine 10/25/22 Maude Jones MD [address] [place] [address] PCP - MMO ACO PCP 11/19/22 Tube Drawing Supervisor Relationship Specialty Start Date End Date No, Physician [facility] PCP - General 03/20/23 Tube Drawing Supervisor Relationship Specialty Start Date End Date No, Physician [facility] PCP - General 03/20/23 Tube Drawing Supervisor Relationship Specialty Start Date End Date No, Physician [facility] PCP - General 03/20/23 Tube Drawing Supervisor Relationship Specialty Start Date End Date Jonn Lofton [address] [place] [address] PCP - General Family Medicine 11/02/15 Jonn Lofton [address] [place] [address] Family Medicine 11/02/15 Tube Drawing Supervisor Relationship Specialty Start Date End Date Jonn Lofton [address] [place] [address] PCP - General Family Medicine 11/02/15 Jonn Lofton [address] [place] [address] Family Medicine 11/02/15 Tube Drawing Supervisor Relationship Specialty Start Date End Date Jonn Lofton [address] [place] [address] PCP - General Family Medicine 11/02/15 Jonn Lofton [address] [place] [address] Family Medicine 11/02/15 Tube Drawing Supervisor Relationship Specialty Start Date End Date No, Physician [facility] PCP - General 03/20/23 Tube Drawing Supervisor Relationship Specialty Start Date End Date No, Physician [facility] PCP - General 03/20/23 Tube Drawing Supervisor Relationship Specialty Start Date End Date Jonn Lofton [address] [place] [address] PCP - General Family Medicine 11/02/15 Jonn Lofton [address] [place] [address] Family Medicine 11/02/15 Tube Drawing Supervisor Relationship Specialty Start Date End Date Jonn Lofton [address] [place] [address] PCP - General Family Medicine 11/02/15 Jonn Lofton [address] [place] [address] Family Medicine 11/02/15 Tube Drawing Supervisor Relationship Specialty Start Date End Date Maude Jones MD [address] [place] [address] PCP - General Internal Medicine 10/25/22 Maude Jones MD [address] [place] [address] PCP - MMO ACO PCP 11/19/22 Tube Drawing Supervisor Relationship Specialty Start Date End Date Maude Jones MD [address] [place] [address] PCP - General Internal Medicine 10/25/22 Maude Jones MD [address] [facility] [place] [address] PCP - MMO ACO PCP 11/19/22 Tube Drawing Supervisor Relationship Specialty Start Date End Date Jonn Lofton [address] [place] [address] PCP - General Family Medicine 11/02/15 Jonn Lofton [address] [place] [address] Family Medicine 11/02/15 Tube Drawing Supervisor Relationship Specialty Start Date End Date Maude Jones MD [address] [place] [address] PCP - General Internal Medicine 10/25/22 Vesna Hill DO [address] [facility], [facility] [address] [place] [address] PCP - MMO ACO PCP 01/21/24 Tube Drawing Supervisor Relationship Specialty Start Date End Date Jonn Lofton [address] [place] [address] PCP - General Family Medicine 11/02/15 Jonn Lofton [address] [place] [address] Family Medicine 11/02/15 Team Status: Inactive Member Role/Relationship Status Dates Lisbet Saini CNM Attending Provider Active Start: December 18, 2024 End: December 18, 2024 Lisbet Saini CNM Referring Provider Active Start: December 18, 2024 End: December 18, 2024 Tube Drawing Supervisor Relationship Specialty Start Date End Date Jonn Lofton [address] [place] [address] PCP - General Family Medicine 11/02/15 Jonn Lofton [address] [place] [address] Family Medicine 11/02/15 Tube Drawing Supervisor Relationship Specialty Start Date End Date Maude Jones MD [address] [place], [place] [id number] PCP - General Internal Medicine 10/25/22 Vesna Hill DO [address] [facility] [address] [place] [address] PCP - MMO ACO PCP 01/21/24 Tube Drawing Supervisor Relationship Specialty Start Date End Date Jonn Lofton [address] [place] [address] PCP - General Family Medicine 11/02/15 Jonn Lofton [address] [place] [address] Family Medicine 11/02/15 Tube Drawing Supervisor Relationship Specialty Start Date End Date Maude Jones MD [address] [place] [address] PCP - General Internal Medicine 10/25/22 Vesna Hill DO [address] [facility], [facility] [address] [place] [address] PCP - MMO ACO PCP 01/21/24 Tube Drawing Supervisor Relationship Specialty Start Date End Date Jonn Lofton [address] [place] [address] PCP - General Family Medicine 11/02/15 Jonn Lofton [address] [place] [address] Family Medicine 11/02/15 Tube Drawing Supervisor Relationship Specialty Start Date End Date Maude Jones MD [address] [place] [address] PCP - General Internal Medicine 10/25/22 Vesna Hill DO [address] [facility], [facility] [address] [place] [address] PCP - MMO ACO PCP 01/21/24 Tube Drawing Supervisor Relationship Specialty Start Date End Date Maude Jones MD [address] [place] [address] PCP - General Internal Medicine 10/25/22 Vesna Hill DO [address] [facility], [address] [place] [address] PCP - MMO ACO PCP 01/21/24 Tube Drawing Supervisor Relationship Specialty Start Date End Date Jonn Lofton [address] [place] [address] PCP - General Family Medicine 11/02/15 Jonn Lofton [address] [place] [address] Family Medicine 11/02/15 Tube Drawing Supervisor Relationship Specialty Start Date End Date Jonn Lofton [address] [place] [address] PCP - General Family Medicine 11/02/15 Jonn Lofton [address] [place] [address] Family Medicine 11/02/15 Tube Drawing Supervisor Relationship Specialty Start Date End Date Jonn Lofton [address] [place] [address] PCP - General Family Medicine 11/02/15 Jonn Lofton [address] [place] [address] Family Medicine 11/02/15 Tube Drawing Supervisor Relationship Specialty Start Date End Date Jonn Lofton [address] [place] [address] PCP - General Family Medicine 11/02/15 Jonn Lofton [address] [place] [address] Family Medicine 11/02/15 Tube Drawing Supervisor Relationship Specialty Start Date End Date Jonn Lofton [address] [place] [address] PCP - General Family Medicine 11/02/15 Jonn Lofton [address] [place] [address] Family Medicine 11/02/15 Tube Drawing Supervisor Relationship Specialty Start Date End Date Jonn Lofton [address] [place] [address] PCP - General Family Medicine 11/02/15 Jonn Lofton [address] [place] [address] Family Medicine 11/02/15 Tube Drawing Supervisor Relationship Specialty Start Date End Date Jonn Lofton [address] [place] [address] PCP - General Family Medicine 11/02/15 Jonn Lofton [address] [place] [address] Family Medicine 11/02/15 Tube Drawing Supervisor Relationship Specialty Start Date End Date Maude Jones MD [address] [place] [address] PCP - General Internal Medicine 10/25/22 Maude Jones MD [address] [place] [address] PCP - MMO ACO PCP 11/19/22 01/20/24 Scheduled Active and Recently Administ ered Medications (unrecognized section and content) Medication Order 04/24/2023 04/25/2023 04/26/2023 sodium chloride 0.9 % bolus 1,000 mL (COMPLETED) 1,000 mL, intravenous, at 1,000 mL/hr, Administer over 1 Hours, Once, On Mon04/26/23 at 1820, For 1 dose 1824 (New Bag - Prov ider: Samia Gorman, MINI)2003 (Stopped - Provider: Mary Plasencia RN) sodium chloride 0.9 % bolus 1,000 mL (COMPLETED) 1,000 mL, intravenous, at 2,000 mL/hr, Administer over 30 Minutes, Once, On Mon04/26/23 at 1850, For 1 dose 1850 (New Bag - Prov ider: Samia Gorman RN)2003 (Stopped - Provider: Mary Plasencia RN) Continuous Medication Order 04/24/2023 04/25/2023 04/26/2023 sodium chloride 0.9% infusion 200 mL/hr, intravenous, Continuous, Starting on Mon04/26/23 at 2024 2024 (New Bag - Prov ider: Mary Plasencia RN)2039 (Stopped - Provider: Mary Plasencia RN) Scheduled Medication Order 04/25/2023 04/26/2023 04/27/2023 ondansetron (ZOFRAN) injection 4 mg (COMPLETED) 4 mg, Intravenous, Once, On Mon04/26/23 at 2220, For 1 dose 2223 (Given - Provider: Chyna Lindsey RN) rho(D) immune globulin (RHOGAM) injection 300 mcg 300 mcg, Intramuscular, Once, On Shea 04/27/23 at 1300, For 1 dose 1300 (Due) Continuous Medication Order 04/25/2023 04/26/2023 04/27/2023 lactated Ringers infusion 125 mL/hr, Intravenous, Continuous, Starting on Mon04/27/23 at 0300 0228 (New Bag - Prov ider: Zaria Dudte, RN)0900 (Stopped - Provider: Yvette Jones RN) PRN Medication Order 04/25/2023 04/26/2023 04/27/2023 acetaminophen (TYLENOL) tablet 650 mg 650 mg, Oral, Every 4 hours PRN, headaches, Starting on Shea 04/27/23 at 0212 HYDROcodone-acetaminophen (NORCO) 5-325 mg per tablet 1 tablet 1 tablet, Oral, Every 4 hours PRN, moderate to severe pain, cramping, Starting on Shea 04/27/23 at 0209 ibuprofen (ADVIL,MOTRIN) tablet 600 mg 600 mg, Oral, Every 6 hours PRN, mild pain, Starting on Shea 04/27/23 at 0211, Give with Food Do Not Crush or Chew if administering orally due to bitter taste. May be crushed if given via tube. naloxone (NARCAN) injection 0.1 mg(Linked Group 1) 0.1 mg, Intravenous, As needed, opioid reversal, For respiratory rate less than or equal to 8 per minute., Starting on Shea 04/27/23 at 0205, Mix nalOXone (NARCAN) 0.4 mg (1mL) with 9 mL of Normal Saline to total 10 mL. Administer 0.1 mg (2.5mL) IV Push every 2 minutes until respiratory rate is 10 or greater. naloxone (NARCAN) injection 0.4 mg(Linked Group 1) 0.4 mg, Intravenous, As needed, opioid reversal, patient is pulseless, breathless, and unresponsive, Starting on Shea 04/27/23 at 0205, Call a code first, then administer naloxone dose undiluted IV Push over 30 seconds. Linked Groups Order Group 1: naloxone (NARCAN) injection 0.1 mgJump to med 0.1 mg, Intravenous, As needed, opioid reversal, For respiratory rate less than or equal to 8 per minute., Starting on Shea 04/27/23 at 0205
Mix nalOXone (NARCAN) 0.4 mg (1mL) with 9 mL of Normal Saline to total 10 mL. Administer 0.1 mg (2.5mL) IV Push every 2 minutes until respiratory rate is 10 or greater.
And Notify physician (CANCELED) STAT, Until discontinued, Starting on Shea 04/27/23 at 0206, Until Specified
Respiratory rate less than: 8
For respiratory rate less than or equal to 8, notify physician and/or appropriate staff for additional orders. And naloxone (NARCAN) injection 0.4 mgJump to med 0.4 mg, Intravenous, As needed, opioid reversal, patient is pulseless, breathless, and unresponsive, Starting on Shea 04/27/23 at 0205
Call a code first, then administer naloxone dose undiluted IV Push over 30 seconds.
Scheduled Medication Order 12/09/2024 12/10/2024 12/11/2024 cefTRIAXone (Rocephin) 1 g in dextrose (iso) IV 50 mL (COMPLETED) 1 g, intravenous, at 100 mL/hr, Administer over 30 Minutes, Once, On Mon12/10/24 at 2229, For 1 dose, premix bag, Suspected Indication (Select all that apply): Urinary Tract Infection, Type of Therapy: Empiric, Type of Urinary Tract Infection: Uncomplicated, Indications: Urinary Tract Infection 2309 (New Bag - Provider: Jennifer Leung RN) 30 (Stopped - Provider: Jennifer Leung, MINI) ondansetron (Zofran) injection 4 mg (COMPLETED) 4 mg, intravenous, Once, On Mon12/10/24 at 2034, For 1 dose, When administering via IV Push, administer over 3-5 minutes. 2043 (Given - Provider: Jennifer Leung, MINI) promethazine (Phenergan) 12.5 mg in sodium chloride 0.9% 50 mL IV (COMPLETED) 12.5 mg, intravenous, Administer over 15 Minutes, Once, On Mon12/10/24 at 223, For 1 dose 2245 (New Bag - Provider: Jennifer Leung RN)231 (Stopped - Provider: Jennifer Leung, MINI) sodium chloride 0.9 % bolus 1,000 mL (COMPLETED) 1,000 mL, intravenous, at 2,000 mL/hr, Administer over 30 Minutes, Once, On Mon12/10/24 at 2034, For 1 dose 2046 (New Bag - Provider: Jennifer Leung RN)2116 (Stopped - Provider: Jennifer Leung RN) Scheduled Medication Order 12/18/2024 12/19/202412/20/2024 ondansetron (Zofran) injection 4 mg (COMPLETED) 4 mg, intravenous, Once, On Mon12/20/24 at 1810, For 1 dose, When administering via IV Push, administer over 3-5 minutes. 1833 (Given - Provid er: Jayla Muñiz RN) ondansetron (Zofran) injection 4 mg (COMPLETED) 4 mg, intravenous, Once, On Mon12/20/24 at 1915, For 1 dose, When administering via IV Push, administer over 3-5 minutes. 192 (Given - Provid er: Jayla Muñiz RN) promethazine (Phenergan) 12.5 mg in sodium chloride 0.9% 50 mL IV (COMPLETED) 12.5 mg, intravenous, Administer over 15 Minutes, Once, On Mon12/20/24 at 2005, For 1 dose 2012 (New Bag - Prov ider: Jayla Muñiz RN)2029 (Stopped - Provider: Jayla Muñiz RN) sodium chloride 0.9 % bolus 1,000 mL (COMPLETED) 1,000 mL, intravenous, at 999 mL/hr, Administer over 1 Hours, Once, On Mon12/20/24 at 1810, For 1 dose 2003 (New Bag - Prov ider: Jayla Muñiz RN)2123 (Stopped - Provider: Jayla Muñiz RN) sodium chloride 0.9 % bolus 1,000 mL (COMPLETED) 1,000 mL, intravenous, at 2,000 mL/hr, Administer over 30 Minutes, Once, On Mon12/20/24 at 1810, For 1 dose 182 (New Bag - Prov ider: Jayla Muñiz RN)2004 (Stopped - Provider: Jayla Muñiz RN) Scheduled Medication Order 12/20/2024 12/21/2024 12/22/2024 promethazine (Phenergan) 12.5 mg in sodium chloride 0.9% 50 mL IV (COMPLETED) 12.5 mg, intravenous, Administer over 15 Minutes, Once, On Mon12/22/24 at 1230, For 1 dose 1246 (New Bag - Prov ider: Deloris Bosch RN)1309 (Stopped - Provider: Deloris Bosch RN) sodium chloride 0.9 % bolus 1,000 mL (COMPLETED) 1,000 mL, intravenous, at 999 mL/hr, Administer over 1 Hours, Once, On Mon12/22/24 at 1140, For 1 dose 1236 (New Bag - Prov ider: Deloris Boshc RN)1326 (Stopped - Provider: Deloris Bosch RN) sodium chloride 0.9 % bolus 1,000 mL (COMPLETED) 1,000 mL, intravenous, at 999 mL/hr, Administer over 1 Hours, Once, On Mon12/22/24 at 1140, For 1 dose 1149 (New Bag - Prov ider: Deloris Bosch RN)1236 (Stopped - Provider: Deloris Bosch RN) Continuous Medication Order 12/20/2024 12/21/2024 12/22/2024 sodium chloride 0.9% infusion 125 mL/hr, intravenous, Continuous, Starting on Mon12/22/24 at 1140, For 1 day 1400 (Gibson Bag - Prov ider: Deloris Bosch RN)1431 (Stopped - Provider: Deloris Bosch RN) Scheduled Medication Order 12/23/2024 12/24/2024 12/25/2024 promethazine (Phenergan) 12.5 mg in sodium chloride 0.9% 50 mL IV (COMPLETED) 12.5 mg, intravenous, Administer over 15 Minutes, Once, On Mon12/25/24 at 2135, For 1 dose 2154 (New Bag - Prov ider: Tamar Sousa, MINI)2210 (Stopped - Provider: Jill Ortiz, MINI) sodium chloride 0.9 % bolus 1,000 mL (COMPLETED) 1,000 mL, intravenous, at 999 mL/hr, Administer over 1 Hours, Once, On Mon12/25/24 at 2135, For 1 dose 215 (New Bag - Prov ider: Tamar Sousa, MINI)2330 (Stopped - Provider: Jill Ortiz, RN) Source Comments (unrecognize d section and content) In the event this informatio n is protected by the Federal Confidentiality of Alcohol and Drug Abuse Patient Records regulations: The Federal rules restrict any use of the information to criminally investigate or prosecute any alcohol or drug abuse patient.[facility] Center[facility] the event this information is protected by the Federal Confidentiality of Alcohol and Drug Abuse Patient Records regulations: The Federal rules restrict any use of the information to criminally investigate or prosecute any alcohol or drug abuse patient.[facility] CenterIn the event this information is protected by the Federal Confidentiality of Alcohol and Drug Abuse Patient Records regulations: The Federal rules restrict any use of the information to criminally investigate or prosecute any alcohol or drug abuse patient.[facility] CenterIn the event this information is protected by the Federal Confidentiality of Alcohol and Drug Abuse Patient Records regulations: The Federal rules restrict any use of the information to criminally investigate or prosecute any alcohol or drug abuse patient.[facility] CenterIn the event this information is protected by the Federal Confidentiality of Alcohol and Drug Abuse Patient Records regulations: The Federal rules restrict any use of the information to criminally investigate or prosecute any alcohol or drug abuse patient.[facility] CenterIn the event this information is protected by the Federal Confidentiality of Alcohol and Drug Abuse Patient Records regulations: The Federal rules restrict any use of the information to criminally investigate or prosecute any alcohol or drug abuse patient.[facility] CenterIn the event this information is protected by the Federal Confidentiality of Alcohol and Drug Abuse Patient Records regulations: The Federal rules restrict any use of the information to criminally investigate or prosecute any alcohol or drug abuse patient.[facility] CenterIn the event this information is protected by the Federal Confidentiality of Alcohol and Drug Abuse Patient Records regulations: The Federal rules restrict any use of the information to criminally investigate or prosecute any alcohol or drug abuse patient.[facility] CenterIn the event this information is protected by the Federal Confidentiality of Alcohol and Drug Abuse Patient Records regulations: The Federal rules restrict any use of the information to criminally investigate or prosecute any alcohol or drug abuse patient.[facility] CenterIn the event this information is protected by the Federal Confidentiality of Alcohol and Drug Abuse Patient Records regulations: The Federal rules restrict any use of the information to criminally investigate or prosecute any alcohol or drug abuse patient.[facility] CenterIn the event this information is protected by the Federal Confidentiality of Alcohol and Drug Abuse Patient Records regulations: The Federal rules restrict any use of the information to criminally investigate or prosecute any alcohol or drug abuse patient.[facility] CenterIn the event this information is protected by the Federal Confidentiality of Alcohol and Drug Abuse Patient Records regulations: The Federal rules restrict any use of the information to criminally investigate or prosecute any alcohol or drug abuse patient.[facility] CenterIn the event this information is protected by the Federal Confidentiality of Alcohol and Drug Abuse Patient Records regulations: The Federal rules restrict any use of the information to criminally investigate or prosecute any alcohol or drug abuse patient.[facility] CenterIn the event this information is protected by the Federal Confidentiality of Alcohol and Drug Abuse Patient Records regulations: The Federal rules restrict any use of the information to criminally investigate or prosecute any alcohol or drug abuse patient.[facility] CenterIn the event this information is protected by the Federal Confidentiality of Alcohol and Drug Abuse Patient Records regulations: The Federal rules restrict any use of the information to criminally investigate or prosecute any alcohol or drug abuse patient.[facility] CenterIn the event this information is protected by the Federal Confidentiality of Alcohol and Drug Abuse Patient Records regulations: The Federal rules restrict any use of the information to criminally investigate or prosecute any alcohol or drug abuse patient.[facility] CenterIn the event this information is protected by the Federal Confidentiality of Alcohol and Drug Abuse Patient Records regulations: The Federal rules restrict any use of the information to criminally investigate or prosecute any alcohol or drug abuse patient.[facility] CenterIn the event this information is protected by the Federal Confidentiality of Alcohol and Drug Abuse Patient Records regulations: The Federal rules restrict any use of the information to criminally investigate or prosecute any alcohol or drug abuse patient.[facility] CenterIn the event this information is protected by the Federal Confidentiality of Alcohol and Drug Abuse Patient Records regulations: The Federal rules restrict any use of the information to criminally investigate or prosecute any alcohol or drug abuse patient.[facility] CenterIn the event this information is protected by the Federal Confidentiality of Alcohol and Drug Abuse Patient Records regulations: The Federal rules restrict any use of the information to criminally investigate or prosecute any alcohol or drug abuse patient.[facility] Goals (unrecognized section and content) Goals may be documented in a n alternate section FOR RECORDS PERTAINING TO PATIENTS WHO ARE OR HAVE BEEN ENROLLED IN A CHEMICAL DEPENDENCY/SUBSTANCEABUSE PROGRAM, SOME INFORMATION MAY BE OMITTED. This clinical summary was aggregated from multiple sources. Caution should be exercised in using it in the provision of clinical care. This summary normalizes information from multiple sources, and as a consequence, information in this document may materially change the coding, format and clinical context of patient data. In addition, data may be omitted in some cases. CLINICAL DECISIONS SHOULD BE BASED ON THE PRIMARY CLINICAL RECORDS. [facility]. provides no warranty or guarantee of the accuracy or completeness of information in this document.
== END 2025-05-08 15:40 | disposition home or self-care (01) ==
LOC: WPOUT 13:06 → WP 13:06
PROVIDERS: Referring Provider Obstetrics & Gynecology; Visit Provider Obstetrics & Gynecology
DX: O99.891 Other specified diseases and conditions complicating pregnancy (principal); K83.1 Obstruction of bile duct; R19.7 Diarrhea, unspecified; O26.612 Liver and biliary tract disorders in pregnancy, second trimester; O99.612 Diseases of the digestive system complicating pregnancy, second trimester; O36.8120 Decreased fetal movements, second trimester, not applicable or unspecified; O21.2 Late vomiting of pregnancy; Z3A.27 27 weeks gestation of pregnancy
CPT/HCPCS: 96374; 96361; 36415; 59050; 80053; 81002; 82150; 83690; 87086; 87088; 99221; G0378; J2405

== ENCOUNTER 2025-05-20 17:20 | Outpatient (CLI) | payer OTHER, SELFPAY ==
[2025-05-20 17:31] VITALS: BMI 34.1
[2025-05-20 17:32] VITALS: PULSE 85; O2SAT 98
[2025-05-20 17:34] VITALS: BP 114/58; PULSE 85; RESP 16; TEMP 36.9
--- NOTE | 2025-05-20 17:57 | OB.TRI.NOTE ---
HPI - General General Date of Admission: 05/20/25 Date of Service: 05/20/25 Chief Complaint: decreased movement HPI Narrative ESPERANZA PEDRO, is a 35 F who presents decreased movement most of the day. Hx of cholestasis. movement improved upon presentation. Maternal Data Information Final SHREYA: 08/04[birth year] Gestational age: 29+2 [facility] Medical History (Updated 05/21/25 @ 01:[address] Clare Hooks MD) Nausea/vomiting in Home Medications ?Medication ?Instructions ?Recorded ?Last Taken ?Type aspirin 81 mg chewable tablet 1 tab PO DAILY 05/08/25 Unknown History (Aspirin Childrens) hydroxyzine HCl 25 mg tablet 25 mg PO QHS 05/08/25 Unknown History ondansetron HCl 4 mg tablet 4 mg PO Q8H 05/08/25 Unknown History promethazine 25 mg tablet 25 mg PO TID PRN nausea 05/08/25 Unknown History ursodiol 300 mg capsule 600 mg PO TID 05/08/25 Unknown History Allergy/AdvReac Type Severity Reaction Status Date / Time latex Allergy Intermediate Rash Verified 05/20/25 17:31 NST FHR Rate Baby A Baseline: 145 Variability:: Moderate Accelerations:: 15 x 15 Decelerations:: None NST Reactive:: Yes Uterine Activity:: none Assessment & Plan (1) 29 weeks gestation of : (2) Decreased movement affecting management of in third trimester: QUALIFIERS: Fetus number: single or unspecified fetus Qualified Code(s): O36.8130 - Decreased movements, third trimester, not applicable or unspecified PLAN: Plan Reactive NST
== END 2025-05-20 18:10 | disposition home or self-care (01) ==
LOC: WPOUT 17:22 → WP 17:22
PROVIDERS: Referring Provider Obstetrics & Gynecology; Visit Provider Obstetrics & Gynecology
DX: O36.8130 Decreased fetal movements, third trimester, not applicable or unspecified (principal); Z3A.29 29 weeks gestation of pregnancy
CPT/HCPCS: 59025; 59050; 99221; G0378